=== PATIENT | male | born 1960 | race Caucasian/White ===

== ENCOUNTER 2016-12-17 11:42 | Day surgery (SDC) | payer MEDICARE, MEDICAID ==
[~2016-12-17 11:42] MED LIST: Lactated Ringers 1,000 ML IV SCH
[2016-12-17] MEDS ORDERED: Propofol 200 MG/20 ML SDV ONE ×3 (12:13→14:30)
[2016-12-17] MEDS ORDERED: fentaNYL 100 MCG/2 ML SDV ONE (12:13)
[2016-12-17 15:12] VITALS: BP 102/55
--- NOTE | 2016-12-17 18:48 | OR ---
DATE OF SURGERY: 12/17/2016. REFERRING PROVIDER: Sammie Luna DO. PRE-OPERATIVE DIAGNOSES: 1. History of colon cancer status post partial colectomy in Nov, 2011. The patient's last colonoscopy was with Dr. Sheriff in June 2014. No biopsies done and the colon was noted to be normal. 2. History of ulcerative colitis. The patient currently on mesalamine (Lialda) 2.4 mg daily without any chronic diarrhea or rectal bleeding. POST-OPERATIVE DIAGNOSES: 1. Moderate colitis left greater than right. The right colon, actually was fairly normal with gradually increasing colitis in the transverse and more so on the left colon especially the rectal and sigmoid areas. Cold biopsies were taken and into right colon biopsies, transverse colon, biopsies, and left colon biopsies. 2. Focal biopsy taken and from the rest at 20 cm. There is a small island of white mucosa noted. 3. Normal colonic anastomosis sites. PROCEDURE: Colonoscopy with random biopsies as well as focal biopsy at 20 cm. All using cold forceps. SURGEON: Lev Murphy M.D. ANESTHESIA: Monitored anesthesia care. BOWEL PREP: Good. DESCRIPTION OF OPERATION: Dieter is a 56-year-old male. The patient was brought to the endoscopy suite after discussing risks and benefits of the procedure. Informed consent was obtained for conscious sedation and colonoscopy with or without biopsy and/or polypectomy. We also discussed possibility of missed lesions. Pre-procedure exam was unremarkable. IV, oxygen, and monitors were placed. The patient was placed in the left lateral decubitus position. Sedation was administered and a digital rectal exam performed and unremarkable. Colonoscope was passed into the rectum and slowly advanced all the way to the cecum. Cecum was viewed and photographed. The colonoscope was slowly withdrawn. Mucosa closely observed in direct circumferential manner. The ascending colon was pretty much normal in appearance. Once I got distal to the proximal anastomosis site, colonic mucosa started to look mildly inflamed. This gradually progressed as we traversed distally. Random biopsies were taken and into right colon, transverse colon, and left colon. No colon polyps were noted. The sigmoid colon was remarkable for moderate colitis as opposed to more proximal areas that were mildly inflamed. Retroflexion was not performed given the moderate inflammation of the rectal mucosa. Separate biopsy site was done at 20 cm, where there was a small island of white appearing mucosa. This was sessile in nature. Scope was removed. The patient tolerated the procedure well. The patient was monitored until that baseline status. Discharge instructions were reviewed and the patient was discharged in good condition. COMPLICATIONS: None. TOTAL TIME: 18 minutes. ESTIMATED BLOOD LOSS: About 2 mL. RECOMMENDATIONS/FOLLOWUP: We will await results of Path report to determine ideal followup interval. Given the mild to moderate colitis noted, consider increasing the patient's dose of Lialda to 3 tabs daily for better control of this inflammation especially if having any intermittent symptoms. The patient is not on any blood thinners. We will avoid any aspirin for the next 5 days. I would like to kindly thank Sammie Luna for this referral. DMB: 12/17/2016 15:08:47 MODL: 12/17/2016 18:43:25 /[id number]
== END 2016-12-17 15:35 | disposition home or self-care (01) ==
LOC: VM.SDS 11:42
PROVIDERS: ATTEND Family Medicine
DX: Z85.038 Personal history of other malignant neoplasm of large intestine (principal); Z90.49 Acquired absence of other specified parts of digestive tract
CPT/HCPCS: 00810; 45380; J2704; J3010; J7120; 88305

== ENCOUNTER 2019-02-23 17:51 | Emergency (ER) | payer MEDICARE, MEDICAID ==
[2019-02-23 20:02] LABS: CHLORIDE,CL 97 mmol/L (98-107); SODIUM,NA 137 mmol/L (136-145)
[2019-02-23 20:03] LABS: ANION GAP 15.9 mmol/L (10-20)
--- NOTE | 2019-02-23 20:30 | EDM.PDOC ---
ED HPI GENERAL MEDICAL PROBLEM - General Chief Complaint: Skin Complaint Stated Complaint: RIGHT LEG PROBLEM Time Seen by Provider: 02/23/19 19:24 Source of Information: Reports: Patient History Limitations: Reports: No Limitations - History of Present Illness INITIAL COMMENTS - FREE TEXT/NARRATIVE: Patient presents with complaints of right lower extremity rash and pain. He is worried that he has a blood clot and would like to be checked. He states the rash started today. Has history of prior clot and is a dialysis patient. Denies chest pain, sob, abdominal pain. No nausea, vomiting, or extremity weakness. Onset: Gradual Duration: Getting Worse Location: Reports: Lower Extremity, Right Quality: Reports: Ache - Related Data Allergies Allergy/AdvReac Type Severity Reaction Status Date / Time No Known Allergies Allergy Verified 02/23/19 20:51 Home Meds: Home Meds Multivitamin [Multiple Vitamins] 1 tab PO DAILY 12/04/13 [History] Acetaminophen [Tylenol Extra Strength] 325 mg PO Q4H PRN 06/07/14 [History] Magnesium 200 mg PO TID 05/05/16 [History] Calcium Acetate [PhosLo] 1 cap PO TID 12/08/16 [History] Cholecalciferol (Vitamin D3) [Vitamin D3] 1,000 unit PO DAILY 12/08/16 [History] Midodrine 10 mg PO TID 12/08/16 [History] Potassium Chloride 20 meq PO BID 12/08/16 [History] Cyanocobalamin (Vitamin B-12) [Cyanocobalamin Injection] 1,000 mcg IM Q30D 12/14 [History] Cyanocobalamin/FA/Pyridoxine [Folbic Tablet] 1 tab PO DAILY 12/14/18 [History] Darbepoetin Chinmay in Polysorbat [Aranesp] 0 - 150 mcg SQ Q7D 12/14/18 [History] Doxercalciferol [Hectorol] 0 - 10 mcg IV Q7D 12/14/18 [History] Furosemide [Lasix] 40 mg PO BID 12/14/18 [History] Sevelamer Carbonate [Renvela] 800 mg PO TID 12/14/18 [History] Sodium Ferric Gluconate Cmplex [Ferrlecit IV] 0 - 125 mg IV Q7D 12/14/18 [ History] predniSONE [Prednisone] 5 mg PO DAILY 12/14/18 [History] Past Medical History Cardiovascular History: Reports: Blood Clots/VTE/DVT, Hypertension, Other (See Below) Other Cardiovascular History: Hypokalemia. hypotension. venous stasis. lymphedema Other Gastrointestinal History: ulcerative colitis. anal and rectal abscess. elevated LFTs Genitourinary History: Reports: Chronic Renal Insuffiency, Renal Disease, Other (See Below) Other Genitourinary History: End Stage Renal Disease Musculoskeletal History: Reports: Back Pain, Chronic, Gout, Other (See Below) Other Musculoskeletal History: osteomyelitis left foot and right foot Neurological History: Reports: Neuropathy, Peripheral Other Neuro History: degeneration of lumbar or lumbosacral intervetebral disc, congenital spinal stenosis of lumbar region Endocrine/Metabolic History: Reports: Hyperparathyroidism, Obesity/BMI 30+, Other (See Below) Other Endocrine/Metabolic History: pancytopenia. hyperglyceridemia. hypomagnesemia Hematologic History: Reports: Anemia, Other (See Below) Other Hematologic History: MRSA Oncologic (Cancer) History: Reports: Colon Dermatologic History: Reports: Cellulitis, Eczema Other Dermatologic History: contact dermatitis - Infectious Disease History Infectious Disease History: Reports: MRSA - Past Surgical History Head Surgeries/Procedures: Reports: Shunt GI Surgical History: Reports: Colonoscopy Other GI Surgeries/Procedures: PART OF COLON REMOVED BECAUSE OF COLON CANCER. SEE H/P Neurological Surgical History: Reports: None Musculoskeletal Surgical History: Reports: Amputation, Knee Replacement, Other ( See Below) Other Musculoskeletal Surgeries/Procedures:: fx toe Oncologic Surgical History: Reports: Other (See Below) Other Oncologic Surgeries/Procedures: Colon surgury Social & Family History - Family History Musculoskeletal: Reports: Arthritis, Gout Dermatologic: Reports: Psoriasis - Caffeine Use Caffeine Use: Reports: Coffee Caffeine Use Comment: 1 to 2 cups of coffee a day - Living Situation & Occupation Occupation: Employed ED ROS GENERAL - Review of Systems Review Of Systems: See Below Constitutional: Reports: No Symptoms HEENT: Reports: No Symptoms Respiratory: Reports: No Symptoms Cardiovascular: Reports: No Symptoms Endocrine: Reports: No Symptoms GI/Abdominal: Reports: No Symptoms : Reports: No Symptoms Musculoskeletal: Reports: Leg Pain Skin: Reports: Rash Neurological: Reports: No Symptoms Psychiatric: Reports: No Symptoms Hematologic/Lymphatic: Reports: No Symptoms Immunologic: Reports: No Symptoms - Physical Exam Exam: See Below Exam Limited By: No Limitations General Appearance: Alert, WD/WN, No Apparent Distress Ears: Normal TMs Head Exam: Atraumatic, Normocephalic Neck: Normal Inspection, Supple, Non-Tender, Full Range of Motion Respiratory/Chest: No Respiratory Distress, Lungs Clear, Normal Breath Sounds, No Accessory Muscle Use, Chest Non-Tender Cardiovascular: Normal Peripheral Pulses, Regular Rate, Rhythm, No Edema, No Gallop, No JVD, No Murmur, No Rub GI/Abdominal: Normal Bowel Sounds, Soft, Non-Tender, No Organomegaly, No Distention, No Abnormal Bruit, No Mass Neuro Exam (Abbreviated): Alert, Oriented, CN II-XII Intact, Normal Cognition, Normal Gait, Normal Reflexes, No Motor/Sensory Deficits Back Exam: Normal Inspection, Full Range of Motion, NT Extremities: Normal Inspection, Normal Range of Motion, Non-Tender, No Pedal Edema, Normal Capillary Refill Psychiatric: Normal Affect, Normal Mood Skin Exam: Warm, Dry, Intact, Wound/Incision (right lower calf has macular rash both to the lateral and medial sides. Not indicitive of normal DVT type swelling and redness. Looks to be some sort of dermatitis) Course - Vital Signs Last Recorded V/S: Last Vital Signs Temp 36.1 C 02/23/19 19:30 Pulse 66 02/23/19 19:30 Resp 16 02/23/19 19:30 BP 110/70 02/23/19 19:30 Pulse Ox 100 02/23/19 19:30 - Orders/Labs/Meds Labs: Laboratory Tests 02/23/19 02/23/19 02/23/19 Range/Units 19:35 19:35 19:35 WBC 4.9 (4.0-10.0) x10^3/uL RBC 4.17 L (4.5-6.0) x10^6/uL Hgb 12.3 L D (14.0-18.0) g/dL Hct 37.3 L (40.0-52.0) % MCV 89.4 D (78.0-93.0) fL MCH 29.5 (26.0-32.0) pg MCHC 33.0 (32.0-36.0) g/dL RDW Coeff of Maurice 13.8 (10.0-15.0) % Plt Count 126 L (130-400) x10^3/uL Neut % (Auto) 71.8 (50.0-80.0) % Lymph % (Auto) 13.2 L (25.0-50.0) % Ventura % (Auto) 14.6 H (2.0-11.0) % Eos % (Auto) 0.2 (0.0-4.0) % Baso % (Auto) 0.2 (0.2-1.2) % D-Dimer, Quantitative 0.72 H (<=0.58) mg/LFEU Sodium 137 (136-145) mmol/L Potassium 3.9 (3.5-5.1) mmol/L Chloride 97 L (98-107) mmol/L Carbon Dioxide 28 (21-32) mmol/L Anion Gap 15.9 (10-20) mmol/L BUN 59 H D (7-18) mg/dL Creatinine 4.0 H* D (0.70-1.30) mg/dL Est Cr Clr Drug Dosing TNP Estimated GFR (MDRD) 15 Glucose 90 (74-106) mg/dL Calcium 8.9 (8.5-10.1) mg/dL Corrected Calcium 8.82 (8.5-10.1) mg/dL Total Bilirubin 0.7 (0.2-1.0) mg/dL AST 19 (15-37) U/L ALT 25 (16-63) U/L Alkaline Phosphatase 120 H (46-116) U/L Total Protein 7.8 (6.4-8.2) g/dL Albumin 4.1 (3.4-5.0) g/dL Globulin 3.7 Albumin/Globulin Ratio 1.11 Departure - Departure Time of Disposition: 20:31 Disposition: DC/Tfer to [facility] 02 Condition: Good Clinical Impression: Contact dermatitis - Discharge Information *PRESCRIPTION DRUG MONITORING PROGRAM REVIEWED*: Not Applicable *COPY OF PRESCRIPTION DRUG MONITORING REPORT IN PATIENT VAUGHN: Not Applicable Referrals: Sammie Luna DO [Primary Care Provider] - Forms: ED Department Discharge, Interfacility Transfer EMTALA ED Communication - ED Communication Date/Time Date: 02/23/19 Time Called: 20:00 - Discussed Case With (1) Discussed Case With (1): Admitting Provider (Dr. Cook in the ER did receive report and aware he will be arriving in the hour.) - Problem List & Annotations (1) Contact dermatitis SNOMED Code(s): 39524985 Code(s): L25.9 - UNSPECIFIED CONTACT DERMATITIS, UNSPECIFIED CAUSE Status: Acute Priority: Low Qualifiers: Contact dermatitis type: unspecified Contact dermatitis trigger: unspecified trigger Qualified Code(s): L25.9 - Unspecified contact dermatitis , unspecified cause - Problem List Review Problem List Initiated/Reviewed/Updated: Yes - Assessment/Plan Assessment:: dermatitis, unspecified Plan: Patient would like further work up as his D-Dimer level was high. He will transport through personal vehicle to [place] for additional testing to rule out DVT
[2019-02-23 20:51] VITALS: BP 110/70; PULSE 66
== END 2019-02-23 21:00 | disposition short-term general hospital (02) ==
LOC: VM.ED 17:51
DX: L25.9 Unspecified contact dermatitis, unspecified cause (principal); I12.0 Hypertensive chronic kidney disease with stage 5 chronic kidney disease or end stage renal disease; N18.6 End stage renal disease; M19.90 Unspecified osteoarthritis, unspecified site; E66.9 Obesity, unspecified; Z68.32 Body mass index [BMI] 32.0-32.9, adult; Z86.2 Personal history of diseases of the blood and blood-forming organs and certain disorders involving the immune mechanism; Z79.899 Other long term (current) drug therapy
CPT/HCPCS: 36415; 80053; 85025; 85379; 99284; 99284-GF

== ENCOUNTER 2019-12-11 18:26 | Emergency (ER) | payer MEDICARE, MEDICAID ==
[2019-12-11 18:39] VITALS: BP 115/60; PULSE 80
[2019-12-11] MEDS ORDERED: Take Home: Cephalexin 500 MG Cap, 4 Cap Pack PO ONE (18:52)
--- NOTE | 2019-12-12 10:08 | EDM.PDOC ---
ED HPI GENERAL MEDICAL PROBLEM - General Chief Complaint: Lower Extremity Injury/Pain Stated Complaint: TOE Time Seen by Provider: 12/11/19 18:30 Source of Information: Reports: Patient History Limitations: Reports: No Limitations - History of Present Illness INITIAL COMMENTS - FREE TEXT/NARRATIVE: Pt. presents to ER with complaints of redness to 5th digit of R foot. He is on dialysis. He walks several miles per say and states that he thinks the post up shoe he has been wearing has been rubbing on the toe. He states that the area is being followed by podiatry , but he feels the redness has gotten worse. Denies any fever or chills. No sweats. Denies any chest pain or shortness of breath. Right Toe-Little Pain Score (Numeric/FACES): 6 - Related Data Allergies Allergy/AdvReac Type Severity Reaction Status Date / Time No Known Allergies Allergy Verified 12/11/19 18:42 Home Meds: Home Meds Multivitamin [Multiple Vitamins] 1 tab PO DAILY 12/04/13 [History] Acetaminophen [Tylenol Extra Strength] 325 mg PO Q4H PRN 06/07/14 [History] Magnesium 200 mg PO TID 05/05/16 [History] Calcium Acetate [PhosLo] 1 cap PO TID 12/08/16 [History] Cholecalciferol (Vitamin D3) [Vitamin D3] 1,000 unit PO DAILY 12/08/16 [History] Midodrine 10 mg PO TID 12/08/16 [History] Potassium Chloride 20 meq PO BID 12/08/16 [History] Cyanocobalamin (Vitamin B-12) [Cyanocobalamin Injection] 1,000 mcg IM Q30D 12/14 [History] Cyanocobalamin/FA/Pyridoxine [Folbic Tablet] 1 tab PO DAILY 12/14/18 [History] Darbepoetin Chinmay in Polysorbat [Aranesp] 0 - 150 mcg SQ Q7D 12/14/18 [History] Furosemide [Lasix] 40 mg PO BID 12/14/18 [History] Sevelamer Carbonate [Renvela] 800 mg PO TID 12/14/18 [History] Sodium Ferric Gluconate Cmplex [Ferrlecit IV] 0 - 125 mg IV Q7D 12/14/18 [ History] doxercalciferoL [Hectorol] 0 - 10 mcg IV Q7D 12/14/18 [History] predniSONE [Prednisone] 5 mg PO DAILY 12/14/18 [History] Past Medical History Cardiovascular History: Reports: Blood Clots/VTE/DVT, Hypertension, Other (See Below) Other Cardiovascular History: Hypokalemia. hypotension. venous stasis. lymphedema Other Gastrointestinal History: ulcerative colitis. anal and rectal abscess. elevated LFTs Genitourinary History: Reports: Chronic Renal Insuffiency, Dialysis, Renal Disease, Other (See Below) Other Genitourinary History: End Stage Renal Disease Musculoskeletal History: Reports: Back Pain, Chronic, Gout, Other (See Below) Other Musculoskeletal History: osteomyelitis left foot and right foot Neurological History: Reports: Neuropathy, Peripheral Other Neuro History: degeneration of lumbar or lumbosacral intervetebral disc, congenital spinal stenosis of lumbar region Endocrine/Metabolic History: Reports: Hyperparathyroidism, Obesity/BMI 30+, Other (See Below) Other Endocrine/Metabolic History: pancytopenia. hyperglyceridemia. hypomagnesemia Hematologic History: Reports: Anemia, Other (See Below) Other Hematologic History: MRSA Oncologic (Cancer) History: Reports: Colon Dermatologic History: Reports: Cellulitis, Eczema Other Dermatologic History: contact dermatitis - Infectious Disease History Infectious Disease History: Reports: MRSA - Past Surgical History Head Surgeries/Procedures: Reports: Shunt GI Surgical History: Reports: Colonoscopy Other GI Surgeries/Procedures: PART OF COLON REMOVED BECAUSE OF COLON CANCER. SEE H/P Musculoskeletal Surgical History: Reports: Amputation, Knee Replacement, Other ( See Below) Other Musculoskeletal Surgeries/Procedures:: fx toe Oncologic Surgical History: Reports: Other (See Below) Other Oncologic Surgeries/Procedures: Colon surgery Social & Family History - Family History Musculoskeletal: Reports: Arthritis, Gout Dermatologic: Reports: Psoriasis - Tobacco Use Smoking Status *Q: Current Status Unknown - Caffeine Use Caffeine Use: Reports: Coffee Caffeine Use Comment: 1 to 2 cups of coffee a day - Living Situation & Occupation Occupation: Employed ED ROS GENERAL - Review of Systems Review Of Systems: Comprehensive ROS is negative, except as noted in HPI. ED EXAM, GENERAL - Physical Exam Exam: See Below Extremities: Redness, Other (Erythema to 5th digit R foot. Redness extends into the fore-foot. No obvious abscess or open lesions noted. ) Course - Vital Signs Last Recorded V/S: Last Vital Signs Temp 36.8 C 12/11/19 18:30 Pulse 80 12/11/19 18:30 Resp 16 12/11/19 18:30 BP 115/60 12/11/19 18:30 Pulse Ox 99 12/11/19 18:30 - Orders/Labs/Meds Meds: Medications Discontinued Medications Generic Name Dose Route Start Last Admin Trade Name Rosendo PRN Reason Stop Dose Admin Cephalexin 1 packet 12/11/19 18:52 12/11/19 18:59 Take Home: Cephalexin 500 Mg, 4 Cap Pack PO 12/11/19 18:53 1 packet ONETIME ONE Administration Departure - Departure Time of Disposition: 19:30 Disposition: Home, Self-Care 01 Clinical Impression: Cellulitis - Discharge Information Instructions: Cellulitis, Adult, Cephalexin tablets or capsules, Probiotics Referrals: Sammie Luna, [Primary Care Provider] - Forms: ED Department Discharge Additional Instructions: Keflex 500mg 1 twice daily. Elevate foot above heart as much as possible Follow-up with podiatry within 10 days. You may need a different type of shoe to keep from rubbing on the toe. Sepsis Event Note (ED) - Evaluation Sepsis Screening Result: No Definite Risk - Assessment/Plan Plan: Keflex 500mg 1 twice daily. Elevate foot above heart as much as possible Follow-up with podiatry within 10 days. You may need a different type of shoe to keep from rubbing on the toe.
== END 2019-12-11 19:03 | disposition home or self-care (01) ==
LOC: VM.ED 18:26
DX: L03.115 Cellulitis of right lower limb (principal); N18.6 End stage renal disease; E66.9 Obesity, unspecified; Z99.2 Dependence on renal dialysis; G62.9 Polyneuropathy, unspecified
CPT/HCPCS: 99282; 99284-GF; A9270-GY

== ENCOUNTER 2020-01-11 10:44 | Day surgery (SDC) | payer MEDICARE, MEDICAID ==
[2020-01-11] MEDS ORDERED: Propofol 200 MG/20 ML SDV ONE ×2 (11:07→12:14)
[2020-01-11] MEDS ORDERED: fentaNYL 100 MCG/2 ML SDV ONE (11:08)
[2020-01-11] MEDS ORDERED: Sodium Chloride 0.9% 1,000 ML IV SCH (11:45)
[2020-01-11 13:25] VITALS: BP 104/54; PULSE 56
--- NOTE | 2020-01-11 15:32 | OR ---
DATE OF SURGERY: 01/11/2020 REFERRING PROVIDER: Sammie Luna DO PRE-OPERATIVE DIAGNOSES: 1. History of colon cancer back in 2006. Last colonoscopy was 12/2016. 2. History of inflammatory bowel disease. The patient has been told ulcerative colitis initially, but most recently was told Crohn's. He is not currently on any medications after previously being on Lialda. 3. Positive family history of colon cancer in maternal grandmother in her late 70s. 4. End-stage renal disease. The patient is on dialysis twice a week. POST-OPERATIVE DIAGNOSES: 1. Indistinct (not well-circumscribed) sessile polypoid mass covering about one quarter circumference of the colon lumen located at about 20 cm from the anal verge. This was mostly removed using hot snare and then several cold biopsies taken from the periphery using cold forceps. The area was marked with ink both proximally and distally, as I do not believe that this was completely removed. This is likely to require referral. 2. [id number] diffuse colitis, left greater than right. Random biopsies taken from right colon, transverse colon, descending colon, sigmoid colon, and rectal areas. PROCEDURE: Colonoscopy with polypectomy x1 and cold biopsies taken from 6 sites. SURGEON: Lev Murphy M.D. ANESTHESIA: Monitored anesthesia care. BOWEL PREP: Fair to good. Dieter is a 59-year-old male who was brought to the endoscopy suite after discussing risks and benefits of the procedure. Informed consent was obtained for conscious sedation and colonoscopy with or without biopsy and/or polypectomy. We also discussed possibility of missed lesions. Pre-procedure exam was unremarkable. IV, oxygen, and monitors were placed. The patient was placed in the left lateral decubitus position. Sedation was administered and a digital rectal exam was performed, which was unremarkable. Colonoscope was passed into the rectum and slowly advanced all the way to the cecum. The patient did have a large cecal vault. Cecum was viewed and photographed. The colonoscope was slowly withdrawn and mucosa was closely observed in direct circumferential manner. The patient did have diffuse colitis, which was mild in the right colon and transverse colon. The left colon and rectal areas had more moderate colitis seen. Random biopsies were taken separately from the right colon, transverse colon, descending colon, sigmoid colon, and rectal areas. The ascending colon was unremarkable. The transverse colon was unremarkable. The descending colon was unremarkable. The rectosigmoid junction at about 20 cm from the anal verge revealed an indistinct or not well-circumscribed sessile polypoid mass. This covered about a quarter circumference of the colon lumen. Hot snare was done, which removed the majority of the central portion of the polypoid mass. I also took several biopsies using cold forceps from the periphery of this area. Area was marked with ink both proximally and distally to the area in question. I am worried about area of dysplasia or early cancerous tissue. We will await path and consider referral for further management. Retroflexion was performed and rectal mucosa unremarkable, other than the proctitis present. Rectal proctitis was mild. Scope was removed. The patient tolerated the procedure well. The patient was monitored until that baseline status. Discharge instructions were reviewed and the patient was discharged in good condition. COMPLICATIONS: None. TOTAL TIME: 36 minutes. ESTIMATED BLOOD LOSS: 2 to 3 mL. RECOMMENDATIONS/FOLLOW-UP: We will await results of path report to determine next step in evaluation. I am suspicious that the rectosigmoid area has area of dysplasia or early cancerous tissue. We will consider referral to Gastroenterology and/or Colorectal Surgery given the patient's colitis in addition to the polypoid sessile mass. I do not believe that this was completely removed today, given the indistinct borders noted. I would like to kindly thank Sammie Luna for this referral. DMB: 01/11/2020 13:26:39 MODL: 01/11/2020 15:01:06 /[id number]
== END 2020-01-11 13:40 | disposition home or self-care (01) ==
LOC: VM.SDS 10:44
PROVIDERS: ATTEND Family Medicine
DX: Z12.11 Encounter for screening for malignant neoplasm of colon (principal); K52.9 Noninfective gastroenteritis and colitis, unspecified; D12.7 Benign neoplasm of rectosigmoid junction; K51.40 Inflammatory polyps of colon without complications; N17.9 Acute kidney failure, unspecified; I12.0 Hypertensive chronic kidney disease with stage 5 chronic kidney disease or end stage renal disease; K62.89 Other specified diseases of anus and rectum; N18.6 End stage renal disease; E66.01 Morbid (severe) obesity due to excess calories; E78.1 Pure hyperglyceridemia; D63.1 Anemia in chronic kidney disease; N25.81 Secondary hyperparathyroidism of renal origin; E11.42 Type 2 diabetes mellitus with diabetic polyneuropathy; Z11.59 Encounter for screening for other viral diseases; Z79.899 Other long term (current) drug therapy; Z86.010 Personal history of colon polyps; Z98.890 Other specified postprocedural states; Z87.19 Personal history of other diseases of the digestive system; Z80.0 Family history of malignant neoplasm of digestive organs
CPT/HCPCS: 00811; 88305; J2704; J3010; J7030; U0002

== ENCOUNTER 2020-02-18 22:03 | Emergency (ER) | payer MEDICARE, MEDICAID ==
[2020-02-18 23:57] VITALS: BP 130/92; PULSE 59
[2020-02-19 00:17] LABS: CHLORIDE,CL 101 mmol/L (98-107); SODIUM,NA 138 mmol/L (136-145)
[2020-02-19 00:18] LABS: ANION GAP 10.4 mmol/L (10-20)
--- NOTE | 2020-02-19 00:52 | EDM.PDOC ---
ED HPI GENERAL MEDICAL PROBLEM - General Chief Complaint: General Stated Complaint: SOB Time Seen by Provider: 02/18/20 23:30 Source of Information: Reports: Patient History Limitations: Reports: No Limitations - History of Present Illness INITIAL COMMENTS - FREE TEXT/NARRATIVE: This patient comes emergency department today with complaints of shortness of breath. Patient just recently discontinued dialysis about 5 weeks ago as he has had quite a bit of improvement of his kidney function on its own. Over the past couple of days he has been more short of breath than he typically has been. He did talk with his relationship assoc today and they are going to try to get him into dialysis tomorrow possibly. He did take an extra Lasix today for a total of 100 mg of Lasix throughout the day. He has had no pain in his chest. No weakness dizziness lightheadedness. No fever no chills. No syncope. No cough or congestion. No COVID exposure COVID concerns. He has had no abdominal pain nausea or vomiting. No fever no chills. He has been voiding normally. No hematuria dysuria or urinary frequency. And no diarrhea black or tarry stools. He does say that he has a little bit more swelling on his lower extremities. His right lower extremity is chronically larger than the left due to previous DVT in his leg. And his calves are nontender. - Related Data Allergies Allergy/AdvReac Type Severity Reaction Status Date / Time No Known Allergies Allergy Verified 02/19/20 00:12 Home Meds: Home Meds Acetaminophen [Tylenol Extra Strength] 325 mg PO Q4H PRN 06/07/14 [History] Midodrine 10 mg PO TID 12/08/16 [History] Potassium Chloride 20 meq PO BID 12/08/16 [History] Furosemide [Lasix] 40 mg PO BID 12/14/18 [History] Magnesium Oxide [Magnesium] 800 mg PO DAILY 01/01/20 [History] Docusate Sodium/Sennosides [Senokot-S] 1 each PO BID PRN 02/19/20 [History] predniSONE [Prednisone] 1 mg PO DAILY 02/19/20 [History] Past Medical History Cardiovascular History: Reports: Blood Clots/VTE/DVT, Hypertension, Other (See Below) Other Cardiovascular History: thorasic aortic aneurysm without rupture. venous stasis. lymphedema Gastrointestinal History: Reports: Other (See Below) Other Gastrointestinal History: ulcerative colitis. anal and rectal abscess. elevated LFTs Genitourinary History: Reports: Dialysis, Renal Disease, Other (See Below) Other Genitourinary History: End Stage Renal Disease. 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 hyperglyceridemia. hypomagnesemia. hypercalcemia. chronic gout Hematologic History: Reports: Anemia, Iron Deficiency Immunologic History: Reports: Other (See Below) Other Immunologic History: pancytopenia. splenomegaly Oncologic (Cancer) History: Reports: Colon Dermatologic History: Other Dermatologic History: contact dermatitis - Infectious Disease History Infectious Disease History: Reports: MRSA - Past Surgical History Head Surgeries/Procedures: Reports: Shunt Cardiovascular Surgical History: Reports: Other (See Below) Other Cardiovascular Surgeries/Procedures: left AV shunt fistual GI Surgical History: Reports: Colon, Colonoscopy Other GI Surgeries/Procedures: PART OF COLON REMOVED BECAUSE OF COLON CANCER. SEE H/P Neurological Surgical History: Reports: None Musculoskeletal Surgical History: Reports: Amputation, Knee Replacement, Other (See Below) Other Musculoskeletal Surgeries/Procedures:: rt and lt TKA. amputations: rt partial #2,#3 and #4 toe, lt #5 toe, lt partial #2,#3 and #4 toe, Social & Family History - Family History Musculoskeletal: Reports: Arthritis, Gout Dermatologic: Reports: Psoriasis - Tobacco Use Smoking Status *Q: Former Smoker Used Tobacco, but Quit: Yes Month/Year Tobacco Last Used: 2014 - Caffeine Use Caffeine Use: Reports: Coffee Caffeine Use Comment: 1 to 2 cups of coffee a day - Living Situation & Occupation Occupation: Employed ED ROS GENERAL - Review of Systems Review Of Systems: Comprehensive ROS is negative, except as noted in HPI. ED EXAM, GENERAL - Physical Exam Exam: See Below Exam Limited By: No Limitations General Appearance: Alert, WD/WN, No Apparent Distress Eye Exam: Bilateral Eye: EOMI, PERRL Ears: Normal External Exam Nose: Normal Inspection Throat/Mouth: Normal Inspection Head: Atraumatic, Normocephalic Neck: Normal Inspection Respiratory/Chest: No Respiratory Distress, Lungs Clear, Normal Breath Sounds, No Accessory Muscle Use, Chest Non-Tender Cardiovascular: Normal Peripheral Pulses, Regular Rate, Rhythm, Systolic Murmur Peripheral Pulses: 1+: Posterior Tibial (L), Posterior Tibial (R), Dorsalis Pedis (L), Dorsalis Pedis (R), 2+: Radial (L), Radial (R) GI/Abdominal: Normal Bowel Sounds, Soft, Non-Tender (Male) Exam: Deferred Rectal (Males) Exam: Deferred Back Exam: Normal Inspection Extremities: Pedal Edema (2+ edema to bilateral lower extremities. His right leg is quite a bit larger than the left but it is nontender and nonerythematous and rather unremarkable.) Neurological: Alert, Oriented, Normal Cognition, No Motor/Sensory Deficits Psychiatric: Normal Affect, Normal Mood Skin Exam: Warm, Dry, Intact, Normal Color, No Rash EKG INTERPRETATION EKG Date: 02/19/20 Time: 00:02 Rhythm: NSR Rate (Beats/Min): 53 [place]: Normal P-Wave: Present QRS: Normal ST-T: Normal QT: Normal Comparison: No Change Course - Vital Signs Last Recorded V/S: Last Vital Signs Temp 97.5 F 02/18/20 23:54 Pulse 59 L 02/18/20 23:54 Resp 18 02/18/20 23:54 BP 130/92 H 02/18/20 23:54 Pulse Ox 100 02/18/20 23:54 - Orders/Labs/Meds Orders: Active Orders 24 hr Category Date Time Status Chest 2V [CR] Urgent Exams 02/18/20 23:45 Taken Labs: Laboratory Tests 02/18/20 02/18/20 Range/Units 23:55 23:55 WBC 4.0 (4.0-10.0) x10^3/uL RBC 3.82 L (4.5-6.0) x10^6/uL Hgb 11.6 L (14.0-18.0) g/dL Hct 35.1 L (40.0-52.0) % MCV 91.9 (78.0-93.0) fL MCH 30.4 (26.0-32.0) pg MCHC 33.0 (32.0-36.0) g/dL RDW Coeff of Maurice 14.9 (10.0-15.0) % Plt Count 123 L (130-400) x10^3/uL Neut % (Auto) 69.3 (50.0-80.0) % Lymph % (Auto) 19.1 L (25.0-50.0) % [place] % (Auto) 10.9 (2.0-11.0) % Eos % (Auto) 0.2 (0.0-4.0) % Baso % (Auto) 0.5 (0.2-1.2) % Sodium 138 (136-145) mmol/L Potassium 3.4 L (3.5-5.1) mmol/L Chloride 101 (98-107) mmol/L Carbon Dioxide 30 (21-32) mmol/L Anion Gap 10.4 (10-20) mmol/L BUN 34 H D (7-18) mg/dL Creatinine 2.3 H D (0.70-1.30) mg/dL Est Cr Clr Drug Dosing TNP Estimated GFR (MDRD) 29 Glucose 91 (74-106) mg/dL Calcium 8.7 (8.5-10.1) mg/dL Corrected Calcium 8.78 (8.5-10.1) mg/dL Total Bilirubin 0.6 (0.2-1.0) mg/dL AST 30 (15-37) U/L ALT 37 (16-63) U/L Alkaline Phosphatase 108 (46-116) U/L Troponin I < 0.017 (<=0.056) ng/mL Total Protein 7.5 (6.4-8.2) g/dL Albumin 3.9 (3.4-5.0) g/dL Globulin 3.6 Albumin/Globulin Ratio 1.08 - Radiology Interpretation Free Text/Narrative:: Chest x-ray negative per radiology. - Re-Assessments/Exams Free Text/Narrative Re-Assessment/Exam: 02/19/20 01:43 During the patient's chart his kidney function has at about baseline. About 3 weeks ago was 2.2 today is 2.3. The rest of his laboratory evaluation is unremarkable and his hemoglobin is at baseline as well. His dry weight is 117 kg and today he is 123 kg. So he was up about 6 kg. Is currently in no distress his potassium is kind of chronically low at 3.4. I think the best course of action at this time will have him take an extra dose of Lasix and talk with his relationship assoc tomorrow which she has already planned on doing to get a run of dialysis. He is comfortable with this plan and his questions are answered. Departure - Departure Time of Disposition: 00:46 Disposition: Home, Self-Care 01 Clinical Impression: SOB (shortness of breath) CKD (chronic kidney disease) Qualifiers: Chronic kidney disease stage: unspecified stage Qualified Code(s): N18.9 - Chronic kidney disease, unspecified - Discharge Information Instructions: Chronic Kidney Disease, Adult, [id number] Referrals: Sammie Luna DO [Primary Care Provider] - Forms: ED Department Discharge Additional Instructions: Take an extra dose of lasix for a total of 60mg in the morning. Contact your relationship assoc tomorrow as planned. Return to the ED if new or worsening symptoms. Sepsis Event Note (ED) - Evaluation Sepsis Screening Result: No Definite Risk - Focused Exam Vital Signs: Vital Signs Temp Pulse Resp BP Pulse Ox 02/18/20 23:54 97.5 F 59 L 18 130/92 H 100 - My Orders Last 24 Hours: My Active Orders 02/18/20 23:45 Chest 2V [CR] Urgent - Assessment/Plan Last 24 Hours: My Active Orders 02/18/20 23:45 Chest 2V [CR] Urgent
--- NOTE | 2020-02-19 08:38 | CR ---
[id number] RAD/RAD Chest PA or AP 1V EXAM: FRONTAL CHEST INDICATION: Chest pain and shortness of breath. COMPARISON: May 28, 2016. DISCUSSION: The lungs are mildly hyperinflated with possible scarring in the right upper lobe. No definite acute infiltrates. Normal heart size. Interval removal of a right IJ approach dialysis catheter. IMPRESSION: 1. No acute findings. Max Billingsley MD 02/19/20 0837 Thank you for allowing us to participate in the care of your patient.
== END 2020-02-19 00:55 | disposition home or self-care (01) ==
LOC: VM.ED 22:03
DX: I12.0 Hypertensive chronic kidney disease with stage 5 chronic kidney disease or end stage renal disease (principal); N18.6 End stage renal disease; G62.9 Polyneuropathy, unspecified; E66.9 Obesity, unspecified; Z79.899 Other long term (current) drug therapy
CPT/HCPCS: 36415; 71046; 80053; 84484; 85025; 93005; 93010; 99284; 99285-25

== ENCOUNTER 2020-03-11 15:36 | Emergency (ER) | payer MEDICARE, MEDICAID ==
[2020-03-11 15:48] VITALS: BP 119/63; PULSE 95
--- NOTE | 2020-03-11 16:39 | EDM.PDOC ---
ED HPI GENERAL MEDICAL PROBLEM - General Chief Complaint: General Stated Complaint: SWELLING IN LEG AND ARM Time Seen by Provider: 03/11/20 15:50 Source of Information: Reports: Patient History Limitations: Reports: No Limitations - History of Present Illness INITIAL COMMENTS - FREE TEXT/NARRATIVE: Pt. presents to ER with complaints of swelling to his R upper extremity and R lo wer extremity, as well as pain to his R foot and R middle finger. He states that he has been experiencing these symptoms for approx. 5 days. Pt. does have a history of DVT but is not currently anticoagulated. Pt. previously was on dialysis but has been off of it for approx. 5-6 weeks due to improvement in his renal function. He states that he is not experiencing any chest pain or shortness of breath at this time. Pt. states that he thinks his R lower leg has increased in size, but in past examination of the patient, he is known to have increased R lower leg circumference. He has a history of peripheral neuropathy, and states that he"thinks his whole foot" hurts, but states that it is worse in the forefoot, particularly in the great toe area. 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 Denies lack of sensation to the extremity at this time. No problems with headache, speech troubles, or difficulty with ambulation. Onset Date: 03/07/20 Location: Reports: Upper Extremity, Left, Upper Extremity, Right Quality: Reports: Ache Right Pain Score (Numeric/FACES): 5 - Related Data Allergies Allergy/AdvReac Type Severity Reaction Status Date / Time No Known Allergies Allergy Verified 02/19/20 00:12 Home Meds: Home Meds Acetaminophen [Tylenol Extra Strength] 325 mg PO Q4H PRN 06/07/14 [History] Midodrine 10 mg PO TID 12/08/16 [History] Potassium Chloride 20 meq PO BID 12/08/16 [History] Furosemide [Lasix] 40 mg PO BID 12/14/18 [History] Magnesium Oxide [Magnesium] 800 mg PO DAILY 01/01/20 [History] Docusate Sodium/Sennosides [Senokot-S] 1 each PO BID PRN 02/19/20 [History] predniSONE [Prednisone] 1 mg PO DAILY 02/19/20 [History] Past Medical History Cardiovascular History: Reports: Blood Clots/VTE/DVT, Hypertension, Other (See Below) Other Cardiovascular History: thorasic aortic aneurysm without rupture. venous stasis. lymphedema Gastrointestinal History: Reports: Other (See Below) Other Gastrointestinal History: ulcerative colitis. anal and rectal abscess. elevated LFTs Genitourinary History: Reports: Dialysis, Renal Disease, Other (See Below) Other Genitourinary History: End Stage Renal Disease. 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 hyperglyceridemia. hypomagnesemia. hypercalcemia. chronic gout Hematologic History: Reports: Anemia, Iron Deficiency Immunologic History: Reports: Other (See Below) Other Immunologic History: pancytopenia. splenomegaly Oncologic (Cancer) History: Reports: Colon Dermatologic History: Other Dermatologic History: contact dermatitis - Infectious Disease History Infectious Disease History: Reports: MRSA - Past Surgical History Head Surgeries/Procedures: Reports: Shunt Cardiovascular Surgical History: Reports: Other (See Below) Other Cardiovascular Surgeries/Procedures: left AV shunt fistual GI Surgical History: Reports: Colon, Colonoscopy Other GI Surgeries/Procedures: PART OF COLON REMOVED BECAUSE OF COLON CANCER. SEE H/P Neurological Surgical History: Reports: None Musculoskeletal Surgical History: Reports: Amputation, Knee Replacement, Other (See Below) Other Musculoskeletal Surgeries/Procedures:: rt and lt TKA. amputations: rt partial #2,#3 and #4 toe, lt #5 toe, lt partial #2,#3 and #4 toe, Social & Family History - Family History Musculoskeletal: Reports: Arthritis, Gout Dermatologic: Reports: Psoriasis - Tobacco Use Smoking Status *Q: Never Smoker - Caffeine Use Caffeine Use: Reports: Coffee Caffeine Use Comment: 1 to 2 cups of coffee a day - Recreational Drug Use Recreational Drug Use: No - Living Situation & Occupation Occupation: Employed ED ROS GENERAL - Review of Systems Review Of Systems: See Below Constitutional: Reports: No Symptoms HEENT: Reports: No Symptoms Respiratory: Reports: No Symptoms Cardiovascular: Reports: No Symptoms Endocrine: Reports: No Symptoms GI/Abdominal: Reports: No Symptoms : Reports: No Symptoms Musculoskeletal: Reports: Leg Pain, Foot Pain, Joint Pain Skin: Reports: No Symptoms Neurological: Reports: No Symptoms Psychiatric: Reports: No Symptoms Hematologic/Lymphatic: Reports: No Symptoms Immunologic: Reports: No Symptoms ED EXAM, GENERAL - Physical Exam Exam: See Below Exam Limited By: No Limitations General Appearance: Alert, WD/WN, No Apparent Distress Head: Atraumatic, Normocephalic Neck: Normal Inspection, Supple, Non-Tender, Full Range of Motion Respiratory/Chest: No Respiratory Distress, Lungs Clear, Normal Breath Sounds, No Accessory Muscle Use, Chest Non-Tender Cardiovascular: Normal Peripheral Pulses, Regular Rate, Rhythm, No Edema, No Gallop, No JVD, No Murmur, No Rub Peripheral Pulses: 3+: Posterior Tibial (L), Posterior Tibial (R), 4+: Radial (L), Radial (R) Back Exam: Normal Inspection, Full Range of Motion Extremities: Other (Fingers of R hand mildly more edematous that right. The extremity is not dusky and has no pallor. Increased circumference to R lower extremity. Although this is chronic, pt. states that it is more edematous than normal. ). No: Andrey's Sign EKG INTERPRETATION Rhythm: NSR [place]: Normal P-Wave: Present QRS: Normal ST-T: Normal QT: Normal Course - Vital Signs Last Recorded V/S: Last Vital Signs Temp 36.2 C 03/11/20 15:47 Pulse 95 03/11/20 15:47 Resp 16 03/11/20 15:47 BP 119/63 03/11/20 15:47 Pulse Ox 98 03/11/20 15:47 - Orders/Labs/Meds Orders: Active Orders 24 hr Category Date Time Status EKG Documentation Completion [RC] STAT Care 03/11/20 16:00 Active Labs: Laboratory Tests 03/11/20 03/11/20 03/11/20 Range/Units 16:36 16:36 16:36 WBC 5.4 (4.0-10.0) x10^3/uL RBC 4.26 L (4.5-6.0) x10^6/uL Hgb 12.9 L (14.0-18.0) g/dL Hct 37.5 L (40.0-52.0) % MCV 88.0 D (78.0-93.0) fL MCH 30.3 (26.0-32.0) pg MCHC 34.4 (32.0-36.0) g/dL RDW Coeff of [place] 14.0 (10.0-15.0) % Plt Count 150 (130-400) x10^3/uL Neut % (Auto) 79.6 (50.0-80.0) % Lymph % (Auto) 10.6 L (25.0-50.0) % [place] % (Auto) 9.4 (2.0-11.0) % Eos % (Auto) 0.0 (0.0-4.0) % Baso % (Auto) 0.4 (0.2-1.2) % PT 9.7 (9.5-12.3) SEC INR 0.9 L (2.0-3.5) D-Dimer, Quantitative (<=0.58) mg/LFEU Sodium 139 (136-145) mmol/L Potassium 3.4 L (3.5-5.1) mmol/L Chloride 100 (98-107) mmol/L Carbon Dioxide 26 (21-32) mmol/L Anion Gap 16.4 (10-20) mmol/L BUN 38 H (7-18) mg/dL Creatinine 1.9 H (0.70-1.30) mg/dL Est Cr Clr Drug Dosing 51.39 mL/min Estimated GFR (MDRD) 36 Glucose 92 (74-106) mg/dL Uric Acid 9.7 H (3.5-7.2) mg/dL Calcium 8.2 L (8.5-10.1) mg/dL Corrected Calcium 8.36 L (8.5-10.1) mg/dL Total Bilirubin 0.7 (0.2-1.0) mg/dL AST 23 (15-37) U/L ALT 27 (16-63) U/L Alkaline Phosphatase 86 (46-116) U/L Troponin I < 0.017 (<=0.056) ng/mL Total Protein 7.6 (6.4-8.2) g/dL Albumin 3.8 (3.4-5.0) g/dL Globulin 3.8 Albumin/Globulin Ratio 1.00 03/11/20 Range/Units 16:36 WBC (4.0-10.0) x10^3/uL RBC (4.5-6.0) x10^6/uL Hgb (14.0-18.0) g/dL Hct (40.0-52.0) % MCV (78.0-93.0) fL MCH (26.0-32.0) pg MCHC (32.0-36.0) g/dL RDW Coeff of [place] (10.0-15.0) % Plt Count (130-400) x10^3/uL Neut % (Auto) (50.0-80.0) % Lymph % (Auto) (25.0-50.0) % [place] % (Auto) (2.0-11.0) % Eos % (Auto) (0.0-4.0) % Baso % (Auto) (0.2-1.2) % PT (9.5-12.3) SEC INR (2.0-3.5) D-Dimer, Quantitative 2.31 H (<=0.58) mg/LFEU Sodium (136-145) mmol/L Potassium (3.5-5.1) mmol/L Chloride (98-107) mmol/L Carbon Dioxide (21-32) mmol/L Anion Gap (10-20) mmol/L BUN (7-18) mg/dL Creatinine (0.70-1.30) mg/dL Est Cr Clr Drug Dosing mL/min Estimated GFR (MDRD) Glucose (74-106) mg/dL Uric Acid (3.5-7.2) mg/dL Calcium (8.5-10.1) mg/dL Corrected Calcium (8.5-10.1) mg/dL Total Bilirubin (0.2-1.0) mg/dL AST (15-37) U/L ALT (16-63) U/L Alkaline Phosphatase (46-116) U/L Troponin I (<=0.056) ng/mL Total Protein (6.4-8.2) g/dL Albumin (3.4-5.0) g/dL Globulin Albumin/Globulin Ratio Meds: Medications Discontinued Medications Generic Name Dose Route Start Last Admin Trade Name Freq PRN Reason Stop Dose Admin Apixaban 5 mg 03/11/20 18:35 03/11/20 19:01 Eliquis PO 03/11/20 18:36 5 mg ONETIME ONE Administration Apixaban 5 mg 03/11/20 18:55 03/11/20 19:01 Eliquis PO 03/11/20 18:56 5 mg ONETIME ONE Administration Prednisone 1 packet 03/11/20 18:40 03/11/20 19:02 Take Home: Prednisone 20 Mg, 2 Tab Pack PO 03/11/20 18:41 1 packet ONETIME ONE Administration Departure - Departure Time of Disposition: 19:06 Disposition: Home, Self-Care 01 Clinical Impression: Gout, DVT (deep venous thrombosis) - Discharge Information Instructions: Low-Purine Eating Plan, Uric Acid Nephropathy, Prednisone tablets, Apixaban oral tablets, Deep Vein Thrombosis Referrals: Sammie Luna, [Primary Care Provider] - Forms: ED Department Discharge Additional Instructions: Go to [facility] tomorrow morning. Be there by 9:30AM. They are trying to fit you in, because I am ordering an ultrasound of your arm and your leg. Eliquis 5mg once twice daily. I gave you enough for you morning dose, and will let you know the results of your ultrasounds and whether you need to be on this for longer. Your uric acid is elevated. The pain in your foot is likely secondary to that (gout) which is very common in patients with kidney problems. For this start prednisone 20mg once daily for 10 days Follow-up in clinic in 10-14 days for recheck. Sepsis Event Note (ED) - Evaluation Sepsis Screening Result: No Definite Risk - Focused Exam Vital Signs: Vital Signs Temp Pulse Resp BP Pulse Ox 03/11/20 15:47 36.2 C 95 16 119/63 98 - Problem List Review Problem List Initiated/Reviewed/Updated: Yes - My Orders Last 24 Hours: My Active Orders 03/11/20 16:00 EKG Documentation Completion [RC] STAT - Assessment/Plan Last 24 Hours: My Active Orders 03/11/20 16:00 EKG Documentation Completion [RC] STAT Plan: Pt. d dimer was positive, not surprising given his history. Pt. will be started on Eliquis 5mg twice daily and was set up for duplex US of R arm and R leg tomorrow AM at [facility] [place]. He was also treated for gout with prednisone 20mg once daily. Pt. was given one dose of eliquis in ER and was given a second dose to take tomorrow AM. I will let him know the results of the US tomorrow and whether or not he should start on the medication full-time. Advised not to use any NSAIDs, given his history of ESRD.
[2020-03-11 17:09] LABS: CHLORIDE,CL 100 mmol/L (98-107); SODIUM,NA 139 mmol/L (136-145)
[2020-03-11 17:10] LABS: ANION GAP 16.4 mmol/L (10-20)
[2020-03-11] MEDS ORDERED: Apixaban 2.5 MG Tab PO ONE ×2 (18:35→18:55)
[2020-03-11] MEDS ORDERED: Take Home: predniSONE 20 MG, 2 Tab Pack PO ONE (18:40)
== END 2020-03-11 19:06 | disposition home or self-care (01) ==
LOC: VM.ED 15:36
DX: I82.409 Acute embolism and thrombosis of unspecified deep veins of unspecified lower extremity (principal); M10.9 Gout, unspecified; E66.9 Obesity, unspecified; I12.0 Hypertensive chronic kidney disease with stage 5 chronic kidney disease or end stage renal disease; N18.6 End stage renal disease; Z68.32 Body mass index [BMI] 32.0-32.9, adult; Z79.899 Other long term (current) drug therapy
CPT/HCPCS: 36415; 80053; 84484; 84550; 85025; 85379; 85610; 93005; 93010; 99283; 99284; A9270; J7512

== ENCOUNTER 2020-04-25 18:42 | Emergency (ER) | payer MEDICARE, MEDICAID ==
[2020-04-25 19:05] VITALS: BP 135/66; PULSE 88
[2020-04-25] MEDS ORDERED: Sodium Chloride 0.9% 10 ML Syringe FLUSH PRN (19:06)
--- NOTE | 2020-04-25 19:13 | EDM.PDOC ---
ED HPI GENERAL MEDICAL PROBLEM - General Chief Complaint: Abdominal Pain Stated Complaint: PAIN IN LOWER R SIDE OF ABDOMEN Time Seen by Provider: 04/25/20 19:05 Source of Information: Reports: Patient History Limitations: Reports: No Limitations - History of Present Illness INITIAL COMMENTS - FREE TEXT/NARRATIVE: Patient comes into the emergency department with complaints of right lower quadrant abdominal discomfort. Patient states he had 5 episodes of severe intense cramping on the right lower quadrant. He caused him intermittent and pulsating at times. He states that he has been having multiple issues and medical concerns last month they ended up diagnosing him with a blood clot in his carotid that they have been working with. They also are doing a biopsy of that right kidney next week due to complications. Patient also states that he has only been off dialysis now for approximately 8 to 9 weeks since his kidneys began to self regulate. Patient states since stopping the dialysis he did feel fairly well for the most part. however since the blood clot that was found on 03/12/2020 he states that he has been slowly declining. Patient Denies chest pain, shortness of breath, fever, cough, congestion, shortness of breath, dizziness, blurred vision, genitourinary concerns, or peripheral edema. He does elicit that he does have discomfort and tenderness upon palpation to the right lower flank region.He states that if he sat still the discomfort and pain became more minimal and slowly went away. He states that if he was trying to move around with that it was causing more discomfort and pain. He did not take any medications prior to arrival he states that the pain had gone away on its own. He does not have any pain currently while in the emergency department. Onset: Gradual Duration: Intermittent Location: Reports: Abdomen Quality: Reports: Sharp, Throbbing Severity: Moderate Improves with: Reports: Immobilization Worsens with: Reports: Movement Context: Reports: Other Associated Symptoms: Reports: No Other Symptoms Right Lower Abdomen Pain Score (Numeric/FACES): 0 - Related Data Allergies Allergy/AdvReac Type Severity Reaction Status Date / Time No Known Allergies Allergy Verified 04/25/20 19:16 Home Meds: Home Meds Potassium Chloride 20 meq PO DAILY 12/08/16 [History] Furosemide [Lasix] 40 mg PO DAILY 12/14/18 [History] Magnesium Oxide [Magnesium] 800 mg PO DAILY 01/01/20 [History] Allopurinol [Zyloprim] 100 mg PO BEDTIME 04/25/20 [History] Apixaban [Eliquis] 5 mg PO BID 04/25/20 [History] Cholecalciferol (Vitamin D3) [Vitamin D3] 1,000 unit PO DAILY 04/25/20 [History] Cyanocobalamin (Vitamin B12) [Cyanocobalamin] 1,000 mcg IM Q30D 04/25/20 [History] Past Medical History Cardiovascular History: Reports: Blood Clots/VTE/DVT, Hypertension, Other (See Below) Other Cardiovascular History: thorasic aortic aneurysm without rupture. venous stasis. lymphedema Gastrointestinal History: Reports: Other (See Below) Other Gastrointestinal History: ulcerative colitis. anal and rectal abscess. elevated LFTs Genitourinary History: Reports: Dialysis, Renal Disease, Other (See Below) Other Genitourinary History: End Stage Renal Disease. 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 hyperglyceridemia. hypomagnesemia. hypercalcemia. chronic gout Hematologic History: Reports: Anemia, Iron Deficiency Immunologic History: Reports: Other (See Below) Other Immunologic History: pancytopenia. splenomegaly Oncologic (Cancer) History: Reports: Colon Dermatologic History: Other Dermatologic History: contact dermatitis - Infectious Disease History Infectious Disease History: Reports: MRSA - Past Surgical History Head Surgeries/Procedures: Reports: Shunt Cardiovascular Surgical History: Reports: Other (See Below) Other Cardiovascular Surgeries/Procedures: left AV shunt fistual GI Surgical History: Reports: Colon, Colonoscopy Other GI Surgeries/Procedures: PART OF COLON REMOVED BECAUSE OF COLON CANCER. SEE H/P Neurological Surgical History: Reports: None Musculoskeletal Surgical History: Reports: Amputation, Knee Replacement, Other (See Below) Other Musculoskeletal Surgeries/Procedures:: rt and lt TKA. amputations: rt partial #2,#3 and #4 toe, lt #5 toe, lt partial #2,#3 and #4 toe, Social & Family History - Family History Musculoskeletal: Reports: Arthritis, Gout Dermatologic: Reports: Psoriasis - Caffeine Use Caffeine Use: Reports: Coffee Caffeine Use Comment: 1 to 2 cups of coffee a day - Living Situation & Occupation Occupation: Employed ED ROS GENERAL - Review of Systems Review Of Systems: Comprehensive ROS is negative, except as noted in HPI. Constitutional: Reports: No Symptoms HEENT: Reports: No Symptoms Respiratory: Reports: No Symptoms Cardiovascular: Reports: No Symptoms Endocrine: Reports: No Symptoms : Reports: No Symptoms Musculoskeletal: Reports: No Symptoms Skin: Reports: No Symptoms Neurological: Reports: No Symptoms Psychiatric: Reports: No Symptoms ED EXAM, GENERAL - Physical Exam Exam: See Below Exam Limited By: No Limitations General Appearance: Alert, WD/WN, Moderate Distress Eye Exam: Bilateral Eye: EOMI, PERRL Head: Atraumatic, Normocephalic Neck: Normal Inspection, Supple, Non-Tender, Full Range of Motion Respiratory/Chest: No Respiratory Distress, Lungs Clear, Normal Breath Sounds, No Accessory Muscle Use, Chest Non-Tender Cardiovascular: Normal Peripheral Pulses, Regular Rate, Rhythm, No Edema GI/Abdominal: Normal Bowel Sounds, Other (right flank pain with palpation ) Back Exam: Normal Inspection, Full Range of Motion Extremities: Normal Inspection, Normal Range of Motion, Non-Tender, Normal Capillary Refill Neurological: Alert, Oriented, CN II-XII Intact, Normal Gait Psychiatric: Normal Affect, Normal Mood Skin Exam: Warm, Dry, Intact, Normal Color Course - Vital Signs Last Recorded V/S: Last Vital Signs Temp 36.8 C 04/25/20 18:57 Pulse 88 04/25/20 18:57 Resp 18 04/25/20 18:57 BP 135/66 04/25/20 18:57 Pulse Ox 100 04/25/20 18:57 - Orders/Labs/Meds Orders: Active Orders 24 hr Category Date Time Status Abdomen Pelvis wo Cont [CT] Stat Exams 04/25/20 19:07 Taken D Dimer [D-DIMER QUANTITATIVE] [COAG] Stat Lab 04/25/20 19:54 Ordered URIC ACID [CHEM] Stat Lab 04/25/20 19:54 Ordered Sodium Chloride 0.9% [Saline Flush] Med 04/25/20 19:06 Active 10 ml FLUSH ASDIRECTED PRN Peripheral IV Insertion Adult [OM.PC] Stat Oth 04/25/20 19:06 Ordered Medication Orders Sodium Chloride (Saline Flush) 10 ml FLUSH ASDIRECTED PRN PRN Reason: Keep Vein Open Labs: Laboratory Tests 04/25/20 04/25/20 04/25/20 Range/Units 19:17 19:22 19:22 WBC 7.2 (4.0-10.0) x10^3/uL RBC 3.87 L (4.5-6.0) x10^6/uL Hgb 11.8 L (14.0-18.0) g/dL Hct 36.1 L (40.0-52.0) % MCV 93.3 H D (78.0-93.0) fL MCH 30.5 (26.0-32.0) pg MCHC 32.7 (32.0-36.0) g/dL RDW Coeff of Maurice 14.2 (10.0-15.0) % Plt Count 116 L (130-400) x10^3/uL Neut % (Auto) 82.6 H (50.0-80.0) % Lymph % (Auto) 7.4 L (25.0-50.0) % Hunt % (Auto) 9.6 (2.0-11.0) % Eos % (Auto) 0.1 (0.0-4.0) % Baso % (Auto) 0.3 (0.2-1.2) % PT (9.5-12.3) SEC INR (2.0-3.5) Sodium 138 (136-145) mmol/L Potassium 3.7 (3.5-5.1) mmol/L Chloride 99 (98-107) mmol/L Carbon Dioxide 33 H (21-32) mmol/L Anion Gap 9.7 L (10-20) mmol/L BUN 31 H (7-18) mg/dL Creatinine 2.5 H (0.70-1.30) mg/dL Est Cr Clr Drug Dosing 39.06 mL/min Estimated GFR (MDRD) 27 Glucose 120 H (74-106) mg/dL Calcium 8.8 (8.5-10.1) mg/dL Corrected Calcium 9.12 (8.5-10.1) mg/dL Total Bilirubin 0.6 (0.2-1.0) mg/dL AST 17 (15-37) U/L ALT 22 (16-63) U/L Alkaline Phosphatase 81 (46-116) U/L Total Protein 7.4 (6.4-8.2) g/dL Albumin 3.6 (3.4-5.0) g/dL Globulin 3.8 Albumin/Globulin Ratio 0.95 Urine Color Yellow (YELLOW) Urine Appearance Clear (CLEAR) Urine pH 7.0 (5.0-8.0) Ur Specific [place] 1.020 Urine Protein 30 H (NEGATIVE) mg/dL Urine Glucose (UA) Negative (NEGATIVE) mg/dL Urine Ketones Negative (NEGATIVE) mg/dL Urine Occult Blood Moderate H (NEGATIVE) Urine Nitrite Negative (NEGATIVE) Urine Bilirubin Negative (NEGATIVE) Urine Urobilinogen 0.2 (0.2) EU/dL Ur Leukocyte Esterase Negative (NEGATIVE) U Hyaline Cast (Auto) Rare Urine RBC 0-5 (NOT SEEN) /HPF Urine WBC Not seen (NOT SEEN) /HPF Ur Squamous Epith Cells Not seen (NEGATIVE) /HPF Urine Bacteria Not seen (NEGATIVE) /HPF Urine Mucus Not seen (NEGATIVE) /LPF 04/25/ Range/Units 19:22 WBC (4.0-10.0) x10^3/uL RBC (4.5-6.0) x10^6/uL Hgb (14.0-18.0) g/dL Hct (40.0-52.0) % MCV (78.0-93.0) fL MCH (26.0-32.0) pg MCHC (32.0-36.0) g/dL RDW Coeff of Maurice (10.0-15.0) % Plt Count (130-400) x10^3/uL Neut % (Auto) (50.0-80.0) % Lymph % (Auto) (25.0-50.0) % Hunt % (Auto) (2.0-11.0) % Eos % (Auto) (0.0-4.0) % Baso % (Auto) (0.2-1.2) % PT 10.2 (9.5-12.3) SEC INR 0.9 L (2.0-3.5) Sodium (136-145) mmol/L Potassium (3.5-5.1) mmol/L Chloride (98-107) mmol/L Carbon Dioxide (21-32) mmol/L Anion Gap (10-20) mmol/L BUN (7-18) mg/dL Creatinine (0.70-1.30) mg/dL Est Cr Clr Drug Dosing mL/min Estimated GFR (MDRD) Glucose (74-106) mg/dL Calcium (8.5-10.1) mg/dL Corrected Calcium (8.5-10.1) mg/dL Total Bilirubin (0.2-1.0) mg/dL AST (15-37) U/L ALT (16-63) U/L Alkaline Phosphatase (46-116) U/L Total Protein (6.4-8.2) g/dL Albumin (3.4-5.0) g/dL Globulin Albumin/Globulin Ratio Urine Color (YELLOW) Urine Appearance (CLEAR) Urine pH (5.0-8.0) Ur Specific [place] Urine Protein (NEGATIVE) mg/dL Urine Glucose (UA) (NEGATIVE) mg/dL Urine Ketones (NEGATIVE) mg/dL Urine Occult Blood (NEGATIVE) Urine Nitrite (NEGATIVE) Urine Bilirubin (NEGATIVE) Urine Urobilinogen (0.2) EU/dL Ur Leukocyte Esterase (NEGATIVE) U Hyaline Cast (Auto) Urine RBC (NOT SEEN) /HPF Urine WBC (NOT SEEN) /HPF Ur Squamous Epith Cells (NEGATIVE) /HPF Urine Bacteria (NEGATIVE) /HPF Urine Mucus (NEGATIVE) /LPF Meds: Medications Generic Name Dose Route Start Last Admin Trade Name Freq PRN Reason Stop Dose Admin Sodium Chloride 10 ml 04/25/20 19:06 Saline Flush FLUSH ASDIRECTED PRN Keep Vein Open Departure - Departure Time of Disposition: 20:15 Disposition: Home, Self-Care 01 Condition: Good Clinical Impression: Ileus - Discharge Information *PRESCRIPTION DRUG MONITORING PROGRAM REVIEWED*: Not Applicable *COPY OF PRESCRIPTION DRUG MONITORING REPORT IN PATIENT VAUGHN: Not Applicable Instructions: Ileus Referrals: Sammie Luna, [Primary Care Provider] - Forms: ED Department Discharge Additional Instructions: 1. rest 2. increase your water intake and limit your Dt. Mountain Dew intake 3. Continue all at home medications 4. Activity and diet as tolerated 5. Can take over the counter Tylenol for any pain or discomfort 6. Follow up with PCP or return to the ER if symptoms continue, return, or progress 7. Call with any questions or concerns 8. Follow up with Dr. Landers in the clinic tomorrow for close follow up. Call in the am to the clinic to make an appointment to be seen. Sepsis Event Note (ED) - Evaluation Sepsis Screening Result: No Definite Risk - Focused Exam Vital Signs: Vital Signs Temp Pulse Resp BP Pulse Ox 04/25/20 18:57 36.8 C 88 18 135/66 100 - My Orders Last 24 Hours: My Active Orders 04/25/20 19:06 Sodium Chloride 0.9% [Saline Flush] 10 ml FLUSH ASDIRECTED PRN Peripheral IV Insertion Adult [OM.PC] Stat 04/25/20 19:07 Abdomen Pelvis wo Cont [CT] Stat 04/25/20 19:54 D Dimer [D-DIMER QUANTITATIVE] [COAG] Stat URIC ACID [CHEM] Stat - Assessment/Plan Last 24 Hours: My Active Orders 04/25/20 19:06 Sodium Chloride 0.9% [Saline Flush] 10 ml FLUSH ASDIRECTED PRN Peripheral IV Insertion Adult [OM.PC] Stat 04/25/20 19:07 Abdomen Pelvis wo Cont [CT] Stat 04/25/20 19:54 D Dimer [D-DIMER QUANTITATIVE] [COAG] Stat URIC ACID [CHEM] Stat Assessment:: 1. abdominal/flank pain 2. elevated creatinine 3. ileus without obstruction Plan: 1. Labs completed in the ER. Results reviewed with the patient 2. CT scan completed in the ER. Results reviewed with the patient 3. IV initiated in the emergency department 4. UA/UC obtained in the ER. 5. Pain medication given for severe pain and discomfort-pt denies needing anything at the present time. 6. Consultation completed with Dr. Landers who agrees the patient can be discharged home and follow up in the clinic tomorrow with her services. 7. Patient and nursing staff was updated regarding the plan of care 8. Patient and family are agreeable to the above plan of care 9. All questions and concerns were addressed with the patient and family prior to discharge
[2020-04-25 19:47] LABS: ANION GAP 9.7 mmol/L (10-20)
--- NOTE | 2020-04-25 19:57 | CT ---
[id number] CT/CT Abdomen Pelvis WO IV EXAM: CT Abdomen Pelvis WO IV CLINICAL DATA: FLANK PAIN COMPARISON STUDY: None. FINDINGS: Lung bases are clear. Liver, gallbladder, pancreas, adrenal glands, and kidneys are unremarkable. No renal calculi identified. No hydronephrosis or hydroureter. The spleen is enlarged measuring up to 16 cm. There are multiple prominent loops of small bowel which are borderline enlarged measuring up to 2.5 cm. No transition point is identified. There is gas and stool within the colon. There is colonic interposition within the right upper quadrant. The appendix is not well-visualized however there are no secondary signs of acute appendicitis. No lymphadenopathy, free fluid, or pneumoperitoneum. Scattered changes of spondylosis the spine. No fracture or osseous lesion. IMPRESSION: 1. No obstructing stones identified within the urinary tract. 2. Multiple prominent loops of small bowel without evidence of obstruction. Findings are consistent with ileus at this time. Rosalino Rashid DO 04/25/[id number] Thank you for allowing us to participate in the care of your patient.
== END 2020-04-25 20:20 | disposition home or self-care (01) ==
LOC: VM.ED 18:42
DX: K56.7 Ileus, unspecified (principal); M10.9 Gout, unspecified; E66.9 Obesity, unspecified; I12.0 Hypertensive chronic kidney disease with stage 5 chronic kidney disease or end stage renal disease; N18.6 End stage renal disease; G62.9 Polyneuropathy, unspecified; Z79.01 Long term (current) use of anticoagulants; Z79.899 Other long term (current) drug therapy; Z86.718 Personal history of other venous thrombosis and embolism
CPT/HCPCS: 36415; 74176; 80053; 81001; 84550; 85025; 85379; 85610; 99284; 99284-25

== ENCOUNTER 2020-05-20 10:50 | Emergency (ER) | payer MEDICARE, MEDICAID ==
[2020-05-20] MEDS ORDERED: Sodium Chloride 0.9% 1,000 ML IV ONE (11:06)
--- NOTE | 2020-05-20 11:14 | EDM.PDOC ---
ED HPI GENERAL MEDICAL PROBLEM - General Stated Complaint: ER Time Seen by Provider: 05/20/20 10:55 Source of Information: Reports: Patient History Limitations: Reports: No Limitations - History of Present Illness INITIAL COMMENTS - FREE TEXT/NARRATIVE: Pt. was sent to ER from clinic. Pt. presented to clinic this AM with a several day history of sharp, substernal chest pain. Pt. was found to be hypotensive in clinic (BP was in the 70s systolic) and pt. was sent to ER for evaluation. Pt. states that the discomfort is constant. Denies any radiation into the jaw, arms, neck or back. Denies any cough or chest congestion. No fever or chills. Pt. denies any increase in diaphoresis, and states that he is often diaphoretic at home. Pt. complains of chronic diarrhea, not worse than normal. Denies any ab dominal pain, nausea, or vomiting. He states that he has been dieting and recently lost 10 pounds. Onset: Today Onset Date: 05/20/20 Location: Reports: Chest, Generalized Associated Symptoms: Reports: Malaise Middle Chest Pain Score (Numeric/FACES): 5 - Related Data Allergies Allergy/AdvReac Type Severity Reaction Status Date / Time No Known Allergies Allergy Verified 05/20/20 11:21 Home Meds: Home Meds Potassium Chloride 20 meq PO DAILY 12/08/16 [History] Furosemide [Lasix] 40 mg PO DAILY 12/14/18 [History] Magnesium Oxide [Magnesium] 800 mg PO DAILY 01/01/20 [History] Allopurinol [Zyloprim] 100 mg PO BEDTIME 04/25/20 [History] Apixaban [Eliquis] 5 mg PO BID 04/25/20 [History] Cholecalciferol (Vitamin D3) [Vitamin D3] 1,000 unit PO DAILY 04/25/20 [History] Cyanocobalamin (Vitamin B12) [Cyanocobalamin] 1,000 mcg IM Q30D 04/25/20 [History] Past Medical History Cardiovascular History: Reports: Blood Clots/VTE/DVT, Hypertension, Other (See Below) Other Cardiovascular History: thorasic aortic aneurysm without rupture. venous stasis. lymphedema Gastrointestinal History: Reports: Other (See Below) Other Gastrointestinal History: ulcerative colitis. anal and rectal abscess. elevated LFTs Genitourinary History: Reports: Dialysis, Renal Disease, Other (See Below) Other Genitourinary History: End Stage Renal Disease. 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 hyperglyceridemia. hypomagnesemia. hypercalcemia. chronic gout Hematologic History: Reports: Anemia, Iron Deficiency Immunologic History: Reports: Other (See Below) Other Immunologic History: pancytopenia. splenomegaly Oncologic (Cancer) History: Reports: Colon Dermatologic History: Other Dermatologic History: contact dermatitis - Infectious Disease History Infectious Disease History: Reports: MRSA - Past Surgical History Head Surgeries/Procedures: Reports: Shunt Cardiovascular Surgical History: Reports: Other (See Below) Other Cardiovascular Surgeries/Procedures: left AV shunt fistual GI Surgical History: Reports: Colon, Colonoscopy Other GI Surgeries/Procedures: PART OF COLON REMOVED BECAUSE OF COLON CANCER. SEE H/P Neurological Surgical History: Reports: None Musculoskeletal Surgical History: Reports: Amputation, Knee Replacement, Other (See Below) Other Musculoskeletal Surgeries/Procedures:: rt and lt TKA. amputations: rt partial #2,#3 and #4 toe, lt #5 toe, lt partial #2,#3 and #4 toe, Social & Family History - Family History Family Medical History: No Pertinent Family History Musculoskeletal: Reports: Arthritis, Gout Dermatologic: Reports: Psoriasis - Caffeine Use Caffeine Use: Reports: Coffee Caffeine Use Comment: 1 to 2 cups of coffee a day - Living Situation & Occupation Occupation: Employed ED ROS GENERAL - Review of Systems Review Of Systems: See Below Constitutional: Reports: Malaise, Fatigue HEENT: Reports: No Symptoms Respiratory: Reports: No Symptoms Cardiovascular: Reports: Chest Pain, Blood Pressure Problem. Denies: Dyspnea on Exertion, Edema, Lightheadedness, Palpitations, PND Endocrine: Reports: No Symptoms GI/Abdominal: Reports: No Symptoms : Reports: No Symptoms Musculoskeletal: Reports: No Symptoms Skin: Reports: No Symptoms Neurological: Reports: No Symptoms Psychiatric: Reports: No Symptoms Hematologic/Lymphatic: Reports: No Symptoms Immunologic: Reports: No Symptoms ED EXAM, GENERAL - Physical Exam Exam: See Below Exam Limited By: No Limitations General Appearance: Alert, WD/WN, No Apparent Distress Nose: Normal Inspection, Normal Mucosa Throat/Mouth: Normal Inspection, Normal Lips, Normal Teeth, Normal Oropharynx, No Airway Compromise Head: Atraumatic, Normocephalic Neck: Normal Inspection, Supple, Non-Tender, Full Range of Motion Respiratory/Chest: No Respiratory Distress, Lungs Clear, Normal Breath Sounds, No Accessory Muscle Use, Chest Non-Tender Cardiovascular: Normal Peripheral Pulses, Regular Rate, Rhythm, No Edema, No JVD Peripheral Pulses: 4+: Radial (L) GI/Abdominal: Soft, Non-Tender, No Distention, No Mass (Male) Exam: Deferred Rectal (Males) Exam: Deferred Back Exam: Normal Inspection, Full Range of Motion Extremities: Normal Inspection, Normal Range of Motion, Non-Tender, No Pedal Edema, Normal Capillary Refill Neurological: Alert, Oriented, CN II-XII Intact, Normal Cognition, Normal Gait, Normal Reflexes, No Motor/Sensory Deficits Psychiatric: Normal Affect, Normal Mood Skin Exam: Warm, Dry, Intact, Normal Color, No Rash Lymphatic: No Adenopathy Course - Vital Signs Last Recorded V/S: Last Vital Signs Temp 36.7 C 05/20/20 13:36 Pulse 50 L 05/20/20 13:36 Resp 14 05/20/20 13:36 BP 123/69 05/20/20 13:36 Pulse Ox 100 05/20/20 13:36 - Orders/Labs/Meds Orders: Active Orders 24 hr Category Date Time Status CULTURE BLOOD [BC] Stat Lab 05/20/20 11:03 Received CULTURE BLOOD [BC] Stat Lab 05/20/20 11:33 Received Blood Culture x2 Reflex Set [OM.PC] Stat Oth 05/20/20 11:02 Ordered Labs: Laboratory Tests 05/20/20 05/20/20 05/20/20 Range/Units 11:03 11:03 11:03 WBC 2.8 L (4.0-10.0) x10^3/uL RBC 4.29 L (4.5-6.0) x10^6/uL Hgb 12.7 L (14.0-18.0) g/dL Hct 38.5 L (40.0-52.0) % MCV 89.7 D (78.0-93.0) fL MCH 29.6 (26.0-32.0) pg MCHC 33.0 (32.0-36.0) g/dL RDW Coeff of Maurice 14.2 (10.0-15.0) % Plt Count 113 L (130-400) x10^3/uL Neut % (Auto) 63.8 (50.0-80.0) % Lymph % (Auto) 21.6 L (25.0-50.0) % Karnes % (Auto) 13.5 H (2.0-11.0) % Eos % (Auto) 0.4 (0.0-4.0) % Baso % (Auto) 0.7 (0.2-1.2) % PT 10.4 (9.5-12.3) SEC INR 1.0 L (2.0-3.5) APTT (25.6-32.8) SEC Sodium 139 (136-145) mmol/L Potassium 3.1 L (3.5-5.1) mmol/L Chloride 101 (98-107) mmol/L Carbon Dioxide 29 (21-32) mmol/L Anion Gap 12.1 (10-20) mmol/L BUN 38 H (7-18) mg/dL Creatinine 2.4 H (0.70-1.30) mg/dL Est Cr Clr Drug Dosing TNP Estimated GFR (MDRD) 28 Glucose 94 (74-106) mg/dL Lactic Acid (0.4-2.0) mmol/L Calcium 8.9 (8.5-10.1) mg/dL Corrected Calcium 9.30 (8.5-10.1) mg/dL Total Bilirubin 0.6 (0.2-1.0) mg/dL AST 14 L (15-37) U/L ALT 16 (16-63) U/L Alkaline Phosphatase 68 (46-116) U/L Troponin I < 0.017 (<=0.056) ng/mL C-Reactive Protein 1.0 H (<=0.9) mg/dL Total Protein 7.0 (6.4-8.2) g/dL Albumin 3.5 (3.4-5.0) g/dL Globulin 3.5 Albumin/Globulin Ratio 1.00 SARS CoV-2 RNA Rapid ANNA MARIE (NEGATIVE) 05/20/20 05/20/20 05/20/20 Range/Units 11:03 11:03 11:07 WBC (4.0-10.0) x10^3/uL RBC (4.5-6.0) x10^6/uL Hgb (14.0-18.0) g/dL Hct (40.0-52.0) % MCV (78.0-93.0) fL MCH (26.0-32.0) pg MCHC (32.0-36.0) g/dL RDW Coeff of Maurice (10.0-15.0) % Plt Count (130-400) x10^3/uL Neut % (Auto) (50.0-80.0) % Lymph % (Auto) (25.0-50.0) % Karnes % (Auto) (2.0-11.0) % Eos % (Auto) (0.0-4.0) % Baso % (Auto) (0.2-1.2) % PT (9.5-12.3) SEC INR (2.0-3.5) APTT 36.1 H (25.6-32.8) SEC Sodium (136-145) mmol/L Potassium (3.5-5.1) mmol/L Chloride (98-107) mmol/L Carbon Dioxide (21-32) mmol/L Anion Gap (10-20) mmol/L BUN (7-18) mg/dL Creatinine (0.70-1.30) mg/dL Est Cr Clr Drug Dosing Estimated GFR (MDRD) Glucose (74-106) mg/dL Lactic Acid 1.0 (0.4-2.0) mmol/L Calcium (8.5-10.1) mg/dL Corrected Calcium (8.5-10.1) mg/dL Total Bilirubin (0.2-1.0) mg/dL AST (15-37) U/L ALT (16-63) U/L Alkaline Phosphatase (46-116) U/L Troponin I (<=0.056) ng/mL C-Reactive Protein (<=0.9) mg/dL Total Protein (6.4-8.2) g/dL Albumin (3.4-5.0) g/dL Globulin Albumin/Globulin Ratio SARS CoV-2 RNA Rapid ANNA MARIE Negative (NEGATIVE) Meds: Medications Discontinued Medications Generic Name Dose Route Start Last Admin Trade Name Rosendo PRN Reason Stop Dose Admin Sodium Chloride 1,000 mls @ 500 mls/hr 05/20/20 11:06 05/20/20 12:00 Normal Saline IV 05/20/20 13:05 500 mls/hr .BOLUS ONE Administration Iopamidol 100 ml 05/20/20 11:32 05/20/20 12:06 Isovue-300 (61%) IVPUSH 05/20/20 11:33 100 ml ONETIME ONE Administration Iopamidol 100 ml 05/20/20 12:04 Isovue-300 (61%) IVPUSH 05/20/20 12:05 ONETIME ONE Departure - Departure Time of Disposition: 15:30 Disposition: Home, Self-Care 01 Clinical Impression: Atypical chest pain, Dehydration - Discharge Information Instructions: Dehydration, Adult, [id number], Nonspecific Chest Pain, Adult, [id number] Referrals: Sammie Luna DO [Primary Care Provider] - Forms: ED Department Discharge Additional Instructions: Home to rest. Increase intake of fluids. Recheck in clinic in 7-10 days, sooner if increased chest pain, shortness of breath, or other worrisome signs/symptoms. - Problem List Review Problem List Initiated/Reviewed/Updated: Yes - My Orders Last 24 Hours: My Active Orders 05/20/20 11:02 Blood Culture x2 Reflex Set [OM.PC] Stat 05/20/20 11:03 CULTURE BLOOD [BC] Stat 05/20/20 11:33 CULTURE BLOOD [BC] Stat - Assessment/Plan Last 24 Hours: My Active Orders 05/20/20 11:02 Blood Culture x2 Reflex Set [OM.PC] Stat 05/20/20 11:03 CULTURE BLOOD [BC] Stat 05/20/20 11:33 CULTURE BLOOD [BC] Stat Plan: Home to rest. Increase intake of fluids. Recheck in clinic in 7-10 days, sooner if increased chest pain, shortness of breath, or other worrisome signs/symptoms.
[2020-05-20] MEDS ORDERED: Iopamidol 612 MG/ML 100 ML Bottle IVPUSH ONE ×2 (11:32→12:04)
[2020-05-20 11:43] LABS: ANION GAP 12.1 mmol/L (10-20); CHLORIDE,CL 101 mmol/L (98-107); SODIUM,NA 139 mmol/L (136-145)
--- NOTE | 2020-05-20 12:33 | CT ---
[id number] CT/CTA Chest EXAM: CT ANGIOGRAM CHEST INDICATION: History of abdominal aortic aneurysm with chest pain. COMPARISON: None. DISCUSSION: The pulmonary arteries are normal in appearance with no emboli identified. The thoracic aorta is normal in caliber without aneurysm, dissection, stenosis or other acute findings. Mild linear scarring or atelectasis in the lung apices. Mild bronchial wall thickening in the lung apices suggests underlying bronchitis..No pleural or pericardial effusion. Normal heart size. No mediastinal, hilar or axillary lymphadenopathy. Mild splenomegaly. IMPRESSION: 1. No thoracic aortic aneurysm, dissection or other acute findings. 2. Bronchitis. Max Billingsley MD 05/20/20 [id number] Thank you for allowing us to participate in the care of your patient.
[2020-05-20 13:45] VITALS: BP 123/69; PULSE 50
== END 2020-05-20 14:05 | disposition home or self-care (01) ==
LOC: VM.ED 10:50
DX: R07.89 Other chest pain (principal); E86.0 Dehydration; I12.0 Hypertensive chronic kidney disease with stage 5 chronic kidney disease or end stage renal disease; N18.6 End stage renal disease; D63.1 Anemia in chronic kidney disease; E66.9 Obesity, unspecified; Z20.828 Contact with and (suspected) exposure to other viral communicable diseases; Z79.899 Other long term (current) drug therapy
CPT/HCPCS: 36415; 71275; 80053; 83605; 84484; 85025; 85610; 85730; 86140; 87040; 93005; 99284; 99285; J7030; Q9967; U0002

== ENCOUNTER 2020-06-14 20:45 | Emergency (ER) | payer MEDICARE, MEDICAID ==
[2020-06-14 21:05] VITALS: BP 141/75; PULSE 90
--- NOTE | 2020-06-14 21:31 | EDM.PDOC ---
ED HPI GENERAL MEDICAL PROBLEM - General Chief Complaint: Abdominal Pain Stated Complaint: STOMACH PAIN Time Seen by Provider: 06/14/20 20:54 Source of Information: Reports: Patient - History of Present Illness INITIAL COMMENTS - FREE TEXT/NARRATIVE: Chip is a 59 y/o male who comes to the ER with RLQ discomfort and also right flank discomfort. He rates the pain 3/10, but denies need for pain meds at this time. Reports the pain started last night. No vomiting. He has not taken anything. He does have daily diarrhea and his stools have been the same as always.l He is just worried that something might be going on. Right Upper Abdominal Pain Score (Numeric/FACES): 3 - Related Data Allergies Allergy/AdvReac Type Severity Reaction Status Date / Time No Known Allergies Allergy Verified 05/20/20 11:21 Home Meds: Home Meds Potassium Chloride 20 meq PO DAILY 12/08/16 [History] Furosemide [Lasix] 40 mg PO DAILY 12/14/18 [History] Magnesium Oxide [Magnesium] 800 mg PO DAILY 01/01/20 [History] Allopurinol [Zyloprim] 100 mg PO BEDTIME 04/25/20 [History] Apixaban [Eliquis] 5 mg PO BID 04/25/20 [History] Cholecalciferol (Vitamin D3) [Vitamin D3] 1,000 unit PO DAILY 04/25/20 [History] Cyanocobalamin (Vitamin B12) [Cyanocobalamin] 1,000 mcg IM Q30D 04/25/20 [History] Past Medical History Cardiovascular History: Reports: Blood Clots/VTE/DVT, Hypertension, Other (See Below) Other Cardiovascular History: thorasic aortic aneurysm without rupture. venous stasis. lymphedema Gastrointestinal History: Reports: Other (See Below) Other Gastrointestinal History: ulcerative colitis. anal and rectal abscess. elevated LFTs Genitourinary History: Reports: Dialysis, Renal Disease, Other (See Below) Other Genitourinary History: End Stage Renal Disease. 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 hyperglyceridemia. hypomagnesemia. hypercalcemia. chronic gout Hematologic History: Reports: Anemia, Iron Deficiency Immunologic History: Reports: Other (See Below) Other Immunologic History: pancytopenia. splenomegaly Oncologic (Cancer) History: Reports: Colon Dermatologic History: Other Dermatologic History: contact dermatitis - Infectious Disease History Infectious Disease History: Reports: MRSA - Past Surgical History Head Surgeries/Procedures: Reports: Shunt Cardiovascular Surgical History: Reports: Other (See Below) Other Cardiovascular Surgeries/Procedures: left AV shunt fistual GI Surgical History: Reports: Colon, Colonoscopy Other GI Surgeries/Procedures: PART OF COLON REMOVED BECAUSE OF COLON CANCER. SEE H/P Neurological Surgical History: Reports: None Musculoskeletal Surgical History: Reports: Amputation, Knee Replacement, Other (See Below) Other Musculoskeletal Surgeries/Procedures:: rt and lt TKA. amputations: rt partial #2,#3 and #4 toe, lt #5 toe, lt partial #2,#3 and #4 toe, Social & Family History - Family History Family Medical History: No Pertinent Family History Musculoskeletal: Reports: Arthritis, Gout Dermatologic: Reports: Psoriasis - Tobacco Use Tobacco Use Status *Q: Light Tobacco User Years of Tobacco use: 20 Packs/Tins Daily: 0.2 - Caffeine Use Caffeine Use: Reports: Coffee Caffeine Use Comment: 1 to 2 cups of coffee a day - Recreational Drug Use Recreational Drug Use: No - Living Situation & Occupation Occupation: Employed Review of Systems - Review of Systems Review Of Systems: See Below Constitutional: Reports: No Symptoms Eyes: Reports: No Symptoms Ears: Reports: No Symptoms Nose: Reports: No Symptoms Mouth/Throat: Reports: No Symptoms Respiratory: Reports: No Symptoms Cardiovascular: Reports: No Symptoms GI/Abdominal: Reports: Abdominal Pain (RLQ), Diarrhea (chronic) Genitourinary: Reports: No Symptoms Musculoskeletal: Reports: No Symptoms Skin: Reports: No Symptoms Neurological: Reports: No Symptoms Psychiatric: Reports: No Symptoms ED EXAM, GENERAL - Physical Exam Exam: See Below Exam Limited By: No Limitations General Appearance: Alert, WD/WN, No Apparent Distress (Adult male) Eye Exam: Bilateral Eye: PERRL Ears: Normal External Exam, Hearing Grossly Normal Nose: Normal Inspection, Normal Mucosa Throat/Mouth: Normal Inspection, Normal Lips, Normal Teeth, Normal Voice, No Airway Compromise Head: Atraumatic, Normocephalic Neck: Normal Inspection, Supple Respiratory/Chest: No Respiratory Distress, Lungs Clear, Chest Non-Tender Cardiovascular: Normal Peripheral Pulses, Regular Rate, Rhythm GI/Abdominal: Normal Bowel Sounds, Soft (very mild tenderness in RLQ with deep palpation), No Organomegaly, No Distention, No Mass (Male) Exam: Deferred Rectal (Males) Exam: Deferred Back Exam: CVA Tenderness (R) (mild) Extremities: Pedal Edema (bilateral lower legs) Neurological: Alert, Oriented, CN II-XII Intact, Normal Cognition Psychiatric: Normal Affect, Normal Mood Skin Exam: Warm, Dry, Intact, Normal Color Lymphatic: No Adenopathy Course - Vital Signs Text/Narrative:: 2053 The patient was seen by the AIR QUAL[facility] SPECIALIST. Labs ordered. No meds given at this time. 2154 CBC and UA reviewed. CBC neg. Note intact blood in the Urine, will order a CT Abd/Pelvis Wo to rule out renal calculi. 2254 Note CMP results, SUCCESS COACH=3.4, was previously 2.4 about a month ago. CT reviewed and no stone noted. Patient comfortable at this time. Will have him follow up on Wednesday with Dr Sammie Luna for further recheck. He is on agreement. Instructions given and he left the ER in stable condition. Last Recorded V/S: Last Vital Signs Temp 35.7 C L 06/14/20 20:58 Pulse 90 06/14/20 20:58 Resp 16 06/14/20 20:58 BP 141/75 H 06/14/20 20:58 Pulse Ox 95 06/14/20 20:58 - Orders/Labs/Meds Orders: Active Orders 24 hr Category Date Time Status Abdomen Pelvis wo Cont [CT] Stat Exams 06/14/20 21:56 Taken CULTURE URINE [RM] Stat Lab 06/14/20 21:33 Received Labs: Laboratory Tests 06/14/20 06/14/20 06/14/20 Range/Units 21:20 21:30 21:30 WBC 6.7 (4.0-10.0) x10^3/uL RBC 4.30 L (4.5-6.0) x10^6/uL Hgb 12.7 L (14.0-18.0) g/dL Hct 37.9 L (40.0-52.0) % MCV 88.1 (78.0-93.0) fL MCH 29.5 (26.0-32.0) pg MCHC 33.5 (32.0-36.0) g/dL RDW Coeff of Maurice 13.9 (10.0-15.0) % Plt Count 147 (130-400) x10^3/uL Neut % (Auto) 80.3 H (50.0-80.0) % Lymph % (Auto) 10.7 L (25.0-50.0) % Emmet % (Auto) 8.8 (2.0-11.0) % Eos % (Auto) 0.1 (0.0-4.0) % Baso % (Auto) 0.1 L (0.2-1.2) % Sodium 134 L (136-145) mmol/L Potassium 3.8 (3.5-5.1) mmol/L Chloride 95 L (98-107) mmol/L Carbon Dioxide 33 H (21-32) mmol/L Anion Gap 9.8 L (10-20) mmol/L BUN 45 H (7-18) mg/dL Creatinine 3.4 H* (0.70-1.30) mg/dL Est Cr Clr Drug Dosing 28.72 mL/min Estimated GFR (MDRD) 19 Glucose 119 H (74-106) mg/dL Calcium 9.1 (8.5-10.1) mg/dL Corrected Calcium 9.34 (8.5-10.1) mg/dL Total Bilirubin 0.6 (0.2-1.0) mg/dL AST 21 (15-37) U/L ALT 27 (16-63) U/L Alkaline Phosphatase 89 (46-116) U/L Total Protein 7.6 (6.4-8.2) g/dL Albumin 3.7 (3.4-5.0) g/dL Globulin 3.9 Albumin/Globulin Ratio 0.95 Urine Color (YELLOW) Urine Appearance (CLEAR) Urine pH (5.0-8.0) Ur Specific [place] Urine Protein (NEGATIVE) mg/dL Urine Glucose (UA) (NEGATIVE) mg/dL Urine Ketones (NEGATIVE) mg/dL Urine Occult Blood (NEGATIVE) Urine Nitrite (NEGATIVE) Urine Bilirubin (NEGATIVE) Urine Urobilinogen (0.2) EU/dL Ur Leukocyte Esterase (NEGATIVE) U Hyaline Cast (Auto) Urine RBC (NOT SEEN) /HPF Urine WBC (NOT SEEN) /HPF Ur Squamous Epith Cells (NEGATIVE) /HPF Urine Bacteria (NEGATIVE) /HPF Urine Mucus (NEGATIVE) /LPF SARS CoV-2 RNA Rapid ANNA MARIE Negative (NEGATIVE) 06/14/20 Range/Units 21:33 WBC (4.0-10.0) x10^3/uL RBC (4.5-6.0) x10^6/uL Hgb (14.0-18.0) g/dL Hct (40.0-52.0) % MCV (78.0-93.0) fL MCH (26.0-32.0) pg MCHC (32.0-36.0) g/dL RDW Coeff of Maurice (10.0-15.0) % Plt Count (130-400) x10^3/uL Neut % (Auto) (50.0-80.0) % Lymph % (Auto) (25.0-50.0) % Emmet % (Auto) (2.0-11.0) % Eos % (Auto) (0.0-4.0) % Baso % (Auto) (0.2-1.2) % Sodium (136-145) mmol/L Potassium (3.5-5.1) mmol/L Chloride (98-107) mmol/L Carbon Dioxide (21-32) mmol/L Anion Gap (10-20) mmol/L BUN (7-18) mg/dL Creatinine (0.70-1.30) mg/dL Est Cr Clr Drug Dosing mL/min Estimated GFR (MDRD) Glucose (74-106) mg/dL Calcium (8.5-10.1) mg/dL Corrected Calcium (8.5-10.1) mg/dL Total Bilirubin (0.2-1.0) mg/dL AST (15-37) U/L ALT (16-63) U/L Alkaline Phosphatase (46-116) U/L Total Protein (6.4-8.2) g/dL Albumin (3.4-5.0) g/dL Globulin Albumin/Globulin Ratio Urine Color Yellow (YELLOW) Urine Appearance Clear (CLEAR) Urine pH 5.5 (5.0-8.0) Ur Specific [place] 1.020 Urine Protein 30 H (NEGATIVE) mg/dL Urine Glucose (UA) Negative (NEGATIVE) mg/dL Urine Ketones Negative (NEGATIVE) mg/dL Urine Occult Blood Moderate H (NEGATIVE) Urine Nitrite Negative (NEGATIVE) Urine Bilirubin Small H (NEGATIVE) Urine Urobilinogen 0.2 (0.2) EU/dL Ur Leukocyte Esterase Trace H (NEGATIVE) U Hyaline Cast (Auto) Moderate Urine RBC 5-10 H (NOT SEEN) /HPF Urine WBC 5-10 H (NOT SEEN) /HPF Ur Squamous Epith Cells Moderate H (NEGATIVE) /HPF Urine Bacteria Rare (NEGATIVE) /HPF Urine Mucus Not seen (NEGATIVE) /LPF SARS CoV-2 RNA Rapid ANNA MARIE (NEGATIVE) - Radiology Interpretation Free Text/Narrative:: CT Abd/Pelvis WO-Stone Protocol=no stones noted (See final report) Departure - Departure Time of Disposition: 22:59 Disposition: Home, Self-Care 01 Condition: Good Clinical Impression: CKD (chronic kidney disease) Qualifiers: Chronic kidney disease stage: unspecified stage Qualified Code(s): N18.9 - Chronic kidney disease, unspecified - Discharge Information Instructions: Chronic Kidney Disease, Adult Referrals: Sammie Luna DO [Primary Care Provider] - Forms: ED Department Discharge Sepsis Event Note (ED) - Evaluation Sepsis Screening Result: No Definite Risk - Focused Exam Vital Signs: Vital Signs Temp Pulse Resp BP Pulse Ox 06/14/20 20:58 35.7 C L 90 16 141/75 H 95 - My Orders Last 24 Hours: My Active Orders 06/14/20 21:33 CULTURE URINE [RM] Stat 06/14/20 21:56 Abdomen Pelvis wo Cont [CT] Stat - Assessment/Plan Last 24 Hours: My Active Orders 06/14/20 21:33 CULTURE URINE [RM] Stat 06/14/20 21:56 Abdomen Pelvis wo Cont [CT] Stat Assessment:: 1)Chronic Kidney Disease Plan: -Follow up with Dr Sammie Luna on Wednesday for increased creatinine level -Previous animal therapist was 2.4 in May 2020 and tonight it was 3.4. -Watch for other symptoms or concerns and return as needed to ER
[2020-06-14 22:02] LABS: ANION GAP 9.8 mmol/L (10-20)
--- NOTE | 2020-06-15 11:12 | CT ---
[id number] CT/CT Abdomen Pelvis WO IV EXAM: ABDOMEN AND PELVIS CT WITHOUT CONTRAST INDICATION: Signs and symptoms of right renal calculus. COMPARISON: April 25, 2020. DISCUSSION: No renal/ureteral calculus or hydronephrosis on either side. Stable 7 mm exophytic slightly hyperdense right renal lesion, favor hemorrhagic cyst. Stable mild splenomegaly. Evidence of prior sigmoid colon resection. Scattered diverticula of the colon without evidence of diverticulitis. Unenhanced images of the liver, pancreas, adrenal glands, and small bowel are unremarkable. No evidence of appendicitis. Grade 2 L5-S1 spondylolisthesis relating to pars defects. Degenerative changes throughout the spine. IMPRESSION: 1. No renal/ureteral calculus or hydronephrosis. Max Billingsley MD 06/15/20 1111 Thank you for allowing us to participate in the care of your patient.
== END 2020-06-14 23:10 | disposition home or self-care (01) ==
LOC: VM.ED 20:45
DX: I12.0 Hypertensive chronic kidney disease with stage 5 chronic kidney disease or end stage renal disease (principal); N18.6 End stage renal disease; G62.9 Polyneuropathy, unspecified; E66.9 Obesity, unspecified; F17.210 Nicotine dependence, cigarettes, uncomplicated; M10.9 Gout, unspecified; Z68.33 Body mass index [BMI] 33.0-33.9, adult; Z20.828 Contact with and (suspected) exposure to other viral communicable diseases; Z79.01 Long term (current) use of anticoagulants; Z79.899 Other long term (current) drug therapy; Z99.2 Dependence on renal dialysis; Z86.718 Personal history of other venous thrombosis and embolism
CPT/HCPCS: 36415; 74176; 80053; 81001; 85025; 87086; 99284; U0002

== ENCOUNTER 2020-06-29 13:41 | Emergency (ER) | payer MEDICARE, MEDICAID ==
[2020-06-29] MEDS ORDERED: Sodium Chloride 0.9% 10 ML Syringe FLUSH PRN (14:11)
[2020-06-29] MEDS: Sodium Chloride 0.9% 1,000 ML IV SCH (14:17)
[2020-06-29] MEDS: Ondansetron 4 MG/2 ML SDV IVPUSH ONE (14:18)
[2020-06-29] MEDS: LORazepam 2 MG/ML SDV IVPUSH ONE (14:21)
--- NOTE | 2020-06-29 14:24 | EDM.PDOC ---
ED HPI GENERAL MEDICAL PROBLEM - General Chief Complaint: General Stated Complaint: ER Time Seen by Provider: 06/29/20 13:50 Source of Information: Reports: Patient History Limitations: Reports: No Limitations - History of Present Illness INITIAL COMMENTS - FREE TEXT/NARRATIVE: Pt. presents to ER with complaints of severe vertigo, nausea, and vomiting. He states that he was at the gym walking on the track when the symptoms abruptly started. He states that he made it about 6 laps, normally walks for 20. Pt. states that the symptoms started very rapidly. He states that the whole room was spinning which caused him to be nauseated and vomited. Pt. denies any chest pain, shortness of breath, lightheadedness, problems with speech, shortness of breath, cough, chest congestion. Onset: Today Location: Reports: Head Associated Symptoms: Reports: Nausea/Vomiting - Related Data Allergies Allergy/AdvReac Type Severity Reaction Status Date / Time No Known Allergies Allergy Verified 06/29/20 14:15 Home Meds: Home Meds Potassium Chloride 20 meq PO DAILY 12/08/16 [History] Furosemide [Lasix] 40 mg PO DAILY 12/14/18 [History] Magnesium Oxide [Magnesium] 800 mg PO DAILY 01/01/20 [History] Allopurinol [Zyloprim] 100 mg PO BEDTIME 04/25/20 [History] Apixaban [Eliquis] 5 mg PO BID 04/25/20 [History] Cholecalciferol (Vitamin D3) [Vitamin D3] 1,000 unit PO DAILY 04/25/20 [History] Cyanocobalamin (Vitamin B12) [Cyanocobalamin] 1,000 mcg IM Q30D 04/25/20 [History] Past Medical History Cardiovascular History: Reports: Blood Clots/VTE/DVT, Hypertension, Other (See Below) Other Cardiovascular History: thorasic aortic aneurysm without rupture. venous stasis. lymphedema Gastrointestinal History: Reports: Other (See Below) Other Gastrointestinal History: ulcerative colitis. anal and rectal abscess. elevated LFTs Genitourinary History: Reports: Dialysis, Renal Disease, Other (See Below) Other Genitourinary History: End Stage Renal Disease. 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 hyperglyceridemia. hypomagnesemia. hypercalcemia. chronic gout Hematologic History: Reports: Anemia, Iron Deficiency Immunologic History: Reports: Other (See Below) Other Immunologic History: pancytopenia. splenomegaly Oncologic (Cancer) History: Reports: Colon Dermatologic History: Other Dermatologic History: contact dermatitis - Infectious Disease History Infectious Disease History: Reports: MRSA - Past Surgical History Head Surgeries/Procedures: Reports: Shunt Cardiovascular Surgical History: Reports: Other (See Below) Other Cardiovascular Surgeries/Procedures: left AV shunt fistual GI Surgical History: Reports: Colon, Colonoscopy Other GI Surgeries/Procedures: PART OF COLON REMOVED BECAUSE OF COLON CANCER. SEE H/P Neurological Surgical History: Reports: None Musculoskeletal Surgical History: Reports: Amputation, Knee Replacement, Other (See Below) Other Musculoskeletal Surgeries/Procedures:: rt and lt TKA. amputations: rt partial #2,#3 and #4 toe, lt #5 toe, lt partial #2,#3 and #4 toe, Social & Family History - Family History Family Medical History: No Pertinent Family History Musculoskeletal: Reports: Arthritis, Gout Dermatologic: Reports: Psoriasis - Caffeine Use Caffeine Use: Reports: Coffee Caffeine Use Comment: 1 to 2 cups of coffee a day - Living Situation & Occupation Occupation: Employed ED ROS GENERAL - Review of Systems Review Of Systems: See Below Constitutional: Reports: No Symptoms HEENT: Reports: No Symptoms Respiratory: Reports: No Symptoms Cardiovascular: Reports: No Symptoms Endocrine: Reports: No Symptoms GI/Abdominal: Reports: Nausea, Vomiting : Reports: No Symptoms Musculoskeletal: Reports: No Symptoms Skin: Reports: No Symptoms Neurological: Reports: Dizziness, Difficulty Walking (diffculty walking due to vertigo). Denies: Confusion, Headache, Numbness, Paresthesia, Pre-Existing Deficit, Seizure, Syncope, Tingling, Tremors, Trouble Speaking, Weakness, Change in Speech, Gait Disturbance Psychiatric: Reports: No Symptoms Hematologic/Lymphatic: Reports: No Symptoms Immunologic: Reports: No Symptoms ED EXAM, GENERAL - Physical Exam Exam: See Below Exam Limited By: No Limitations General Appearance: Alert, WD/WN, No Apparent Distress Eye Exam: Bilateral Eye: EOMI, Normal Fundi, Normal Inspection, Papilledema (L beating horizontal nystagmus), PERRL Ears: Other (both TMs obstructed with cerumen) Ear Exam: Bilateral Ear: Auricle Normal, Canal Normal Nose: Normal Inspection, Normal Mucosa, No Blood Throat/Mouth: Normal Inspection, Normal Lips, Normal Teeth, Normal Oropharynx, Normal Voice, No Airway Compromise Head: Atraumatic, Normocephalic Neck: Normal Inspection, Supple, Non-Tender, Full Range of Motion Respiratory/Chest: No Respiratory Distress, Lungs Clear, Normal Breath Sounds, No Accessory Muscle Use, Chest Non-Tender Cardiovascular: Normal Peripheral Pulses, Regular Rate, Rhythm, No Edema, No JVD, No Murmur, No Rub Peripheral Pulses: 4+: Radial (L) GI/Abdominal: Soft, Non-Tender, No Distention, No Mass (Male) Exam: Deferred Rectal (Males) Exam: Deferred Back Exam: Normal Inspection, Full Range of Motion Extremities: Normal Inspection, Normal Range of Motion, Non-Tender, No Pedal Edema, Normal Capillary Refill Neurological: Alert, Oriented, CN II-XII Intact, Normal Cognition, Normal Reflexes, No Motor/Sensory Deficits, Abnormal Gait (unsteady when standing . Symptoms improve when he is not moving his head/when the lights are off. ) Psychiatric: Normal Affect, Normal Mood Skin Exam: Warm, Dry, Intact, Normal Color, No Rash Lymphatic: No Adenopathy Course - Vital Signs Last Recorded V/S: Last Vital Signs Temp 37.1 C 06/29/20 16:50 Pulse 59 L 06/29/20 16:50 Resp 12 06/29/20 16:50 BP 121/62 06/29/20 16:50 Pulse Ox 100 06/29/20 16:50 - Orders/Labs/Meds Orders: Active Orders 24 hr Category Date Time Status Peripheral IV Insertion Adult [OM.PC] Routine Oth 06/29/20 14:12 Ordered Labs: Laboratory Tests 06/29/20 06/29/20 06/29/20 Range/Units 13:54 13:54 13:54 WBC 4.8 (4.0-10.0) x10^3/uL RBC 3.73 L (4.5-6.0) x10^6/uL Hgb 11.0 L D (14.0-18.0) g/dL Hct 34.1 L (40.0-52.0) % MCV 91.4 D (78.0-93.0) fL MCH 29.5 (26.0-32.0) pg MCHC 32.3 (32.0-36.0) g/dL RDW Coeff of Maurice 15.4 H (10.0-15.0) % Plt Count 149 (130-400) x10^3/uL Neut % (Auto) 68.5 (50.0-80.0) % Lymph % (Auto) 18.6 L (25.0-50.0) % Cabell % (Auto) 12.1 H (2.0-11.0) % Eos % (Auto) 0.2 (0.0-4.0) % Baso % (Auto) 0.6 (0.2-1.2) % PT 9.9 (9.5-12.3) SEC INR 0.9 L (2.0-3.5) APTT (25.6-32.8) SEC Sodium 141 (136-145) mmol/L Potassium 3.7 (3.5-5.1) mmol/L Chloride 109 H D (98-107) mmol/L Carbon Dioxide 18 L D (21-32) mmol/L Anion Gap 17.7 (10-20) mmol/L BUN 37 H (7-18) mg/dL Creatinine 2.1 H D (0.70-1.30) mg/dL Est Cr Clr Drug Dosing TNP Estimated GFR (MDRD) 32 Glucose 132 H (74-106) mg/dL Calcium 8.6 (8.5-10.1) mg/dL Corrected Calcium 9.16 (8.5-10.1) mg/dL Magnesium 1.8 (1.8-2.4) mg/dL Total Bilirubin 0.5 (0.2-1.0) mg/dL AST 39 H (15-37) U/L ALT 44 (16-63) U/L Alkaline Phosphatase 86 (46-116) U/L Troponin I < 0.017 (<=0.056) ng/mL C-Reactive Protein 1.0 H (<=0.9) mg/dL Total Protein 6.8 (6.4-8.2) g/dL Albumin 3.3 L (3.4-5.0) g/dL Globulin 3.5 Albumin/Globulin Ratio 0.94 06/29/ Range/Units 13:54 WBC (4.0-10.0) x10^3/uL RBC (4.5-6.0) x10^6/uL Hgb (14.0-18.0) g/dL Hct (40.0-52.0) % MCV (78.0-93.0) fL MCH (26.0-32.0) pg MCHC (32.0-36.0) g/dL RDW Coeff of Maurice (10.0-15.0) % Plt Count (130-400) x10^3/uL Neut % (Auto) (50.0-80.0) % Lymph % (Auto) (25.0-50.0) % Cabell % (Auto) (2.0-11.0) % Eos % (Auto) (0.0-4.0) % Baso % (Auto) (0.2-1.2) % PT (9.5-12.3) SEC INR (2.0-3.5) APTT 32.5 (25.6-32.8) SEC Sodium (136-145) mmol/L Potassium (3.5-5.1) mmol/L Chloride (98-107) mmol/L Carbon Dioxide (21-32) mmol/L Anion Gap (10-20) mmol/L BUN (7-18) mg/dL Creatinine (0.70-1.30) mg/dL Est Cr Clr Drug Dosing Estimated GFR (MDRD) Glucose (74-106) mg/dL Calcium (8.5-10.1) mg/dL Corrected Calcium (8.5-10.1) mg/dL Magnesium (1.8-2.4) mg/dL Total Bilirubin (0.2-1.0) mg/dL AST (15-37) U/L ALT (16-63) U/L Alkaline Phosphatase (46-116) U/L Troponin I (<=0.056) ng/mL C-Reactive Protein (<=0.9) mg/dL Total Protein (6.4-8.2) g/dL Albumin (3.4-5.0) g/dL Globulin Albumin/Globulin Ratio Meds: Medications Discontinued Medications Generic Name Dose Route Start Last Admin Trade Name Freq PRN Reason Stop Dose Admin Dimenhydrinate 50 mg 06/29/20 15:25 06/29/20 15:31 Driminate PO 06/29/20 15:26 50 mg ONETIME ONE Administration Dimenhydrinate 50 mg 06/29/20 16:35 06/29/20 16:56 Driminate PO 06/29/20 16:36 50 mg ONETIME ONE Administration Sodium Chloride 1,000 mls @ 500 mls/hr 06/29/20 14:15 06/29/20 14:17 Normal Saline IV 500 mls/hr ASDIRECTED SERGEY Administration Lorazepam 1 mg 06/29/20 14:13 06/29/20 14:21 Ativan IVPUSH 06/29/20 14:14 1 mg STAT ONE Administration Lorazepam 2 packet 06/29/20 16:29 06/29/20 16:56 Take Home: Lorazepam 0.5 Mg, 2 Tab Pack PO 06/29/20 16:30 2 packet ONETIME ONE Administration Meclizine HCl 25 mg 06/29/20 15:25 06/29/20 15:31 Antivert PO 06/29/20 15:26 25 mg ONETIME ONE Administration Meclizine HCl 25 mg 06/29/20 16:34 06/29/20 16:56 Antivert PO 06/29/20 16:35 25 mg ONETIME ONE Administration Ondansetron HCl 4 mg 06/29/20 14:12 06/29/20 14:18 Zofran IVPUSH 06/29/20 14:13 4 mg ONETIME ONE Administration Ondansetron HCl 2 packet 06/29/20 16:29 06/29/20 16:56 Take Home: Ondansetron Odt 4 Mg, 2 Tab Pack PO 06/29/20 16:30 2 packet ONETIME ONE Administration Sodium Chloride 10 ml 06/29/20 14:11 Saline Flush FLUSH ASDIRECTED PRN Keep Vein Open - Re-Assessments/Exams Free Text/Narrative Re-Assessment/Exam: Pt. was given ativan 1 mg IV, zofran 4 mg IV, as well as oral dimenhydrinate and meclizine. Pt. reported improvement in symptoms after these medications. I did call Dr. Paredes and discussed the case with him. He feels that the cause of the symptoms are peripheral in nature and require not further imagine. Non-contrast head CT was negative. Departure - Departure Time of Disposition: 18:00 Disposition: Home, Self-Care 01 Clinical Impression: Labyrinthitis - Discharge Information Instructions: Meclizine tablets or capsules, Ondansetron tablets, Vertigo, [id number], Dimenhydrinate oral tablets, Lorazepam tablets Referrals: Sammie Luna, [Primary Care Provider] - Forms: ED Department Discharge Additional Instructions: Lorazepam 0.5mg 1 every 4 hours as needed for vertigo Zofran 4mg ODT 1 every 6 hours as needed for nausea/vomiting You can take meclizine 25mg every 6 hours or dimenhydrinate 50mg three times daily for continued dizziness. We included a dose of both of these medications. They are obtainable over the counter almost anywhere. Physical therapy will be in contact with you on Wednesday regarding an appointment. Sepsis Event Note (ED) - Evaluation Sepsis Screening Result: No Definite Risk - Focused Exam Vital Signs: Vital Signs Temp Pulse Resp BP Pulse Ox 06/29/20 16:50 37.1 C 59 L 12 121/62 100 06/29/20 15:34 59 L 14 123/65 98 06/29/20 13:45 35.9 C L 74 18 144/68 H 98 - My Orders Last 24 Hours: My Active Orders 06/29/20 14:12 Peripheral IV Insertion Adult [OM.PC] Routine - Assessment/Plan Last 24 Hours: My Active Orders 06/29/20 14:12 Peripheral IV Insertion Adult [OM.PC] Routine Plan: Lorazepam 0.5mg 1 every 4 hours as needed for vertigo Zofran 4mg ODT 1 every 6 hours as needed for nausea/vomiting You can take meclizine 25mg every 6 hours or dimenhydrinate 50mg three times daily for continued dizziness. We included a dose of both of these medications. They are obtainable over the counter almost anywhere. Physical therapy will be in contact with you on Wednesday regarding an appointment.
[2020-06-29 14:32] LABS: ANION GAP 17.7 mmol/L (10-20); CHLORIDE,CL 109 mmol/L (98-107); SODIUM,NA 141 mmol/L (136-145)
--- NOTE | 2020-06-29 15:04 | CT ---
[id number] CT/CT Head WO IV EXAM: CT Head WO IV CLINICAL DATA: ACUTE VERTIGO. COMPARISON STUDY: None FINDINGS: No intracranial hemorrhage, extra-axial fluid collection, mass, or acute ischemia. Generalized parenchymal atrophy with scattered areas of nonspecific white matter disease, commonly seen as sequela of chronic microvascular ischemia. Soft tissues are unremarkable. Mild mucosal thickening without evidence of aggressive sinusitis. IMPRESSION: No acute intracranial findings. Rosalino Rashid DO 06/29/20 1502 Thank you for allowing us to participate in the care of your patient.
[2020-06-29] MEDS: dimenhyDRINATE 50 MG Tab PO ONE ×2 (15:31→16:56)
[2020-06-29] MEDS: Meclizine 25 MG Tab PO ONE ×2 (15:31→16:56)
[2020-06-29 15:35] VITALS: PULSE 59
[2020-06-29] MEDS: Take Home: LORazepam 0.5 MG Tab, 2 Tab Pack PO ONE (16:56)
[2020-06-29] MEDS: Take Home: Ondansetron 4 MG Tab.DIS, 2 Tab Pack PO ONE (16:56)
[2020-06-29 17:12] VITALS: BP 121/62
== END 2020-06-29 16:57 | disposition home or self-care (01) ==
LOC: VM.ED 13:41
DX: H83.03 Labyrinthitis, bilateral (principal); H61.23 Impacted cerumen, bilateral; I12.0 Hypertensive chronic kidney disease with stage 5 chronic kidney disease or end stage renal disease; N18.6 End stage renal disease; E66.9 Obesity, unspecified; Z99.2 Dependence on renal dialysis; Z79.01 Long term (current) use of anticoagulants; Z79.899 Other long term (current) drug therapy
CPT/HCPCS: 70450; 80053; 83735; 84484; 85025; 85610; 85730; 86140; 93005; 96374; 96375; 99284; 99284-25; A9270-GY; J2060; J2405; J7030

== ENCOUNTER 2020-10-19 16:48 | Emergency (ER) | payer MEDICARE, MEDICAID ==
[2020-10-19] MEDS ORDERED: fentaNYL 50 MCG/ML SDV IVPUSH ONE (17:38)
--- NOTE | 2020-10-19 17:44 | CR ---
[id number] RAD/RAD Knee Right 3V EXAM: RAD Knee Right 3V CLINICAL DATA: TRAUMA COMPARISON: No previous similar exam is available. FINDINGS: A dislocated right knee prosthesis is seen with the tibial component displaced anteriorly and retracted. IMPRESSION: DISLOCATED RIGHT KNEE Renzo Del Valle MD 10/19/20 [id number] Thank you for allowing us to participate in the care of your patient.
[2020-10-19 17:52] VITALS: BP 147/77; PULSE 66
--- NOTE | 2020-10-19 17:59 | EDM.PDOC ---
ED HPI GENERAL MEDICAL PROBLEM - General Chief Complaint: Lower Extremity Injury/Pain Stated Complaint: KNEE INJURY Time Seen by Provider: 10/19/20 16:50 Source of Information: Reports: Patient, EMS History Limitations: Reports: No Limitations - History of Present Illness INITIAL COMMENTS - FREE TEXT/NARRATIVE: Pt. presents to ER with complaints of R knee pain. Pt. states that he was walking in his house and stumbled, falling to the floor onto his knee. Pt. denies striking his head. He denies any chest pain, shortness of breath, lightheadedness or other symptoms that contributed to the fall. Pt. states that he has consumed 4 beers today. Onset: Today Location: Reports: Lower Extremity, Right Severity: Severe Improves with: Reports: Rest Worsens with: Reports: Movement Right Knee Pain Score (Numeric/FACES): 8 - Related Data Allergies Allergy/AdvReac Type Severity Reaction Status Date / Time No Known Allergies Allergy Verified 10/19/20 17:11 Home Meds: Home Meds Potassium Chloride 20 meq PO DAILY 12/08/16 [History] Furosemide [Lasix] 20 mg PO DAILY 12/14/18 [History] Magnesium Oxide [Magnesium] 800 mg PO DAILY 01/01/20 [History] Apixaban [Eliquis] 5 mg PO BID 04/25/20 [History] Cholecalciferol (Vitamin D3) [Vitamin D3] 1,000 unit PO DAILY 04/25/20 [History] Cyanocobalamin (Vitamin B12) [Cyanocobalamin] 1,000 mcg IM Q30D 04/25/20 [History] allopurinoL [Zyloprim] 100 mg PO BEDTIME 04/25/20 [History] tiZANidine [Zanaflex] 4 mg PO Q8H PRN 10/19/20 [History] Past Medical History Cardiovascular History: Reports: Blood Clots/VTE/DVT, Hypertension, Other (See Below) Other Cardiovascular History: thoracic aortic aneurysm without rupture. venous stasis. lymphedema Gastrointestinal History: Reports: Other (See Below) Other Gastrointestinal History: ulcerative colitis. anal and rectal abscess. elevated LFTs Genitourinary History: Reports: Dialysis, Renal Disease, Other (See Below) Other Genitourinary History: End Stage Renal Disease. 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 hyperglyceridemia. hypomagnesemia. hypercalcemia. chronic gout Hematologic History: Reports: Anemia, Iron Deficiency Immunologic History: Reports: Other (See Below) Other Immunologic History: pancytopenia. splenomegaly Oncologic (Cancer) History: Reports: Colon Dermatologic History: Other Dermatologic History: contact dermatitis - Infectious Disease History Infectious Disease History: Reports: MRSA - Past Surgical History Head Surgeries/Procedures: Reports: Shunt Cardiovascular Surgical History: Reports: Other (See Below) Other Cardiovascular Surgeries/Procedures: left AV shunt fistual GI Surgical History: Reports: Colon, Colonoscopy Other GI Surgeries/Procedures: PART OF COLON REMOVED BECAUSE OF COLON CANCER. SEE H/P Neurological Surgical History: Reports: None Musculoskeletal Surgical History: Reports: Amputation, Knee Replacement, Other (See Below) Other Musculoskeletal Surgeries/Procedures:: rt and lt TKA. amputations: rt partial #2,#3 and #4 toe, lt #5 toe, lt partial #2,#3 and #4 toe, Social & Family History - Family History Family Medical History: No Pertinent Family History Musculoskeletal: Reports: Arthritis, Gout Dermatologic: Reports: Psoriasis - Tobacco Use Tobacco Use Status *Q: Unknown Ever Used Tobacco - Caffeine Use Caffeine Use: Reports: Coffee Caffeine Use Comment: 1 to 2 cups of coffee a day - Living Situation & Occupation Occupation: Employed ED ROS GENERAL - Review of Systems Review Of Systems: See Below Constitutional: Reports: No Symptoms HEENT: Reports: No Symptoms Respiratory: Reports: No Symptoms Cardiovascular: Reports: No Symptoms Endocrine: Reports: No Symptoms GI/Abdominal: Reports: No Symptoms : Reports: No Symptoms Musculoskeletal: Reports: Leg Pain, Joint Pain Skin: Reports: No Symptoms Neurological: Reports: No Symptoms Psychiatric: Reports: No Symptoms Hematologic/Lymphatic: Reports: No Symptoms Immunologic: Reports: No Symptoms ED EXAM, GENERAL - Physical Exam Exam: See Below Exam Limited By: Altered Mental Status General Appearance: Alert, WD/WN, No Apparent Distress Extremities: Limited Range of Motion (Pt. is able to flex/extend foot/ankld), Other (significant chronic edema to lower extremities. Pt. unable to flex knee without significant discomfort. Pt. denies any paresthesia in extremity. ). No: Pallor (Cap refill approx. 2-3 sec. dorsalis pedis pulse present and marked.) Course - Vital Signs Last Recorded V/S: Last Vital Signs Temp 36.6 C 10/19/20 16:48 Pulse 66 10/19/20 17:51 Resp 14 10/19/20 17:51 BP 147/77 H 10/19/20 17:51 Pulse Ox 97 10/19/20 17:51 - Orders/Labs/Meds Meds: Medications Discontinued Medications Generic Name Dose Route Start Last Admin Trade Name Freq PRN Reason Stop Dose Admin Fentanyl 50 mcg 10/19/20 17:38 10/19/20 17:49 Fentanyl 50 Mcg/Ml Sdv IVPUSH 10/19/20 17:39 50 mcg ONETIME ONE Administration - Radiology Interpretation Free Text/Narrative:: Dislocation of R knee. Departure - Departure Time of Disposition: 18:14 Disposition: DC/Tfer to Acute Hospital 02 Clinical Impression: Knee dislocation - Discharge Information Sepsis Event Note (ED) - Evaluation Sepsis Screening Result: No Definite Risk - Focused Exam Vital Signs: Vital Signs Temp Pulse Resp BP Pulse Ox 10/19/20 17:51 66 14 147/77 H 97 10/19/20 16:48 36.6 C 67 16 132/75 98 - Problem List Review Problem List Initiated/Reviewed/Updated: Yes - Assessment/Plan Plan: Pt. will be transferred emergently to [facility] for reduction. No attempt was made at reduction as there is only one provider and no anesthesia coverage available to assist. with this complex patient. He is anticoagulated with eliquis due to chronic popliteal vein thrombosis. Discussed findings with patient. He indicates that he does not want intubation or CPR and is a code 2.
== END 2020-10-19 18:20 | disposition short-term general hospital (02) ==
LOC: VM.ED 16:48
DX: S83.104A Unspecified dislocation of right knee, initial encounter (principal); I10 Essential (primary) hypertension; E03.9 Hypothyroidism, unspecified; E66.9 Obesity, unspecified; Z86.718 Personal history of other venous thrombosis and embolism; Z79.01 Long term (current) use of anticoagulants; Z68.30 Body mass index [BMI] 30.0-30.9, adult; Z79.899 Other long term (current) drug therapy; W01.0XXA Fall on same level from slipping, tripping and stumbling without subsequent striking against object, initial encounter; Y92.009 Unspecified place in unspecified non-institutional (private) residence as the place of occurrence of the external cause
CPT/HCPCS: 73562-RT; 96374; 99284; 99285-25; J3010

== ENCOUNTER 2020-10-22 15:43 | Inpatient (IN) | payer MEDICAID ==
[2020-10-22] MEDS ORDERED: Potassium Chloride 20 MEQ Packet PO SCH (20:00)
[2020-10-22] MEDS: Cholecalciferol (Vitamin D3) 5,000 UNIT Tab PO SCH (21:14)
[2020-10-22] MEDS: Allopurinol 100 MG Tab PO SCH (21:14)
[2020-10-22] MEDS: MESALAMINE 1.2 GM PO SCH (21:14)
--- NOTE | 2020-10-22 23:08 | HP ---
CHIEF COMPLAINT: Right knee dislocation. HISTORY OF PRESENT ILLNESS: This is a 60-year-old male with history of right knee replacement in the past, who had been drinking some alcohol and sort of working in his kitchen. He fell directly on the knee. It sort of gave out on him and he had a posterior dislocation. He was transferred to [place] and they did relocate the knee under sedation and put him in a T-Scope and recommended it be locked in flexion 20 degrees and sent him home nonweightbearing, but he told me he is toe-touch. He is using his mother's walker. They sent him on Tylenol and Advil, however, or that is what he was taking, but it was not covering his pain. He has a known history of renal failure and actually was on dialysis in the past. I prescribed him some oxycodone when he called in the yesterday, but today he called social work associate to see if he could qualify for a swing bed stay due to his impaired mobility. The patient is going down to see the specialist on to decide when he will get the knee replaced again. He did have ABIs that were okay. His leg is massively swollen. He was taking some over-the- counter diuretics. He is already on Eliquis due to his recurrent DVTs and he took his last dose this morning. ALLERGIES: None. MEDICATIONS: His current medication list has two unidentified weight loss diuretic type pills he takes [id number], oxycodone 5 mg every 4 to 6 hours as needed for pain, potassium 20 mEq twice daily, Lasix 20 mg daily, Lialda 2.4 twice daily, allopurinol 100 mg at bedtime, Eliquis 5 mg twice daily, magnesium 800 daily, and Tylenol as needed for pain. I do not see that they put NSAIDs on his list, but nevertheless the patient brought them in his medication bag. PAST MEDICAL HISTORY: Includes: 1. End-stage renal disease after an infection and antibiotics, but eventually the patient was able to be weaned off dialysis. For his chronic kidney disease, his last GFR was 43. 2. 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 DVTs started after knee replacement surgery. He has also had a DVT of the upper extremity. Therefore, he is on lifelong anticoagulation. 3. History of alcohol abuse, drinking up to 18 to 25 beers per week. The patient actually had not been reporting that he had been drinking, but his blood alcohol was over 160. 4. Essential hypertension in the past, but stopped when he went on dialysis and actually had hypotension. 5. Hypercalcemia, with history of sarcoid, but no longer on steroids. 6. Hypomagnesemia. 7. Iron deficiency anemia. For his chronic anemia, his last hemoglobin was 11.7 and his platelets were 109. 8. Lymphedema. 9. Remote history of colon cancer, status post surgeries. 10.Ulcerative colitis. 11.History of MRSA. 12.Obesity. 13.He is a nonsmoker. 14.He has had a thoracic aneurysm. PAST SURGICAL HISTORY: The patient has had some colon resection for cancer; he has had bilateral knee replacements, that right knee was done in 2013; he has had colonoscopies; he has had AV shunt fistulas; he has had toe amputations, multiple. FAMILY HISTORY: His both parents are . Mother had hypertension, father had memory loss. I do believe his mother had some type of cancer at the end; she had actually fairly recently. His brothers are still living. SOCIAL HISTORY: He used to be a [employer] at [employer]. He is disabled. He is single. He has no children. He does drink beer, but it is a nonsmoker. REVIEW OF SYSTEMS: General: The patient has had increased activity. He tries to do a lot a walking, but now he cannot due to this injury. He had some weight gain over 10 pounds in the last months. No fever, no chills. HEENT: No trouble swallowing. No sore throat. Cardiac: No chest pain. No palpitations. Respiratory: No cough. No shortness of breath. Abdominal: No nausea, vomiting, or diarrhea. Musculoskeletal: He has had the right knee pain. His right leg has some swelling, but no tenderness in the calf. The pain is in the knee joint. Mental Status: He is alert and orientated. No confusion. No worsening depression. PHYSICAL EXAMINATION: Vital Signs: His weight 137.4 kg, temperature 98.6, pulse 90, blood pressure 127/63, respiratory rate 14, O2 of 100 on room air. General: He is in no acute distress. Heart: Regular rate and rhythm. S1, S2 without murmur. Lungs: Sounds are clear to auscultation bilaterally without crackles or wheezes. Abdomen: Nondistended, nontender. Extremities: Left leg does have 1+ edema, but the right leg has 4+ edema. There is tenderness in the knee. We did not do full range of motion testing. Appears to have some joint effusion. There is no redness. Skin: He does have some dry skin type rash on the left leg, which he reports does not itch or bother him. Mental Status: He is alert and orientated x3. LABORATORY DATA: No lab work was done due to swing bed status. ASSESSMENT AND PLAN: 1. Right prosthetic knee replacement with impaired mobility, need for brace and nonweightbearing. The patient will be on swing bed for assistance with ADLs. He will go to his orthopedic appointment on for decision on timing to plan his surgery. 2. Edema. This is likely due to the dislocation and injury. He had been on Eliquis until this morning. We will get him on some thigh-high ZHENG stockings. I will empirically hold on the Eliquis just in case he were to have surgery sooner rather than later, but we will restart it if surgery is going to be postponed. 3. Chronic kidney disease. We will discontinue all NSAIDs. We will use Tylenol and oxycodone for pain. 4. Essential hypertension. He is on the daily Lasix, which should help with edema as well. 5. Mild hypocalcemia. I will start him on some vitamin D. 6. History of gout. He is on allopurinol. 7. Ulcerative colitis. We will continue his home medications. 8. Dry skin. I will order him some lotion. 9. Thrombocytopenia, mild. We will monitor lab work again prior to surgery. PLAN: The patient is admitted for swing bed cares for assistance with ADLs due to impaired mobility to a prosthetic knee dislocation. He elects to be a code level 2; no CPR, but would understand if he needs to be a code 1 for surgery. We will get Physical Therapy involved. MKA: 10/22/2020 20:35:33 MODL: 10/22/2020 22:59:50 /[id number]
[2020-10-23] MEDS ORDERED: Furosemide 20 MG Tab PO SCH (08:00)
[2020-10-23] MEDS: Cholecalciferol (Vitamin D3) 5,000 UNIT Tab PO SCH (09:28)
[2020-10-23] MEDS: Magnesium Oxide 400 MG Tab PO SCH (09:29)
[2020-10-23] MEDS: MESALAMINE 1.2 GM PO SCH ×2 (09:29→21:07)
[2020-10-23] MEDS: oxyCODONE 5 MG Tab PO PRN ×3 (09:31→21:10)
[2020-10-23] MEDS: Potassium Chloride 20 MEQ Packet PO SCH (12:04)
[2020-10-23] MEDS: Cyanocobalamin (Vitamin B12) 1,000 MCG/ML SDV IM SCH (16:37)
[2020-10-23] MEDS: APIXABAN 5 MG PO SCH (21:07)
[2020-10-23] MEDS: Allopurinol 100 MG Tab PO SCH (21:08)
[2020-10-24] MEDS: oxyCODONE 5 MG Tab PO PRN ×3 (04:43→20:17)
[2020-10-24] MEDS: Magnesium Oxide 400 MG Tab PO SCH (14:20)
[2020-10-24] MEDS: Potassium Chloride 20 MEQ Packet PO SCH (14:20)
[2020-10-24] MEDS: APIXABAN 5 MG PO SCH ×2 (14:20→20:19)
[2020-10-24] MEDS: MESALAMINE 1.2 GM PO SCH ×2 (14:21→20:20)
[2020-10-24] MEDS: Cholecalciferol (Vitamin D3) 5,000 UNIT Tab PO SCH (14:21)
[2020-10-24] MEDS: Allopurinol 100 MG Tab PO SCH (20:20)
[2020-10-25] MEDS: Magnesium Oxide 400 MG Tab PO SCH (07:39)
[2020-10-25] MEDS: Potassium Chloride 20 MEQ Packet PO SCH (07:40)
[2020-10-25] MEDS: Cholecalciferol (Vitamin D3) 5,000 UNIT Tab PO SCH (07:40)
[2020-10-25] MEDS: MESALAMINE 1.2 GM PO SCH ×2 (07:40→20:08)
[2020-10-25] MEDS: APIXABAN 5 MG PO SCH ×2 (07:41→20:08)
[2020-10-25] MEDS: oxyCODONE 5 MG Tab PO PRN ×2 (11:11→15:30)
[2020-10-25] MEDS: Allopurinol 100 MG Tab PO SCH (20:08)
[2020-10-26] MEDS: oxyCODONE 5 MG Tab PO PRN ×4 (04:43→20:44)
[2020-10-26] MEDS: APIXABAN 5 MG PO SCH ×2 (08:29→20:45)
[2020-10-26] MEDS: MESALAMINE 1.2 GM PO SCH ×2 (08:31→20:46)
[2020-10-26] MEDS: Magnesium Oxide 400 MG Tab PO SCH (08:31)
[2020-10-26] MEDS: Potassium Chloride 20 MEQ Packet PO SCH (08:31)
[2020-10-26] MEDS: Cholecalciferol (Vitamin D3) 5,000 UNIT Tab PO SCH (08:32)
[2020-10-26] MEDS: Acetaminophen 325 MG Tab PO PRN (17:26)
[2020-10-26] MEDS: Allopurinol 100 MG Tab PO SCH (20:46)
--- NOTE | 2020-10-26 21:36 | PCM.SN.2 ---
- Free Text/Narrative Note: This provider was called by BERNIE Anne, with concerns of a possible right lower calf DVT. Nurse states the posterior calf is red, warm, and tender. Nurse does not feel it could be the start of an infection. Patient has a strong history of DVT's. He is currently on Eliquis 5 mg BID. Will draw blood work. If D-Dimer is significantly elevated, will attempt to get an US this weekend, if possible. Otherwise, patient may have to wait until Wednesday. Nurse verbalized understanding and will keep this provider informed over the rest of the weekend.
[2020-10-26 22:26] LABS: ANION GAP 10.4 mmol/L (5-15)
--- NOTE | 2020-10-27 09:14 | PCM.SN.2 ---
- Free Text/Narrative Note: Called and spoke with BERNIE Virk. Discussed today's labs. D-Dimer is slightly elevated, has been in the past. Patient is on Eliquis BID. Will monitor for today and check on Ultrasound tomorrow. Patient is not complaining of any pain at this time to the right calf. POC updated with nurse.
[2020-10-27] MEDS: APIXABAN 5 MG PO SCH ×2 (09:16→19:58)
[2020-10-27] MEDS: Potassium Chloride 20 MEQ Packet PO SCH ×2 (09:17→20:23)
[2020-10-27] MEDS: Magnesium Oxide 400 MG Tab PO SCH (09:18)
[2020-10-27] MEDS: MESALAMINE 1.2 GM PO SCH ×2 (09:19→19:58)
[2020-10-27] MEDS: oxyCODONE 5 MG Tab PO PRN ×3 (09:19→19:59)
[2020-10-27] MEDS: Cholecalciferol (Vitamin D3) 5,000 UNIT Tab PO SCH (09:20)
[2020-10-27] MEDS: Acetaminophen 325 MG Tab PO PRN ×2 (13:36→19:58)
[2020-10-27] MEDS: Allopurinol 100 MG Tab PO SCH (20:22)
[2020-10-28 06:59] LABS: ANION GAP 9.1 mmol/L (5-15)
[2020-10-28] MEDS: Magnesium Oxide 400 MG Tab PO SCH (08:00)
[2020-10-28] MEDS: Cholecalciferol (Vitamin D3) 5,000 UNIT Tab PO SCH (08:00)
[2020-10-28] MEDS: APIXABAN 5 MG PO SCH (08:01)
[2020-10-28] MEDS: MESALAMINE 1.2 GM PO SCH ×2 (08:02→19:09)
[2020-10-28] MEDS: oxyCODONE 5 MG Tab PO PRN (08:03)
[2020-10-28] MEDS: Acetaminophen 325 MG Tab PO PRN ×2 (08:04→19:11)
[2020-10-28] MEDS: Potassium Chloride 20 MEQ Packet PO SCH (08:48)
[2020-10-28] MEDS: POTASSIUM CHLORIDE 20 MEQ PO SCH ×3 (09:13→19:09)
[2020-10-28] MEDS ORDERED: oxyCODONE 5 MG Tab (OWN SUPPLY) PO PRN (11:11)
[2020-10-28] MEDS: Cyanocobalamin (Vitamin B12) 1,000 MCG/ML SDV IM SCH (15:54)
[2020-10-28] MEDS: OXYCODONE 5 MG PO PRN ×2 (17:24→22:30)
[2020-10-28] MEDS: Allopurinol 100 MG Tab PO SCH (19:10)
[2020-10-29] MEDS: Acetaminophen 325 MG Tab PO PRN ×4 (04:26→21:31)
[2020-10-29] MEDS: OXYCODONE 5 MG PO PRN ×4 (04:26→21:30)
[2020-10-29] MEDS: Furosemide 20 MG Tab (OWN SUPPLY) PO SCH (08:31)
[2020-10-29] MEDS: MESALAMINE 1.2 GM PO SCH ×2 (08:31→21:26)
[2020-10-29] MEDS: POTASSIUM CHLORIDE 20 MEQ PO SCH ×3 (08:31→21:25)
[2020-10-29] MEDS: Magnesium Oxide 400 MG Tab PO SCH (08:32)
[2020-10-29] MEDS: Cholecalciferol (Vitamin D3) 5,000 UNIT Tab PO SCH (08:32)
[2020-10-29] MEDS: Cyanocobalamin (Vitamin B12) 1,000 MCG/ML SDV IM SCH (08:32)
[2020-10-29] MEDS: Allopurinol 100 MG Tab PO SCH (21:26)
[2020-10-30] MEDS: Acetaminophen 325 MG Tab PO PRN ×4 (04:40→22:33)
[2020-10-30] MEDS: OXYCODONE 5 MG PO PRN ×3 (04:41→17:03)
[2020-10-30 06:49] LABS: ANION GAP 7.6 mmol/L (5-15)
[2020-10-30] MEDS: Cyanocobalamin (Vitamin B12) 1,000 MCG/ML SDV IM SCH ×2 (08:37→08:39)
[2020-10-30] MEDS: MESALAMINE 1.2 GM PO SCH ×2 (08:37→19:58)
[2020-10-30] MEDS: POTASSIUM CHLORIDE 20 MEQ PO SCH ×3 (08:37→19:58)
[2020-10-30] MEDS: Magnesium Oxide 400 MG Tab PO SCH (08:38)
[2020-10-30] MEDS: Cholecalciferol (Vitamin D3) 5,000 UNIT Tab PO SCH (08:38)
[2020-10-30] MEDS: Furosemide 20 MG Tab (OWN SUPPLY) PO SCH (08:41)
[2020-10-30] MEDS: Allopurinol 100 MG Tab PO SCH (19:59)
[2020-10-30] MEDS: OXYCODONE 10 MG PO PRN (22:33)
[2020-10-31] MEDS: OXYCODONE 10 MG PO PRN ×4 (05:18→22:52)
[2020-10-31] MEDS: Acetaminophen 325 MG Tab PO PRN ×4 (05:18→22:57)
[2020-10-31] MEDS: Magnesium Oxide 400 MG Tab PO SCH (08:43)
[2020-10-31] MEDS: Cholecalciferol (Vitamin D3) 5,000 UNIT Tab PO SCH (08:43)
[2020-10-31] MEDS: MESALAMINE 1.2 GM PO SCH ×2 (08:43→20:16)
[2020-10-31] MEDS: Furosemide 20 MG Tab (OWN SUPPLY) PO SCH (08:43)
[2020-10-31] MEDS: POTASSIUM CHLORIDE 20 MEQ PO SCH ×3 (08:44→20:16)
--- NOTE | 2020-10-31 20:13 | PN ---
Progress Note for VIK MORENO Date: 10/30/2020 Room #: VM.217 SUBJECTIVE: This is a 60-year-old on swing bed after a right knee dislocation, awaiting surgery next week. Unfortunately, he has a hematoma and his surgery is now postponed. The patient's hemoglobin is only up to 7.5 despite transfusion on Wednesday, however, he is no longer lightheaded or dizzy or short of breath. Ferritin was 830. He has been having bowel movements. He is not having chest pain. OBJECTIVE: Vital Signs: On exam, his temp is 98.4, pulse 76, blood pressure 129/65, respiratory rate 17, and O2 of 99% on room air. General: He is in no acute distress. Heart: Regular rate and rhythm. S1, S2 without murmur. Lungs: Sounds are clear to auscultation bilaterally. Extremities: Do show the right leg to have continued swelling, but overall improved. Improved tenderness in that hematoma posteriorly. Mental Status: Alert and orientated x3. Psychiatric: He is down. He seems depressed. LABORATORY DATA: White count 2.9, hemoglobin 7.5, platelets 187. Sodium 135, potassium 3.6, chloride 102, bicarb 29, BUN 25, creatinine 2, calcium 8. Again, ferritin 800. ASSESSMENT AND PLAN: 1. Right lower extremity knee dislocation. Awaiting redo surgery revision, probably not going to be until December now per Ortho. His hemoglobin needs to be above 9. 2. Acute blood loss anemia due to the hematoma. His Eliquis is on hold. He is getting the B12 shots. We will repeat lab work on Wednesday. 3. Chronic kidney disease stage 3. He is off all NSAIDs. We will continue with close monitoring. 4. Chronic edema. He is on daily Lasix now. We will repeat lab work Wednesday. 5. Essential hypertension, controlled. 6. Hypocalcemia. He is on vitamin D. He does have a history of sarcoid. 7. History of gout. 8. Ulcerative colitis, seems stable. 9. Thrombocytopenia, mild. We will continue to monitor. Platelets have never been under 100. 10.Adjustment disorder. The patient will continue swing bed cares at least for the next several days for hemoglobin monitoring. We will continue communication with Ortho. Physical Therapy is also involved, but he will be just doing light activities. No significant weight bearing. He is supposed to avoid any excessive range of motion with that knee. MKA: 10/31/2020 07:01:52 MODL: 10/31/2020 20:06:50 /[id number]
[2020-10-31] MEDS: Allopurinol 100 MG Tab PO SCH (20:16)
[2020-11-01] MEDS: Acetaminophen 325 MG Tab PO PRN ×3 (06:37→19:53)
[2020-11-01] MEDS: OXYCODONE 10 MG PO PRN ×3 (06:40→19:50)
[2020-11-01 06:43] LABS: ANION GAP 12.9 mmol/L (5-15)
[2020-11-01] MEDS: Cholecalciferol (Vitamin D3) 5,000 UNIT Tab PO SCH (09:52)
[2020-11-01] MEDS: MESALAMINE 1.2 GM PO SCH ×2 (09:53→19:46)
[2020-11-01] MEDS: Magnesium Oxide 400 MG Tab PO SCH (09:53)
[2020-11-01] MEDS: Potassium Chloride 20 MEQ Packet PO SCH ×2 (09:53→09:56)
[2020-11-01] MEDS: Furosemide 20 MG Tab (OWN SUPPLY) PO SCH (09:54)
[2020-11-01] MEDS: Potassium Chloride 20 MEQ Tab.ER (OWN SUPPLY) PO SCH (19:47)
[2020-11-01] MEDS: Allopurinol 100 MG Tab PO SCH (19:49)
[2020-11-02] MEDS: OXYCODONE 10 MG PO PRN ×3 (08:19→22:18)
[2020-11-02] MEDS: Acetaminophen 325 MG Tab PO PRN ×3 (08:20→22:18)
[2020-11-02] MEDS: Cholecalciferol (Vitamin D3) 5,000 UNIT Tab PO SCH (08:20)
[2020-11-02] MEDS: Magnesium Oxide 400 MG Tab PO SCH (08:20)
[2020-11-02] MEDS: Furosemide 20 MG Tab (OWN SUPPLY) PO SCH (08:21)
[2020-11-02] MEDS: MESALAMINE 1.2 GM PO SCH ×2 (08:21→20:26)
[2020-11-02] MEDS: Potassium Chloride 20 MEQ Tab.ER (OWN SUPPLY) PO SCH ×2 (08:21→20:27)
[2020-11-02] MEDS: Allopurinol 100 MG Tab PO SCH (20:26)
[2020-11-03] MEDS: OXYCODONE 10 MG PO PRN ×3 (05:50→19:30)
[2020-11-03] MEDS: Acetaminophen 325 MG Tab PO PRN ×3 (05:50→19:30)
[2020-11-03] MEDS: Cholecalciferol (Vitamin D3) 5,000 UNIT Tab PO SCH (08:54)
[2020-11-03] MEDS: Furosemide 20 MG Tab (OWN SUPPLY) PO SCH (08:54)
[2020-11-03] MEDS: MESALAMINE 1.2 GM PO SCH ×2 (08:54→19:31)
[2020-11-03] MEDS: Magnesium Oxide 400 MG Tab PO SCH (08:54)
[2020-11-03] MEDS: Potassium Chloride 20 MEQ Tab.ER (OWN SUPPLY) PO SCH ×2 (08:54→19:31)
[2020-11-03] MEDS: Allopurinol 100 MG Tab PO SCH (19:31)
[2020-11-04] MEDS: Acetaminophen 325 MG Tab PO PRN ×4 (03:29→23:46)
[2020-11-04] MEDS: OXYCODONE 10 MG PO PRN ×4 (03:29→23:46)
[2020-11-04] MEDS: Furosemide 20 MG Tab (OWN SUPPLY) PO SCH (09:23)
[2020-11-04] MEDS: MESALAMINE 1.2 GM PO SCH ×2 (09:23→19:33)
[2020-11-04] MEDS: Cholecalciferol (Vitamin D3) 5,000 UNIT Tab PO SCH (09:24)
[2020-11-04] MEDS: Potassium Chloride 20 MEQ Tab.ER (OWN SUPPLY) PO SCH ×2 (09:24→19:34)
[2020-11-04] MEDS: Magnesium Oxide 400 MG Tab PO SCH (09:24)
[2020-11-04] MEDS: Allopurinol 100 MG Tab PO SCH (19:34)
--- NOTE | 2020-11-05 09:26 | PN ---
Progress Note for VIK MORENO Date: 11/05/2020 Room #: VM.217 SUBJECTIVE: This is a 60-year-old on swing bed, awaiting a right knee replacement, now postponed to 12/09 due to acute blood loss anemia due to a right leg hematoma. The patient reports his pain is under good control. He is not having any dizziness. He is not short of breath. He is quite depressed though that his hemoglobin has not improved. It was 7.4 yesterday. He had got some subcu B12 injections, but his ferritin was high, so we had not given him any iron. He otherwise is using about 30 to 40 mg of oxycodone and p.r.n. Tylenol a day for pain. OBJECTIVE: Vital Signs: His temperature 98, his pulse 70, blood pressure 106/52, respiratory rate 16, and O2 of 95% on room air. General: He is in no acute distress. Heart: Regular rate and rhythm. S1, S2 without murmur. Lungs: Lung sounds are clear to auscultation bilaterally without crackles or wheezes. Abdomen: Nondistended. Extremities: Warm and dry. He has no edema on the left leg. He has just trace edema on that right leg. He still has 1 very small area, about golf ball-size firmness in that right calf area. No major knee effusion. No open sores. LABORATORY WORK: From yesterday, again white count was 3.8, hemoglobin 7.4, platelets 239. Creatinine 1.8, calcium 8.2, albumin 2.5, BUN 23. ASSESSMENT: 1. Right knee prosthetic dislocation, in need of surgical revision. 2. Acute blood loss anemia due to the hematoma. 3. Recurrent deep venous thromboses in the past. 4. Chronic kidney disease stage 3. Stable creatinine. 5. Chronic edema, on Lasix. 6. Essential hypertension. 7. History of gout. 8. Ulcerative colitis. He is tolerating a diet. He is having bowel movements. 9. Adjustment disorder with depression due to his postponed knee surgery. 10. Obesity PLAN: The patient will restart Eliquis 2.5 b.i.d. with close monitoring for DVT prophylaxis. He will get another hemoglobin with iron studies tomorrow. Possible the ferritin was acute phase reactant. Discussed with him we will give him IV iron if indicated to help his hemoglobin improve so that he may be ready for surgery. He is missing his cat at home and is actually thinking he might want to transition home by next week. We will continue to work with the social work coordinator regarding this. He would very likely need some HH if he goes home prior to surgery. MKA: 11/05/2020 08:53:32 MODL: 11/05/2020 09:11:11 /[id number] JESSEE
[2020-11-05] MEDS: MESALAMINE 1.2 GM PO SCH ×2 (09:35→20:05)
[2020-11-05] MEDS: Furosemide 20 MG Tab (OWN SUPPLY) PO SCH (09:35)
[2020-11-05] MEDS: Acetaminophen 325 MG Tab PO PRN ×3 (09:36→23:09)
[2020-11-05] MEDS: Potassium Chloride 20 MEQ Tab.ER (OWN SUPPLY) PO SCH ×2 (09:36→20:04)
[2020-11-05] MEDS: Cholecalciferol (Vitamin D3) 5,000 UNIT Tab PO SCH (09:37)
[2020-11-05] MEDS: Magnesium Oxide 400 MG Tab PO SCH (09:37)
[2020-11-05] MEDS: OXYCODONE 10 MG PO PRN ×3 (09:38→23:10)
[2020-11-05] MEDS: Allopurinol 100 MG Tab PO SCH (20:04)
[2020-11-05] MEDS: [UNRECOGNIZED DRUG - OTHER] PO SCH (20:08)
[2020-11-06] MEDS: Acetaminophen 325 MG Tab PO PRN ×4 (05:53→22:37)
[2020-11-06] MEDS: OXYCODONE 10 MG PO PRN ×4 (05:53→22:38)
[2020-11-06] MEDS: MESALAMINE 1.2 GM PO SCH ×2 (08:35→20:36)
[2020-11-06] MEDS: [UNRECOGNIZED DRUG - OTHER] PO SCH ×2 (08:35→20:40)
[2020-11-06] MEDS: Magnesium Oxide 400 MG Tab PO SCH (08:35)
[2020-11-06] MEDS: Cholecalciferol (Vitamin D3) 5,000 UNIT Tab PO SCH (08:35)
[2020-11-06] MEDS: Furosemide 20 MG Tab (OWN SUPPLY) PO SCH (08:35)
[2020-11-06] MEDS: Potassium Chloride 20 MEQ Tab.ER (OWN SUPPLY) PO SCH ×2 (08:36→20:36)
[2020-11-06] MEDS: Allopurinol 100 MG Tab PO SCH (20:37)
[2020-11-07] MEDS: OXYCODONE 10 MG PO PRN ×3 (06:24→18:03)
[2020-11-07] MEDS: Acetaminophen 325 MG Tab PO PRN ×3 (06:27→18:03)
[2020-11-07] MEDS: Furosemide 20 MG Tab (OWN SUPPLY) PO SCH (08:28)
[2020-11-07] MEDS: Cholecalciferol (Vitamin D3) 5,000 UNIT Tab PO SCH (08:28)
[2020-11-07] MEDS: Magnesium Oxide 400 MG Tab PO SCH (08:28)
[2020-11-07] MEDS: Potassium Chloride 20 MEQ Tab.ER (OWN SUPPLY) PO SCH ×2 (08:29→21:00)
[2020-11-07] MEDS: [UNRECOGNIZED DRUG - OTHER] PO SCH ×2 (08:29→21:00)
[2020-11-07] MEDS: MESALAMINE 1.2 GM PO SCH ×2 (08:30→21:00)
[2020-11-07] MEDS ORDERED: Iron Sucrose Complex 100 MG/5 ML SDV IVPUSH ONE (08:38)
[2020-11-07] MEDS ORDERED: diphenhydrAMINE 25 MG Cap PO ONE ×2 (08:39→09:00)
[2020-11-07] MEDS: Miconazole 2% Top Powder 45 GM Container TOP SCH ×2 (10:50→21:07)
[2020-11-07] MEDS: Nicotine 14 MG/24 Hr Patch TRDERM SCH (10:53)
[2020-11-07] MEDS: Sodium Chloride 0.9% 10 ML Syringe FLUSH PRN ×2 (10:57→21:10)
--- NOTE | 2020-11-07 16:42 | PN ---
Progress Note for VIK MORENO Date: 11/07/2020 Room #: VM.217 SUBJECTIVE: This is a 60-year-old on swing bed after a prosthetic knee dislocation, awaiting a right knee replacement, but surgery was delayed due to a hematoma. His leg is less tender now. The hematoma is resolving. He was restarted on low-dose Eliquis this week for DVT prophylaxis. His hemoglobin has remained stable. His iron studies from yesterday did return low at 14, TIBC 156, % saturation just 9. His ferritin is 704. He does have chronic kidney disease. He has difficulty with absorption of iron due to his underlying health conditions including ulcerative colitis. He is having multiple bowel movements. He is eating well. He is not having shortness of breath or dizziness. OBJECTIVE: Vital Signs: His temperature is 98.7, pulse 78, blood pressure 137/63, respiratory rate 18, and O2 is 97 on room air. Weight is 136 kg. General: He is in no acute distress. Heart: Regular rate and rhythm. S1, S2 without murmur. Lungs: His lung sounds are clear to auscultation bilaterally. Extremities: Warm and dry. Still bruising over that right calf. No knee effusion. No significant tenderness. The hematoma has decreased significantly in size. Mental Status: Alert and oriented x3. ASSESSMENT: 1. Iron deficiency anemia due to chronic kidney disease. We will give him Venofer 200 mg today, tomorrow, and Wednesday. I will repeat lab work tomorrow and again on Wednesday. The patient is still considering possibly going home prior to surgery. 2. Right knee dislocation of a prosthetic joint. He is still having pain. He has oxycodone available. He is awaiting surgery. He is limited weightbearing with toe-touch. He is mostly just around in his room. 3. History of recurrent deep venous thromboses. He is back on Eliquis, but low dose. 4. Chronic kidney disease stage 3 with stable creatinine. 5. Chronic edema, on Lasix. 6. Essential hypertension, controlled. 7. History of gout. 8. Ulcerative colitis. This seems to be stable on mesalamine. 9. Left leg rash. We will try some Demadex cream. 10.Adjustment disorder with depression due to postponed surgery. 11.Obesity. 12.Smoking. The patient has went outside to smoke. We will offer him a nicotine patch. PLAN: The patient will continue on swing bed cares. We will replace him with IV iron the next 3 days. We will follow blood counts closely. I am also going to have Benadryl available p.r.n. He has monthly B12 shots for B12 deficiency and has received them here as well. MKA: 11/07/2020 15:45:08 MODL: 11/07/2020 16:33:26 /[id number]
[2020-11-07] MEDS: Allopurinol 100 MG Tab PO SCH (21:00)
[2020-11-08 07:02] LABS: ANION GAP 14.8 mmol/L (5-15)
[2020-11-08] MEDS: Nicotine 14 MG/24 Hr Patch TRDERM SCH (07:35)
[2020-11-08] MEDS: Potassium Chloride 20 MEQ Tab.ER (OWN SUPPLY) PO SCH ×2 (07:36→20:40)
[2020-11-08] MEDS: Cholecalciferol (Vitamin D3) 5,000 UNIT Tab PO SCH (07:36)
[2020-11-08] MEDS: Magnesium Oxide 400 MG Tab PO SCH (07:36)
[2020-11-08] MEDS: MESALAMINE 1.2 GM PO SCH ×2 (07:36→20:44)
[2020-11-08] MEDS: [UNRECOGNIZED DRUG - OTHER] PO SCH ×2 (07:37→20:44)
[2020-11-08] MEDS: Furosemide 20 MG Tab (OWN SUPPLY) PO SCH (07:37)
[2020-11-08] MEDS: Acetaminophen 325 MG Tab PO PRN ×3 (07:38→23:36)
[2020-11-08] MEDS: Miconazole 2% Top Powder 45 GM Container TOP SCH ×2 (07:42→20:44)
[2020-11-08] MEDS ORDERED: Iron Sucrose Complex 100 MG/5 ML SDV IVPUSH ONE (10:00)
[2020-11-08] MEDS: OXYCODONE 10 MG PO PRN ×3 (10:03→23:37)
[2020-11-08] MEDS: Allopurinol 100 MG Tab PO SCH (20:45)
[2020-11-09] MEDS: MESALAMINE 1.2 GM PO SCH ×2 (11:22→20:35)
[2020-11-09] MEDS: Magnesium Oxide 400 MG Tab PO SCH (11:22)
[2020-11-09] MEDS: Cholecalciferol (Vitamin D3) 5,000 UNIT Tab PO SCH (11:22)
[2020-11-09] MEDS: Nicotine 14 MG/24 Hr Patch TRDERM SCH (11:22)
[2020-11-09] MEDS: [UNRECOGNIZED DRUG - OTHER] PO SCH ×2 (11:22→22:24)
[2020-11-09] MEDS: Furosemide 20 MG Tab (OWN SUPPLY) PO SCH (11:23)
[2020-11-09] MEDS: Potassium Chloride 20 MEQ Tab.ER (OWN SUPPLY) PO SCH ×2 (11:23→20:36)
[2020-11-09] MEDS: Miconazole 2% Top Powder 45 GM Container TOP SCH ×2 (11:23→20:43)
[2020-11-09] MEDS: OXYCODONE 10 MG PO PRN ×3 (11:23→20:36)
[2020-11-09] MEDS: Iron Sucrose Complex 100 MG/5 ML SDV IVPUSH SCH (11:27)
[2020-11-09] MEDS: diphenhydrAMINE 25 MG Cap PO SCH (11:27)
[2020-11-09] MEDS: Acetaminophen 325 MG Tab PO PRN ×2 (16:39→20:41)
[2020-11-09] MEDS: Allopurinol 100 MG Tab PO SCH (22:24)
[2020-11-10] MEDS: Miconazole 2% Top Powder 45 GM Container TOP SCH ×2 (09:00→21:55)
[2020-11-10] MEDS: Furosemide 20 MG Tab (OWN SUPPLY) PO SCH (09:00)
[2020-11-10] MEDS: [UNRECOGNIZED DRUG - OTHER] PO SCH ×2 (09:01→20:15)
[2020-11-10] MEDS: Potassium Chloride 20 MEQ Tab.ER (OWN SUPPLY) PO SCH ×2 (09:01→20:16)
[2020-11-10] MEDS: MESALAMINE 1.2 GM PO SCH ×2 (09:01→20:16)
[2020-11-10] MEDS: Nicotine 14 MG/24 Hr Patch TRDERM SCH (09:02)
[2020-11-10] MEDS: Magnesium Oxide 400 MG Tab PO SCH (09:02)
[2020-11-10] MEDS: Cholecalciferol (Vitamin D3) 5,000 UNIT Tab PO SCH (09:02)
[2020-11-10] MEDS: OXYCODONE 10 MG PO PRN ×3 (10:31→23:38)
[2020-11-10] MEDS: Acetaminophen 325 MG Tab PO PRN ×3 (10:31→23:38)
[2020-11-10] MEDS: Allopurinol 100 MG Tab PO SCH (21:55)
[2020-11-11] MEDS: Potassium Chloride 20 MEQ Tab.ER (OWN SUPPLY) PO SCH ×2 (09:32→20:12)
[2020-11-11] MEDS: OXYCODONE 10 MG PO PRN ×3 (09:32→23:07)
[2020-11-11] MEDS: diphenhydrAMINE 25 MG Cap PO SCH (09:32)
[2020-11-11] MEDS: Miconazole 2% Top Powder 45 GM Container TOP SCH ×2 (09:32→20:13)
[2020-11-11] MEDS: Iron Sucrose Complex 100 MG/5 ML SDV IVPUSH SCH (09:32)
[2020-11-11] MEDS: Sodium Chloride 0.9% 10 ML Syringe FLUSH PRN (09:33)
[2020-11-11] MEDS: [UNRECOGNIZED DRUG - OTHER] PO SCH ×2 (09:33→20:12)
[2020-11-11] MEDS: MESALAMINE 1.2 GM PO SCH ×2 (09:33→20:12)
[2020-11-11] MEDS: Cholecalciferol (Vitamin D3) 5,000 UNIT Tab PO SCH (09:34)
[2020-11-11] MEDS: Nicotine 14 MG/24 Hr Patch TRDERM SCH (09:34)
[2020-11-11] MEDS: Magnesium Oxide 400 MG Tab PO SCH (09:34)
[2020-11-11] MEDS: Acetaminophen 325 MG Tab PO PRN ×3 (09:34→23:06)
[2020-11-11] MEDS: Furosemide 20 MG Tab (OWN SUPPLY) PO SCH (09:35)
[2020-11-12] MEDS: Allopurinol 100 MG Tab PO SCH ×2 (06:08→20:30)
[2020-11-12] MEDS: OXYCODONE 10 MG PO PRN ×3 (06:09→23:08)
[2020-11-12] MEDS: Acetaminophen 325 MG Tab PO PRN ×3 (06:12→23:08)
[2020-11-12] MEDS: Magnesium Oxide 400 MG Tab PO SCH (08:23)
[2020-11-12] MEDS: Nicotine 14 MG/24 Hr Patch TRDERM SCH (08:23)
[2020-11-12] MEDS: Cholecalciferol (Vitamin D3) 5,000 UNIT Tab PO SCH (08:23)
[2020-11-12] MEDS: MESALAMINE 1.2 GM PO SCH ×2 (08:24→20:26)
[2020-11-12] MEDS: Furosemide 20 MG Tab (OWN SUPPLY) PO SCH (08:24)
[2020-11-12] MEDS: [UNRECOGNIZED DRUG - OTHER] PO SCH ×2 (08:24→20:26)
[2020-11-12] MEDS: Potassium Chloride 20 MEQ Tab.ER (OWN SUPPLY) PO SCH ×2 (08:24→20:25)
[2020-11-12] MEDS: Miconazole 2% Top Powder 45 GM Container TOP SCH ×2 (08:26→20:27)
[2020-11-13] MEDS: Acetaminophen 325 MG Tab PO PRN ×4 (06:52→23:34)
[2020-11-13] MEDS: OXYCODONE 10 MG PO PRN ×4 (06:52→23:34)
[2020-11-13 06:58] LABS: ANION GAP 13.1 mmol/L (5-15)
[2020-11-13] MEDS: Cholecalciferol (Vitamin D3) 5,000 UNIT Tab PO SCH (09:38)
[2020-11-13] MEDS: Magnesium Oxide 400 MG Tab PO SCH (09:38)
[2020-11-13] MEDS: Furosemide 20 MG Tab (OWN SUPPLY) PO SCH (09:39)
[2020-11-13] MEDS: MESALAMINE 1.2 GM PO SCH ×2 (09:41→19:50)
[2020-11-13] MEDS: Potassium Chloride 20 MEQ Tab.ER (OWN SUPPLY) PO SCH ×2 (09:42→19:50)
[2020-11-13] MEDS: [UNRECOGNIZED DRUG - OTHER] PO SCH ×2 (09:42→19:49)
[2020-11-13] MEDS: Nicotine 14 MG/24 Hr Patch TRDERM SCH (10:30)
[2020-11-13] MEDS: Miconazole 2% Top Powder 45 GM Container TOP SCH ×2 (10:31→19:51)
[2020-11-13] MEDS: diphenhydrAMINE 25 MG Cap PO SCH (10:33)
[2020-11-13] MEDS: Iron Sucrose Complex 100 MG/5 ML SDV IVPUSH SCH (11:24)
[2020-11-13] MEDS: Cephalexin 500 MG Cap PO SCH ×2 (18:14→23:34)
--- NOTE | 2020-11-13 18:16 | PN ---
Progress Note for VIK MORENO Date: 11/13/2020 Room #: VM.217 SUBJECTIVE: This is a 60-year-old on swing bed, awaiting a revision to the right knee replacement after he dislocated it. Unfortunately, his surgery was postponed due to hematoma and anemia. He has been receiving IV iron. He has received 4/5 doses today and he tolerated that well except his IV had to be redone. He had it Wednesday and did not have problems, but then yesterday, he began having forearm pain and indeed there is a red irritated area that is tender. They have been warm packing it. He has not had any fever or chills. He has not been short of breath. He has been eating well. He is moving his bowels. He is using his pain medications of oxycodone 10 mg on average 3 times a day. OBJECTIVE: Vital Signs: Temperature 98.6, pulse 72, blood pressure 120/56, respiratory rate 16, and O2 of 100 on room air. General: He is in no acute distress. Heart: Regular rate and rhythm. S1, S2 without murmur. Lungs: Sounds are clear to auscultation bilaterally. No crackles or wheezes. Extremities: Warm and dry. Brace in place over the left leg. There are no effusions, no tenderness. No edema in the ankles. Mental Status: Alert and orientated x3. Skin: Right forearm is examined. There is almost like an abscess type area where there was irritation from the IV with redness and an area of warmth and fluctuance. A picture was taken for his Epic chart. LABORATORY WORK: Reviewed from today did show him to have a white count 4.4, hemoglobin 8.3, platelets 230. Sodium 140, potassium 4.1, chloride 104, bicarb 23, BUN 1.8, glucose 80, calcium 8.5. ASSESSMENT: 1. Iron deficiency anemia due to chronic kidney disease and blood loss anemia from a hematoma. He has received 4/5 doses of IV iron. Plan for the 5th dose on Wednesday. 2. Right forearm infiltrated IV, possible infection. We will start him on Keflex 500 q.i.d. for at least 5 days and monitor closely. 3. Right knee dislocation of the prosthetic joint. He is following with Ortho and plans for replacement on 12/09. 4. History of recurrent deep venous thromboses. He is back on Eliquis, but the lower doses and tolerating that well without bleeding problems. 5. Chronic kidney disease stage 3. Creatinine stable. 6. Chronic edema, on Lasix. 7. Essential hypertension, controlled. 8. History of gout. He has not had any episodes. 9. Ulcerative colitis, on his home medications. 10.Adjustment disorder with depression. The patient is looking forward to going home and having his surgery. 11.Obesity. 12.Smoking. He was encouraged to quit. He has accepted some nicotine supplementation. PLAN: The patient will continue on swing bed cares. We will start him on the Keflex today. Hopefully, his symptoms will improve. We will continue warm packs. We will repeat lab work again on Wednesday and give him his last dose of IV iron then and then plan discharge home with home health to follow up in the clinic and have surgery in December. MKA: 11/13/2020 17:31:30 MODL: 11/13/2020 18:10:34 /[id number]
[2020-11-13] MEDS: Allopurinol 100 MG Tab PO SCH (19:49)
[2020-11-14] MEDS: Cephalexin 500 MG Cap PO SCH ×2 (06:00→11:31)
[2020-11-14] MEDS: diphenhydrAMINE 25 MG Cap PO PRN (06:00)
[2020-11-14] MEDS: Acetaminophen 325 MG Tab PO PRN ×4 (06:00→23:24)
[2020-11-14] MEDS: OXYCODONE 10 MG PO PRN ×4 (06:01→23:24)
[2020-11-14] MEDS: Furosemide 20 MG Tab (OWN SUPPLY) PO SCH (10:08)
[2020-11-14] MEDS: [UNRECOGNIZED DRUG - OTHER] PO SCH ×2 (10:08→20:12)
[2020-11-14] MEDS: Potassium Chloride 20 MEQ Tab.ER (OWN SUPPLY) PO SCH ×2 (10:08→20:12)
[2020-11-14] MEDS: MESALAMINE 1.2 GM PO SCH ×2 (10:08→20:11)
[2020-11-14] MEDS: Nicotine 14 MG/24 Hr Patch TRDERM SCH (10:09)
[2020-11-14] MEDS: Magnesium Oxide 400 MG Tab PO SCH (10:09)
[2020-11-14] MEDS: Cholecalciferol (Vitamin D3) 5,000 UNIT Tab PO SCH (10:09)
[2020-11-14] MEDS: Miconazole 2% Top Powder 45 GM Container TOP SCH ×2 (10:09→20:11)
[2020-11-14] MEDS: CEPHALEXIN 500 MG PO SCH ×2 (18:47→23:24)
[2020-11-14] MEDS: Allopurinol 100 MG Tab PO SCH (20:14)
[2020-11-15] MEDS: CEPHALEXIN 500 MG PO SCH ×4 (06:22→23:46)
[2020-11-15] MEDS: OXYCODONE 10 MG PO PRN ×4 (06:23→23:49)
[2020-11-15] MEDS: Acetaminophen 325 MG Tab PO PRN ×4 (06:24→23:48)
[2020-11-15] MEDS: MESALAMINE 1.2 GM PO SCH ×2 (09:10→19:55)
[2020-11-15] MEDS: Potassium Chloride 20 MEQ Tab.ER (OWN SUPPLY) PO SCH ×2 (09:10→19:56)
[2020-11-15] MEDS: Furosemide 20 MG Tab (OWN SUPPLY) PO SCH (09:11)
[2020-11-15] MEDS: [UNRECOGNIZED DRUG - OTHER] PO SCH ×2 (09:11→19:55)
[2020-11-15] MEDS: Cholecalciferol (Vitamin D3) 5,000 UNIT Tab PO SCH (09:13)
[2020-11-15] MEDS: Nicotine 14 MG/24 Hr Patch TRDERM SCH (09:13)
[2020-11-15] MEDS: diphenhydrAMINE 25 MG Cap PO SCH (09:13)
[2020-11-15] MEDS: Magnesium Oxide 400 MG Tab PO SCH (09:13)
[2020-11-15] MEDS: Miconazole 2% Top Powder 45 GM Container TOP SCH ×2 (09:14→19:59)
[2020-11-15] MEDS: Iron Sucrose Complex 100 MG/5 ML SDV IVPUSH SCH (09:32)
--- NOTE | 2020-11-15 15:51 | PN ---
Progress Note for VIK MORENO Date: 11/15/2020 Room #: VM.217 SUBJECTIVE: This is a 60-year-old on swing bed recovering after a right knee dislocation. The patient was planning to go home today, but then decided due to needing continued assistance with ADLs and continued anemia and pain, he would stay until his family came to town in a couple of weeks. Tentatively, his knee replacement redo is planned for 12/09/2020. His hemoglobin is up to 8.4 today. His right forearm is a little bit better with less redness, but there is some drainage there. He has been on Keflex. He has been afebrile. OBJECTIVE: Vital Signs: His temperature is 98.2, pulse 76, blood pressure 117/82, respiratory rate 16, O2 of 96% on room air. General: He is in no acute distress. Heart: Regular rate and rhythm. S1, S2 without murmur. Lungs: Lung sounds clear to auscultation bilaterally without crackles or wheezes. Extremities: Right forearm examined. There is an area of redness with central abscess. The redness appears to be less than the other day. However, the abscess had some drainage which was taken for culture. Extremities warm and dry. No edema. Brace in place, but his calf is soft. There is no more hematoma. Mental Status: Alert and orientated x3. LABORATORY DATA: Lab work reviewed from today did show him to have white count 3.7, hemoglobin 8.4, platelets 206. Sodium 139, potassium 3.9, chloride 104, bicarb 26, BUN 22, creatinine 1.9, glucose 81, calcium normal, albumin 2.9. ASSESSMENT: 1. Iron-deficiency anemia due to chronic kidney disease and blood loss from the hematoma. He received his last dose of IV iron today. Discussed starting every other day oral iron on Wednesday. 2. Right forearm infiltration, possible infection. He is on Keflex day 3. It appears to be improving. A sample was taken. His end date is the . 3. Right knee dislocation of a prosthetic joint, planned for a redo in December. 4. Recurrent deep venous thrombosis. He is back on his Eliquis, but lower dose 2.5 b.i.d. 5. Chronic kidney disease, stage 3. 6. Chronic edema, on Lasix. 7. Essential hypertension, controlled. 8. History of gout. 9. Ulcerative colitis, on home medications. 10.Adjustment disorder with depression. This is due to his medical condition. 11.Obesity. 12.Smoking. PLAN: The patient will continue swing bed cares. We will get lab work next week. We will finish off the IV antibiotics and we will send the wound discharge for culture. MKA: 11/15/2020 15:24:27 MODL: 11/15/2020 15:42:49 /[id number]
[2020-11-15] MEDS: Allopurinol 100 MG Tab PO SCH (19:57)
[2020-11-16] MEDS: Acetaminophen 325 MG Tab PO PRN ×4 (06:05→23:59)
[2020-11-16] MEDS: CEPHALEXIN 500 MG PO SCH ×4 (06:05→23:58)
[2020-11-16] MEDS: OXYCODONE 10 MG PO PRN ×4 (06:05→23:59)
[2020-11-16] MEDS: Magnesium Oxide 400 MG Tab PO SCH (11:47)
[2020-11-16] MEDS: Cholecalciferol (Vitamin D3) 5,000 UNIT Tab PO SCH (11:47)
[2020-11-16] MEDS: Nicotine 14 MG/24 Hr Patch TRDERM SCH (11:48)
[2020-11-16] MEDS: MESALAMINE 1.2 GM PO SCH ×2 (11:49→19:43)
[2020-11-16] MEDS: Furosemide 20 MG Tab (OWN SUPPLY) PO SCH (11:49)
[2020-11-16] MEDS: Potassium Chloride 20 MEQ Tab.ER (OWN SUPPLY) PO SCH ×2 (11:49→19:42)
[2020-11-16] MEDS: [UNRECOGNIZED DRUG - OTHER] PO SCH ×2 (11:50→19:44)
[2020-11-16] MEDS: Miconazole 2% Top Powder 45 GM Container TOP SCH ×2 (11:57→19:42)
[2020-11-16] MEDS: Allopurinol 100 MG Tab PO SCH (19:44)
[2020-11-17] MEDS: CEPHALEXIN 500 MG PO SCH ×3 (05:30→21:32)
[2020-11-17] MEDS: Acetaminophen 325 MG Tab PO PRN ×3 (05:33→21:26)
[2020-11-17] MEDS: OXYCODONE 10 MG PO PRN (05:35)
[2020-11-17] MEDS: Magnesium Oxide 400 MG Tab PO SCH (08:49)
[2020-11-17] MEDS: Nicotine 14 MG/24 Hr Patch TRDERM SCH (08:49)
[2020-11-17] MEDS: Cholecalciferol (Vitamin D3) 5,000 UNIT Tab PO SCH (08:49)
[2020-11-17] MEDS: [UNRECOGNIZED DRUG - OTHER] PO SCH ×2 (08:52→21:30)
[2020-11-17] MEDS: Potassium Chloride 20 MEQ Tab.ER (OWN SUPPLY) PO SCH ×2 (08:52→21:29)
[2020-11-17] MEDS: MESALAMINE 1.2 GM PO SCH ×2 (08:52→21:30)
[2020-11-17] MEDS: Furosemide 20 MG Tab (OWN SUPPLY) PO SCH (08:53)
[2020-11-17] MEDS: Miconazole 2% Top Powder 45 GM Container TOP SCH ×2 (08:55→21:31)
[2020-11-17] MEDS: oxyCODONE 5 MG Tab PO PRN ×2 (11:10→21:27)
[2020-11-17] MEDS: Allopurinol 100 MG Tab PO SCH (21:30)
[2020-11-18] MEDS: CEPHALEXIN 500 MG PO SCH ×5 (00:12→23:56)
[2020-11-18] MEDS: Ferrous Sulfate 325 MG Tab PO SCH (05:41)
[2020-11-18] MEDS: Cholecalciferol (Vitamin D3) 5,000 UNIT Tab PO SCH (08:34)
[2020-11-18] MEDS: [UNRECOGNIZED DRUG - OTHER] PO SCH ×2 (08:34→19:58)
[2020-11-18] MEDS: Magnesium Oxide 400 MG Tab PO SCH (08:34)
[2020-11-18] MEDS: MESALAMINE 1.2 GM PO SCH ×2 (08:35→19:59)
[2020-11-18] MEDS: Furosemide 20 MG Tab (OWN SUPPLY) PO SCH (08:35)
[2020-11-18] MEDS: Nicotine 14 MG/24 Hr Patch TRDERM SCH (08:36)
[2020-11-18] MEDS: Potassium Chloride 20 MEQ Tab.ER (OWN SUPPLY) PO SCH ×2 (08:36→19:59)
[2020-11-18] MEDS: Miconazole 2% Top Powder 45 GM Container TOP SCH ×2 (08:37→20:00)
[2020-11-18] MEDS: oxyCODONE 5 MG Tab PO PRN (10:59)
[2020-11-18] MEDS: Acetaminophen 325 MG Tab PO PRN ×2 (10:59→23:54)
[2020-11-18] MEDS: Allopurinol 100 MG Tab PO SCH (19:58)
--- NOTE | 2020-11-18 21:43 | PN ---
Progress Note for VIK MORENO Date: 11/18/2020 Room #: VM.217 SUBJECTIVE: This is a 60-year-old on swing bed, recovering after a right prosthetic knee dislocation. He had a hematoma with acute blood loss and his hemoglobin went down into the 7s. It is now up to 8.4. He completed IV iron last week. He took his oral iron this morning and denies feeling any upset stomach. He is not having any trouble breathing. He has been on Keflex. The wound on his right arm from the IV is improved. OBJECTIVE: Vital Signs: His temperature is 99.1, pulse 60, blood pressure 110/50, respiratory rate 15, and O2 of 98 on room air. General: He is in no acute distress. Heart: Regular rate and rhythm. Lungs: Sounds are clear to auscultation bilaterally without crackles or wheezes. Extremities: Warm, dry. No bruising over the right knee. No joint effusion. Mental Status: Alert and orientated x3. Skin: Right forearm still has a slight abscess in place, but no surrounding redness. No current drainage. Mildly tender. LABORATORY WORK: Shows culture showing Staph aureus. ASSESSMENT: 1. Iron deficiency anemia due to chronic kidney disease and hematoma. He will be due for lab work Wednesday. 2. Right forearm abscess due to Staph aureus. It is improving, but final culture results have not returned. He will finish his course of Keflex. 3. 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 4. Recurrent deep venous thrombosis, on Eliquis. 5. Ulcerative colitis. Controlled. 6. Chronic kidney disease stage 3. 7. Chronic anemia, on Lasix. 8. Essential hypertension. 9. History of gout. 10.Adjustment disorder with depression. 11.Obesity. 12.Smoking. PLAN: The patient will finish the Keflex antibiotics, which are 4 times a day, on Wednesday. He will have repeat lab work then. He will continue oral iron. He is planning to stay until the end of the month and then home with home health. MKA: 11/18/2020 21:13:29 MODL: 11/18/2020 21:31:38 /[id number]
[2020-11-18] MEDS: OXYCODONE 5 MG PO PRN (23:56)
[2020-11-19] MEDS: CEPHALEXIN 500 MG PO SCH ×4 (05:44→23:59)
[2020-11-19] MEDS: Nicotine 14 MG/24 Hr Patch TRDERM SCH (10:06)
[2020-11-19] MEDS: Cholecalciferol (Vitamin D3) 5,000 UNIT Tab PO SCH (10:06)
[2020-11-19] MEDS: Magnesium Oxide 400 MG Tab PO SCH (10:06)
[2020-11-19] MEDS: Furosemide 20 MG Tab (OWN SUPPLY) PO SCH (10:07)
[2020-11-19] MEDS: [UNRECOGNIZED DRUG - OTHER] PO SCH ×2 (10:07→20:11)
[2020-11-19] MEDS: MESALAMINE 1.2 GM PO SCH ×2 (10:07→20:13)
[2020-11-19] MEDS: Potassium Chloride 20 MEQ Tab.ER (OWN SUPPLY) PO SCH ×2 (10:08→20:12)
[2020-11-19] MEDS: Miconazole 2% Top Powder 45 GM Container TOP SCH ×2 (10:09→20:14)
[2020-11-19] MEDS: OXYCODONE 5 MG PO PRN (10:19)
[2020-11-19] MEDS: Acetaminophen 325 MG Tab PO PRN ×2 (10:21→23:55)
[2020-11-19] MEDS: Allopurinol 100 MG Tab PO SCH (20:11)
[2020-11-20] MEDS: Ferrous Sulfate 325 MG Tab PO SCH (05:59)
[2020-11-20] MEDS: CEPHALEXIN 500 MG PO SCH ×2 (06:00→12:11)
[2020-11-20 06:49] LABS: ANION GAP 13.9 mmol/L (5-15)
[2020-11-20] MEDS: Potassium Chloride 20 MEQ Tab.ER (OWN SUPPLY) PO SCH ×2 (08:44→20:30)
[2020-11-20] MEDS: MESALAMINE 1.2 GM PO SCH ×2 (08:44→20:30)
[2020-11-20] MEDS: Acetaminophen 325 MG Tab PO PRN ×2 (08:44→22:24)
[2020-11-20] MEDS: [UNRECOGNIZED DRUG - OTHER] PO SCH ×2 (08:44→20:30)
[2020-11-20] MEDS: Cholecalciferol (Vitamin D3) 5,000 UNIT Tab PO SCH (08:44)
[2020-11-20] MEDS: Magnesium Oxide 400 MG Tab PO SCH (08:44)
[2020-11-20] MEDS: Furosemide 20 MG Tab (OWN SUPPLY) PO SCH (08:44)
[2020-11-20] MEDS: OXYCODONE 5 MG PO PRN ×3 (08:45→22:24)
[2020-11-20] MEDS: Miconazole 2% Top Powder 45 GM Container TOP SCH ×2 (08:45→22:18)
[2020-11-20] MEDS: Nicotine 14 MG/24 Hr Patch TRDERM SCH (08:46)
--- NOTE | 2020-11-20 09:43 | PN ---
Progress Note for VIK MORENO Date: 11/20/2020 Room #: VM.217 SUBJECTIVE: This is a 60-year-old on swing bed with a prosthetic knee dislocation. He is awaiting surgery, but he had a hematoma which led to anemia. His hemoglobin has been stable now at 8.6. He is back on Eliquis, but a lower dose. He has a history of recurrent DVTs. He unfortunately had an IV infiltrate a week ago. Culture is growing Staph aureus. He has been on Keflex. It is significantly improved. Today is his last doses. OBJECTIVE: Vital Signs: Temperature 97.6, pulse 72, blood pressure 103/35, respiratory rate 16, and O2 of 99% on room air. General: He is in no acute distress. Heart: Regular rate and rhythm. S1, S2 without murmur. Lungs: Sounds are clear to auscultation bilaterally without crackles or wheezes. Extremities: Warm and dry. Both legs are large, but there is no pitting edema. His rash over the left is significantly improved. Right knee is not swollen, there is no bruising. Right calf is soft and nontender. LABORATORY DATA: Lab work is showing his white count 3.6, hemoglobin 8.6, platelets 181. Sodium 141, potassium 3.9, chloride 106, bicarb 25, BUN 25, creatinine 1.8, glucose 81, calcium 8.7. ASSESSMENT AND PLAN: 1. Iron deficiency anemia due to the hematoma and chronic kidney disease. He completed IV iron infusions in the last week. 2. Right forearm abscess due to Staphylococcus aureus, improving. On exam today, just a little bit of firmness left. The redness is improved. No surrounding warmth. 3. Recurrent deep venous thrombosis, on Eliquis. 4. 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 5. Ulcerative colitis. 6. Chronic kidney disease stage 3. Labs are stable. 7. Chronic edema, on Lasix. 8. Essential hypertension. Blood pressure is controlled. 9. Adjustment disorder with depression due to acute medical illnesses. 10.History of gout. 11.Obesity. 12.Smoking. Nicotine replacement available. PLAN: The patient will finish Keflex today. We will repeat lab work on Wednesday. He is looking at going home with Home Health next week prior to his surgery. MKA: 11/20/2020 08:41:30 MODL: 11/20/2020 09:36:14 /[id number]
[2020-11-20] MEDS: Allopurinol 100 MG Tab PO SCH (20:30)
[2020-11-21] MEDS: Magnesium Oxide 400 MG Tab PO SCH (09:33)
[2020-11-21] MEDS: Nicotine 14 MG/24 Hr Patch TRDERM SCH (09:33)
[2020-11-21] MEDS: Cholecalciferol (Vitamin D3) 5,000 UNIT Tab PO SCH (09:33)
[2020-11-21] MEDS: Furosemide 20 MG Tab (OWN SUPPLY) PO SCH (09:34)
[2020-11-21] MEDS: MESALAMINE 1.2 GM PO SCH ×2 (09:35→19:54)
[2020-11-21] MEDS: [UNRECOGNIZED DRUG - OTHER] PO SCH ×2 (09:35→19:55)
[2020-11-21] MEDS: Potassium Chloride 20 MEQ Tab.ER (OWN SUPPLY) PO SCH ×2 (09:36→19:54)
[2020-11-21] MEDS: Miconazole 2% Top Powder 45 GM Container TOP SCH ×2 (09:37→19:52)
[2020-11-21] MEDS: OXYCODONE 5 MG PO PRN ×3 (09:44→23:36)
[2020-11-21] MEDS: Acetaminophen 325 MG Tab PO PRN ×3 (09:44→23:37)
[2020-11-21] MEDS: Allopurinol 100 MG Tab PO SCH (19:55)
[2020-11-21] MEDS: diphenhydrAMINE 25 MG Cap PO PRN (23:37)
[2020-11-22] MEDS: Acetaminophen 325 MG Tab PO PRN ×3 (09:04→23:55)
[2020-11-22] MEDS: OXYCODONE 5 MG PO PRN ×3 (09:04→23:54)
[2020-11-22] MEDS: MESALAMINE 1.2 GM PO SCH ×2 (09:05→21:49)
[2020-11-22] MEDS: Potassium Chloride 20 MEQ Tab.ER (OWN SUPPLY) PO SCH ×2 (09:05→21:48)
[2020-11-22] MEDS: Nicotine 14 MG/24 Hr Patch TRDERM SCH (09:05)
[2020-11-22] MEDS: [UNRECOGNIZED DRUG - OTHER] PO SCH ×2 (09:06→21:50)
[2020-11-22] MEDS: Cholecalciferol (Vitamin D3) 5,000 UNIT Tab PO SCH (09:07)
[2020-11-22] MEDS: Ferrous Sulfate 325 MG Tab PO SCH (09:07)
[2020-11-22] MEDS: Magnesium Oxide 400 MG Tab PO SCH (09:07)
[2020-11-22] MEDS: Furosemide 20 MG Tab (OWN SUPPLY) PO SCH (09:07)
[2020-11-22] MEDS: Miconazole 2% Top Powder 45 GM Container TOP SCH ×2 (09:08→21:47)
--- NOTE | 2020-11-22 14:34 | PCM.SN.2 ---
- Free Text/Narrative Note: Recheck on the arm looks ok culture did return MRSA and he only got Keflex but improved. Since his arm is nearly healed we will just observe for now. Plan is to go home Wednesday. Lab work will be done on Wednesday.
[2020-11-22] MEDS: Cyanocobalamin (Vitamin B12) 1,000 MCG/ML SDV IM SCH (17:20)
[2020-11-22] MEDS: Allopurinol 100 MG Tab PO SCH (21:48)
[2020-11-22] MEDS: diphenhydrAMINE 25 MG Cap PO PRN (23:55)
[2020-11-23] MEDS: Acetaminophen 325 MG Tab PO PRN ×3 (10:24→23:57)
[2020-11-23] MEDS: OXYCODONE 5 MG PO PRN ×3 (10:24→23:56)
[2020-11-23] MEDS: Nicotine 14 MG/24 Hr Patch TRDERM SCH (10:25)
[2020-11-23] MEDS: MESALAMINE 1.2 GM PO SCH ×2 (10:26→20:01)
[2020-11-23] MEDS: Potassium Chloride 20 MEQ Tab.ER (OWN SUPPLY) PO SCH ×2 (10:26→19:59)
[2020-11-23] MEDS: Furosemide 20 MG Tab (OWN SUPPLY) PO SCH (10:27)
[2020-11-23] MEDS: [UNRECOGNIZED DRUG - OTHER] PO SCH ×2 (10:27→20:00)
[2020-11-23] MEDS: Cholecalciferol (Vitamin D3) 5,000 UNIT Tab PO SCH (10:28)
[2020-11-23] MEDS: Magnesium Oxide 400 MG Tab PO SCH (10:28)
[2020-11-23] MEDS: Miconazole 2% Top Powder 45 GM Container TOP SCH ×2 (10:28→20:02)
[2020-11-23] MEDS: Allopurinol 100 MG Tab PO SCH (20:01)
[2020-11-23] MEDS: diphenhydrAMINE 25 MG Cap PO PRN (23:57)
[2020-11-24] MEDS: Miconazole 2% Top Powder 45 GM Container TOP SCH ×2 (10:44→19:44)
[2020-11-24] MEDS: Potassium Chloride 20 MEQ Tab.ER (OWN SUPPLY) PO SCH ×2 (10:45→19:43)
[2020-11-24] MEDS: Ferrous Sulfate 325 MG Tab PO SCH (10:45)
[2020-11-24] MEDS: Nicotine 14 MG/24 Hr Patch TRDERM SCH (10:45)
[2020-11-24] MEDS: Cholecalciferol (Vitamin D3) 5,000 UNIT Tab PO SCH (10:45)
[2020-11-24] MEDS: Magnesium Oxide 400 MG Tab PO SCH (10:45)
[2020-11-24] MEDS: [UNRECOGNIZED DRUG - OTHER] PO SCH ×2 (10:46→19:43)
[2020-11-24] MEDS: Acetaminophen 325 MG Tab PO PRN ×3 (10:47→23:53)
[2020-11-24] MEDS: Furosemide 20 MG Tab (OWN SUPPLY) PO SCH (10:47)
[2020-11-24] MEDS: MESALAMINE 1.2 GM PO SCH ×2 (10:48→19:43)
[2020-11-24] MEDS: OXYCODONE 5 MG PO PRN ×3 (10:48→23:53)
[2020-11-24] MEDS: Allopurinol 100 MG Tab PO SCH (19:43)
[2020-11-24] MEDS: diphenhydrAMINE 25 MG Cap PO PRN (23:53)
[2020-11-25] MEDS: Acetaminophen 325 MG Tab PO PRN ×3 (09:58→23:42)
[2020-11-25] MEDS: OXYCODONE 5 MG PO PRN ×3 (09:58→23:41)
[2020-11-25] MEDS: Cholecalciferol (Vitamin D3) 5,000 UNIT Tab PO SCH (10:00)
[2020-11-25] MEDS: Magnesium Oxide 400 MG Tab PO SCH (10:00)
[2020-11-25] MEDS: [UNRECOGNIZED DRUG - OTHER] PO SCH ×2 (10:00→20:29)
[2020-11-25] MEDS: Nicotine 14 MG/24 Hr Patch TRDERM SCH (10:01)
[2020-11-25] MEDS: Furosemide 20 MG Tab (OWN SUPPLY) PO SCH (10:01)
[2020-11-25] MEDS: Potassium Chloride 20 MEQ Tab.ER (OWN SUPPLY) PO SCH ×2 (10:03→20:29)
[2020-11-25] MEDS: MESALAMINE 1.2 GM PO SCH ×2 (10:03→20:29)
[2020-11-25] MEDS: Miconazole 2% Top Powder 45 GM Container TOP SCH ×2 (13:35→20:31)
[2020-11-25] MEDS: Allopurinol 100 MG Tab PO SCH (20:29)
[2020-11-25] MEDS: diphenhydrAMINE 25 MG Cap PO PRN (23:42)
[2020-11-26 05:55] VITALS: BP 120/64; PULSE 68
[2020-11-26] MEDS: Nicotine 14 MG/24 Hr Patch TRDERM SCH (08:12)
[2020-11-26] MEDS: MESALAMINE 1.2 GM PO SCH (08:13)
[2020-11-26] MEDS: Potassium Chloride 20 MEQ Tab.ER (OWN SUPPLY) PO SCH (08:13)
[2020-11-26] MEDS: OXYCODONE 5 MG PO PRN ×2 (08:14→17:20)
[2020-11-26] MEDS: [UNRECOGNIZED DRUG - OTHER] PO SCH (08:14)
[2020-11-26] MEDS: Acetaminophen 325 MG Tab PO PRN (08:16)
[2020-11-26] MEDS: Magnesium Oxide 400 MG Tab PO SCH (08:16)
[2020-11-26] MEDS: Ferrous Sulfate 325 MG Tab PO SCH (08:16)
[2020-11-26] MEDS: Cholecalciferol (Vitamin D3) 5,000 UNIT Tab PO SCH (08:16)
[2020-11-26] MEDS: Miconazole 2% Top Powder 45 GM Container TOP SCH (08:18)
[2020-11-26] MEDS: Furosemide 20 MG Tab (OWN SUPPLY) PO SCH (08:19)
[2020-11-26] MEDS ORDERED: Mineral Oil/Petrolatum,White Crm 454 GM Jar TOP SCH (10:00)
--- NOTE | 2020-11-27 04:57 | DISCH ---
PRIMARY DISCHARGE DIAGNOSIS: A right knee dislocation, prosthetic joint. SECONDARY DISCHARGE DIAGNOSES: 1. Acute blood loss anemia due to hematoma. Hemoglobin up to 8.9 on discharge. 2. Recurrent deep venous thromboses, on Eliquis. 3. Chronic kidney disease stage 3, previously on dialysis, not a candidate for nonsteroidal anti-inflammatory drugs. 4. Chronic edema with obesity. 5. Essential hypertension. 6. Hypocalcemia with history of hypercalcemia and sarcoid in remission. 7. History of gout. 8. Ulcerative colitis. 9. Thrombocytopenia. REASON FOR ADMISSION: On the date of admission, this 60-year-old male had been in [place] under acute cares after a right prosthetic knee dislocation. It had been reduced. He went home, but was doing poorly. Therefore, he came on to swing bed. He was getting therapy and his leg became more red and swollen. He had an ultrasound, which confirmed a hematoma. His hemoglobin actually dropped down to just 7.4, and he required 1 unit of packed red blood cells for symptomatic anemia. The patient otherwise had no issues with his breathing. During his stay, his kidney function was monitored closely. It stayed in his baseline range of 1.8 and 1.9. His blood pressures were under excellent control and he continued on his furosemide 20 mg daily. Due to looser stools, magnesium was also reduced to once daily. He continued on his oxycodone for pain control. Did have to be increased from 5 to 10 mg, but then was decreased back to 5 mg actually inadvertently as it was not realized that the supply had changed from 10 to 5 mg from the pharmacy and he was getting good pain relief down from an 8 to 4 taking 3 per day. The patient is aware he is only on 5 mg and he reports that he is fine with this dosing. He is worried about getting addicted, especially since he has drank some alcohol in the past. He also smokes, but he has been using a nicotine patch here. DISCHARGE PLANS AND INSTRUCTIONS: He will follow up in the clinic on 12/03 with a BMP and a CBC. He will be home on iron every other day. The Eliquis was continued at 2.5 twice daily due to the recent hematoma and he will need to hold that 3 days before surgery, which is currently planned for 12/09. He will also be weightbearing as tolerated on that leg, but avoid significant ambulation due to concerns for further bleeding and hematoma. He will have a type and cross done by Ortho. PHYSICAL EXAMINATION: Discharge Vitals: Temp 97.3, pulse 68, blood pressure 120/64, respiratory rate 16, and O2 of 99% on room air. General: He is in no acute distress. Heart: Regular rate and rhythm. S1, S2 without murmur. Lungs: Lung sounds are clear to auscultation bilaterally without crackles or wheezes. Abdomen: Has positive bowel sounds. Soft, nondistended, nontender. Extremities: Warm, dry. The left leg, just trace edema. He has 2+ over the right leg, but no calf tenderness. No knee effusion. No bruising. Skin: No rashes. He did have some dry skin earlier on the left leg, but this was treated with creams. Mental Status: Alert and oriented x3. MKA: 11/26/2020 20:21:27 MODL: 11/27/2020 03:18:47 /[id number]
== END 2020-11-26 17:30 | disposition home health service (06) | DRG 949 ==
LOC: UNDOADMIN 15:43 → VM.MS 15:43
PROVIDERS: ADMIT Internal Medicine; ATTEND Internal Medicine
PROC: 30233N1 Transfusion of Nonautologous Red Blood Cells into Peripheral Vein, Percutaneous Approach (ICD-10-PCS; principal; 2020-10-28)
DX: T84.022D Instability of internal right knee prosthesis, subsequent encounter (principal); D62 Acute posthemorrhagic anemia; K51.90 Ulcerative colitis, unspecified, without complications; I82.511 Chronic embolism and thrombosis of right femoral vein; L02.413 Cutaneous abscess of right upper limb; N18.30 Chronic kidney disease, stage 3 unspecified; I12.9 Hypertensive chronic kidney disease with stage 1 through stage 4 chronic kidney disease, or unspecified chronic kidney disease; E83.51 Hypocalcemia; Z20.822 Contact with and (suspected) exposure to COVID-19; D69.6 Thrombocytopenia, unspecified; E66.9 Obesity, unspecified; E83.52 Hypercalcemia; E83.42 Hypomagnesemia; B95.61 Methicillin susceptible Staphylococcus aureus infection as the cause of diseases classified elsewhere; F17.200 Nicotine dependence, unspecified, uncomplicated; F43.20 Adjustment disorder, unspecified; D63.1 Anemia in chronic kidney disease; Z96.653 Presence of artificial knee joint, bilateral; Z85.038 Personal history of other malignant neoplasm of large intestine; Z79.01 Long term (current) use of anticoagulants
CPT/HCPCS: 36415; 36430; 80048; 80053; 80069; 82728; 83540; 83550; 83735; 85025; 85379; 85610; 86850; 86900; 86901; 86920; 86922; 87070; 87077; 87147; 87186; 97116-GP; 97140-GP; 97162-GP; 97165-GO; 97530-GP; 97535-GO; A9270-GY; J1756; J3420; P9016; U0002

== ENCOUNTER 2020-12-11 13:52 | Inpatient (IN) | payer MEDICAID ==
--- NOTE | 2020-12-11 07:47 | PCM.HP.2 ---
H&P History of Present Illness - General Date of Service: 12/11/20 Source of Information: Patient History Limitations: Reports: No Limitations - History of Present Illness Initial Comments - Free Text/Narative: Mr. Arboleda is a 60 yo male with PMH of ulcerative colitis, hypertension, peripheral neuropathy, CKD, chronic DVT, gout, anemia, lumbar spine DDD, and sarcoidosis who is admitted to swing bed for further strengthening prior to return home following a right TKA revision. He had a traumatic dislocation of the previously replaced right knee on 10/19. He was admitted to [facility] and had a successful reduction of the dislocation. He was then discharged home with plans for short interval revision of the right TKA. He was admitted to swing bed in the interim due to not doing well at home after the initial injury. He recovered well and was able to be discharged home again prior to having surgery on 12/09 for the right total knee revision. His hospitalization was complicated by expected post-operative anemia. No other complications. Upon arrival to the floor, the patient states that he is feeling good. He has had pain but this is controlled with his current regimen. He is having regular bowel movements and is voiding without issue. He has not had any fever or chills. His appetite has been good. He denies any concerns at this time. - Related Data Allergies/Adverse Reactions: Allergies Allergy/AdvReac Type Severity Reaction Status Date / Time No Known Allergies Allergy Verified 12/11/20 14:31 Home Medications: Home Meds Magnesium Oxide [Magnesium] 400 mg PO DAILY 01/01/20 [History] Cyanocobalamin (Vitamin B12) [Vitamin B12] 1,000 mcg IM Q30D 04/25/20 [History] allopurinoL [Zyloprim] 100 mg PO BEDTIME 04/25/20 [History] Acetaminophen [Tylenol] 650 mg PO Q4H PRN 10/22/20 [History] Furosemide [Lasix] 20 mg PO DAILY 10/22/20 [History] Mesalamine [Lialda] 2.4 gm PO BID 10/22/20 [History] Apixaban [Eliquis] 2.5 mg PO BID #0 11/15/20 [Rx] Mineral Oil/Petrolatum,White [Minerin] 1 gm TOP BID jar 11/26/20 [Rx] Docusate Sodium/Sennosides [Senna Plus] 2 tab PO BID 12/11/20 [History] Ferrous Sulfate 325 mg PO Q48H 12/11/20 [History] Potassium Chloride [Klor-Con M20] 20 meq PO BID 12/11/20 [History] oxyCODONE HCl [Oxycodone HCl] 10 mg PO Q4H PRN 12/11/20 [History] Past Medical History Cardiovascular History: Reports: Blood Clots/VTE/DVT, Hypertension, Other (See Below) Other Cardiovascular History: thoracic aortic aneurysm without rupture. venous stasis. lymphedema Respiratory History: Reports: None Gastrointestinal History: Reports: Inflammatory Bowel Disease (ulcerative colitis), Other (See Below) Other Gastrointestinal History: elevated LFTs Genitourinary History: Reports: Renal Disease Musculoskeletal History: Reports: Back Pain, Chronic, Gout, Other (See Below) Other Musculoskeletal History: osteomyelitis left foot and right foot Neurological History: Reports: Neuropathy, Peripheral, Other (See Below) Other Neuro History: degeneration of lumbar or lumbosacral intervetebral disc, congenital spinal stenosis of lumbar region Psychiatric History: Reports: None Endocrine/Metabolic History: Reports: Hyperparathyroidism, Obesity/BMI 30+, Other (See Below) Other Endocrine/Metabolic History: pancytopenia. hyperglyceridemia. hypomagnesemia. hypercalcemia Hematologic History: Reports: Anemia, Iron Deficiency Immunologic History: Reports: Other (See Below) Other Immunologic History: pancytopenia. splenomegaly Oncologic (Cancer) History: Reports: Colon Dermatologic History: Other Dermatologic History: contact dermatitis - Infectious Disease History Infectious Disease History: Reports: MRSA - Past Surgical History Head Surgeries/Procedures: Reports: Shunt Cardiovascular Surgical History: Reports: Other (See Below) Other Cardiovascular Surgeries/Procedures: left AV shunt fistual GI Surgical History: Reports: Colon, Colonoscopy Other GI Surgeries/Procedures: PART OF COLON REMOVED BECAUSE OF COLON CANCER. Neurological Surgical History: Reports: None Musculoskeletal Surgical History: Reports: Amputation, Knee Replacement, Other (See Below) Other Musculoskeletal Surgeries/Procedures:: rt and lt TKA. amputations: rt partial #2,#3 and #4 toe, lt #5 toe, lt partial #2,#3 and #4 toe, Social & Family History - Family History Cardiac: Reports: Hypertension GI: Reports: Inflammatory Bowel Disease Musculoskeletal: Reports: Arthritis, Gout Neurological: Reports: Dementia Dermatologic: Reports: Psoriasis - Tobacco Use Tobacco Use Status *Q: Current Some Day Tobacco User - Caffeine Use Caffeine Use: Reports: None Caffeine Use Comment: 1 to 2 cups of coffee a day - Alcohol Use Alcohol Use History: No Alcohol Use in Last Twelve Months: No - Recreational Drug Use Recreational Drug Use: No - Living Situation & Occupation Living situation: Reports: Single, Alone Occupation: Disabled H&P Review of Systems - Review of Systems: Review Of Systems: See Below General: Reports: No Symptoms HEENT: Reports: No Symptoms Pulmonary: Reports: No Symptoms Cardiovascular: Reports: No Symptoms Gastrointestinal: Reports: No Symptoms Genitourinary: Reports: No Symptoms Musculoskeletal: Reports: Leg Pain Skin: Reports: No Symptoms Psychiatric: Reports: No Symptoms Neurological: Reports: No Symptoms Exam - Exam Exam: See Below - Exam General: Alert, Oriented, Cooperative HEENT: Conjunctiva Clear, Mucosa Moist & [place], Pupils Equal Neck: Supple, Trachea Midline. No: Lymphadenopathy, Thyromegaly Lungs: Clear to Auscultation, Normal Respiratory Effort Cardiovascular: Regular Rate, Regular Rhythm, Normal S1, Normal S2 GI/Abdominal Exam: Normal Bowel Sounds, Soft, Non-Tender, No Organomegaly, No Distention, No Mass Extremities: Non-Tender, Normal Capillary Refill, Other (Both legs with lymphedema, R>L. Wound vac in place over the right knee incision with surrounding area looking clean, dry, and without erythema.) Peripheral Pulses: 2+: Radial (L), Radial (R) Skin: Warm, Dry Neuro Extensive - Mental Status: Alert, Oriented x3, Normal Mood/Affect - Problem List (1) S/P total knee replacement SNOMED Code(s): 7931574569114, 999006359, 9179464390230 ICD Code: Z96.659 - PRESENCE OF UNSPECIFIED ARTIFICIAL KNEE JOINT Status: Acute Current Visit: No Qualifiers: Laterality: right Qualified Code(s): Z96.651 - Presence of right artificial knee joint (2) Anemia SNOMED Code(s): 118695496 ICD Code: D64.9 - ANEMIA, UNSPECIFIED Status: Acute Current Visit: No Qualifiers: Anemia type: unspecified type Qualified Code(s): D64.9 - Anemia, unspecified (3) DVT (deep venous thrombosis) SNOMED Code(s): 989545488 ICD Code: I82.409 - ACUTE EMBOLISM AND THOMBOS UNSP DEEP VN UNSP LOWER EXTREMITY Status: Chronic Current Visit: No Qualifiers: DVT location: lower extremity Affected thrombotic vein of extremity: unspecified vein of extremity Chronicity: chronic Laterality: unspecified laterality Qualified Code(s): I82.509 - Chronic embolism and thrombosis of unspecified deep veins of unspecified lower extremity (4) CKD (chronic kidney disease) SNOMED Code(s): 854628825 ICD Code: N18.9 - CHRONIC KIDNEY DISEASE, UNSPECIFIED Status: Chronic Current Visit: No Qualifiers: Chronic kidney disease stage: unspecified stage Qualified Code(s): N18.9 - Chronic kidney disease, unspecified (5) Hypomagnesemia SNOMED Code(s): 190433217 ICD Code: E83.42 - HYPOMAGNESEMIA Status: Chronic Current Visit: No (6) Hypercalcemia SNOMED Code(s): 52837744 ICD Code: E83.52 - HYPERCALCEMIA Status: Chronic Current Visit: No (7) Hyperparathyroidism SNOMED Code(s): 45846397 ICD Code: E21.3 - HYPERPARATHYROIDISM, UNSPECIFIED Status: Chronic Curre nt Visit: No (8) Hypertension SNOMED Code(s): 84800994 ICD Code: I10 - ESSENTIAL (PRIMARY) HYPERTENSION Status: Chronic Current Visit: No Qualifiers: Hypertension type: essential hypertension Qualified Code(s): I10 - Essential (primary) hypertension (9) Obesity (BMI 30-39.9) SNOMED Code(s): 481523058, 530406811 ICD Code: E66.9 - OBESITY, UNSPECIFIED Status: Chronic Current Visit: No (10) Chronic low back pain SNOMED Code(s): 433136766 ICD Code: M54.5 - LOW BACK PAIN; G89.29 - OTHER CHRONIC PAIN Status: Chronic Current Visit: No Qualifiers: Back pain laterality: unspecified Sciatica presence: unspecified whether sciatica present Qualified Code(s): M54.5 - Low back pain; G89.29 - Other chronic pain (11) Contact dermatitis SNOMED Code(s): 31839364 ICD Code: L25.9 - UNSPECIFIED CONTACT DERMATITIS, UNSPECIFIED CAUSE Status: Chronic Priority: Low Current Visit: No Qualifiers: Contact dermatitis type: unspecified Contact dermatitis trigger: unspecified trigger Qualified Code(s): L25.9 - Unspecified contact dermatitis, unspecified cause (12) Gout SNOMED Code(s): 48926423 ICD Code: M10.9 - GOUT, UNSPECIFIED Status: Chronic Current Visit: No (13) Peripheral neuropathy SNOMED Code(s): 048380770 ICD Code: G62.9 - POLYNEUROPATHY, UNSPECIFIED Status: Chronic Priority: Medium Current Visit: No Qualifiers: Peripheral neuropathy type: polyneuropathy, unspecified Qualified Code(s): G62.9 - Polyneuropathy, unspecified (14) Ulcerative colitis SNOMED Code(s): 33221186 ICD Code: K51.90 - ULCERATIVE COLITIS, UNSPECIFIED, WITHOUT COMPLICATIONS Status: Chronic Current Visit: No Problem List Initiated/Reviewed/Updated: Yes Assessment/Plan Comment:: #1 s/p right TKA revision - PT and OT consults. - Continue pain management as per hospital discharge list. #2 Acute on chronic anemia - Has chronic anemia secondary to CKD with acute anemia secondary to hematoma and then surgery. - Hgb down compared to yesterday. Will recheck again tomorrow. If stable tomorrow, can recheck early next week. - Transfusion threshold would be <7 without symptoms or <8 with symptoms. #3 H/O DVT - U/S 10/29 was negative. - Patient will be resumed on eliquis 2.5 mg BID x 7 days and then increased to 5 mg BID. #4 CKD #5 Hypomagnesemia #6 Hypercalcemia #7 Hyperparathyroidism - Labs stable during his acute hospitalization. - Will check again tomorrow. As above, if stable, can be rechecked early next week. #8 Hypertension #9 Obesity #10 Chronic low back pain #11 Contact dermatitis #12 Gout #13 Peripheral neuropathy #14 Ulcerative colitis - Continue home medications. Patient will be admitted to swing bed and will remain on swing bed until it is felt he can safely return home. PT/OT consults. Medications continued as per [facility] pital d/c list. Will recheck labs tomorrow and then again early next week if stable tomorrow. Eliquis will be resumed as above - no other VTE prophylaxis is indicated. Regular diet. Code status is DNR/DNI - discussed on admission. - Mortality Measure Prognosis:: Good
[2020-12-11] MEDS: Acetaminophen 325 MG Tab PO PRN (16:52)
[2020-12-11] MEDS: OXYCODONE 5 MG PO PRN ×2 (17:51→21:50)
[2020-12-11] MEDS ORDERED: Allopurinol 100 MG Tab PO SCH (20:00)
[2020-12-11] MEDS: ELIQUIS 5 MG PO SCH (20:26)
[2020-12-11] MEDS: ALLOPURINOL 100 MG PO SCH (20:27)
[2020-12-11] MEDS: POTASSIUM CHLORIDE 20 MEQ PO SCH (20:28)
[2020-12-11] MEDS: [UNRECOGNIZED DRUG - OTHER] TOP SCH (20:29)
[2020-12-12] MEDS: OXYCODONE 5 MG PO PRN ×4 (01:54→14:35)
[2020-12-12 07:44] LABS: ANION GAP 15.7 mmol/L (5-15)
[2020-12-12] MEDS ORDERED: Furosemide 20 MG Tab PO SCH (08:00)
[2020-12-12] MEDS: Magnesium Oxide 400 MG Tab PO SCH (08:05)
[2020-12-12] MEDS: Furosemide 20 MG Tab *PT OWN MED PO SCH (08:05)
[2020-12-12] MEDS: POTASSIUM CHLORIDE 20 MEQ PO SCH ×2 (08:06→20:07)
[2020-12-12] MEDS: ELIQUIS 5 MG PO SCH ×2 (08:07→20:09)
[2020-12-12] MEDS: [UNRECOGNIZED DRUG - OTHER] TOP SCH ×2 (08:08→20:08)
--- OUTSIDE RECORDS SUMMARY | 2020-12-12 09:00 | XMSREPORT ---
:1960 Author Organization [facility] Address [address] [place] [address] Care Team Providers Name Role Phone DO Jeremy Primary Care Provider DO Jeremy Attributed Provider Reason for Referral FCC Prior Auth (Routine) Status Reason Specialty Diagnoses / Referred By Referred To Procedures Contact Contact New Request Diagnoses S/P revision of total knee, right Rosemary Markham PA Procedures NEGATIVE PRESSURE WOUND THERAPY [address] [place] [id number] Reason for Visit Auth/Cert (Routine) Status Reason Specialty Diagnoses / Referred By Referred To Procedures Contact Contact Continuity of Care Diagnoses Unspecified dislocation of right knee, initial encounter Presence of right artificial knee joint Orlando Del Castillo Procedures REVISION TOTAL KNEE ARTHROPLASTY FEMORAL & ENTIRE TIBIAL COMPONENT MD [place] [address] [place] [id number] Encounter Details Date Type Department Care Team Description 12/09/2020 - Hospital Encounter [facility] Magdalene Dislocat ion of right 12/11/2020 [facility] DEBORAH Caro MD knee, initial [address] [place] [address] [place], [place] [phone] [id number] [phone] Allergies No Known Active Allergiesdocumented as of this encounter (statuses as of 12/11/2020) Medications Medication Sig Dispensed Refills Start End Status Date Date acetaminophen Take 650 mg by 0 A ctive (TYLENOL) 325 mg mouth Every 4 tablet hours as needed for mild pain, moderate pain, fever > (indicate temp) or headache magnesium oxide Take 400 mg by 0 Active (MAG-OX 400) 400 mouth 1 time per mg tablet day allopurinol Take 1 tablet (100 90 tablet 3 03/18/20 Active (ZYLOPRIM) 100 mg mg) by mouth every 20 tabletIndications: night at bedtime Chronic gout due to renal impairment without tophus, unspecified site mesalamine Take 2 tablets 120 tablet 12 06/18/20 Act doc (LIALDA) 1.2 gm (2.4 g) by mouth 2 20 enteric coated times a day tabletIndications: Ulcerative colitis with complication, unspecified location ([facility]) potassium chloride Take 1 tablet (20 180 tablet 2 09/28/19 Active (KLOR-CON M20) 20 mEq) by mouth 2 21 MEQ CR times a day tabletIndications: Hypokalemia Skin Protectants, Apply 1 g 0 11/27/19 Ac tive Misc. (MINERIN topically 2 times 21 CREME EXT) a day cyanocobalamin Inject 1,000 mcg 0 04/25/20 Active (VITAMIN B-12) intramuscularly 1 20 1000 mcg/mL time a month injection solution ferrous sulfate Take 325 mg by 0 11/16/19 Active (65 MG FE PER 325 mouth Every 2 days 21 MG TABLET) 325 mg tablet furosemide (LASIX) Take 20 mg by 0 10/23/19 Active 20 mg tablet mouth 1 time per 21 day oxyCODONE (OXY-IR) Take 1 tablet (10 50 tablet 0 12/12/19 Active 10 mg mg) by mouth Every 21 tabletIndications: 4 hours as needed S/P revision of for moderate pain total knee, right or severe pain senna-docusate Take 2 tablets by 0 12/12/19 Active sodium mouth 2 times a 21 (SENOKOT-S;PERICOL day PER) 8.6-50 MG tabletIndications: S/P revision of total knee, right apixaban (ELIQUIS) Take 0.5 tablets 0 12/12/19 Active 5 MG (2.5 mg) by mouth 21 tabletIndications: 2 times a day History of Indications: Thrombosis, Personal History Prophylaxis of DVT of Blood Clots, in Orthopedic Prophylaxis of Surgery Deep Vein Thrombosis in Orthopedic Surgery apixaban (ELIQUIS) Take 1 tablet (5 60 tablet 6 03/15/2011/03 Discontinued 5 MG mg) by mouth 2 021 (Disc ontinued tabletIndications: times a day by Physician) Venous Indications: Thromboembolism Venous Thromboembolism furosemide (LASIX) Take 1 tablet (20 90 tablet 0 07/26/1931/08 Discontinued 20 mg mg) by mouth 1 021 (Disc ontinued tabletIndications: time per day by Physician) Hypervolemia, unspecified hypervolemia type oxyCODONE (OXY-IR) Take 1 tablet (5 30 tablet 0 11/27/1903/06 Discontinued 5 mg tablet mg) by mouth every (Stop Taking at (immediate 6 hours as needed D ischarge) release)Indication for severe pain s: Acute knee pain, unspecified laterality vitamin D3, Take 5,000 Units 0 11/16/19 D iscontinued cholecalciferol, by mouth 1 time (Unknown 125 mcg (5000 per day (Pharm acy Use)) unit) tablet apixaban (ELIQUIS) Take 2.5 mg by 0 11/16/19 Discontinued DVT/PE starter mouth 2 times a (Unknown pack (5 mg day (Pharmacy Use)) tablets) apixaban (ELIQUIS) Take 5 mg by mouth 0 Discontinued 5 MG tablet 2 times a day 021 (Reo rder) documented as of this encounter (statuses as of 12/11/2020) Active Problems Problem Noted Date Sarcoidosis 08/12/2020 Overview: Treated with prednisone in 2019 main con cern was hypercalcemia 2020 recommendations He just needs to be followed in general for sarcoid. He should have yearly PFTs for a few yea rs. He should have yearly eye exams. He should have screening lab work (CBC, CMP) once a year. He does not need repeat imaging. On apixaban therapy 03/15/2020 Chronic deep vein thrombosis of right upper extremity 03/15/2020 Obesity with body mass index of 30.0-39.9 02/28/2019 Splenomegaly 07/21/2018 Hypercalcemia 04/06/2018 Thoracic aortic aneurysm without rupture 09/22/2017 Overview: 4.5 cm on echo, ascending Iron deficiency anemia 10/08/2016 Pancytopenia 08/19/2016 Hyperparathyroidism due to renal insufficiency 017 ESRD (end stage renal disease) 07/28/2016 Anemia of chronic renal failure 2016 Painless hematuria 05/06/2016 Lymphedema 05/04/2016 Hypomagnesemia 05/04/2016 Anemia of infection and chronic disease 05/04/2016 Chronic gout of multiple sites 02/01/2016 Lower extremity venous stasis 08/12/2015 MRSA (methicillin resistant staph aureus) culture posi tive 01/18/2015 Overview: 2003, 11/20 Chronic deep vein thrombosis of right femoral vein 03/2015 Overview: Right leg, 08/09/14. Lovenox followed by [facility]. Repeat US 11/15/14 showed chronic deep ve nous thrombosis within the distal femoral vein to the posterior tibial vein Chronic low back pain 05/16/2014 Congenital spinal stenosis of lumbar region 03/15/2014 Peripheral neuropathy 01/11/2014 Elevated liver function tests 11/16/2013 Overview: Post op TKA. Also was drinking 18-25 bee r weekly. 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 Last c-scope mildly active colitis Ulcerative colitis 05/12/2005 Overview: DX Pancolonic UC in 1970s. Last scope s showed mild active chronic colitis. He was on Mesalamine 2.4 daily took at onetime but has been off since 2016 restart 06/23 . C-scope 01/21 R colon mil dly active colitis, transverse colon, de scending, sigmoid colon, and rectum also. Inflamed Tubulovillous adenoma "sessile mass at 20 cm" no high-grade dysplasia. Had azulfidine until 1979 then tapered due to remission. 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 Degeneration of lumbar or lumbosacral intervertebral d isc documented as of this encounter (statuses as of 12/11/2020) Resolved Problems Problem Noted Date Resolved Date Foot osteomyelitis, right 11/18/2018 06/08/2019 Overview: MRSA s/p surgery to the 3,4 digit in 11/02 9 Hypotension 05/29/2016 11/13/2019 Chronic osteomyelitis of left foot 05/19/201606/08 Overview: s/p ambutation 3,4 digits 05/13/16 Culture Rare Pseudomonas aeruginosa (!) Rare Staphylococcus aureus (!) Rare Corynebacterium species (!) strain one Rare Corynebacterium species (!) Bacteroides fragilis Acute renal failure 05/07/2016 11/13/2019 MARIAH (acute kidney injury) 05/06/2016 11/13/2019 Acute osteomyelitis of left foot 01/30/2016 019 Overview: 2nd toe, distal tip Cellulitis of toe of left foot 01/30/2016 9 Peripheral neuropathy 01/23/2015 01/23/2015 Overview: He reports not being able to feel his fe et. Fracture of left great toe 01/23/2015 10/14/2015 Cellulitis and abscess of toe of left foot 01/23/2015 10/14/2015 Magnesium deficiency 01/08/2014 06/08/2019 Acute low back pain 01/08/2014 05/16/2014 Weight loss, unintentional 01/08/2014 05/04/2016 Overview: 100# in 4 months. Acute kidney failure 11/16/2013 08/28/2014 Overview: Post op TKA felt to be due to dehydratio n. Arthritis of knee 10/19/2012 08/28/2014 Pure hyperglyceridemia 03/24/2011 06/21/2014 Other specified abnormal findings of blood chemistry 011 09/18/2013 Abscess of anal and rectal regions 05/23/200908/28 Gout 07/07/2007 05/04/2016 Morbid obesity 07/07/2007 09/02/2017 documented as of this encounter (statuses as of 12/11/2020) Immunizations Name Administration Dates Next Due FLU VACCINE SINGLE DOSE 03/18/2020, 04/12/2019, 04/18/2018, 0.5mL(6MO+Fluzone/Flulaval/Fluarix,3YR 04/16/2017 +Afluria) H1N1 Vaccine 04/15/2009 HEP B, dialysis 04/05/2017, 11/02/2016, 10/05/2016 Influenza Vaccine 04/04/2014 Influenza Vaccine,unspecified 04/12/2019, 04/16/2017, 2015, 04/04/2015 Moderna COVID-19 Vaccine 09/27/2020, 08/30/2020 Pneumococcal Conj PCV13 09/14/2016 Pneumococcal Polysaccharide PPSV23 11/20/2016, 07/07/2007 TDAP 09/22/2013, 07/23/2006 Zoster Live(Zostavax) 12/21/2016 Zoster Recombinant (Shingrix) 03/26/2020, 12/27/2019 documented as of this encounter Social History Tobacco Use Types Packs/Day Years Used Date Current Some Day Smoker Cigarettes 0.25 Smokeless Tobacco: Never Used Comments: Smokes 3 cigarettes/day. Tryin g to quit Alcohol Use Standard Drinks/Week Comments Yes 0 (1 standard drink = 0.6 oz pure alcoho l) last drink on (05/19/16) Alcohol Habits Answer Date Recorded How often do you have a drink containing alcohol? 2-3 times a week 10/20/2020 How many drinks containing alcohol do you have on a 5 or 6 10/20/2020 typical day when you are drinking? How often do you have six or more drinks on one Not asked occasion? Sex Assigned at Date Recorded Not on file documented as of this encounter Last Filed Vital Signs Vital Sign Reading Time Taken Comments Blood Pressure 126/55 12/11/2020 7:00 AM CDT Pulse 70 12/11/2020 9:16 AM CDT Temperature 36.7 C (98 F) 12/11/2020 7:00 AM CDT Respiratory Rate 16 12/11/2020 7:00 AM CDT Oxygen Saturation 99% 12/11/2020 7:00 AM CDT Inhaled Oxygen Concentration - - Weight 135.2 kg (298 lb 1 oz) 12/09/2020 7:53 AM CDT Height 193 cm (6' 4") 12/09/2020 7:53 AM CDT Body Mass Index 36.28 12/09/2020 7:53 AM CDT documented in this encounter Functional Status Functional Status Response Date of Assessment Is the person deaf or does he/she have serious difficulty No 11/13/2019 hearing? Is this person blind or does he/she have difficulty No 11/13/2019 seeing even when wearing glasses? Do you have difficulty with walking, balance, climbing No 11/13/2019 stairs, or had a fall in the last 3 months? Does the patient have difficulty dressing or bathing? No 11/17/2018 Because of a physical, mental, or emotional condition; No 11/17/2018 does this person have difficulty doing errands alone such as visiting a doctor's office or shopping? Cognitive Status Response Date of Assessment Because of a physical, mental, or emotional condition; No 11/17/2018 does this person have serious difficulty concentrating, remembering, or making decisions? documented as of this encounter Discharge Summaries Not on filedocumented in this encounter Discharge Instructions InstructionsRosemary Markham PA - 12/09/2020 Activity Walk with walker/crutches full weight bearing as instructed by Physical Therapy. Advance to cane as instructed. Continue exercises you have been taught. Sit in a chair that is safe for your knee-rocking chair is encouraged. Physical therapy 3 times a week for 6 weeks at If you are going to have your therapy as an outpatient arrive and check in 30 minutes early for first session. Take insurance card and photo ID. Do not drive until your Surgeon informs you that you can. Lie down 2 times a day in bed for 45-60 minutes. You may elevate your feet on pillows. If swelling occurs lie down in bed 3-4 times a day. Ice for knee as needed. Remove PER wrap daily for 2 hours and reapply Dressing instructions: -Cover the dressing with PressNSeal for 14 days - for showers -Leave the Prevena Plus wound VAC dressing intact & dry. The battery life will last for 7 days,and the unit will need to be recharged for ~2 hours per day (the VAC will work for up to 16 hours per full battery charge) -If the dressing begins to peel or if the VAC seal is compromised, you may attempt to reinforce the dressing with additional VAC tape or remove the dressing entirely. After the VAC dressing is removed, PRN dry dressing to the knee with 4x4 gauze, ABD(s), and PER wrap (if drainage) or a Mepilex dressing (if dry). -When the Prevena Plus VAC unit has reached end of life, please remove and discard it. Then remove the VAC dressing and place a dry dressing with 4x4 gauze, ABD(s), and PER wrap (if drainage) or a Mepilex dressing (if dry). -If the VAC cannister fills up (150 mL), the VAC will not continue to work. Should this happen, please power off the Prevena Plus VAC and remove the VAC dressing, discarding the dressing and VAC, thenconvert to pressure dressings with 4x4 gauze, ABD(s), and PER wrap for compression. documented in this encounter Medications at Time of Discharge Medication Sig Dispensed Refills Start Date End Date senna-docusate sodium Take 2 tablets by 0 (SENOKOT-S;PERICOLACE) mouth 2 times a day 8.6-50 MG tabletIndications: S/P revision of total knee, right apixaban (ELIQUIS) 5 Take 0.5 tablets (2.5 0 /0 03/2021 MG tabletIndications: mg) by mouth 2 times a History of Thrombosis, day Indications: Prophylaxis of DVT in Personal History of Orthopedic Surgery Blood Clots, Prophylaxis of Deep Vein Thrombosis in Orthopedic Surgery Skin Protectants, Apply 1 g topically 2 0 021 Misc. (MINERIN CREME times a day EXT) cyanocobalamin Inject 1,000 mcg 0 04/25/2020 (VITAMIN B-12) 1000 intramuscularly 1 time mcg/mL injection a month solution ferrous sulfate (65 MG Take 325 mg by mouth 0 FE PER 325 MG TABLET) Every 2 days 325 mg tablet furosemide (LASIX) 20 Take 20 mg by mouth 1 0 mg tablet time per day potassium chloride Take 1 tablet (20 mEq) 180 tablet 2 09/27 (KLOR-CON M20) 20 MEQ by mouth 2 times a day CR tabletIndications: Hypokalemia mesalamine (LIALDA) Take 2 tablets (2.4 g) 120 tablet 12 06/04 1.2 gm enteric coated by mouth 2 times a day tabletIndications: Ulcerative colitis with complication, unspecified location (HCC) allopurinol (ZYLOPRIM) Take 1 tablet (100 mg) 90 tablet 3 0 03/18/2020 100 mg by mouth every night tabletIndications: at bedtime Chronic gout due to renal impairment without tophus, unspecified site magnesium oxide Take 400 mg by mouth 1 0 (MAG-OX 400) 400 mg time per day tablet acetaminophen Take 650 mg by mouth 0 (TYLENOL) 325 mg Every 4 hours as tablet needed for mild pain, moderate pain, fever > (indicate temp) or headache oxyCODONE (OXY-IR) 10 Take 1 tablet (10 mg) 50 tablet 0 03/2021 mg tabletIndications: by mouth Every 4 hours S/P revision of total as needed for moderate knee, right pain or severe pain oxyCODONE (OXY-IR) 5 Take 1-2 tablets by 40 tablet 0 201308/25/2017 MG tablet (immediate mouth every 4 to 6 release) hours as needed for severe pain. documented as of this encounter Progress Notes Mindy Jack APRN-INSURANCE SALES SPECIALIST - 12/11/2020 9:48 AM CDT Images from the original note were not included. DAILY PROGRESS NOTE Vik Arboleda is a 60yr old male admitted on 12/09/2020 6:35 AM. Impression / Plan #Acute blood loss anemia Postop hemoglobin 8.2 Increase ferrous sulfate to 325 daily Swing bed to follow hemoglobin. #Hypertension Continue furosemide, hold if systolic blood pressure less than 120 #History of DVT Resume Eliquis when cleared by orthopedics PCP recommended to restart Eliquis at 2.5 twice daily for now with the potential to resume full dosing of 5 mg twice a day #CKD stage III secondary to sequelae of previous acute GN -follows with nephrology -fistula to LUE + thrill/bruit Postop creatinine 1.3, GFR 43 #Hypokalemia Continue potassium chloride Postop potassium 3.8 #Hypomagnesemia Continue mag oxide magnesium today 1.9 #Ulcerative colitis Continue Lialda #Status post right complex total knee arthroplasty revision Managed by orthopedics Lovenox 40 mg subcu daily for DVT prophylaxis per orthopedic preference Tylenol scheduled for pain, oxycodone as needed Postop hemoglobin 8.2, ferrous sulfate increased to daily PT/OT following Case management to assist with discharge planning. Patient plans to discharge back to [facility] bed. Patient medically stable for discharge when bed available. #Chronic anemia Increase ferrous sulfate to daily #Gout Continue allopurinol #Leukopenia WBC count 9.4 #History of MRSA #Obesity Body mass index is 36.28 kg/m. #History of retrosigmoid carcinoma s/p colectomy Interval History RAMIREZ Garcias is postop day 2 from a right complex total knee arthroplasty revision. No acute events overnight. His vital signs are stable. His postop hemoglobin is 8.2 today. His ferrous sulfate willbe increased from every other day to daily. The swing bed will need to monitor his hemoglobin. Postop creatinine 1.63, GFR 43. He is tolerating a regular diet with no nausea or vomiting. He is voiding well, but has not had a bowel movement. He does have bowel sounds active in all 4 quadrants. Hecurrently denies any chest pain, shortness of breath, nausea, headache, and numbness or tingling. He will continue to work with physical and occupational therapy and plan will be for him to discharge to the swing bed when available. Medically stable. Review of Systems Review of Systems Respiratory: Negative for chest tightness and shortness of breath. Cardiovascular: Negative for chest pain. Gastrointestinal: Negative for nausea and vomiting. Genitourinary: Negative for difficulty urinating. Musculoskeletal: Positive for arthralgias. Neurological: Negative for light-headedness and headaches. Physical Exam Vital Signs: Temp: 98 F (36.7 C) | BP: 126/55 | Pulse: 72 | Resp: 16 | Pain Ratin (out of 10) | Weight: 135.2 kg (298 lb 1 oz) | O2 Device: Room Air O2 Flow Rate (L/min): 2 l/min | SpO2: 99 % Maximum Temperatures (last 24 hours) Temperature Maximum Max Temp 98.1 F (36.7 C) Intake and Output: 12/10 0700 - 12/11 0659 In: 250 [Oral:250] Out: 1050 [Urine:1050] Physical Exam Vitals and nursing note reviewed. Constitutional: General: He is not in acute distress. Appearance: He is well-developed. He is obese. He is not diaphoretic. HENT: Head: Normocephalic and atraumatic. Eyes: Conjunctiva/sclera: Conjunctivae normal. Cardiovascular: Rate and Rhythm: Normal rate and regular rhythm. Pulses: Normal pulses. Heart sounds: Normal heart sounds. No murmur heard. No friction rub. No gallop. Pulmonary: Effort: Pulmonary effort is normal. No respiratory distress. Breath sounds: Normal breath sounds. No wheezing or rales. Abdominal: General: Bowel sounds are normal. There is no distension. Palpations: Abdomen is soft. Tenderness: There is no abdominal tenderness. Musculoskeletal: General: Swelling present. Cervical back: Normal range of motion. Right knee: Decreased range of motion. Skin: General: Skin is warm and dry. Neurological: Mental Status: He is alert and oriented to person, place, and time. Psychiatric: Behavior: Behavior normal. Thought Content: Thought content normal. Judgment: Judgment normal. Labs Labs (Last day) 12/11/20521 - 12/11/20521 CBC 12/11/20521 CBC Hemoglobin 13.5-17.5 (g/dL) 8.2 12/11/20521 - 12/11/20521 CHEMISTRY 12/11/2052112/11/20521 CHEMISTRY Glucose 70-100 (mg/dL) 81 Sodium 135-145 (meq/L) 139 Potassium 3.5-5.3 (meq/L) 3.8 Chloride 99-110 (meq/L) 112 CO2 20-29 (meq/L) 20 Anion Gap with K 6-20 (meq/L) 11 BUN 6-22 (mg/dL) 30 Creatinine 0.80-1.30 (mg/dL) 1.63 BUN/Creatinine Ratio 10.0-25.0 18.4 Calcium 8.5-10.5 (mg/dL) 8.1 Magnesium 1.8-2.4 (mg/dL) 1.9 eGFR >=60 (mL/min/1.73m2) 53 eGFR Non- >=60 (mL/min/1.73m2) 43 12/10/202019 - 12/10/202019 SARS-COV-2 12/10/202019 SARS-COV-2 SARS-CoV-2 Not Detected Not Detected 12/11/20521 - 12/11/20521 OTHER 12/11/20 05 OTHER Age (Years) 60 Medical Decision making MDM Reviewed: previous chart, nursing note and vitals Reviewed previous: labs Interpretation: labs Jesus Castillo PA - 12/10/2020 11:12 AM CDT Orthopedic Daily Progress Note Assessment: Vik Arboleda is a 60yr old male status post Post-Op Diagnosis Codes: * Dislocation of right knee, initial encounter [S83.104A] * History of total knee arthroplasty, right [Z96.651] 1. Status post right total knee arthroplasty revision with incisional wound VAC application 12/09/[address] Del Castillo secondary to failed/unstable right TKA with prior right knee dislocation 2. PMH right TKA 06/25/[address] Abel Morocho 3. PMH left TKA 10/27/[address] Abel Morocho 4. Post-op leukopenia 5. Acute post-op blood loss anemia on chronic iron deficiency anemia 6. PMH right UE and right LE DVT, Eliquis held in-house 7. HTN 8. CKD III, PMH hemodialysis x 4 years. Has left UE AV fistula 9. Ulcerative colitiis 10. Gout 11. PMH MRSA 12. Obesity, BMI 36.28 13. Chronic right leg lymphedema 14. Thoracic aortic aneurysm 15. Peripheral neuropathy 16. Hypomagnesemia Plan: 1. Pain control 2. DVT chemoprophylaxis: Lovenox 40mg SQ daily while in-house, then start Eliquis 2.5mg BID for ~ 7days, then resume 5mg BID dosing as per baseline 3. PT/OT: WBAT, A/PROM right knee as tolerated 4. D/C plan: Return to [facility] bed for continued medical care & therapy, likely Wednesday or . F/U with Dr. Del Castillo in 2 weeks for wound check. Dressing education/incisional cares education discussed. Dressing instructions/wound VAC: Leave Prevena Plus VAC dressing intact & dry during the hospital stay. Ok to reinforce with VACtape or tegaderm as needed. Will keep hooked up to hospital VAC Ulta during the in-house stay, and convert to the battery Prevena unit prior to discharge to home. In-house VAC settings: Prevena Subjective: No acute events. Reports adequate post-op pain control. Denies N/V. Mobilizing well with therapy thus far, 124' earlier today. + flatus, appetite ok. Objective: BP 119/74 | Pulse 78 | Temp 97.8 F (36.6 C) | Resp 14 | Ht 1.93 m (6' 4") | Wt 135.2 kg (298 lb 1 oz) | SpO2 98% | BMI 36.28 kg/m Maximum Temperatures (last 24 hours) Temperature Maximum Max Temp 98 F (36.7 C) Intake and Output: 12/09 0700 - 12/10 0659 In: 2983 [Oral:750] Out: 2850 [Urine:2850] General: A&Ox3, NAD, obese. All 4's NVI. Respirations unlabored Exam: right lower extremity: right knee incisional wound VAC dressing remains c/d/i, no output in the canister. Tolerates gentle A/PROM right knee, with some discomfort. Chronic right LE lymphedema noted. Right EHL/FHL 5/ str. Negative Andrey's. SILT distally. Lab Results Component Value Date WBC 3.2 (L) 12/03/2020 NUCRBC 0 10/20/2020 RBC 3.74 (L) 12/03/2020 HEMOGLOBIN 9.4 (L) 12/10/2020 HEMATOCRIT 32.9 (L) 12/03/2020 MCV 88.0 12/03/2020 MCH 28.1 12/03/2020 MCHC 31.9 12/03/2020 RDW 13.4 11/02/2013 PLTCOUNT 165 12/03/2020 NEUTROPCT 55.7 12/03/2020 BANDPCT 8.0 12/26/2018 LYMPHSPCT 31.1 12/03/2020 MONOSPCT 12.6 12/03/2020 EOSPCT 0.0 12/03/2020 BASOPHILPCT 0.6 12/03/2020 Lab Results Component Value Date PT 13.2 04/30/2020 INR 1.0 (L) 04/30/2020 Creatinine: 1.77 (12/10/20) BUN: 33 Mindy Jack APRN-INSURANCE SALES SPECIALIST - 12/10/2020 10:34 AM CDT Images from the original note were not included. DAILY PROGRESS NOTE Vik Arboleda is a 60yr old male admitted on 12/09/2020 6:35 AM. Impression / Plan #Hypertension Restart furosemide, hold if systolic blood pressure less than 120 #History of DVT Resume Eliquis when cleared by orthopedics PCP recommended to restart Eliquis at 2.5 twice daily for now with the potential to resume full dosing of 5 mg twice a day #CKD stage III secondary to sequelae of previous acute GN -follows with nephrology -fistula to LUE + thrill/bruit Preop creatinine 1.77, GFR 39 #Hypokalemia Continue potassium chloride Postop potassium 4.7 #Hypomagnesemia Continue mag oxide in addition to 500 mg by mouth twice a day today Recheck magnesium in a.m. #Ulcerative colitis Continue Lialda #Status post right complex total knee arthroplasty revision Managed by orthopedics Lovenox 40 mg subcu daily for DVT prophylaxis per orthopedic preference Tylenol scheduled for pain, oxycodone as needed Postop hemoglobin 9.4 PT/OT following Case management to assist with discharge planning. Patient plans to discharge back to [facility] bed. Patient medically stable for discharge when bed available. #Gout Continue allopurinol #Leukopenia WBC count 9.4 #History of MRSA #Obesity Body mass index is 36.28 kg/m. #History of retrosigmoid carcinoma s/p colectomy Interval History HPI Davon is postop day 1 from a right complex total knee arthroplasty revision. No acute events overnight. His vital signs are stable. Postop hemoglobin 9.4, creatinine 1.77, GFR 39. His pain iscontrolled on oral pain medication. He is tolerating a regular diet with no nausea or vomiting. Heis voiding well, but has not had a bowel movement. He does report passing flatus. He currently denies any chest pain, shortness of breath, nausea, headache, and numbness or tingling. He will work with physical and Occupational Therapy today and discharge to [facility] when cleared by therapies and orthopedics. Medically stable for discharge. Awaiting bed availability. Review of Systems Review of Systems Respiratory: Negative for chest tightness and shortness of breath. Cardiovascular: Negative for chest pain. Gastrointestinal: Negative for nausea and vomiting. Genitourinary: Negative for difficulty urinating. Musculoskeletal: Positive for arthralgias. Neurological: Negative for light-headedness and headaches. Physical Exam Vital Signs: Temp: 97.8 F (36.6 C) | BP: 119/74 | Pulse: 78 | Resp: 14 | Pain Ratin (out of 10) | Weight: 135.2 kg (298 lb 1 oz) | O2 Device: Room Air O2 Flow Rate (L/min): 2 l/min | SpO2: 98 % Maximum Temperatures (last 24 hours) Temperature Maximum Max Temp 98 F (36.7 C) Intake and Output: / 0700 - 06 0659 In: 2983 [Oral:750] Out: 2850 [Urine:2850] Physical Exam Vitals and nursing note reviewed. Constitutional: General: He is not in acute distress. Appearance: He is well-developed. He is obese. He is not diaphoretic. HENT: Head: Normocephalic and atraumatic. Eyes: Conjunctiva/sclera: Conjunctivae normal. Cardiovascular: Rate and Rhythm: Normal rate and regular rhythm. Pulses: Normal pulses. Heart sounds: Normal heart sounds. No murmur heard. No friction rub. No gallop. Pulmonary: Effort: Pulmonary effort is normal. No respiratory distress. Breath sounds: Normal breath sounds. No wheezing or rales. Abdominal: General: Bowel sounds are normal. There is no distension. Palpations: Abdomen is soft. Tenderness: There is no abdominal tenderness. Musculoskeletal: Cervical back: Normal range of motion. Right knee: Decreased range of motion. Skin: General: Skin is warm and dry. Neurological: Mental Status: He is alert and oriented to person, place, and time. Psychiatric: Behavior: Behavior normal. Thought Content: Thought content normal. Judgment: Judgment normal. Labs Labs (Last day) 12/10/20623 - 12/10/20623 CBC 12/10/20623 CBC Hemoglobin 13.5-17.5 (g/dL) 9.4 12/10/20623 - 12/10/20623 CHEMISTRY 12/10/2062312/10/20623 CHEMISTRY Glucose 70-100 (mg/dL) 106 Sodium 135-145 (meq/L) 137 Potassium 3.5-5.3 (meq/L) 4.7 Chloride 99-110 (meq/L) 110 CO2 20-29 (meq/L) 17 Anion Gap with K 6-20 (meq/L) 15 BUN 6-22 (mg/dL) 33 Creatinine 0.80-1.30 (mg/dL) 1.77 BUN/Creatinine Ratio 10.0-25.0 18.6 Calcium 8.5-10.5 (mg/dL) 8.6 Magnesium 1.8-2.4 (mg/dL) 1.7 eGFR >=60 (mL/min/1.73m2) 48 eGFR Non- >=60 (mL/min/1.73m2) 39 12/09/20 1036 - 12/09/20 1036 MISCELLANEOUS MICRO 12/09/20 1036 12/09/20 1036 12/09/20 1036 12/09/20 1036 MISCELLANEOUS MICRO Gram Stain Moderate (10 to 25/LPF) WBC's Many (>25/LPF) RBC's No epithelial cells seen No organisms seen 12/10/20623 - 12/09/20 1036 OTHER 12/10/2062312/09/20 1036 OTHER Age (Years) 60 Culture Result No growth after overnight incubation. Medical Decision making MDM Reviewed: previous chart, nursing note and vitals Reviewed previous: labs Interpretation: labs Carolina Easton, [facility] - 12/09/2020 7:57 AM CDT 12/09/2020 7:58 AM CDT - Patient was seen by pharmacy. HOME MEDICATIONS have been reconciled and updated to match the patient's home usage. Medications added: none Medications removed: Vitamin D Medications changed: Eliquis dose is 5mg bid, magnesium dose is 400mg daily Prior to Admission Medications Prescriptions Last Dose Informant Patient Reported? Taking? Skin Protectants, Misc. (MINERIN CREME EXT) Past Week at Unknown time Yes Yes Sig: Apply 1 g topically 2 times a day acetaminophen (TYLENOL) 325 mg tablet 12/08/2020 at 2200 Self Yes Yes Sig: Take 650 mg by mouth Every 4 hours as needed for mild pain, moderate pain, fever > (indicatetemp) or headache allopurinol (ZYLOPRIM) 100 mg tablet 12/08/2020 at 2000 Self No Yes Sig: Take 1 tablet (100 mg) by mouth every night at bedtime apixaban (ELIQUIS) 5 MG tablet 11/27/2020 at 0800 Yes Yes Sig: Take 5 mg by mouth 2 times a day cyanocobalamin (VITAMIN B-12) 1000 mcg/mL injection solution 11/15/2020 Yes Yes Sig: Inject 1,000 mcg intramuscularly 1 time a month ferrous sulfate (65 MG FE PER 325 MG TABLET) 325 mg tablet 12/07/2020 at am Yes Yes Sig: Take 325 mg by mouth Every 2 days furosemide (LASIX) 20 mg tablet 12/08/2020 at am Yes Yes Sig: Take 20 mg by mouth 1 time per day magnesium oxide (MAG-OX 400) 400 mg tablet 12/08/2020 at am Self Yes Yes Sig: Take 400 mg by mouth 1 time per day mesalamine (LIALDA) 1.2 gm enteric coated tablet 12/08/2020 at 2000 Self No Yes Sig: Take 2 tablets (2.4 g) by mouth 2 times a day oxyCODONE (OXY-IR) 5 mg tablet (immediate release) 12/08/2020 at 2000 Yes Yes Sig: Take 1 tablet (5 mg) by mouth every 6 hours as needed for severe pain potassium chloride (KLOR-CON M20) 20 MEQ CR tablet 12/08/2020 at 2000 Self No Yes Sig: Take 1 tablet (20 mEq) by mouth 2 times a day Facility-Administered Medications: None Carolina Easton RPh Orlando Del Castillo MD - 12/09/2020 7:05 AM CDT The risks and benefits of operative intervention explained to and understood by the patient. These were inclusive but not exclusive of deep vein thrombosis, pulmonary embolism, bleeding and transfusion, leg length discrepancy, loss of motion, loss of function, failure of implants, infection, and treatment of infection, neurovascular or bony compromise with insertion and/or removal of implants, and associated medical risks of the operation. Alternative treatments have been discussed. The hope is to lessen pain and improve mobility. We discussed other treatment options previously including intra-articular cortisone injection, continued conservative management, versus arthroplasty. Potential surgeon conflict of interests were also discussed with research and/or development, consulting, and education. The patient admits to no changes in their status since their last history and physical examination. documented in this encounter Consult Notes Mindy Jack APRN-CNP - 12/09/2020 8:07 AM CDTAssociated Order(s): CONSULT INTERNAL MEDICINE Images from the original note were not included. HOSPITAL CONSULT NOTE Patient ID: Vik Arboleda is a 60yr male. PCP: Sammie Luna DO Attending Provider: Orlando Del Castillo MD CONSULT INTERNAL MEDICINE Consult performed by: Mindy Jack APRN-CNP Consult ordered by: Rosemary Markham PA Impression / Plan #Hypertension Hold furosemide Check BMP with magnesium in a.m. #History of DVT Resume Eliquis when cleared by orthopedics PCP recommended to restart Eliquis at 2.5 twice daily for now with the potential to resume full dosing of 5 mg twice a day #CKD stage III secondary to sequelae of previous acute GN -follows with nephrology -fistula to LUE + thrill/bruit Preop creatinine 1.98, GFR 35 #Hypokalemia Continue potassium chloride Check BMP with magnesium in a.m. #Hypomagnesemia Continue mag oxide Check BMP with magnesium in a.m. #Ulcerative colitis Continue Lialda #Status post right complex total knee arthroplasty revision Managed by orthopedics Lovenox 40 mg subcu daily for DVT prophylaxis per orthopedic preference Tylenol scheduled for pain, oxycodone as needed Hemoglobin in a.m., preop hemoglobin 10.5 PT/OT to see Case management to assist with discharge planning. Patient plans to discharge back to [facility] bed. #Gout Continue allopurinol #Leukopenia Preop WBC count 3.2 Recheck in a.m. #History of MRSA #Obesity Body mass index is 36.28 kg/m. #History of retrosigmoid carcinoma s/p colectomy Chief Complaint / HPI HPI Vik Arboleda is admitted under the orthopedic service status post right complex total knee arthroplasty revision on 12/09/2020. Spinal anesthesia. Estimated blood loss 500 mL, Cell Saver 17mL. Internal medicine consultation requested to assist with co-managment postoperatively. Patient was seen in the recovery room. He currently denies any pain, chest pain, shortness of breath, nausea, and headache. He does have numbness and tingling remaining from his anesthesia. He has not voidedsince surgery.. Patient had a fall on 10/19/2020 that resulted in a dislocation of his right prosthetic knee joint. At that time it was put back into place. Due to poor pain control and mobility he was admitted to a swing bed for short stay. During this time the patient did develop a hematoma to his right knee and required a blood transfusion as well as iron infusion. He has continued to struggle with pain control since his dislocation. Today he was admitted for a right complex total knee arthroplasty revision. Preoperatively he rated his pain 5-6 out of 10.He had difficulty with any ambulation and activitiesof daily living. He was taking oxycodone for pain control prior to surgery. He was also using an as sistive device at home. Preop labs reviewed from 12/03/2020: Hemoglobin 10.5, creatinine 1.98, GFR 35 Stress echo reviewed from 03/23/2019: Normal study Medications Current Facility-Administered Medications Medication sodium chloride 0.9% flush (adult) 10 mL lactated ringers IV solution lidocaine PF (XYLOCAINE-MPF) 1 % preservative free injection solution 0.1- 0.3 mL ceFAZolin (ANCEF) syringe 3000 mg/30 mL sterile water dexAMETHasone sodium phosphate (DECADRON) (10 mg/mL) injection solution 10 mg ondansetron (ZOFRAN) injection solution 4 mg tranexamic acid (CYKLOKAPRON) injection 1,000 mg Allergies No Known Allergies Medical / Surgical / Family History Past Medical History: Diagnosis Date Abscess of anal and rectal regions 05/23/2009 Acute kidney failure (HCC) 11/16/2013 Post op TKA felt to be due to dehydration. Acute renal failure ([facility]) 05/07/2016 MARIAH (acute kidney injury) ([facility]) 05/06/2016 Anemia Anemia of chronic renal failure Anemia of infection and chronic disease Blood transfusion without reported diagnosis Cellulitis and abscess of toe of left foot 01/23/2015 Chronic deep vein thrombosis of right femoral vein ([facility]) Chronic low back pain Chronic osteomyelitis (HCC) left foot Congenital spinal stenosis of lumbar region DDD (degenerative disc disease), lumbar Degeneration of lumbar or lumbosacral intervertebral disc DJD (degenerative joint disease) Eczema Elevated LFTs ESRD (end stage renal disease) ([facility]) Essential hypertension, benign 07/07/2007 Fracture of left great toe 01/23/2015 Gout, unspecified 07/07/2007 chronic gout of multiple sites History of MRSA infection Hypercalcemia Hyperparathyroidism (HCC) Hyperparathyroidism, secondary renal (HCC) JON (iron deficiency anemia) Lower extremity venous stasis Lymphedema Magnesium deficiency 01/08/2014 Malignant neoplasm of rectosigmoid junction ([facility]) 12/03/2005 colon Morbid obesity (HCC) Osteomyelitis (HCC) left foot Pancytopenia (HCC) Pancytopenia (HCC) Peripheral neuropathy Pure hyperglyceridemia 03/24/2011 Splenomegaly Substance abuse ([facility]) History of, has completed treatment. Thoracic aortic aneurysm (HCC) Ulcerative colitis ([facility]) Unspecified Ulcerative Colitis 05/12/2005 Weight loss, unintentional 01/08/2014 100# in 4 months. Past Surgical History: Procedure Laterality Date A-V SHUNT FISTULA Left 10/01/2016 Procedure: LEFT ARM ARTERIO VENOUS DIALYSIS FISTULA CREATION;; Surgeon: Andriy Talley MD A-V SHUNT FISTULA Left 11/17/2016 Procedure: LEFT ARM ARTERIO VENOUS FISTULA TRANSPOSITION;; Surgeon: Andriy Talley MD AMPUTATION MINOR Left 02/05/2016 Procedure: LEFT 2ND TOE PARTIAL AMPUTATION ;; Surgeon: Leopoldo Martinez DPM AMPUTATION MINOR Left 05/13/2016 Procedure: LEFT FOOT 3RD AND 4TH DIGIT PARTIAL AMPUTATION;; Surgeon: Shane Luna DPM AMPUTATION MINOR Left 02/24/2017 Procedure: LEFT 5TH TOE AMPUTATION;; Surgeon: Leopoldo Martinez DPM AMPUTATION MINOR Right 11/19/2018 Procedure: PARTIAL THIRD AND FOURTH TOE AMPUTATION.;; Surgeon: Dewey Dickson DPM AMPUTATION MINOR Right 06/21/2019 Procedure: RIGHT FOOT 2ND TOE PARTIAL AMPUTATION;; Surgeon: Leopoldo Martinez DPM AMPUTATION MINOR Right 11/15/2019 Procedure: RIGHT FOOT 5TH TOE PARTIAL AMPUTATION;; Surgeon: Leopoldo Martinez DPM COLECTOMY PARTIAL WANASTOMOSIS 11-12-11 colon cancer and obstruction COLON SURGERY COLONOSCOPY 06/19/14 COLONOSCOPY ENDOBRONCHIAL US ADD-ON N/A 07/06/2018 Procedure: ENDOBRONCHIAL ULTRASOUND;; Surgeon: Lori Cruz MD JOINT REPLACEMENT TOTAL KNEE Left 10/27/2013 Procedure: LEFT TOTAL KNEE ARTHROPLASTY ;; Surgeon: Abel Morocho MD TOTAL KNEE Right 06/25/2014 Procedure: RIGHT TOTAL KNEE ARTHROPLASTY;; Surgeon: Abel Morocho MD Family History Problem Relation Age of Onset Hypertension Mother Memory loss Father Negative Brother Inflammatory Bowel Disease Maternal Half Sister IBS colitis Obesity Brother Hypertension Brother High Cholesterol Brother Inflammatory Bowel Disease Maternal Grandmother Colitis Bladder Cancer Neg Hx Kidney Cancer Neg Hx Kidney Disease Neg Hx Nephrolithiasis Neg Hx Prostate Cancer Neg Hx Testicular Cancer Neg Hx Social History Social History Tobacco Use Smoking status: Current Some Day Smoker Packs/day: 0.25 Types: Cigarettes Smokeless tobacco: Never Used Tobacco comment: Smokes 3 cigarettes/day. Trying to quit Substance Use Topics Alcohol use: Yes Comment: last drink on (05/19/16) Drug use: No Comment: Reports "a little weed" as a teenager ROS Review of Systems Constitutional: Negative. HENT: Negative. Eyes: Negative. Respiratory: Negative for chest tightness and shortness of breath. Cardiovascular: Negative for chest pain. Gastrointestinal: Negative for nausea and vomiting. Genitourinary: Positive for difficulty urinating. Musculoskeletal: Positive for arthralgias. Skin: Negative. Neurological: Negative for headaches. Hematological: Negative. Psychiatric/Behavioral: Negative. Physical Exam BP 119/73 | Pulse 65 | Temp 98.9 F (37.2 C) | Resp 16 | Ht 1.93 m (6' 4") | Wt 135.2 kg (298 lb 1 oz) | SpO2 99% | BMI 36.28 kg/m Physical Exam Vitals and nursing note reviewed. Constitutional: General: He is not in acute distress. Appearance: He is well-developed. He is obese. He is not diaphoretic. HENT: Head: Normocephalic and atraumatic. Eyes: Conjunctiva/sclera: Conjunctivae normal. Cardiovascular: Rate and Rhythm: Normal rate and regular rhythm. Pulses: Normal pulses. Heart sounds: Normal heart sounds. No murmur heard. No friction rub. No gallop. Pulmonary: Effort: Pulmonary effort is normal. No respiratory distress. Breath sounds: Normal breath sounds. No wheezing or rales. Abdominal: General: Bowel sounds are normal. There is no distension. Palpations: Abdomen is soft. Tenderness: There is no abdominal tenderness. Musculoskeletal: Cervical back: Normal range of motion. Right knee: Decreased range of motion. Skin: General: Skin is warm and dry. Neurological: Mental Status: He is alert and oriented to person, place, and time. Psychiatric: Behavior: Behavior normal. Thought Content: Thought content normal. Judgment: Judgment normal. Labs Labs (Last day) No results found within the past day. Medical Decision Making MDM Reviewed: previous chart, nursing note and vitals Reviewed previous: labs (stress echo) documented in this encounter Nursing Notes Hudson Joshi RN - 12/09/2020 11:43 AM CDT Amount processed: 1387mL PRC: 17mL Hematocrit: 48% Transfused: YES Transfused by: Yanira Herrera CRNA. See anesthesia note. documented in this encounter Miscellaneous Notes Case Mgmt - Shoshana Singh RN - 12/11/2020 11:40 AM CDT CASE MANAGEMENT / SOCIAL SERVICE FINAL TRANSITION PLAN TRANSITION DATE: 12/11 pending medical stability TRANSITION TIME: 1230 pm INTENDED PAYER SOURCE FOR AGENCY: Medical Assistance: [place] and Medicare TRANSITION DESTINATION: [facility] swing bed unit [place], [place] DOES ACCEPTING FACILITY REQUIRE COVID TESTING BEFORE DISCHARGE: Needs one negative test within 24-48 hours COVID swab 12/10 not detected TRANSITION TRANSPORTATION: [employer]; [employer]. Wheelchair (P: [phone]) TRANSPORTATION PAYMENT: Billed to Medical Assistance: [place] TRANSITION CHOICES OFFERED: Home Health: Nurse and Physical Therapy Home: Family/Friend Support Outpatient Therapy: Physical Therapy Correction Facility Swing Bed Transitional Care PATIENT / SUBSTITUTE DECISION MAKER GOAL UPON TRANSITION: First Choice: Swing bed TRANSITION PLAN REVIEWED WITH AND AGREED UPON BY: Patient Bedside nurse Charge nurse PT Providers PROVIDED PATIENT / FAMILY WITH VERBAL / WRITTEN EXPLANATION OF MEDICARE OR INSURANCE COVERAGE OF SENIOR LIVING FACILITY Yes RESOURCE(S) PROVIDED: Placement and Transportation DOES THE PATIENT HAVE A PRIMARY CARE PHYSICIAN? Yes Sammie Luna DO ANTICIPATED MODE OF TRANSPORT TO AND FROM FOLLOW UP APPOINTMENTS: Family Car VERIFIED CORRECT PHARMACY IS ENTERED FOR DISCHARGE: Reconcile medications as Patient Transfer ("65 button") METHOD OF PRESCRIBING MEDICATIONS: Reconcile medications as Patient Transfer ("65 button") PATIENT DISCUSSED IN TRANSITION ROUNDS / OUTLIER ROUNDS: Yes COMMENTS / PATIENT AND FAMILY RESPONSE TO PLAN: [place] LOC approved. Ride rescheduled for 1230. Facility updated and in agreement. Patient in agreement with plan of care and feels ready to discharge to swing bed today. Interdisciplinary team updated. CURRENT READMISSION RISK SCORE / HANDOFF: Predictive Risk Score Risk of Unplanned Readmission: 13.4 Handoff given: N/A SPECIAL TRANSITION DAY INSTRUCTIONS TO NURSE / MD: Discharge to Swing bed. Please place interagency orders per unit policy. Bedside RN, please call report to: P: [phone] Please fax discharge information per unit policy to: F: [phone] Pharmacy: Reconcile medications as Patient Transfer ("65 button") SIGNED: Shoshana Singh RN Case Manager - Orthopedics [facility] [place] Occupational Therapy - Hue Cueva OTR/L - 12/11/2020 9:34 AM CDT Occupational Therapy Orthopedic Progress Note Treatment Today's Treatment Self care/home management: 24 minutes Start Time: 912 Total for time-based codes: 24 minutes Total treatment time: 24 minutes Impression/Plan: See daily M-F for ADL/transfer training/education, assess adpative equipment needs. Rec OT at swingbed Pt progressing towards goals Pain: Pain at rest: 10 Pain during activity: 12/12 Location: R knee Treatment provided: Patient agreeable to OT. Nursing present to give pain and AM medications. Supine to from sit with extra time and leg warp splitter. Patient adjusts height of bed prior to standing,and tilt of mattress to lower the foot of the bed so he could ease LE into bed. Patient agreeable to work on LB dressing. With feet on the floor he was able to thread R LE first with adult pull up and shorts himself with extra time with a cue to use L LE to lift R foot off the floor. Stood with the tall bed with FWW and CGA to pull up underwear and shorts himself. Adaptive Equipment Recommended: toilet riser with arms, tub bench, leg warp splitter and front-wheeled walker Plan to obtain adaptive equipment: To further assess. Will defer AE needs to swing bed with transfer pending insurance authrization Assessment: Patient showing a decrease in ADL/transfer performance and will benefit from continued OT. Goals: Patient will be SBA with bed, chair, and toilet transfers with adaptive equipment as needed. Patient will be SBA with tub/shower transfer with adaptive equipment as needed. Patient will be SBA with self care skills with adaptive equipment as needed. Patient will be SBA for kitchen/home safety. Therapist pager #: [phone] Physical Therapy - Abel Laird, PT - 12/11/2020 9:06 AM CDT Physical Therapy Orthopedic TKA Discharge Note Date: 12/11/2020 Subjective: Alert and Oriented. Patient feels ready to discharge to swing bed today. Objective: Gait belt donned for all out of bed activities. Lab Results Component Value Date HEMOGLOBIN 8.2 (L) 12/11/2020 Supine to/from sit: Goes supine to/from sit with right LE leg warp splitter and contact assist support to right LE. Sit to/from stand: Goes sit to/from stand from raised bed and from toilet with minimal to contact assist and verbal cues for proper hand placement Sitting Balance: Good Standing Balance: Fair with FWW and contact assist. Gait: Ambulates 90 ft x 2 with FWW/bariatric FWW and contact assist with slow, steady, step to pattern and recliner follow. Working to work on proper heel strike with right LE vs walking on ball of foot. Stairs: - ROM: AAROM right knee - 5 - 80 degrees Exercises: Completes 10 reps of exercise on surgical LE which includes quad sets and hamstring sets with fairfquality strength, and supine heel slides, SAQ, and SLR with sheet/contact assistance. Pain: (0-10 scale) At rest: 3 With Activity: 3 Education: Completed for precautions, use of equipment, home exercise activity and mobility progression. Patient verbalizes understanding of precautions. Written home exercise program provided. Patient and family verbalizes understanding of home exercise program. Equipment: Patient indicates all needed assistive devices obtained prior to hospitalization or will obtain on their own. Assessment: Patient demonstrates safety with mobility, applying precautions as indicated. Goals: All goals achieved as identified in initial evaluation. Plan: Patient will be discharged to [facility]. Follow-up Physical Therapy Services: [facility] Time Treatment Occurred: 815 Gait trainin minutes Therapeutic Exercise: 15 minutes Therapeutic Activity: 15 minutes TOTAL TIMED CODES: 45 minutes TREATMENT TOTAL TIME: 45 minutes ase Huong - Shoshana Singh RN - 12/11/2020 8:30 AM CDT CASE MANAGEMENT PROGRESS NOTE Awaiting [place] screen approval prior to discharge. IDT updated. Ride postponed. Facility has been keptupdated. Patient updated and in agreement with plan of care. PLAN: Anticipate discharge today to [facility] pending [place] screen approval. Will arrange WC transportation once screen has been approved. CM to continue to follow. SIGNED: Shoshana Singh RN [facility] Manager - [facility] Planning - Susan Grewal RN - 12/10/2020 7:06 PM CDT Problem: ACUTE PAIN Goal: CLIENT SATISFACTION: PAIN MANAGEMENT Description: DEFINITION: Extent of positive perception of nursing care to relieve pain. 1=Not at all satisfied, 2=Somewhat satisfied, 3=Moderately satisfied, 4=Very satisfied, 5=Completely satisfied. Outcome: NOC Rating 3 Flowsheets (Taken 12/10/20201899) Initial Score: 2 Target Score: 4 Plan of care reviewed with: Patient Patient specific goal for the day: Patient's pain will be managed with pharmacologic and non-pharmacologic options Patient specific goal for the stay: Patient's pain will be managed with oral pain meds to keep pain below 4/10 Achieve goal for stay: By discharge Patient Progress: Patient verbalizing pain to RLE rating it at 7/10. RLE elevated, pillow support inplace. PRN Oxycodone administered. Will continue to monitor and assess pain. Problem: IMPAIRED PHYSICAL MOBILITY Goal: MOBILITY Description: DEFINITION: Ability to move purposefully in own environment independently with or without assistive device. 1=Severely compromised / Total assistance: Performs less than 25% of activity; 2=Substantially compromised / Maximal assistance: Performs 25-49% of activity; 3=Moderately compromised / Moderate assistance: Performs 50-74% of activity; 4=Mildly compromised / Modified independence: Needs assistive device, supervision, minimal contact,or safety is a concern; 5=Not compromised / Complete independence. Outcome: NOC Rating 3 Flowsheets (Taken 12/10/20201899) Initial Score: 2 Target Score: 4 Plan of care reviewed with: Patient Patient specific goal for the day: Patient's mobility will be increased or maintained at baseline Patient specific goal for the stay: Patient will pass PT/OT Achieve goal for stay: By discharge Patient Progress: Patient will work with PT/OT and nursing staff to increase mobility. Patient is assist x 2 with FWW, GB. Patient will continue working with therapy to increase mobility to function atmaximum potential. Will continue to monitor and assess mobility. hysical Therapy - Abel Laird, PT - 12/10/2020 3:43 PM CDT Physical Therapy Orthopedic TKA Treatment Note Date: 12/10/2020 Assessment/Recommendations: Patient tolerates exercise and walking well. Patient requires assist x1 with bed mobility/transfers and ambulates 140 ft with FWW and assist x 1 with recliner follow. Patient doesn't feel safe discharging directly home and [facility] Subjective: Alert and Oriented. Objective: Gait belt donned for all out of bed activities. Lab Results Component Value Date HEMOGLOBIN 9.4 (L) 12/10/2020 Supine to/from sit: Goes supine to/from sit with minimal assist. Sit to/from stand: Goes sit to stand from raised bed with minimal assist. Sitting Balance: Good Standing Balance: Fair with FWW and SBA. Gait: Ambulates 140 feet with FWW and contact assist x 1 with slow, step to gait pattern while stepping on the ball of right foot. In time, patient able to better bear weight through right mid foot.At completion of treatment, cold pack applied to anterior-posterior aspect of right knee. Stairs: - ROM: - Exercises: Completes 10 reps of exercise on surgical LE which includes ankle pumps, quad sets and hamstring sets with fair quality strength, and supine heel slides, SAQ, and SLR with sheet/minimal to contact assistance. Pain: (0-10 scale) At rest: 2 With Activity: 4 Education: Reviewed precautions, exercise progression, transfer techniques, gait and mobility progression. Assessment: Patient tolerated treatment well. Anticipate that patient will be ready to go to SNF when medically stable.. Plan: Continue with plan of care. Time Treatment Occurred: 1510 Gait: 13 minutes Therapeutic Exercise: 15 minutes Therapeutic Activity: 0 minutes TOTAL TIMED CODES: 28 minutes TREATMENT TOTAL TIME: 28 minutes are Planning - Jennifer Mijares RN - 12/10/2020 2:45 PM CDT Problem: IMPAIRED PHYSICAL MOBILITY Goal: MOBILITY Description: DEFINITION: Ability to move purposefully in own environment independently with or without assistive device. 1=Severely compromised / Total assistance: Performs less than 25% of activity; 2=Substantially compromised / Maximal assistance: Performs 25-49% of activity; 3=Moderately compromised / Moderate assistance: Performs 50-74% of activity; 4=Mildly compromised / Modified independence: Needs assistive device, supervision, minimal contact,or safety is a concern; 5=Not compromised / Complete independence. Outcome: NOC Rating 3 Flowsheets (Taken 12/10/2020 2595) Patient specific goal for the day: ambulate Patient specific goal for the stay: meet goals as outlined per PT/OT Patient Progress: Ambulated in room and to chair with PT, up with 2 assist, walker and gait belt. RTCShoshana Adair RN - 12/10/2020 11:45 AM CDT CASE MANAGEMENT / SOCIAL SERVICE TRANSITION PLAN - PROGRESS NOTE PLAN: goal is swing bed BARRIERS TO TRANSITION: Awaiting [place] screen approval DOES ACCEPTING FACILITY REQUIRE COVID TESTING BEFORE DISCHARGE: Needs one negative test within 24-48 hours COVID swab ordered today COMMENTS / PATIENT AND FAMILY RESPONSE TO PLAN: Discussed with interdisciplinary team. Anticipate patient would be ready for lower level of care tomorrow. Discussed with Jacinta in admissions. They can admit patient when ready, including tomorrow. [place] LOC submitted and is pending. This will need to be approved prior to discharge. Ride arranged, tentatively for 9:30 am 12/11. Met with patient who is in agreement with plan of care. IS PATIENT'S ADMISSION ASSOCIATED WITH TIA, ISCHEMIC, OR HEMORRHAGIC STROKE?: No PATIENT / SUBSTITUTE DECISION MAKER GOAL UPON TRANSITION: First Choice: Swing Bed ANTICIPATED NEEDS UPON TRANSITION: Swing Bed Transportation assistance RESOURCE(S) PROVIDED: Placement and Transportation ANTICIPATED MODE OF TRANSPORT UPON TRANSITION: [employer]. Wheelchair (P: [phone]) ANTICIPATED MODE OF TRANSPORT TO AND FROM FOLLOW UP APPOINTMENTS: Family Car VERIFIED CORRECT PHARMACY IS ENTERED FOR DISCHARGE: Reconcile medications as Patient Transfer ("65 button") TRANSITION ROUNDING COMPLETED WITH THE FOLLOWING: Patient / family Flavor Maker DIRECTOR OF REVENUE CYCLE MANAGEMENT / PA Bedside sports marketing coordinator RN Discussed in person SIGNED: Shoshana Singh RN Case Manager - Orthopedics [facility] Occupational Therapy - Kaykay Atkins, OTR/L - 12/10/2020 11:20 AM CDT Occupational Therapy Orthopedic Evaluation Date: 12/10/2020 Time: 11:20 Admitting Diagnosis: Per chart review, s/p RIGHT COMPLEX TOTAL KNEE REVISION ARTHROPLASY PMH: Past Medical History: Diagnosis Date Abscess of anal and rectal regions 05/23/2009 Acute kidney failure (HCC) 11/16/2013 Post op TKA felt to be due to dehydration. Acute renal failure (HCC) 05/07/2016 MARIAH (acute kidney injury) (HCC) 05/06/2016 Anemia Anemia of chronic renal failure Anemia of infection and chronic disease Blood transfusion without reported diagnosis Cellulitis and abscess of toe of left foot 01/23/2015 Chronic deep vein thrombosis of right femoral vein (HCC) Chronic low back pain Chronic osteomyelitis (HCC) left foot Congenital spinal stenosis of lumbar region DDD (degenerative disc disease), lumbar Degeneration of lumbar or lumbosacral intervertebral disc DJD (degenerative joint disease) Eczema Elevated LFTs ESRD (end stage renal disease) (HCC) Essential hypertension, benign 07/07/2007 Fracture of left great toe 01/23/2015 Gout, unspecified 07/07/2007 chronic gout of multiple sites History of MRSA infection Hypercalcemia Hyperparathyroidism (HCC) Hyperparathyroidism, secondary renal (HCC) JON (iron deficiency anemia) Lower extremity venous stasis Lymphedema Magnesium deficiency 01/08/2014 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 Thoracic aortic aneurysm (HCC) Ulcerative colitis (HCC) Unspecified Ulcerative Colitis 05/12/2005 Weight loss, unintentional 01/08/2014 100# in 4 months. Precautions: TKA, contact, fall Weight bearing status: WBAT, , A/PROM right knee as tolerated SOCIAL/HOME ENVIRONMENT House: one-level Lives Alone: Yes Bed/Bath on Main Floor: Yes Bath Setup: Combo with curtain Prior Level of Functioning: Independent Adaptive Equipment Available: hand held shower, extended tub bench, grab bars tub/shower, travel service consultant, leg warp splitter and front-wheeled walker ADLs Dressing: Provided education/training on strategies to increase independence and safety including placement of surgical leg into pant leg first when donning and out last when doffing, and to initiate donning/ complete doffing underwear/ pants in sitting for safety. Patient demonstrated SBA to doff/donright gripper sock, however declined to practice donning underwear/pants this date. TRANSFERS Bed: contact guard assistance using leg warp splitter Chair: contact guard assistance using FWW Car: Patient declined car transfer in department as the height of car was too low compared to patient's vehicle, therefore therapist set-up simulated van transfer and provided education/ training to ensure safety upon return home, pt verbalized understanding and denied concern. Patient completes short distance mobility in room with CGA, self-elected minimal toe touch weight bearing right LE. Gait belt, non-slip footwear and FWW used for safety during OT session. Pt educated on importance ofusing call light and wait for nursing assistance with OOB/chair activity, patient verbalized understanding. At end of session, pt comfortable in recliner chair call light, phone and tray table within reach. Total Knee precautions were reviewed with the patient. Patient demonstrates understanding of precautions. UE FUNCTION: WFL COGNITION: Alert and orientated Pain Level at Rest: 4/10 Pain Level with Activity: 6/10 PATIENT/FAMILY EDUCATION: TKA precautions Transfers Self Senior Living safety Role of OT Adaptive Equipment Recommended: toilet riser without arms Plan to obtain adaptive equipment: To further assess. Patient reported he could obtain from [facility] if needed upon return home. Assessment: Patient showing a decrease in ADL/transfer performance and will benefit from continued OT. Plan: See daily M-F for ADL/transfer training/education, assess adpative equipment needs. Recommend: Patient doesn't feel safe discharging directly home alone and would like to discharge to [facility] Swing bed. Goals by discharge: Patient will be SBA with bed, chair, and toilet transfers with adaptive equipment as needed. Patient will be SBA with tub/shower transfer with adaptive equipment as needed. Patient will be SBA with self care skills with adaptive equipment as needed. Patient will be SBA for kitchen/home safety. Today's Treatment Evaluation Self care/home management: 5 minutes Total for time-based codes: 5 minutes Total treatment time: 24 minutes Evaluation Complexity PMH/Comorbidities that affect Occupational Performance: See above PMH Occupational Profile/Medical and Therapy History: LOW - Brief history relating to presenting problem Patient Assessment: LOW - 1-3 performance deficits relating to physical, cognitive, psychosocial limitations/restrictions Clinical Decision Making: LOW - Low complexity, limited amount of treatment options, no assessment modification, no comorbidities Evaluation Complexity: Low Treatment provided: Patient was educated on the role and benefits of occupational therapy including plan for today's session, and patient was agreeable to OT session. Therapist provided education/ training on TKA precautions, strategies to increase independence and safety with ADL tasks and functionaltransfers, and adaptive equipment to increase safety and independence while adhering to precautions. Therapist provided education/ training on steps for each transfer at FWW level and patient completes chair and bed transfers with CGA, however declined further ADL's/ transfers this date. Refer to above sections for further details. Therapist pager #: [phone] Certification Dates: 12/10/2020 to 01/07/2021 CERTIFICATION I certify that the services as described in the above note are furnished while the patient is under my care; a plan for furnishing these services has been established and will be periodically reviewed;the services are required for the patient; and the services are subject to established guidelines Physical Therapy - Abel Laird, PT - 12/10/2020 9:49 AM CDT Physical Therapy Orthopedic TKA Treatment Note Date: 12/10/2020 Assessment/Recommendations: Patient tolerates exercise and walking well. Patient requires assist x1 with bed mobility/transfers and ambulates 124 ft with FWW and assist x 1 with recliner follow. Patient doesn't feel safe discharging directly home and would [facility] Subjective: Alert and Oriented. Objective: Gait belt donned for all out of bed activities. Lab Results Component Value Date HEMOGLOBIN 9.4 (L) 12/10/2020 Supine to/from sit: Goes supine to sit with minimal assist. Sit to/from stand: Goes sit to stand from raised bed with minimal assist. Sitting Balance: Good Standing Balance: Fair with FWW and SBA. Gait: Ambulates 124 feet with FWW and contact assist x 1 with slow, step to gait pattern while stepping on the ball of right foot. In time, patient able to better bear weight through right mid foot. Stairs: - ROM: - Exercises: Completes 10 reps of exercise on surgical LE which includes quad sets and hamstring sets with fair quality strength, and supine heel slides, SAQ, and SLR with sheet/minimal to contact assistance. Pain: (0-10 scale) At rest: 4 With Activity: 4 Education: Reviewed precautions, exercise progression, transfer techniques, gait and mobility progression. Assessment: Patient tolerated treatment well. Anticipate that patient will be ready to go to SNF when medically stable.. Plan: Continue with plan of care. Time Treatment Occurred: 923 Gait: 12 minutes Therapeutic Exercise: 15 minutes Therapeutic Activity: 0 minutes TOTAL TIMED CODES: 27 minutes TREATMENT TOTAL TIME: 27 minutes are Planning - Donita, Rebekah De Leon RN - 12/09/2020 5:09 PM CDT Problem: ACUTE PAIN Goal: CLIENT SATISFACTION: PAIN MANAGEMENT Description: DEFINITION: Extent of positive perception of nursing care to relieve pain. 1=Not at all satisfied, 2=Somewhat satisfied, 3=Moderately satisfied, 4=Very satisfied, 5=Completely satisfied. Outcome: NOC Rating 3 Flowsheets (Taken 12/09/2020 4826) Initial Score: 3 Target Score: 4 Plan of care reviewed with: Patient Patient specific goal for the day: pain control at or below tolerable pain level Patient specific goal for the stay: pain control at or below tolerable pain level with oral pain medications Achieve goal for stay: By discharge Patient Progress: Pain rating 3-8/10 and controlled with pain medications as ordered. See SEP. Iceto right knee. Note: Pain rating 3-8/10 and controlled with pain medications as ordered. See SEP. Ice to right knee. Problem: IMPAIRED PHYSICAL MOBILITY Goal: MOBILITY Description: DEFINITION: Ability to move purposefully in own environment independently with or without assistive device. 1=Severely compromised / Total assistance: Performs less than 25% of activity; 2=Substantially compromised / Maximal assistance: Performs 25-49% of activity; 3=Moderately compromised / Moderate assistance: Performs 50-74% of activity; 4=Mildly compromised / Modified independence: Needs assistive device, supervision, minimal contact,or safety is a concern; 5=Not compromised / Complete independence. Outcome: NOC Rating 3 Flowsheets (Taken 12/09/2020 2979) Initial Score: 3 Target Score: 4 Plan of care reviewed with: Patient Patient specific goal for the day: ambulate Patient specific goal for the stay: meet goals as outlined per PT/OT Achieve goal for stay: By discharge Patient Progress: Ambulated in room and to chair with PT, up with 2 assist, walker and gait belt. Note: Ambulated in room and to chair with PT, up with 2 assist, walker and gait belt. ase Huong - Shoshana Singh RN - 12/09/2020 3:17 PM CDT CASE MANAGEMENT / SOCIAL SERVICE TRANSITION PLAN - INITIAL ASSESSMENT TRANSITION PLAN: goal is swing bed BARRIERS TO TRANSITION: Awaiting Therapy Recommendations / progress towards goals for safety Medical barriers: pain control, COMMENTS / PATIENT AND FAMILY RESPONSE TO PLAN: Discussed with interdisciplinary team. Met with patient at the patient's bedside. Introduced Case Management and role in patient care. Patient lives alone in [place], [place]. Patient was independent with ADLs prior to this admissions. Patient's goal upon discharge is to go to [facility] swing bed in [place], [place]. Profile faxed via [employer]. Education provided in regards to anticipated plan of care. Encouraged patient to voice any concerns. Patient voiced understanding. Questions answered. Will continue to follow providers and therapy recommendations for safe discharge planning. Will continue to reassess any discharge needs. 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 All needs met on the main level. COMMUNITY SERVICES: [facility] Social [facility] Sister assists with cleaning HEALTHCARE DIRECTIVE: Yes-On File and reviewed POWER OF CLINICAL SOCIAL WORK THERAPIST: None FINANCIAL CONCERNS: No Concerns PRIMARY CARE PHYSICIAN: Yes Sammie Luna DO [phone] [facility] [place] [id number] : No IS PATIENT'S ADMISSION ASSOCIATED WITH TIA, ISCHEMIC, OR HEMORRHAGIC STROKE?: No LANGUAGE / COMMUNICATION BARRIERS: No PATIENT / SUBSTITUTE DECISION MAKER GOAL UPON TRANSITION: First Choice: Swing bed ANTICIPATED NEEDS, TRANSITION CHOICES OFFERED: Swing bed Home health REFERRAL(S) MADE: Yes, referral sent to [facility] in [place], [place] RESOURCE(S) PROVIDED: Placement DOES PATIENT HAVE CLOTHING TO WEAR AT DISCHARGE? Yes ANTICIPATED MODE OF TRANSPORT UPON DISCHARGE: Family Car vs specialized transportation VERIFIED CORRECT PHARMACY IS ENTERED FOR DISCHARGE: No CURRENT READMISSION RISK SCORE Please refer to readmission risk assessment flowsheet for further details. SIGNED: Shoshana Singh RN Case Manager - Orthopedics [facility] Physical Therapy - Marychuy Santana PT - 12/09/2020 3:11 PM CDT Physical Therapy Orthopedic Evaluation Date: 12/09/2020 PM Assessment/Recommendations: Vik is ambulating a few steps with FWW and Contact guard assist and hopes to discharge to a SB near his home to continue PT, as he lives alone. PT will follow daily. Referring Physician: Rosemary Markham PA Diagnosis/Surgical Procedure and Date: R knee dislocation, s/p R complex TKA revision this morning. Significant PMH: See chart Physician Orders: Gait and exercise Weight Bearing Status: WBAT Precautions: No kneeling, no twisting Status Prior to Hospitalization/Surgical Procedure: Current Living Environment: house Stairs to Enter Home: 2 Railin Stairs to Bedroom or Bathroom: 0 Lives: alone Ambulation Status: Independent Equipment Owned: FWW Patient/Family Concerns: Regaining independence Patient Goals: [place] SB prior to home Other: Sister present and supportive Current Status: Cognition: Alert and Orientated Observation: Wound vac in place, does not appear to be draining, nurse aware Pt was noted to have BM in his brief when standing. Brief was changed and NA cleaned him up. ROM: ~ 10-60 degrees R knee Transfers: Supine to/from Sit: Contact guard assist Sit to/from Stand: Contact guard assist with FWW from elevated bed Balance: Sitting: Good Standing: Good with FWW Gait: Ambulated ~ 6' from bed to recliner with FWW and Contact guard assist Stairs: NA Exercises: Patient completes 10 repetitions of TKA exercises with min assistance for active exercises. Good strength with isometric exercises. Pain Level: 8/10 With activity Patient/Family Education: Reviewed precautions, role of the physical therapist, and discussed anticipated outcome goals. Other: Family Present during Evaluation: sister Treatment: Time Treatment Occurred: 1429 Evaluation: X Gait: 0 minutes Exercise: 15 minutes Therapeutic Activity: 10 minutes TOTAL TIMED CODES: 25 minutes TREATMENT TOTAL TIME: 38 minutes Plan: Follow daily for gait traning, therapeutic exercise, therapeutic activity, and education. Goals: By hospital discharge or within 2-3 days. Patient involved in developing/progressing goals and treatment plan. Supine to sit with no assist., Ambulate ~ 150' with FWW and Contact guard assist AROM 5-90 degrees R knee Jeannette Santana PT [employer] pager [phone] linical Team - Rebekah Duckworth RN - 12/09/2020 1:35 PM CDT Upon transfer to room 486 from PACU, skin assessment completed with TRANSPORTATION SERVICES REPRESENTATIVE. Upon skin assessment including pressure points findings include: no noted skin breakdown to pressure points. Right knee incision dressing dry and intact with wound vac in place. Will manage moisture, ambulate, and continueto monitor skin condition. PostOp Progress Note - Orlando Del Castillo MD - 12/09/2020 11:22 AM CDT Immediate Post-Operative / Post Procedure Progress Note Att. Phys: Orlando Del Castillo MD Pt. Type: Admit w/ Surgery Operative Date: 12/09/2020 Surgeon: Surgeon(s) and Role: * Orlando Del Castillo MD - Primary Pit Slagman: Disability Benefits Specialist : Marlene Townsend, BERNIE; Mima Patel, BERNIE; Abena Can, BERNIE; Hudson Joshi, BERNIE; Stephanie Starks RN Scrub Person : Chris Daniels, [facility]; Gregory Sharp ; Mary Oneill ; Kike Mcgee [facility] Marine Rigger: Rosemary Markham PA The skilled assistance of my surgical garment fitter, Rosemary Markham was necessary because of the magnitudeof the operation and no qualified surgical garment assembly supervisor availability. They participated in positioning of the patient, assistance with the procedure, assistance with wound closure and dressing application. 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] non-applicable Post-Operative Diagnosis: As diagnosed Anesthesia Type: spinal Operative Procedure: Procedure(s): RIGHT COMPLEX TOTAL KNEE REVISION ARTHROPLASY - Wound Class: Clean ID Type Source Tests Collected by Time 1 : Right knee synovial fluid Fluid Knee CULTURE, ACID FAST BACILLUS WITH STAIN, CULTURE FUNGAL, OTHER, CULTURE BACTERIAL, ORTHOPEDIC EXTENDED INCUBATION WITH GRAM STAIN Orlando Del Castillo MD 12/09/2020 1036 no implants used for procedure Fluids Given: See Anesthesia Record Urine Output: See Anesthesia Record Estimated Blood Loss: 500 mL Drains: none Findings: As diagnosed Complications: none Postoperative Condition: stable Operative Note - Orlando Del Castillo MD - 12/09/2020 1:00 AM CDT PATIENT NAME: VIK ARBOLEDA DATE OF SERVICE: 12/09/2020 SHANAE: [id number] SURGEON: Orlando Del Castillo MD CHECK SERVICES CLERK: FATMATA Ribera PREOPERATIVE DIAGNOSIS: Failed right total knee arthroplasty. POSTOPERATIVE DIAGNOSIS: Failed right total knee arthroplasty. PROCEDURE PERFORMED: Right total knee arthroplasty revision. COMPONENTS INSERTED: [employer] size F RHK femoral component, size 5 tibia, cones by 2, 18 x 200 mm stem extension, 15 x 145 mm offset tibial stem extension, 12 mm RHK tibial polyethylene, 20 mm distal femoral augments x2. PROCEDURE PERFORMED: The patient was taken to the operating theater and received a spinal anesthetic. Once anesthesia was adequate, the right lower extremity was prepped and draped in a routine manner. Through the previous anterior midline approach, the procedure was performed. Incision deepened to the subcutaneous tissue and a medial arthrotomy completed. Soft tissue was debrided within the knee, then sequential removal of the femoral and tibial components was performed. There was noted to be a p reoperative gross hyperextension deformity. There was noted to be flexion instability. The wound was thoroughly irrigated and dried after removal of the femoral and tibial components. Patellar component was examined and noted to be well fixed. The IM alignment was then used to make cleanup cuts inthe distal femur and proximal tibia. Trial components were then inserted into the knee and knee moved through range of motion. Patellar tracking was adequate. The wound was thoroughly irrigated and dried and then sequential hybrid cementing of the tibial and femoral components was performed. All extraneous bone cement was removed and once cement had cured, the actual polyethylene was then inserted in place. Intramedullary alignment used to make cleanup cuts in the distal femur and proximal tibia. The wound was then thoroughly irrigated and dried and the polyethylene inserted. All routine [employer] techniques were used. Number 2 Vicryl sutures were then used to close the extensor mechanism with #2 Quill for the subcutaneous tissues and 3-0 Quill for the skin. Dermabond was used to seal the wound. Multimodal pain cocktail 120 mL was injected into the knee joint. Patient tolerated the procedure well. No complications were noted. The patient was then transferred to the postanesthesia recovery room in good condition. ESTIMATED BLOOD LOSS: 500 mL. FINDINGS: Consistent with the preoperative diagnosis. Orlando Del Castillo MD Receipt: [id number] Trans ID: [id number] ORAL COMMUNICATION INSTRUCTOR ORAL COMMUNICATION INSTRUCTOR cc:ROSEMARY MARKHAM, PA documented in this encounter Plan of Treatment Date Type Specialty Care Team Description 12/23/2020 Office Visit Orthopedics Peggy Castillo, PA [address] [place] [address] [phone] 01/17/2021 Office Visit Nephrology Alyssa Curtis MD [address] [place] [address] [phone] Name Type Priority Associated Diagnoses Date/Ti me CULTURE, ACID FAST MICROBIOLOGY REPORT Routine Dislocation of right 12/09/2020 10:36 BACILLUS WITH STAIN knee, initial AM CDT encounter History of total knee arthroplasty, right CULTURE FUNGAL, MICROBIOLOGY REPORT Routine Dislocation of rig ht 12/09/2020 10:36 OTHER knee, initial AM CDT encounter History of total knee arthroplasty, right CULTURE BACTERIAL, MICROBIOLOGY REPORT Routine Dislocation of right 12/09/2020 10:36 ORTHOPEDIC EXTENDED knee, initial AM CDT INCUBATION WITH encounter GRAM STAIN History of total knee arthroplasty, right Name Type Priority Associated Diagnoses Order S chedule CULTURE FUNGAL, MICROBIOLOGY REPORT Routine Dislocation of rig ht Release Upon OTHER knee, initial Ordering for 1 encounter Occurrences starting History of total 12/09/2020, 1 knee arthroplasty, completed right documented as of this encounter Implants Implanted Type Area Biofuels Production Technician Device Shelf Model / Identifier Expiration Serial / Date Lot Cmnt Simplex P W Tobramyacin N 6197-9-010 Bx10/Ea - Sn/A Ortho L eft: DAPHNEY 12/27/2014 6197-9-001 / Implanted: Qty: 1 on 10/27/2013 by Abel Downey MD at Other KNEE N/A / [id number] Cmnt Simplex P W Tobramyacin N 6197-9-010 Bx10/Ea - Sn/A Ortho R ight: DAPHNEY 01/01/2015 6197-9-001 / Implanted: Qty: 1 on 06/25/2014 by Abel Downey MD at Other KNEE N/A / [id number] Description:Implant verified by physicia n and OR staff Cmnt Bone Cmnt-R W Gentamicin N [id number] Ea1 - [id number] T issue Synthetic Right: KNEE JARERD 12/02/2022 [id number] / Implanted: Qty: 1 on 12/09/2020 by Orlando Morrissey MD at / [id number] Cmnt Bone Cmnt-R W Gentamicin N [id number] Ea1 - [id number] T issue Synthetic Right: KNEE JARRED 12/02/2022 [id number] / Implanted: Qty: 1 on 12/09/2020 by Orlando Morrissey MD at / [id number] Cmnt Bone Cmnt-R 1x40 N [id number] Ea1 - [id number] Tissue Synthe tic Right: KNEE JARRED 02/01/2025 [id number] / Implanted: Qty: 1 on 12/09/2020 by Orlando Morrissey MD at / [id number] Knee Psn Fem Crcmt Std Lftsz11 N 18-7729-332-01 Ea - Sn/A To mary Jt Knee Left: KNEE JARRED 05/29/2023 [id number] / Implanted: Qty: 1 on 10/27/2013 by Abel Downey MD at N/A / [id number] Knee Psn Asf Ucve Lft16 7-12ef N 39-2278-914-16 Ea - Sn/A To mary Jt Knee Left: KNEE JARRED 07/29/2017 [id number] / Implanted: Qty: 1 on 10/27/2013 by Abel Downey MD at N/A / [id number] Knee Psn Tib Stem 5d Sz H Lft N 08-3366-796-01 Ea - Sn/A Tot al Jt Knee Left: KNEE JARRED 08/29/2022 [id number] / Implanted: Qty: 1 on 10/27/2013 by Abel Downey MD at N/A / [id number] Knee Psn Ptla All Poly Ve 38mm N 04-6489-860-38 Ea - Sn/A To mary Jt Knee Left: KNEE JARRED 09/26/2018 [id number] / Implanted: Qty: 1 on 10/27/2013 by Able Downey MD at N/A / [id number] Knee Psn Fem Crcmt Std Rt Sz10 N 30-9263-155-02 Ea - Sn/A To mary Jt Knee Right: KNEE JARRED 03/04/2024 [id number] / Implanted: Qty: 1 on 06/25/2014 by Abel Downey MD at N/A / [id number] Description:Implant verified by physicia n and OR staff Knee Psn Tib Stem 5d Sz H Rt N [id number] Ea - Sn/A Tota l Jt Knee Right: KNEE JARRED 05/04/202472-8831-724-02 / Implanted: Qty: 1 on 06/25/2014 by Abel Downey MD at N/A / [id number] Description:Implant verified by physicia n and OR staff Knee Psn Ptla All Poly Ve 35mm N 68-3506-434-35 Ea - Sn/A To mary Jt Knee Right: KNEE JARRED 05/04/2019 [id number] / Implanted: Qty: 1 on 06/25/2014 by Abel Downey MD at N/A / [id number] Description:Implant verified by physicia n and OR staff Knee Psn Asf Uc Ve Rt16 7-12gh N 15-9783-900-16 Ea - Sn/A To mary Jt Knee Right: KNEE JARRED 11/01/2018 [id number] / Implanted: Qty: 1 on 06/25/2014 by Abel Downey MD at N/A / [id number] Description:Implant verified by physicia n and OR staff Knee Tib Insrt Hng [id number] N 08-9723-251-12 Ea1 - [id number] Total Jt Knee Right: KNEE JARRED 08/28/202509-3305-949- / Implanted: Qty: 1 on 12/09/2020 by Orlando Morrissey MD at / [id number] Knee Tib Stem Ext St [id number] N 20-1196-232-18 Ea1 - [id number] Total Jt Knee Right: KNEE JARRED 07/04/202917-9849-575- / Implanted: Qty: 1 on 12/09/2020 by Orlando Morrissey MD at / [id number] Knee Aug Dist Fem Szf 20mm N Ea1 - [id number] Total Jt Knee Right: KNEE JARRED 12/02/2024 / Implanted: Qty: 1 on 12/09/2020 by Orlando Morrissey MD at / [id number] Knee Tib Stem Offset [id number] N - Ea1 - [id number] Total Jt Knee Right: KNEE JARRED 06/03/202844-7664-344- / Implanted: Qty: 1 on 12/09/2020 by Orlando Morrissey MD at / [id number] Knee Aug Dist Fem Szf 20mm N Ea1 - [id number] Total Jt Knee Right: KNEE JARRED 12/02/2024 / Implanted: Qty: 1 on 12/09/2020 by Orlando Morrissey MD at / [id number] Knee Fem Diaphysealcone Rtlg30 N 93-6530-783- Ea1 - [id number] Total Jt Knee Right: KNEE JARRED 03/04/202415-3384-992- / Implanted: Qty: 1 on 12/09/2020 by Orlando Morrissey MD at / [id number] Knee Tib Comp Hng Nexgen Sz5 N 69-0902-691-00 Ea1 - [id number] Total Jt Knee Right: KNEE JARRED 09/03/202512-9425-798-00 / Implanted: Qty: 1 on 12/09/2020 by Orlando Morrissey MD at / [id number] Knee Fem Hng Rotate Rt Szf N 92-6676-853-02 Ea1 - [id number] Total Jt Knee Right: KNEE JARRED 08/24/202577-4259-712-02 / Implanted: Qty: 1 on 12/09/2020 by Orlando Morrissey MD at / [id number] Knee Tib Trabec Cone [id number] N 47-8488-853-46 Ea1 - [id number] Total Jt Knee Right: KNEE JARRED 11/02/202363-2979-626-46 / Implanted: Qty: 1 on 12/09/2020 by Orlando Morrissey MD at / [id number] documented as of this encounter Procedures Procedure Name Priority Date/Time Associated Diagnosis Comme nts HEMOGLOBIN Routine 12/11/2020 5:22 Results for this AM CDT procedure are i n the results section. MAGNESIUM Routine 12/11/2020 5:22 Results for this AM CDT procedure are i n the results section. BASIC METABOLIC PANEL Routine 12/11/2020 5:22 Re sults for this AM CDT procedure are i n the results section. SARS-COV-2, INFLUENZA STAT 12/10/2020 8:20 Re sults for this A+B, AND/OR RSV PM CDT procedure ar e in NUCLEIC ACID TESTING the res ults PANEL section. HEMOGLOBIN Routine 12/10/2020 6:24 Results for this AM CDT procedure are i n the results section. MAGNESIUM Routine 12/10/2020 6:24 Results for this AM CDT procedure are i n the results section. BASIC METABOLIC PANEL Routine 12/10/2020 6:24 Re sults for this AM CDT procedure are i n the results section. XRAY KNEE 1-2 VIEWS Routine 12/09/2020 12:52 Resu lts for this RT PM CDT procedure are i n the results section. CULTURE BACTERIAL, Routine 12/09/2020 10:36 Dislocation of rig ht ORTHOPEDIC EXTENDED AM CDT knee, initial INCUBATION WITH GRAM encounter STAIN History of total knee arthroplasty, right CULTURE, ACID FAST Routine 12/09/2020 10:36 Dislocation of rig ht BACILLUS WITH STAIN AM CDT knee, initial encounter History of total knee arthroplasty, right ARTHROPLASTY KNEE 12/09/2020 9:20 Dislocation of righ t REVISION AM CDT knee, initial encounter History of total knee arthroplasty, right Case Notes JARRED; RHK; CONES; HX knee prosthetic dislocation; CELL SAVER Special Needs *X* requests not first case due to travel [facility] MRSA NASAL SCREEN, JUNITO Routine 12/09/2020 7:50 AM CDT Results for this procedure are in the resu lts section. TYPE AND SCREEN STAT 12/09/2020 6:51 AM CDT R esults for this procedure are in the resu lts section. documented in this encounter Results MAGNESIUM (12/11/2020 5:22 AM CDT) Pathologist Sig [facility] Magnesium 1.9 1.8 - 2.4 mg/dL [facility] Specimen Blood - Blood specimen (specimen) Performing Organization Address City/[facility]/[place] [address] BASIC METABOLIC PANEL (12/11/2020 5:22 AM CDT) [facility] Glucose 81 70 - 100 mg/dL [facility] BUN 30 (H) 6 - 22 mg/dL [facility] Creatinine 1.63 (H) 0.80 - 1.30 [facility] mg/dL [place] BUN/Creatinine Ratio 18.4 10.0 - 25.0 [facility] Sodium 139 135 - 145 meq/L [facility] Potassium 3.8 3.5 - 5.3 meq/L [facility] Chloride 112 (H) 99 - 110 meq/L [facility] CO2 20 20 - 29 meq/L [facility] Anion Gap with K 11 6 - 20 meq/L [facility] Calcium 8.1 (L) 8.5 - 10.5 [facility] mg/dL [place] Age 60 Years [facility] eGFR Non- 43 (L) >=60 [facility] Togolese mL/min/1.73m2 [place] eGFR 53 (L) >=60 [facility] Togolese mL/min/1.73m2 [place] Specimen Blood - Blood specimen (specimen) Performing Organization Address City/[facility]/ZIP Code Phon e Number [facility] [address] [place] [address] HEMOGLOBIN (12/11/2020 5:22 AM CDT) Pathologist Sig [place] Hemoglobin 8.2 (L) 13.5 - 17.5 g/dL [facility] Specimen Blood - Blood specimen (specimen) Performing Organization Address City/State/ZIP Code Phon e Number [facility] [address] [place] [address] SARS-COV-2, INFLUENZA A+B, AND/OR RSV NUCLEIC ACID TESTING PANEL (12/10/2020 8:20 PM CDT) Pathologist Sig [facility] SARS-CoV-2 Not Detected Not Detected [facility] Specimen Respiratory - Nasopharyngeal swab (speci men) Narrative Performed At Please read entire report. Results for Influenza A and B or [facility] RSV may also be available depending on which viruses y our provider selected for testing. Your Covid-19 test is negative: 1)Avoiding close contact is s till recommended. 2)Cover your coughs and snee zes. 3)Wash your hands often with soap and wate r for at least 20 seconds or use an alcohol-based resource coordinator containing over 60% alcohol. Avoid touch ing your face. 4)Avoid sharing personal household items, including dishes, cups, utensils, towels, clothing, or bedding. These items should be cleaned thoroughly with soap and water after use. Clean all "high touch" surfaces i n your home daily. 5) Monitor your symptoms. Contact your provider if you are feeling worse. If you have shortness of breath or difficulty breathing, call 911. This assay is for in vitro diagnostic use under FDA Emergency Use Authorization only. Optimal performance of this test requires appropriate specimen collection, storage, and transport to the [facility] site. Detection of SARS-CoV-2 RNA may be affected by sample collection methods, patient factors (eg, presence of symptoms), and/or stage of infection. False-negative results may arise from degradation of v iral RNA during shipping/storage. Results should be interpreted by a trained professiona l in conjunction with the patient s history and clinical signs and symptoms, and epidemiological risk factors. Negative (Not Detected) results do not preclude infect ion with the SARS-CoV-2 virus and should not be the sole b asis of patient treatment/management or public health decis ion. Follow up testing should be performed according to the current CDC recommendations. This test was performed by polymerase chain reaction ( PCR) on the GeneXpert instrument. Performing Organization Address City/[facility] Code Phon e Number [facility] [address] [place] [address] [phone] MAGNESIUM (12/10/2020 6:24 AM CDT) Pathologist Sig nature Magnesium 1.7 (L) 1.8 - 2.4 mg/dL [facility] Specimen Blood - Blood specimen (specimen) Performing Organization Address [facility] Phon e Number [facility] [address] [place] [address] BASIC METABOLIC PANEL (12/10/2020 6:24 AM CDT) [facility] Glucose 106 (H) 70 - 100 mg/dL [facility] BUN 33 (H) 6 - 22 mg/dL [facility] Creatinine 1.77 (H) 0.80 - 1.30 [facility] mg/dL [place] BUN/Creatinine Ratio 18.6 10.0 - 25.0 [facility] Sodium 137 135 - 145 meq/L [facility] Potassium 4.7 3.5 - 5.3 meq/L [facility] Chloride 110 99 - 110 meq/L [facility] CO2 17 (L) 20 - 29 meq/L [facility] Anion Gap with K 15 6 - 20 meq/L [facility] Calcium 8.6 8.5 - 10.5 [facility] mg/dL [place] Age 60 Years [facility] eGFR Non- 39 (L) >=60 [facility] Togolese mL/min/1.73m2 [facility] eGFR 48 (L) >=60 [facility] Togolese mL/min/1.73m2 [place] Specimen Blood - Blood specimen (specimen) Performing Organization Address [facility] Phon e Number [facility] [address] [place] [address] HEMOGLOBIN (12/10/2020 6:24 AM CDT) Pathologist Sig nature Hemoglobin 9.4 (L) 13.5 - 17.5 g/dL [facility] Specimen Blood - Blood specimen (specimen) Performing Organization Address [facility]/ZIP Code Phon e Number [facility] [address] [place] [address] XRAY KNEE 1-2 VIEWS RT (12/09/2020 12:52 PM CDT) Specimen Narrative Performed At [facility] Patient Name: VIK ARBOLEDA Date of : 1960 Procedure: XRAY KNEE 1-2 VIEWS RT Date of Service: 12/09/2020 EXAM: XRAY KNEE 1-2 VIEWS RT INDICATION:sp right TKA revision COMPARISON(S): 10/20/2020 FINDINGS/IMPRESSION: Interval postoperative changes revision right TKA. Neg ative for postoperative purposes. There are multiple small calci fic densities along the posterior aspect of the right knee joint. Finalized by: Adina Rodriguez MD on 12:56 PM CDT Patient/Procedure Information: [facility] MRN/SHANAE: [id number] Order Number: [id number] Accession Number: [id number] Ordering Provider: ROSEMARY MARKHAM Authorizing Provider: ROSEMARY MARKHAM Procedure Note Interface, Radiantres - 12/09/2020 12:58 PM CDT Patient Name: VIK ARBOLEDA Date of : 1960 Procedure: XRAY KNEE 1-2 VIEWS RT Date of Service: 12/09/2020 EXAM: XRAY KNEE 1-2 VIEWS RT INDICATION:sp right TKA revision COMPARISON(S): 10/20/2020 FINDINGS/IMPRESSION: Interval postoperative changes revision right TKA. Negative for postoperative purposes. There are multiple small calcific densities along the posterior aspect of the right knee joint. Finalized by: Adina Rodriguez MD on 12:56 PM CDT Patient/Procedure Information: [facility] MRN/SHANAE: [id number] Order Number: [id number] Accession Number: [id number] Ordering Provider: ROSEMARY MARKHAM Authorizing Provider: ROSEMARY MARKHAM Performing Organization Address [facility]/ZIP Code Phon e Number [facility] MRSA NASAL SCREEN, JUNITO (12/09/2020 7:50 AM CDT) MRSA by NAD, Nasal Detected (A) Not Detected [facility] Specimen Swab - Specimen from nasal sinus (specim en) Narrative Performed At MRSA DNA detected. [facility] This test was performed by polymerase chain reaction (PCR) on the GeneXpert instrument. Performing Organization Address City/State/ZIP Code Phon e Number [facility] [address] [place] [address] LAB[address]ATORY [address] TYPE AND SCREEN (12/09/2020 6:51 AM CDT) Pathologist Sig nature ABO Type O [facility] Rh Type Positive [facility] Antibody Screen Negative [facility] Comment: [facility] Allogenic Red Cells Available DATE NEEDED 12/09/20 Expiration Date 12/12/2020 23:59 [facility] Specimen Blood - Blood specimen (specimen) Performing Organization Address City/[facility] Phon e Number [facility] [address] [place], [place] [address] documented in this encounter Visit Diagnoses Diagnosis S/P revision of total knee, right - Prim selvin Dislocation of right knee, initial encou nter History of total knee arthroplasty, righ t documented in this encounter Discharge Diagnoses Not on filedocumented in this encounter Administered Medications Medication Order MAR Action Action Date Dose Rate Site acetaminophen (TYLENOL) tablet Given 12/11/2020 5:30 AM CDT 650 mg 650 mg 650 mg, Oral, Every six hours, First dose on Wed12/09/20 at 1800, Until Discontinued, Post - Op, Adult patients: Total dose of acetaminophen from all acetaminophen containing products should not exceed 4 grams (4000 mg) per day. Pediatric Patients 0 - 3 months: Maximum of 60 mg/kg/24 hours of acetaminophen. Pediatric Patients older than 3 months: Maximum of 75 mg/kg/24 hours of acetaminophen (Never exceeding 4 grams/day). Given 12/11/2020 12:30 AM CDT 650 mg Given 12/10/2020 6:11 PM CDT 650 mg allopurinol (ZYLOPRIM) tablet 100 mg Given 12/10/2020 8:45 PM CDT 100 mg 100 mg, Oral, Bedtime, First dose on Wed12/09/20 at 2100, Until Discontinued Given 12/09/2020 8:53 PM CDT 100 mg enoxaparin (LOVENOX) Given 12/11/2020 9:16 AM 40 mg Left Lower Abdomen subcutaneous injection CDT [place] bcutaneous solution 40 mg 40 mg, Subcutaneous, Daily, First dose on Wed12/10/20 at 0900, Until Discontinued, Post - Op, Begin 0800 on first post op day To avoid the loss of drug when using the 30 mg and 40 mg prefilled syringes, do not expel the air bubble from the syringe before the injection. For ADULT patients: Administration should be alternated between the left and right anterolateral and left and right posterolateral abdominal wall. The whole length of the needle should be introduced into a skin fold held between the thumb and forefinger; the skin fold should be held throughout the injection. To minimize bruising, do not rub the injection site after completion of the injection. For PEDIATRIC patients: Administration should be alternated between appropriate sites for patient age/weight (infants/small children = upper thigh; older children/adolescents = left and right anterolateral and left and right posterolateral abdominal wall). During administration to infants/smaller children sometimes the whole length of the needle is not "introduced" during the injection. Administer injection into a skin fold held between the thumb and forefinger; the skin fold should be held throughout the injection. To minimize bruising, do not rub the injection site after completion of the injection. Given 12/10/2020 10:21 AM CDT 40 mg ferrous sulfate (65 mg FE per 325 mg tablet) Given 03/2021 9:15 AM CDT 325 mg tablet 325 mg 325 mg, Oral, Daily, First dose (after last modification) on Wed12/11/20 at 0900, Until Discontinued furosemide (LASIX) tablet 20 mg Given 12/11/2020 9:15 AM CDT 20 mg 20 mg, Oral, DAILY, First dose on Wed12/11/20 at 0900, Until Discontinued, Hold for SBP less than 120 magnesium oxide tablet 250 mg Given 12/11/2020 9:15 AM CDT 250 mg 250 mg, Oral, DAILY, First dose on Wed12/10/20 at 0900, Until Discontinued Given 12/10/2020 10:20 AM CDT 250 mg magnesium oxide tablet 500 mg Given 12/11/2020 9:15 AM CDT 500 mg 500 mg, Oral, Two times a day, First dose on Wed12/10/20 at 1040, Until Discontinued Given 12/10/2020 8:45 PM CDT 500 mg Given 12/10/2020 12:46 PM CDT 500 mg mesalamine (LIALDA) enteric coated tablet 2.4 Given 9:34 AM CDT 2.4 g g 2.4 g, Oral, Two times a day, First dose on Wed12/09/20 at 2100, Until Discontinued, Patient's own medication has been identified by Pharmacist and approved for hospital use by hospital policy. Give with a meal. Tablet should be swallowed whole and not divided, crushed or chewed. Given 12/10/2020 9:00 PM CDT 2.4 g Given 12/10/2020 12:19 PM CDT 2.4 g oxyCODONE (OXY-IR) tablet 5-10 mg Given 12/11/2020 9:16 AM CDT 10 mg 5-10 mg, Oral, Every four hours prn, Starting on Wed12/09/20 at 1345, Until Discontinued, moderate pain, severe pain, Post - Op, For patients with moderate pain, pain rating of 4-6, give oxyCODONE 5 mg PO every 4 hours PRN. For patients with severe pain, pain rating of 7 or greater, give oxyCODONE 10 mg PO every 4 hours PRN. May administer less potent prescribed medication based on patient request per the organization's medication management policy. Given 12/11/2020 5:30 AM CDT 10 mg Given 12/10/2020 8:59 PM CDT 10 mg polyethylene glycol (MIRALAX) packet 1 Given 12/11/2020 9:16 AM CDT 1 packet packet 1 packet, Oral, Daily, First dose on Wed12/10/20 at 0900, Until Discontinued, Post - Op, Hold if 2 loose stools occur in the last 24 hours. Given 12/10/2020 10:21 AM CDT 1 packet potassium chloride (KLOR-CON M20) CR tablet Given 03/2021 9:15 AM CDT 20 mEq 20 mEq 20 mEq, Oral, Two times a day, First dose on Wed12/09/20 at 2100, Until Discontinued, Tablet may be broken in half, but should not be crushed or chewed. Tablet may be dissolved in 4 oz of water. DO NOT give via feeding tube route as this can clog the tube. Given 12/10/2020 8:45 PM CDT 20 mEq Given 12/10/2020 10:20 AM CDT 20 mEq senna-docusate sodium Given 12/11/2020 9:15 AM CDT 2 tablets (SENOKOT-S;PERICOLACE) tablet 2 tablet 2 tablet, Oral, Two times a day, First dose on Wed12/09/20 at 2100, Until Discontinued, Post - Op, Hold if 2 loose stools occur in the last 24 hours. Given 12/10/2020 8:44 PM CDT 2 tablets Given 12/10/2020 10:20 AM CDT 2 tablets sodium chloride 0.9% flush (adult) 10 mL Given 12/10/2020 9:46 PM CDT 10 mL 10 mL, IV, Two times a day and prn, First dose on Wed12/09/20 at 0900, Until Discontinued, 10 mL, Active Now, Flush PIV line as scheduled and as often as necessary before and after meds. Use a push / pause technique when flushing to create turbulence. Given 12/10/2020 10:22 AM CDT 10 mL sodium chloride 0.9% flush (adult) 10 mL Given 12/10/2020 8:47 PM CDT 10 mL 10 mL, IV, Two times a day and prn, First dose on Wed12/09/20 at 2100, Until Discontinued, 10 mL, Post - Op, Flush unused lumens as scheduled and as often as necessary before and after meds. Use a push/pause technique when flushing to create turbulence. sodium chloride 0.9% IV solution New Bag 12/11/2020 12:32 AM CDT 125 mL/hr IV, at 125 mL/hr, Continuous, Starting on Wed12/09/20 at 1350, Until Discontinued, 1,000 mL, Post - Op New Bag 12/10/2020 1:20 PM CDT 125 mL/hr New Bag 12/10/2020 4:44 AM CDT 125 mL/hr Medication Order MAR Action Action Date Dose Rate Site acetaminophen (TYLENOL) tablet Given 12/09/2020 8:00 AM CDT 1,0 00 mg 1,000 mg 1,000 mg, Oral, Pre-op, 1 dose, On Wed12/09/20 at 0730, Pre - Op, Adult patients: Total dose of acetaminophen from all acetaminophen containing products should not exceed 4 grams (4000 mg) per day. Pediatric Patients 0 - 3 months: Maximum of 60 mg/kg/24 hours of acetaminophen. Pediatric Patients older than 3 months: Maximum of 75 mg/kg/24 hours of acetaminophen (Never exceeding 4 grams/day). ceFAZolin (ANCEF) 2000 mg/20 mL sterile Given 12/10/2020 2:11 A M CDT 2,000 mg water IV syringe 2,000 mg, IV, Every eight hours, 2 doses, First dose (after last reorder) on Wed12/09/20 at 1830, Last dose on Wed12/10/20 at 0230, 20 mL, PACU - Continue Post-Op, Administer as IV push over 4 minutes. Given 12/09/2020 6:16 PM CDT 2,000 mg ferrous sulfate (65 mg FE per 325 mg tablet) Given 01/2021 3:34 PM CDT 325 mg tablet 325 mg 325 mg, Oral, Every other day, First dose on Wed12/09/20 at 1205, Until Discontinued gabapentin (NEURONTIN) capsule 600 mg Given 12/09/2020 8:00 AM CDT 600 mg 600 mg, Oral, Pre-op, 1 dose, On Wed12/09/20 at 0730, Pre - Op, 1 dose prior to surgery lactated ringers IV solution Rate Change 12/09/2020 11:57 AM CDT 350 mL/hr IV, at 25 mL/hr, Continuous, Starting on Wed12/09/20 at 0830, Until Wed12/09/20 at 1155, 1,000 mL, Pre - Op Now New Bag 12/09/2020 11:10 AM CDT 850 mL/hr New Bag/Tubing 12/09/2020 8:00 AM CDT 25 mL/hr lactated ringers IV solution Already Infusing 12/09/2020 11:54 AM CDT 125 mL/hr IV, at 125 mL/hr, Continuous, Starting on Wed12/09/20 at 1140, Until Wed12/09/20 at 1328, 1,000 mL, PACU, TKO current fluids if patient is going to Day Unit / ARU and tolerating PO fluids without nausea. documented in this encounter Active and Recently Administered Medications Times are shown in CDT. Medication Order 12/09/2020 12/10/2020 12/11/2020 acetaminophen (TYLENOL) tablet 1,000 mg (COMPLETED) 08 00 (Given - Provider: Cici Trinidad RN) 1,000 mg, Oral, Pre-op, 1 dose, On Wed at 0730, Pre - Op, Adult patients: Total dose of acetaminophen from all acetaminophen containing products should not exceed 4 grams (4000 mg) per day. Pedia tric Patients 0 - 3 months: Maximum of 60 mg/kg/24 hours of acetaminophen. Pediatric Patients older than 3 months: Maximum of 75 mg/kg/24 hours of acetaminophen (Never exceeding 4 grams/day). acetaminophen (TYLENOL) tablet 650 mg 181 (Given - Pr ovider: Shelia Garland RN)2314 (Given - Provider: Maurice Cruz RN) 0637 (Given - Provider: Maurice Cruz RN)1219 (Given - Provider: Jennifer Mijares RN)1811 (Given - Provider: Susan Grewal RN) 0030 (Given - Provider: Rohit Singh RN)0530 (Given - Provider: Rohit Singh RN)1200 (Due)1800 (Due) 650 mg, Oral, Every six hours, First dos e on Wed12/09/20 at 1800, Until Discontinued, Post - Op, Adult patients: Total dose of acetaminophen from all acetaminophen containing products should not exceed 4 grams (4000 mg) per day. Pediatric Rosamaria ents 0 - 3 months: Maximum of 60 mg/kg/24 hours of acetaminophen. Pediatric Patients older than 3 months: Maximum of 75 mg/kg/24 hours of acetaminophen (Never exceeding 4 grams/day). allopurinol (ZYLOPRIM) tablet 100 mg 2052 (Given - Pro vider: Maurice Cruz RN) 2044 (Given - Provider: Rohit Singh RN) 2100 (Du e) 100 mg, Oral, Bedtime, First dose on Wed12/09/20 at 2100, Until D iscontinued ceFAZolin (ANCEF) 2000 mg/20 mL sterile water IV syrin ge (CANCELED) 1020 (Given - Provider: Yanira Singh APRN-PRISON TEACHER) 2,000 mg, IV, Every eight hours, 2 doses , First dose on Wed12/09/20 at 1200, Last dose on Wed12/09/20 at 2000, 20 mL, PACU - Continue Post-Op, Administer as IV push over 4 minutes. ceFAZolin (ANCEF) 2000 mg/20 mL sterile water IV syrin ge (COMPLETED) 1816 (Given - Provider: Shelia Garland RN) 0211 (Given - Provider: Maurice Cruz RN) 2,000 mg, IV, Every eight hours, 2 doses , First dose (after last reorder) on Wed12/09/20 at 1830, Last dose on Wed12/10/20 at 0230, 20 mL, PACU - Continue Post- Op, Administer as IV push over 4 minutes. enoxaparin (LOVENOX) subcutaneous injection solution 40 mg 1021 (Given - Provider: Jennifer Mijares RN) 0916 (Given - Provider: Dustin Parson) 40 mg, Subcutaneous, Daily, First dose o n Wed12/10/20 at 0900, Until Discontinued, Post - Op, Begin 0800 on first post op day To avoid the loss of drug when using the 30 mg and 40 mg prefilled syringes, do not expel the air bubble from the syr saida before the injection. For ADULT patients: Administration should be alternated between the left and right anterolateral and left and right posterolateral ab dominal wall. The whole length of the ne edle should be introduced into a skin fold held between the thumb and forefinger; the skin fold should be held throughout the injection. To minimize bruising, do not rub the injection site after complet ion of the injection. For PEDIATRIC patients: Administration should be alternated between appropriate sites for patient age/weight (infants/small children = up per thigh; older children/adolescents = left and right anterolateral and left and right posterolateral abdominal wall). During administration to infants/smaller children sometimes the whole length of th e needle is not "introduced" during the injection. Administer injection into a skin fold held between the thumb and forefinger; the skin fold should be held throughout the injection. To minimize bruisin g, do not rub the injection site after completion of the injecti on. ferrous sulfate (65 mg FE per 325 mg tablet) tablet 32 5 mg (CANCELED) 153 (Given - Provider: Rebekah Duckworth RN) 325 mg, Oral, Every other day, First dos e on Wed12/09/20 at 1205, Until Discontinued ferrous sulfate (65 mg FE per 325 mg tablet) tablet 325 mg 914 (Given - Provider: Chris Angel RN) 325 mg, Oral, Daily, First dose (after l ast modification) on Wed12/11/20 at 0900, Until Discontinued furosemide (LASIX) tablet 20 mg 914 (Given - Provider: Chris Angel RN) 20 mg, Oral, DAILY, First dose on 03/25 at 0900, Until Discontinued, Hold for SBP less than 120 gabapentin (NEURONTIN) capsule 600 mg (COMPLETED) 0800 (Given - Provider: Cici Trinidad RN) 600 mg, Oral, Pre-op, 1 dose, On 12/09 at 0730, Pre - Op, 1 dose prior to surgery magnesium oxide tablet 250 mg 1020 (Given - Prov ider: Jennifer Mijares RN) 0915 (Given - Provider: Chris Angel RN) 250 mg, Oral, DAILY, First dose on Wed12/10/20 at 0900, Until Dis continued magnesium oxide tablet 500 mg 1246 (Give n - Provider: Jennifer Mijares RN)2044 (Given - Provider: Rohit Singh RN) 0915 (Given - Provider: Chris Angel RN)2100 (Due) 500 mg, Oral, Two times a day, First dos e on Wed12/10/20 at 1040, Until Discontinued mesalamine (LIALDA) enteric coated tablet 2.4 g 2051 ( Given - Provider: Maurice Cruz RN) 121 (Given - Provider: Jennifer Mijares RN) 2100 (Given - Provider: Rohit Singh RN) 0934 (Given - Provider: Dustin Parson)2100 (Due) 2.4 g, Oral, Two times a day, First dose on Wed12/09/20 at 2100, Until Discontinued, Patient's own medication has been identified by Pharmacist and approved for hospital use by hospital policy. Give with a meal. Tablet should be swallowed whole and not divided, crushed or chewed. polyethylene glycol (MIRALAX) packet 1 packet 1020 (Given - Provider: Jennifer Mijares RN) 0916 (Given - Provider: Dustin Parson) 1 packet, Oral, Daily, First dose on Wed12/10/20 at 0900, Until Discontinued, Post - Op, Hold if 2 loose stools occur in the last 24 hours. potassium chloride (KLOR-CON M20) CR tablet 20 mEq (Given - Provider: Maurice Cruz RN) 102 (Given - Provider: Jennifer Mijares RN) 2044 (Given - Provider: Rohit Singh RN) 0915 (Given - Provider: Dustin Parson)2099 (Due) 20 mEq, Oral, Two times a day, First dos e on Wed12/09/20 at 2100, Until Discontinued, Tablet may be broken in half, but should not be crushed or chewed. Tablet may be dissolved in 4 oz of water. DO NOT g doc via feeding tube route as this can clog the tube. senna-docusate sodium (SENOKOT-S;PERICOLACE) tablet 2 tablet 2052 (Given - Provider: Maurice Cruz RN) 102 (Given - Provider: Jennifer Mijares RN) 2043 (Given - Provider: Rohit Singh RN) 0915 (Given - Provider: Chris Angel RN)2099 (Due) 2 tablet, Oral, Two times a day, First d ose on Wed12/09/20 at 2100, Until Discontinued, Post - Op, Hold if 2 loose stools occur in the last 24 hours. sodium chloride 0.9% flush (adult) 10 mL 1154 (Already Infusing. - Provider: Dolores Padron RN)2052 (Not Indicated - Provider: Maurice Cruz RN) 102 (Given - Provider: Jennifer Mijares RN)2145 (Given - Provider: Rohit Singh RN) 0842 (Not Indicated - Provider: Chris estrada RN - Comment: IVF infusing)2099 (Due) 10 mL, IV, Two times a day and prn, Firs t dose on Wed12/09/20 at 0900, Until Discontinued, 10 mL, Active Now, Flush PIV line as scheduled and as often as necessary before and after meds. Use a push / pa use technique when flushing to create turbulence. sodium chloride 0.9% flush (adult) 10 mL 2052 (Not Ind icated - Provider: Maurice Cruz RN) 102 (Not Given - Provider: Jennifer Mijares RN - Reason: Other (See Comment) - Comment: Duplicate order)2046 (Given - Provider: Rohit Singh RN) 0842 (Not Indicated - Provider: Chris estrada RN - Comment: IVF infusing)2099 (Due) 10 mL, IV, Two times a day and prn, Firs t dose on Wed12/09/20 at 2100, Until Discontinued, 10 mL, Post - Op, Flush unused lumens as scheduled and as often as necessary before and after meds. Use a push/p ause technique when flushing to create turbulence. Medication Order 12/09/2020 12/10/2020 12/11/2020 lactated ringers IV solution (CANCELED) 0800 (New Bag/ Tubing - Provider: Cici Trinidad RN)1110 (New Bag - Provider: PAVEL MerinoPRISON TEACHER)1157 (Rate Change - Provider: JORGE Merino) IV, at 25 mL/hr, Continuous, Starting on Wed12/09/20 at 0830, Until Wed12/09/20 at 1155, 1,000 mL, Pre - Op Now lactated ringers IV solution (CANCELED) 1154 (Already Infusing - Provider: Dolores Padron RN) IV, at 125 mL/hr, Continuous, Starting o n Wed12/09/20 at 1140, Until Wed12/09/20 at 1328, 1,000 mL, PACU, TKO current fluids if patient is going to Day Unit / ARU and tolerating PO fluids without nausea. sodium chloride 0.9% IV solution 1354 (New Bag - Provi dior: Rebekah Duckworth RN)2058 (New Bag - Provider: Maurice Cruz RN) 0444 (New Bag - Provider: Maurice Cruz RN)1320 (New Bag - Provider: Jennifer Mijares, RN) 0032 (New Bag - Provider: Rohit Singh RN) IV, at 125 mL/hr, Continuous, Starting o n Wed12/09/20 at 1350, Until Discontinued, 1,000 mL, Post - Op Medication Order 12/09/2020 12/10/2020 12/11/2020 benzocaine-menthol (CEPACOL w/ BENZOCAINE) lozenge 1 lozenge 1 lozenge, Mouth/Throat, Every four hour s prn, Starting on Wed12/09/20 at 1345, Until Discontinued, sore throat, other (Specify), throat irritation, Post - Op, Exception: Patients with dysphagia, radiati on mucositis/esophagitis or without a gag reflex. bisacodyl (DULCOLAX) enteric coated tablet 5 mg 5 mg, Oral, Two times a day prn, Startin g on Wed12/09/20 at 1345, Until Discontinued, constipation, Post - Op, SECOND choice or per patient preference bisacodyl (DULCOLAX) suppository 10 mg 10 mg, Rectal, One time a day prn, Start ing on Wed12/09/20 at 1345, Until Discontinued, constipation, Post - Op, THIRD choice or per patient preference. If patient cannot take oral medications, use first for constipation. ceFAZolin (ANCEF;KEFZOL) 1000 mg vial (CANCELED) 1103 (Given - Provider: Orlando Del Castillo MD)1104 (Given - Provider: Orlando Del Castillo MD)1115 (Given - Provider: Orlando Del Castillo MD) INTRAOP, Starting on Wed12/09/20 at 1104, Until Wed12/09/20 at 115 5, Intra - Op HYDROmorphone (DILAUDID) injection solution (conc: 1 mg/mL) 1 mg 1 mg, IV, Every two hours prn, Starting on Wed12/09/20 at 1345, Until Discontinued, severe pain, 1 mL, If pain unrelieved with PO medication magnesium hydroxide (MILK OF MAGNESIA) oral suspension 30 mL 30 mL, Oral, Two times a day prn, Starti ng on Wed12/09/20 at 1345, Until Discontinued, constipation, 30 mL, Post - Op, FIRST choice or per patient preference. Exception: Nephrology/renal patients nalOXone (NARCAN) injection solution (vial) 0.2 mg 0.2 mg, Injection, Every two minutes prn , Starting on Wed12/09/20 at 1345, Until Discontinued, other (Specify), opioid induced respiratory depression - PARTIAL reversal, 0.5 mL, Post - Op, PARTIAL REVERS AL/RESPIRATORY DEPRESSION If respiratory rate less than 8/minute - call rapid response and administer (until respiratory rate increases to 10/minute). Give IV (preferred), IM or SUBQ nalOXone (NARCAN) injection solution (vial) 0.4 mg 0.4 mg, Injection, Every two minutes prn , Starting on Wed12/09/20 at 1345, Until Discontinued, other (Specify), opioid induced respiratory arrest - FULL reversal, 1 mL, Post - Op, FULL REVERSAL/RESPIRATO RY ARREST If patient is not breathing - call CODE BLUE and administer. Give IV (preferred), IM or SUBQ ondansetron (ZOFRAN) injection solution 4 mg 4 mg, IV, Every four hours prn, Starting on Wed12/09/20 at 1153, Until Discontinued, nausea, vomiting, 2 mL, PACU - Continue Post-Op, Use first for nausea. If ineffective after 15 minutes use promethazin e. If preference is to further dilute f or IV administration: First draw up patient-specific dose, then dilute to 10 mL with 0.9% sodium chloride. oxyCODONE (OXY-IR) tablet 5-10 mg 1508 (Given - Provid er: Rebekah Duckworth RN)205 (Given - Provider: Maurice Cruz RN) 0214 (Given - Provider: Maurice Cruz RN)1021 (Given - Provider: Jennifer Mijares RN)1608 (Given - Provider: Susan Grewal RN)2059 (Given - Provider: Rohit Singh, BERNIE) 0530 (Given - Provider: Rohit Singh RN)0916 (Given - Provider: Chris Angel RN) 5-10 mg, Oral, Every four hours prn, Sta rting on Wed12/09/20 at 1345, Until Discontinued, moderate pain, severe pain, Post - Op, For patients with moderate pain, pain rating of 4-6, give oxyCODONE 5 mg P O every 4 hours PRN. For patients with severe pain, pain rating of 7 or greater, give oxyCODONE 10 mg PO every 4 hours PRN. May administer less potent prescribed medication based on patient request pe r the organization's medication management policy. ropivacaine (NAROPIN) 35 mg, EPINEPHrine (ADRENALIN) 0.25 mg, morphine 5 mg, sodium chloride 0.9% 37.25 mL (CANCELED) 1058 (Given - Provider: Orlando Del Castillo MD)1121 (Given - Provider: Orlando Del Castillo MD) INTRAOP, Starting on Wed12/09/20 at 1058, Until Wed12/09/20 at 1155, 45 mL, Intra - Op ropivacaine (NAROPIN) 5 MG/ML injection solution (CANC ELED) 1058 (Given - Provider: Orlando Del Castillo MD) INTRAOP, Starting on Wed12/09/20 at 1058, Until Wed12/09/20 at 115 5, Intra - Op tranexamic acid (CYKLOKAPRON) injection (CANCELED) 110 5 (Given - Provider: Orlando Del Castillo MD) INTRAOP, Starting on Wed12/09/20 at 1105, Until Wed12/09/20 at 115 5, Intra - Op vancomycin for injection 1000 mg vial (CANCELED) 1104 (Given - Provider: Orlando Del Castillo MD) INTRAOP, Starting on Wed12/09/20 at 1104, Until Wed12/09/20 at 115 5, Intra - Op documented in this encounter Additional Health Concerns Infection Onset Date Last Indicated Resolved Time MRSA 11/19/2018 12/09/2020 documented as of this encounter
[2020-12-12] MEDS: Acetaminophen 325 MG Tab PO PRN ×2 (13:30→20:15)
--- NOTE | 2020-12-12 16:22 | PCM.SN.2 ---
- Free Text/Narrative Note: Labs ok for hgb being stable and kidneys also. It is unclear to me why platelets are low but even in October they were around 100 so will repeat tomorrow.
[2020-12-12] MEDS: ALLOPURINOL 100 MG PO SCH (20:08)
[2020-12-12] MEDS: OXYCODONE 10 MG PO PRN (20:16)
[2020-12-13] MEDS: Acetaminophen 325 MG Tab PO PRN ×4 (03:23→23:59)
[2020-12-13] MEDS: OXYCODONE 10 MG PO PRN ×3 (03:23→16:06)
[2020-12-13] MEDS: Magnesium Oxide 400 MG Tab PO SCH (07:39)
[2020-12-13] MEDS: POTASSIUM CHLORIDE 20 MEQ PO SCH ×2 (07:39→20:48)
[2020-12-13] MEDS: ELIQUIS 5 MG PO SCH ×2 (07:39→20:48)
[2020-12-13] MEDS: Furosemide 20 MG Tab *PT OWN MED PO SCH (07:40)
[2020-12-13] MEDS: [UNRECOGNIZED DRUG - OTHER] TOP SCH ×2 (07:40→20:49)
[2020-12-13] MEDS: OXYCODONE 5 MG PO PRN (07:41)
[2020-12-13] MEDS: Ferrous Sulfate 325 MG Tab PO SCH ×2 (07:47→08:01)
[2020-12-13] MEDS ORDERED: Non-Formulary Medication 1 Each PO PRN (12:53)
--- NOTE | 2020-12-13 13:38 | PN ---
Progress Note for VIK MORENO Date: 12/13/2020 Room #: VM.219 SUBJECTIVE: This is a 60-year-old admitted to our swing bed after a revision of a right knee replacement on 12/09/2020. He was discharged to swing bed on 12/11/2020 on a wound VAC that was supposed to stay in place for up to week. However, his battery has ran out. Therefore, orders from Ortho were that they could be removed. When it was removed, his incision looked excellent. It just had some slight oozing of blood. The patient himself says he is bothered by pain, but when evaluating his medication list, he went 9 hours without taking a p.r.n. oxycodone. He otherwise does not have any cough. No shortness of breath. No chest pain. No dizziness. He is peeing a lot but attributes that to getting a bunch of fluids when he was in [place]. He otherwise is eating 100% of his meals. He did get Lovenox postop day 1 and 2. He had lab work on yesterday, which did show his platelets, which have been around 100 in the past to have dropped down to 89. Today, it is 87. He also has a low white count and hemoglobin down to 7.8 from 8.5. OBJECTIVE: Vital Signs: His temperature 97.3, pulse 65, blood pressure 136/72, respiratory rate 18, and O2 of 99% on room air. General: He is in no acute distress. Heart: Regular rate and rhythm. S1, S2 without murmur. Lungs: Lung sounds are clear to auscultation bilaterally without crackles or wheezes. Extremities: Warm, dry. Left leg has no edema. Right leg is chronically enlarged. It is nonpitting, nontender in his calf. The incision is intact with just some slight oozing. No surrounding redness. Oozing is blood. No warmth. He has some decent range of motion for his knee, but I did not test it fully. Mental Status: Alert and orientated x3. LABORATORY WORK: Also did show his creatinine at 1.7 yesterday, calcium 8.1. ASSESSMENT: 1. Postoperative from 12/09/2020 right knee revision, needing improved pain control. Discussed with the patient to increase p.r.n. oxycodone to q.3 hours and I will also schedule it in the morning and at bedtime to prevent these long stretches without the pain pill. 2. Acute on chronic anemia. No indication for transfusion. We will recheck on Wednesday. 3. Thrombocytopenia. The patient has a history of this. He has had some alcohol use in the past. We will monitor closely. Platelets are staying stable. He is on his Eliquis. 4. History of deep venous thrombosis in the past. He is on Eliquis 2.5 b.i.d. 5. Chronic kidney disease. Creatinine stable. 6. Hypocalcemia and hypomagnesemia. We will repeat laboratory work on Wednesday. 7. Essential hypertension. Blood pressure is controlled. 8. Chronic edema. He is on Lasix. 9. Obesity. 10.Peripheral neuropathy. 11.Ulcerative colitis. PLAN: The patient will continue on swing bed cares. The wound VAC was removed today, and he will have his Mepilex type dressing on with changes as needed for drainage and bleeding. We will ice the knee for pain. We will increase his pain pills. We will repeat laboratory work on Wednesday. MKA: 12/13/2020 12:58:37 MODL: 12/13/2020 13:32:39 /[id number]
[2020-12-13] MEDS: OXYCODONE 10 MG PO SCH (20:46)
[2020-12-13] MEDS: ALLOPURINOL 100 MG PO SCH (20:49)
[2020-12-14] MEDS: OXYCODONE 10 MG PO SCH ×2 (09:51→20:48)
[2020-12-14] MEDS: Acetaminophen 325 MG Tab PO PRN ×3 (09:53→22:31)
[2020-12-14] MEDS: POTASSIUM CHLORIDE 20 MEQ PO SCH ×2 (09:53→20:48)
[2020-12-14] MEDS: [UNRECOGNIZED DRUG - OTHER] TOP SCH ×2 (09:55→20:51)
[2020-12-14] MEDS: Magnesium Oxide 400 MG Tab PO SCH (09:55)
[2020-12-14] MEDS: Furosemide 20 MG Tab *PT OWN MED PO SCH (09:56)
[2020-12-14] MEDS: ELIQUIS 5 MG PO SCH ×2 (09:56→20:49)
[2020-12-14] MEDS: OXYCODONE 10 MG PO PRN ×3 (12:54→18:48)
[2020-12-14] MEDS: ALLOPURINOL 100 MG PO SCH (20:49)
[2020-12-15] MEDS: OXYCODONE 10 MG PO PRN ×3 (00:10→23:19)
[2020-12-15] MEDS: Acetaminophen 325 MG Tab PO PRN ×2 (08:55→14:52)
[2020-12-15] MEDS: OXYCODONE 10 MG PO SCH ×2 (08:55→20:05)
[2020-12-15] MEDS: Magnesium Oxide 400 MG Tab PO SCH (08:56)
[2020-12-15] MEDS: ELIQUIS 5 MG PO SCH ×2 (08:56→20:04)
[2020-12-15] MEDS: POTASSIUM CHLORIDE 20 MEQ PO SCH ×2 (08:56→20:03)
[2020-12-15] MEDS: Furosemide 20 MG Tab *PT OWN MED PO SCH (08:57)
[2020-12-15] MEDS: [UNRECOGNIZED DRUG - OTHER] TOP SCH ×2 (08:58→20:06)
[2020-12-15] MEDS: Ferrous Sulfate 325 MG Tab PO SCH (09:01)
[2020-12-15] MEDS: ALLOPURINOL 100 MG PO SCH (20:04)
[2020-12-16 07:13] LABS: ANION GAP 12.7 mmol/L (5-15)
[2020-12-16] MEDS: OXYCODONE 10 MG PO SCH (10:04)
[2020-12-16] MEDS: ELIQUIS 5 MG PO SCH ×2 (10:05→20:41)
[2020-12-16] MEDS: POTASSIUM CHLORIDE 20 MEQ PO SCH (10:06)
[2020-12-16] MEDS: Furosemide 20 MG Tab *PT OWN MED PO SCH (10:07)
[2020-12-16] MEDS: [UNRECOGNIZED DRUG - OTHER] TOP SCH (10:07)
[2020-12-16] MEDS: Magnesium Oxide 400 MG Tab PO SCH ×2 (11:35→20:40)
[2020-12-16] MEDS: Acetaminophen 325 MG Tab PO PRN ×2 (14:43→20:41)
[2020-12-16] MEDS: OXYCODONE 10 MG PO PRN ×2 (14:43→23:58)
[2020-12-16] MEDS: MESALAMINE 1.2 GM PO SCH (20:41)
[2020-12-16] MEDS: Allopurinol 100 MG Tab (OWN SUPPLY) PO SCH (20:43)
[2020-12-16] MEDS: Mineral Oil/Petrolatum,White Crm 454 GM Jar TOP SCH (20:43)
[2020-12-17] MEDS: Magnesium Oxide 400 MG Tab PO SCH ×2 (09:08→19:43)
[2020-12-17] MEDS: Ferrous Sulfate 325 MG Tab PO SCH (09:08)
[2020-12-17] MEDS: Furosemide 20 MG (OWN SUPPLY) PO SCH (09:09)
[2020-12-17] MEDS: MESALAMINE 1.2 GM PO SCH ×2 (09:10→19:43)
[2020-12-17] MEDS: ELIQUIS 5 MG PO SCH ×2 (09:10→19:43)
[2020-12-17] MEDS: [UNRECOGNIZED DRUG - OTHER] TOP SCH (09:11)
[2020-12-17] MEDS: Acetaminophen 325 MG Tab PO PRN ×3 (09:14→19:45)
[2020-12-17] MEDS: Mineral Oil/Petrolatum,White Crm 454 GM Jar TOP SCH ×2 (09:15→19:49)
[2020-12-17] MEDS: OXYCODONE 10 MG PO PRN ×3 (12:17→23:17)
--- NOTE | 2020-12-17 17:00 | PN ---
Progress Note for VIK MORENO Date: 12/17/2020 Room #: VM.219 SUBJECTIVE: Dictation on a 60-year-old seen for swing bed after an elective right knee revision replacement. The patient has now had better pain control with 10 mg scheduled twice daily. He has yet been using also 2 doses a day of his every 3-hour breakthrough pain. His blood pressure is a little low this morning, but he is not feeling lightheaded or dizzy. His lab work yesterday did show his hemoglobin at 7.5, which is stable, and his platelets are up to 129. His wound is still oozing a little. He was restarted on magnesium supplements or rather it was increased to b.i.d. He is not having any cough or shortness of breath. He is still only on the 2.5 b.i.d. of Eliquis. OBJECTIVE: Vital Signs: His temperature is 98.5, pulse 63, blood pressure 86/42, respiratory rate 18, and O2 100 on room air. General: He is in no acute distress. Heart: Regular rate and rhythm. S1, S2 without murmur. Lungs: Sounds are clear to auscultation bilaterally without crackles or wheezes. Abdomen: Nondistended, nontender. Extremities: Right lower extremity continues to have more swelling than the left. There is no pitting edema. His calf is nontender. He has no rashes. The wound is examined, it is well healing. There is just some minor bleeding. Mental Status: He is alert and orientated x3. LABORATORY DATA: Laboratory work did show as reported in the HPI. Hemoglobin stable at 7.5, white count up to 2.3, platelets up to 129. Electrolytes all within range except creatinine is 1.8, which is around his baseline, and calcium is only 7.9. ASSESSMENT AND PLAN: 1. Postoperative from a right knee revision on 12/09 with improved pain control. We will decrease him down to 5 mg twice daily as scheduled and keep his p.r.n. at 10 mg and continue to wean opioids. The patient is agreeable to this plan. 2. Acute on chronic anemia. We will repeat a hemoglobin . 3. Thrombocytopenia, improving. We will continue to monitor. 4. History of deep venous thrombosis in the past. We will keep him on the Eliquis 2.5 mg daily until blood count start coming up and less bleeding from the incision, then we will go up to 5 mg twice daily. 5. Chronic kidney disease. Creatinine is stable. 6. Hypocalcemia and hypomagnesemia. He is on replacement. 7. Essential hypertension. His blood pressure is actually low. We will have holding parameters for his Lasix. 8. Chronic edema. 9. Obesity. 10.Peripheral neuropathy. 11.Ulcerative colitis. At this point, the patient will continue on swing bed cares. Dressing was changed today. He will keep working with therapies prior to returning home. MKA: 12/17/2020 16:26:37 MODL: 12/17/2020 16:55:03 /[id number]
[2020-12-17] MEDS: Cholecalciferol (Vitamin D3) 25 MCG Tab PO SCH (17:49)
[2020-12-17] MEDS: Allopurinol 100 MG Tab (OWN SUPPLY) PO SCH (19:42)
[2020-12-18] MEDS: Furosemide 20 MG (OWN SUPPLY) PO SCH (09:42)
[2020-12-18] MEDS: Magnesium Oxide 400 MG Tab PO SCH ×2 (09:43→20:24)
[2020-12-18] MEDS: ELIQUIS 5 MG PO SCH ×2 (09:43→21:07)
[2020-12-18] MEDS: Cholecalciferol (Vitamin D3) 25 MCG Tab PO SCH (09:43)
[2020-12-18] MEDS: MESALAMINE 1.2 GM PO SCH ×2 (09:43→21:06)
[2020-12-18] MEDS: Acetaminophen 325 MG Tab PO PRN ×3 (09:44→23:50)
[2020-12-18] MEDS: Mineral Oil/Petrolatum,White Crm 454 GM Jar TOP SCH ×2 (09:45→21:08)
[2020-12-18] MEDS: OXYCODONE 10 MG PO PRN ×3 (15:40→23:55)
[2020-12-18] MEDS: Allopurinol 100 MG Tab (OWN SUPPLY) PO SCH (21:09)
[2020-12-19] MEDS: MESALAMINE 1.2 GM PO SCH ×2 (10:14→19:25)
[2020-12-19] MEDS: Ferrous Sulfate 325 MG Tab PO SCH (10:15)
[2020-12-19] MEDS: Magnesium Oxide 400 MG Tab PO SCH ×2 (10:15→19:26)
[2020-12-19] MEDS: Cholecalciferol (Vitamin D3) 25 MCG Tab PO SCH (10:15)
[2020-12-19] MEDS: Acetaminophen 325 MG Tab PO PRN ×2 (10:15→17:20)
[2020-12-19] MEDS: ELIQUIS 5 MG PO SCH ×2 (10:16→19:24)
[2020-12-19] MEDS: Mineral Oil/Petrolatum,White Crm 454 GM Jar TOP SCH ×2 (10:16→20:04)
[2020-12-19] MEDS: Furosemide 20 MG (OWN SUPPLY) PO SCH (10:17)
[2020-12-19] MEDS: OXYCODONE 10 MG PO PRN ×3 (14:05→23:13)
[2020-12-19] MEDS: Allopurinol 100 MG Tab (OWN SUPPLY) PO SCH (19:25)
[2020-12-20] MEDS: OXYCODONE 10 MG PO PRN ×2 (04:50→17:11)
[2020-12-20] MEDS: Furosemide 20 MG (OWN SUPPLY) PO SCH (08:44)
[2020-12-20] MEDS: ELIQUIS 5 MG PO SCH ×2 (08:44→20:20)
[2020-12-20] MEDS: MESALAMINE 1.2 GM PO SCH ×2 (08:44→20:21)
[2020-12-20] MEDS: Mineral Oil/Petrolatum,White Crm 454 GM Jar TOP SCH ×2 (08:45→20:22)
[2020-12-20] MEDS: Magnesium Oxide 400 MG Tab PO SCH ×2 (08:49→20:21)
[2020-12-20] MEDS: Cholecalciferol (Vitamin D3) 25 MCG Tab PO SCH (08:49)
[2020-12-20] MEDS: Allopurinol 100 MG Tab (OWN SUPPLY) PO SCH (20:22)
[2020-12-20] MEDS: Acetaminophen 325 MG Tab PO PRN (23:45)
[2020-12-20] MEDS: oxyCODONE 5 MG Tab **OWN MED PO PRN (23:53)
[2020-12-21] MEDS: Cholecalciferol (Vitamin D3) 25 MCG Tab PO SCH (08:10)
[2020-12-21] MEDS: Ferrous Sulfate 325 MG Tab PO SCH (08:10)
[2020-12-21] MEDS: Magnesium Oxide 400 MG Tab PO SCH ×2 (08:10→19:59)
[2020-12-21] MEDS: ELIQUIS 5 MG PO SCH ×2 (08:11→20:01)
[2020-12-21] MEDS: Furosemide 20 MG (OWN SUPPLY) PO SCH (08:12)
[2020-12-21] MEDS: MESALAMINE 1.2 GM PO SCH ×2 (08:12→20:00)
[2020-12-21] MEDS: Mineral Oil/Petrolatum,White Crm 454 GM Jar TOP SCH ×2 (08:13→20:05)
[2020-12-21] MEDS: Acetaminophen 325 MG Tab PO PRN ×4 (08:16→23:26)
[2020-12-21] MEDS: oxyCODONE 5 MG Tab **OWN MED PO PRN ×3 (12:12→23:26)
[2020-12-21] MEDS: Allopurinol 100 MG Tab (OWN SUPPLY) PO SCH (20:02)
[2020-12-22] MEDS: oxyCODONE 5 MG Tab **OWN MED PO PRN ×4 (04:31→23:35)
[2020-12-22] MEDS: Magnesium Oxide 400 MG Tab PO SCH ×2 (07:46→19:47)
[2020-12-22] MEDS: Acetaminophen 325 MG Tab PO PRN ×2 (07:46→23:35)
[2020-12-22] MEDS: Cholecalciferol (Vitamin D3) 25 MCG Tab PO SCH (07:46)
[2020-12-22] MEDS: ELIQUIS 5 MG PO SCH ×2 (07:47→19:50)
[2020-12-22] MEDS: Furosemide 20 MG (OWN SUPPLY) PO SCH (07:48)
[2020-12-22] MEDS: MESALAMINE 1.2 GM PO SCH ×2 (07:49→19:48)
[2020-12-22] MEDS: Mineral Oil/Petrolatum,White Crm 454 GM Jar TOP SCH ×2 (07:49→19:47)
[2020-12-22] MEDS: Allopurinol 100 MG Tab (OWN SUPPLY) PO SCH (19:49)
[2020-12-23] MEDS: oxyCODONE 5 MG Tab **OWN MED PO PRN (04:40)
[2020-12-23 06:21] VITALS: BP 110/61; PULSE 57
[2020-12-23 07:02] LABS: ANION GAP 11.9 mmol/L (5-15)
[2020-12-23] MEDS: Cholecalciferol (Vitamin D3) 25 MCG Tab PO SCH (08:57)
[2020-12-23] MEDS: Ferrous Sulfate 325 MG Tab PO SCH (08:57)
[2020-12-23] MEDS: ELIQUIS 5 MG PO SCH (08:57)
[2020-12-23] MEDS: Mineral Oil/Petrolatum,White Crm 454 GM Jar TOP SCH (08:57)
[2020-12-23] MEDS: MESALAMINE 1.2 GM PO SCH (08:57)
[2020-12-23] MEDS: Magnesium Oxide 400 MG Tab PO SCH (08:57)
[2020-12-23] MEDS: Furosemide 20 MG (OWN SUPPLY) PO SCH (08:57)
[2020-12-23] MEDS ORDERED: Cyanocobalamin (Vitamin B12) 1,000 MCG/ML SDV IM SCH (09:00)
--- NOTE | 2020-12-23 23:52 | DISCH ---
PRIMARY DISCHARGE DIAGNOSIS: Right prosthetic knee revision surgery for a previous replacement that was dislocated back in October. SECONDARY DISCHARGE DIAGNOSES: 1. Acute blood loss anemia on chronic iron deficiency anemia, not requiring transfusion. 2. 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 3. Chronic edema, on Lasix. Chronic right leg lymphedema. 4. Right calf hematoma related to anticoagulation. 5. Recurrent right upper extremity and right lower extremity deep vein thrombosis on Eliquis 2.5 twice daily during his stay here. 6. Essential hypertension. 7. Chronic kidney disease, stage III, previously on hemodialysis after kidney failure due to foot infection but now off. 8. Ulcerative colitis. 9. History of sarcoid, in remission. 10.Gout. 11.Previous methicillin-resistant Staphylococcus aureus. 12.Severe obesity. 13.Peripheral neuropathy. 14.Hypomagnesemia. 15.History of smoking. 16.Remote history of colon cancer. REASON FOR ADMISSION: On the date of admission, this 60-year-old male was postoperative day #2, was doing well with stable blood counts. Therefore, decision was made to transfer him to [place] for further rehabilitation. He had been anemic prior to surgery due to the hematoma, but fortunately his hemoglobin had improved up to 10.5. It was 8.2 on his discharge from [place], but he had no ongoing signs of bleeding. He was monitored during his stay in [place] and lowest was 7.5 and discharging 8.0. The patient had no fever or chills. He was on 10 mg of oxycodone p.r.n. for pain control, but he was not asking for it for like 6 hours and then in severe pain. Therefore, I scheduled him on 10 mg twice daily and 10 mg p.r.n. He was taking about 3 doses a day. We decreased him down to 5 mg p.r.n. and scheduled and he was taking about 4 p.r.n. doses a day. The patient's pain was under good control other than he states his knee feels stiff and sore this morning and also yesterday morning, but it was examined. He never had any ethel. He had no further oozing. It was well healing there, so no drainage or surrounding redness or warmth. He did come with a wound VAC to help initially with the incision, but it stopped working in a couple days. The patient's kidney function was stable during his stay, but due to being on Eliquis and kidney disease, he was not able to get NSAIDs for his pain, but did have Tylenol available and also used ice. The patient otherwise was discharged home today to do outpatient physical therapy. PHYSICAL EXAMINATION: Vital Signs: His discharging vitals are temperature 98.0, pulse 57, blood pressure 110/61, respiratory rate 20, and O2 of 97% on room air. General: He is in no acute distress. Heart: Regular rate and rhythm. S1, S2 without murmur. Lungs: Sounds are clear to auscultation bilaterally without crackles or wheezes. Abdomen: Nondistended, nontender. Extremities: Warm and dry. He had right calf chronically more elevated than the left. There is no pitting edema in the either calf. Skin: Incision again is intact. No surrounding redness or drainage. He has pretty good knee range of motion, nearly full extension. Mental Status: Alert and orientated x3. DISCHARGE PLANS AND INSTRUCTIONS: He will follow up in the clinic in 1-[address] Luna with a BMP and CBC. He will increase his Eliquis up to 5 mg twice daily on discharge. He will follow up in [facility] next week. He will use the Tubigrip on his leg to help with swelling. He will use his walker. He will use the oxycodone 5 mg as needed for pain. He actually went home with 10 pills from his hospital supply and 10 mg dose and he otherwise will avoid Advil and Motrin. MKA: 12/23/2020 22:24:56 MODL: 12/23/2020 23:48:59 /[id number]
== END 2020-12-23 10:15 | disposition home health service (06) | DRG 560 ==
LOC: VM.MS 13:52
PROVIDERS: ADMIT Family Medicine; ATTEND Internal Medicine
DX: Z47.1 Aftercare following joint replacement surgery (principal); D62 Acute posthemorrhagic anemia; K51.90 Ulcerative colitis, unspecified, without complications; I89.0 Lymphedema, not elsewhere classified; I12.9 Hypertensive chronic kidney disease with stage 1 through stage 4 chronic kidney disease, or unspecified chronic kidney disease; N18.30 Chronic kidney disease, stage 3 unspecified; M10.9 Gout, unspecified; E66.9 Obesity, unspecified; E83.42 Hypomagnesemia; F17.210 Nicotine dependence, cigarettes, uncomplicated; G62.9 Polyneuropathy, unspecified; M51.36 Other intervertebral disc degeneration, lumbar region; D86.9 Sarcoidosis, unspecified; D69.6 Thrombocytopenia, unspecified; G89.29 Other chronic pain; M54.9 Dorsalgia, unspecified; E21.3 Hyperparathyroidism, unspecified; D50.9 Iron deficiency anemia, unspecified; E83.52 Hypercalcemia; M54.5 Low back pain; L25.9 Unspecified contact dermatitis, unspecified cause; Z96.651 Presence of right artificial knee joint; Z85.038 Personal history of other malignant neoplasm of large intestine; Z68.37 Body mass index [BMI] 37.0-37.9, adult; Z86.718 Personal history of other venous thrombosis and embolism; Z79.01 Long term (current) use of anticoagulants; Z79.899 Other long term (current) drug therapy; Z86.19 Personal history of other infectious and parasitic diseases
CPT/HCPCS: 36415; 80048; 80069; 83735; 85025; 97110-GO; 97110-GP; 97116-GP; 97161-GP; 97165-GO; A9270-GY

== ENCOUNTER 2021-05-03 17:37 | Emergency (ER) | payer MEDICARE, MEDICAID ==
[2021-05-03 18:00] VITALS: BP 122/59; PULSE 98
--- NOTE | 2021-05-03 18:00 | EDM.PDOC ---
ED HPI GENERAL MEDICAL PROBLEM - General Chief Complaint: Lower Extremity Injury/Pain Stated Complaint: INFECTED FOOT Time Seen by Provider: 05/03/21 17:59 Source of Information: Reports: Patient History Limitations: Reports: No Limitations - History of Present Illness INITIAL COMMENTS - FREE TEXT/NARRATIVE: Patient has chronic kidney disease with a history of osteomyelitis, amputations of multiple toes that presents to the ED for a 2 months history of chronic foot ulcer on the plantar surface at the fist MTP on the left foot. He has been noticing odorous drainage from it for some time. He has peripheral neuropathy to the knees bilaterally. Is not on dialysis, no fevers or chills. Has had a " pimple" on the left upper thigh for about a month that he keeps " squeezing" but now has surrounding erythema around it. No streaking up the leg. No real change in either of these areas, but he felt that he should be seen today because " I don't want to loose another toe". Has not seen PCP in at least a month, has had covid vaccine x 2 plus his booster. Has had MRSA in the past, no allergies Location: Reports: Lower Extremity, Left Left Upper Leg Pain Score (Numeric/FACES): 6 - Related Data Allergies Allergy/AdvReac Type Severity Reaction Status Date / Time No Known Allergies Allergy Verified 05/03/21 17:53 Home Meds: Home Meds Magnesium Oxide [Magnesium] 400 mg PO DAILY 01/01/20 [History] Cyanocobalamin (Vitamin B12) [Vitamin B12] 1,000 mcg IM Q30D 04/25/20 [History] allopurinoL [Zyloprim] 100 mg PO BEDTIME 04/25/20 [History] Acetaminophen [Tylenol] 650 mg PO Q4H PRN 10/22/20 [History] Furosemide [Lasix] 20 mg PO DAILY 10/22/20 [History] Mesalamine [Lialda] 2.4 gm PO BID 10/22/20 [History] Docusate Sodium/Sennosides [Senna Plus] 2 tab PO BID 12/11/20 [History] Apixaban [Eliquis] 5 mg PO BID #0 12/23/20 [Rx] Potassium Chloride [Klor-Con M20] 20 meq PO BID tab.er 12/23/20 [Rx] Sulfamethoxazole/Trimethoprim [Bactrim Ds Tablet] 1 each PO BID #20 tablet 05/03/21 [Rx] Past Medical History Cardiovascular History: Reports: Blood Clots/VTE/DVT, Hypertension, Other (See Below) Other Cardiovascular History: thoracic aortic aneurysm without rupture. venous stasis. lymphedema. deep vein thrombosis Respiratory History: Reports: None Gastrointestinal History: Reports: Inflammatory Bowel Disease, Other (See Below) Other Gastrointestinal History: elevated LFTs. abscess of anal and rectal regions. ulcerative colitis Genitourinary History: Reports: Renal Disease Other Genitourinary History: End Stage Renal Disease. painless hematuria Musculoskeletal History: Reports: Back Pain, Chronic, Gout, Other (See Below) Other Musculoskeletal History: osteomyelitis left foot and right foot. DDD. degeneration of lumbar or lumbosacral intervertebral. DJD Neurological History: Reports: Neuropathy, Peripheral, Other (See Below) Other Neuro History: degeneration of lumbar or lumbosacral intervetebral disc, congenital spinal stenosis of lumbar region Psychiatric History: Reports: Other (See Below) Other Psychiatric History: substance abuse Endocrine/Metabolic History: Reports: Hyperparathyroidism, Obesity/BMI 30+, Other (See Below) Other Endocrine/Metabolic History: pancytopenia. hyperglyceridemia. hypomagnesemia. hypercalcemia Hematologic History: Reports: Anemia, Iron Deficiency Immunologic History: Reports: Other (See Below) Other Immunologic History: pancytopenia. splenomegaly Oncologic (Cancer) History: Reports: Colon Dermatologic History: Other Dermatologic History: contact dermatitis - Infectious Disease History Infectious Disease History: Reports: MRSA - Past Surgical History Head Surgeries/Procedures: Reports: Shunt Cardiovascular Surgical History: Reports: Other (See Below) Other Cardiovascular Surgeries/Procedures: left AV shunt fistual GI Surgical History: Reports: Colon, Colonoscopy Other GI Surgeries/Procedures: PART OF COLON REMOVED BECAUSE OF COLON CANCER. Neurological Surgical History: Reports: None Musculoskeletal Surgical History: Reports: Amputation, Knee Replacement, Other (See Below) Other Musculoskeletal Surgeries/Procedures:: rt and lt TKA. amputations: rt partial #2,#3 and #4 toe, lt #5 toe, lt partial #2,#3 and #4 toe, Social & Family History - Family History Family Medical History: No Pertinent Family History Cardiac: Reports: Hypertension GI: Reports: Inflammatory Bowel Disease Musculoskeletal: Reports: Arthritis, Gout Neurological: Reports: Dementia Dermatologic: Reports: Psoriasis - Tobacco Use Tobacco Use Status *Q: Never Tobacco User - Caffeine Use Caffeine Use: Reports: None Caffeine Use Comment: 1 to 2 cups of coffee a day - Recreational Drug Use Recreational Drug Use: No Drug Use in Last 12 Months: No - Living Situation & Occupation Living situation: Reports: Single, Alone Occupation: Disabled Review of Systems - Review of Systems Review Of Systems: See Below Constitutional: Reports: No Symptoms. Denies: Chills, Fever Eyes: Reports: No Symptoms. Denies: Vision Change Ears: Reports: No Symptoms. Denies: Dizziness, Purulent Discharge Nose: Reports: No Symptoms Mouth/Throat: Reports: No Symptoms Respiratory: Reports: No Symptoms. Denies: Shortness of Breath Cardiovascular: Reports: No Symptoms. Denies: Chest Pain GI/Abdominal: Reports: No Symptoms Genitourinary: Reports: No Symptoms Skin: Reports: Wound (open sore plantar surface of left foot, red area left thigh x months), Other (erythematous area on the left anterior thigh with pustules x 1 month) Neurological: Reports: No Symptoms, Pre-Existing Deficit (neuropathy to knees bilaterally) ED EXAM, GENERAL - Physical Exam Exam: See Below Exam Limited By: No Limitations General Appearance: Alert, WD/WN, No Apparent Distress Eye Exam: Bilateral Eye: EOMI, PERRL Nose: Normal Inspection Throat/Mouth: Normal Inspection, Normal Lips, Normal Teeth, Normal Voice, No Airway Compromise Head: Atraumatic Respiratory/Chest: No Respiratory Distress, Lungs Clear, Normal Breath Sounds Cardiovascular: Normal Peripheral Pulses, Regular Rate, Rhythm, No Murmur Back Exam: Normal Inspection, Full Range of Motion. No: CVA Tenderness (L), CVA Tenderness (R), Decreased Range of Motion Extremities: Pedal Edema (bilateral , 2 + non pitting to knees), Other (left foot with good dorsalis pedis and posterior tibialist pulses. capillar refill 3 sec. Missing distal toes with goog healing. 1 cm x 1 cm deep foot ulcer without copious drainage at 1st MTP. decreased sensation bilateral lower legs to knees, right foot no signs of infection, toes2-5 removed) Skin Exam: Erythema (left anterior thigh with 8 cm erythematous area with pustule centrally, no active drainage, no fluctance. no lymphangetic streaking) Course - Vital Signs Last Recorded V/S: Last Vital Signs Temp 36.6 C 05/03/21 17:40 Pulse 98 05/03/21 17:40 Resp 16 05/03/21 17:40 BP 122/59 L 05/03/21 17:40 Pulse Ox 96 05/03/21 17:40 - Orders/Labs/Meds Orders: Active Orders 24 hr Category Date Time Status Foot 2V Lt [CR] Stat Exams 05/03/21 18:07 Ordered ANAEROBIC CULTURE Stat Lab 05/03/21 18:24 Received CULTURE WOUND [RM] Stat Lab 05/03/21 18:24 Received MISC TEST Routine Lab 05/03/21 18:24 Received Labs: Laboratory Tests 05/03/21 05/03/21 Range/Units 18:27 18:27 WBC 5.2 (4.0-10.0) x10^3/uL RBC 3.94 L (4.5-6.0) x10^6/uL Hgb 10.9 L (14.0-18.0) g/dL Hct 34.0 L (40.0-52.0) % MCV 86.3 (78.0-93.0) fL MCH 27.7 (26.0-32.0) pg MCHC 32.1 (32.0-36.0) g/dL RDW Coeff of Maurice 14.7 (10.0-15.0) % Plt Count 167 (130-400) x10^3/uL Immature Gran % (Auto) 0.20 (0.00-0.43) % Neut % (Auto) 76.5 (50.0-80.0) % Lymph % (Auto) 14.8 L (25.0-50.0) % Haakon % (Auto) 8.1 (2.0-11.0) % Eos % (Auto) 0.0 (0.0-4.0) % Baso % (Auto) 0.4 (0.2-1.2) % Neut # (Auto) 4.0 (1.8-7.7) x10^3/uL Lymph # (Auto) 0.8 L (1.0-4.8) x10^3/uL Haakon # (Auto) 0.4 (0.0-0.8) x10^3/uL Eos # (Auto) 0.0 (0.0-0.5) x10^3/uL Baso # (Auto) 0.0 (0.0-0.2) x10^3/uL Immature Gran # (Auto) 0.01 (0.00-0.07) x10^3/uL ESR 48 H (0-15) mm/hr Sodium 143 (136-145) mmol/L Potassium 3.3 L (3.5-5.1) mmol/L Chloride 107 (98-107) mmol/L Carbon Dioxide 24 (21-32) mmol/L Anion Gap 15.3 H (5-15) mmol/L BUN 33 H (7-18) mg/dL Creatinine 1.9 H (0.70-1.30) mg/dL Est Cr Clr Drug Dosing 50.76 mL/min Estimated GFR (MDRD) 36 Glucose 125 H (70-99) mg/dL Calcium 8.6 (8.5-10.1) mg/dL Corrected Calcium 9.3 (8.5-10.1) mg/dL Total Bilirubin 0.5 (0.2-1.0) mg/dL AST 16 (15-37) U/L ALT 22 (16-63) U/L Alkaline Phosphatase 92 (46-116) U/L C-Reactive Protein 4.4 H (<=0.9) mg/dL Total Protein 6.5 (6.4-8.2) g/dL Albumin 3.1 L (3.4-5.0) g/dL Globulin 3.4 Albumin/Globulin Ratio 0.91 Meds: Medications Discontinued Medications Generic Name Dose Route Start Last Admin Trade Name Freq PRN Reason Stop Dose Admin Trimethoprim/Sulfamethoxazole 1 packet 05/03/21 18:38 Take Home: Sulfamethoxazole/Trimethoprim 800-160 Mg Tab, 2 Tab Pack PO 05/03/21 18:39 ONETIME ONE Trimethoprim/Sulfamethoxazole 1 tab 05/03/21 18:45 Sulfamethoxazole/Trimethoprim 400-80 Mg Tab PO 05/03/21 18:46 ONETIME ONE Trimethoprim/Sulfamethoxazole 1 packet 05/03/21 19:06 Take Home: Sulfamethoxazole/Trimethoprim 800-160 Mg Tab, 2 Tab Pack PO 05/03/21 19:07 ONETIME ONE - Radiology Interpretation Free Text/Narrative:: no signs of osteomyelitis on the left foot x-ray. preliminary read by me - Re-Assessments/Exams Free Text/Narrative Re-Assessment/Exam: 05/03/21 18:32 Patient with chronic foot ulcer, no signs of cellulitis around it. wound culture for aerobic and anaerobic. left thigh with cellulitis change review of chart reveals MRSA in the past from previous toe amputations. resistant to oxacillin and levofloxacin in the past. No allergies. sensitive to Bactrim and due to oxacillin resistance Vanocmycin is ideal. Concern with his CKD and history of dialysis using vancomycin. Will start Bactrim Po. Check x-ray and labs for baseline. Needs PCP follow up, aggressive wound care, possible MRI. NO signs of osteomyelitis on x-ray. NO SIRS criteria 05/03/21 18:59 chronic anemia, stable. normal WBC. given bactrim here, packet to go. Will await cultures,. close follow up, eelvated sed rate concerning for deeper infection 05/03/21 19:21 Departure - Departure Time of Disposition: 19:01 Disposition: Home, Self-Care 01 Condition: Good Clinical Impression: Cellulitis, Foot ulcer, left - Discharge Information *PRESCRIPTION DRUG MONITORING PROGRAM REVIEWED*: Not Applicable *COPY OF PRESCRIPTION DRUG MONITORING REPORT IN PATIENT [facility]AU[facility]: Not Applicable Prescriptions: Sulfamethoxazole/Trimethoprim [Bactrim Ds Tablet] 1 each PO BID #20 tablet Referrals: Sammie Luna DO [Primary Care Provider] - Forms: ED Department Discharge Additional Instructions: You were given a dose of bactrim orally tonight and medications for tomorrow. Fill your prescription Wednesday for full course of antibiotics. Wound culture is pending and antibiotics may need to be changed based on this. Return to the ED for increased redness of the thigh or redness developing in the foot. Very close follow up with PCP is important this week to start aggressive wound cares and follow up if not healing with podiatry. Sepsis Event Note (ED) - Focused Exam Vital Signs: Vital Signs Temp Pulse Resp BP Pulse Ox 05/03/21 17:40 36.6 C 98 16 122/59 L 96 - My Orders Last 24 Hours: My Active Orders 05/03/21 18:07 Foot 2V Lt [CR] Stat 05/03/21 18:24 ANAEROBIC CULTURE Stat CULTURE WOUND [RM] Stat - Assessment/Plan Last 24 Hours: My Active Orders 05/03/21 18:07 Foot 2V Lt [CR] Stat 05/03/21 18:24 ANAEROBIC CULTURE Stat CULTURE WOUND [RM] Stat
[2021-05-03] MEDS ORDERED: Take Home: Sulfamethoxazole/Trimethoprim 800-160 MG Tab, 2 Tab Pack PO ONE ×2 (18:38→19:06)
[2021-05-03] MEDS ORDERED: Sulfamethoxazole/Trimethoprim 400-80 MG Tab PO ONE (18:45)
[2021-05-03 18:58] LABS: ANION GAP 15.3 mmol/L (5-15)
== END 2021-05-03 19:42 | disposition home or self-care (01) ==
LOC: VM.ED 17:37
DX: L97.529 Non-pressure chronic ulcer of other part of left foot with unspecified severity (principal); L03.116 Cellulitis of left lower limb; I12.0 Hypertensive chronic kidney disease with stage 5 chronic kidney disease or end stage renal disease; N18.6 End stage renal disease; E66.9 Obesity, unspecified; Z68.32 Body mass index [BMI] 32.0-32.9, adult; Z79.01 Long term (current) use of anticoagulants; Z79.899 Other long term (current) drug therapy
CPT/HCPCS: 36415; 73620; 80053; 85025; 85652; 86140; 87070; 87075; 87077; 99283; A9270; 99284

== ENCOUNTER 2021-10-04 14:46 | Emergency (ER) | payer MEDICARE, OTHER, MEDICAID ==
[2021-10-04 15:09] VITALS: BP 133/82; PULSE 67
== END 2021-10-04 15:15 | disposition home or self-care (01) ==
LOC: VM.ED 14:46
DX: S86.912A Strain of unspecified muscle(s) and tendon(s) at lower leg level, left leg, initial encounter (principal); I10 Essential (primary) hypertension; M10.9 Gout, unspecified; Z79.01 Long term (current) use of anticoagulants; Z79.899 Other long term (current) drug therapy
CPT/HCPCS: 99283; 99284

== ENCOUNTER 2021-12-23 11:14 | Inpatient (IN) | payer MEDICARE, OTHER, MEDICAID ==
[2021-12-23] MEDS: Acetaminophen 500 MG Tab PO SCH ×2 (17:36→23:15)
[2021-12-23] MEDS: cefTRIAXone 2 GM Vial IV SCH (17:38)
[2021-12-23] MEDS: metroNIDAZOLE/Normal Saline 500 MG/100 ML Premix Bag IV SCH (17:48)
[2021-12-23] MEDS: MESALAMINE 1.2 GM PO SCH (20:45)
[2021-12-23] MEDS: Apixaban 2.5 MG Tab PO SCH (20:46)
[2021-12-23] MEDS: Lactobacillus Rhamnosus GG (Probiotic) Cap PO SCH (20:46)
[2021-12-24] MEDS: metroNIDAZOLE/Normal Saline 500 MG/100 ML Premix Bag IV SCH ×3 (01:41→17:05)
[2021-12-24] MEDS: Acetaminophen 500 MG Tab PO SCH ×4 (05:06→22:33)
[2021-12-24] MEDS: Metoprolol Succinate 25 MG Tab.ER PO SCH (08:27)
[2021-12-24] MEDS: Apixaban 2.5 MG Tab PO SCH ×2 (08:27→20:47)
[2021-12-24] MEDS: MESALAMINE 1.2 GM PO SCH ×2 (08:30→20:47)
[2021-12-24] MEDS: Sodium Chloride 0.9% 10 ML Syringe IV SCH (08:32)
[2021-12-24] MEDS: Lactobacillus Rhamnosus GG (Probiotic) Cap PO SCH ×2 (08:34→20:47)
[2021-12-24] MEDS: cefTRIAXone 2 GM Vial IV SCH (17:02)
[2021-12-25] MEDS: metroNIDAZOLE/Normal Saline 500 MG/100 ML Premix Bag IV SCH ×3 (02:09→18:06)
[2021-12-25] MEDS: Acetaminophen 500 MG Tab PO SCH ×4 (03:32→22:20)
[2021-12-25] MEDS: Metoprolol Succinate 25 MG Tab.ER PO SCH (08:36)
[2021-12-25] MEDS: Apixaban 2.5 MG Tab PO SCH ×2 (08:36→20:54)
[2021-12-25] MEDS: MESALAMINE 1.2 GM PO SCH ×2 (08:36→20:54)
[2021-12-25] MEDS: Lactobacillus Rhamnosus GG (Probiotic) Cap PO SCH ×2 (08:36→20:55)
[2021-12-25] MEDS: Sodium Chloride 0.9% 10 ML Syringe IV SCH (08:37)
[2021-12-25] MEDS: cefTRIAXone 2 GM Vial IV SCH (18:09)
[2021-12-26] MEDS: metroNIDAZOLE/Normal Saline 500 MG/100 ML Premix Bag IV SCH (02:12)
[2021-12-26] MEDS: Acetaminophen 500 MG Tab PO SCH ×3 (05:19→17:46)
[2021-12-26 07:23] LABS: ANION GAP 11.7 mmol/L (5-15)
[2021-12-26] MEDS: Sodium Chloride 0.9% 10 ML Syringe IV SCH (08:10)
[2021-12-26] MEDS: MESALAMINE 1.2 GM PO SCH ×2 (08:10→20:30)
[2021-12-26] MEDS: Metoprolol Succinate 25 MG Tab.ER PO SCH (08:10)
[2021-12-26] MEDS: Lactobacillus Rhamnosus GG (Probiotic) Cap PO SCH ×2 (08:10→20:31)
[2021-12-26] MEDS: Apixaban 2.5 MG Tab PO SCH ×2 (08:10→20:31)
[2021-12-27] MEDS: Acetaminophen 500 MG Tab PO SCH ×5 (00:11→23:24)
[2021-12-27] MEDS: MESALAMINE 1.2 GM PO SCH ×2 (08:37→20:33)
[2021-12-27] MEDS: Sodium Chloride 0.9% 10 ML Syringe IV SCH (08:37)
[2021-12-27] MEDS: Metoprolol Succinate 25 MG Tab.ER PO SCH (08:37)
[2021-12-27] MEDS: Apixaban 2.5 MG Tab PO SCH ×2 (08:37→20:32)
[2021-12-27] MEDS: Lactobacillus Rhamnosus GG (Probiotic) Cap PO SCH ×2 (08:37→20:33)
[2021-12-27] MEDS: oxyCODONE 5 MG Tab PO PRN (14:50)
[2021-12-28] MEDS: Acetaminophen 500 MG Tab PO SCH ×4 (06:01→22:26)
[2021-12-28] MEDS: MESALAMINE 1.2 GM PO SCH ×2 (08:17→22:00)
[2021-12-28] MEDS: Metoprolol Succinate 25 MG Tab.ER PO SCH (08:18)
[2021-12-28] MEDS: Apixaban 2.5 MG Tab PO SCH ×2 (08:18→22:00)
[2021-12-28] MEDS: Lactobacillus Rhamnosus GG (Probiotic) Cap PO SCH ×2 (08:18→22:00)
[2021-12-28] MEDS: Sodium Chloride 0.9% 10 ML Syringe IV SCH ×2 (08:18→22:29)
[2021-12-28] MEDS: oxyCODONE 5 MG Tab PO PRN (08:28)
[2021-12-29] MEDS: Acetaminophen 500 MG Tab PO SCH ×4 (05:27→22:57)
[2021-12-29 07:14] LABS: ANION GAP 12.2 mmol/L (5-15)
[2021-12-29] MEDS: MESALAMINE 1.2 GM PO SCH ×2 (08:06→20:29)
[2021-12-29] MEDS: Sodium Chloride 0.9% 10 ML Syringe IV SCH ×2 (08:06→20:30)
[2021-12-29] MEDS: Lactobacillus Rhamnosus GG (Probiotic) Cap PO SCH ×2 (08:06→20:29)
[2021-12-29] MEDS: Metoprolol Succinate 25 MG Tab.ER PO SCH (08:06)
[2021-12-29] MEDS: Apixaban 2.5 MG Tab PO SCH ×3 (08:07→20:29)
[2021-12-29] MEDS: Ferrous Sulfate 325 MG Tab PO SCH (10:10)
[2021-12-29] MEDS: diphenhydrAMINE 25 MG Cap PO PRN (11:37)
[2021-12-29] MEDS ORDERED: Camphor/Menthol 0.5-0.5% Lotion 222 ML Bottle TOP PRN (15:17)
[2021-12-29] MEDS: Cholecalciferol (Vitamin D3) 25 MCG Tab PO SCH (15:27)
[2021-12-30] MEDS: Acetaminophen 500 MG Tab PO SCH ×4 (05:59→23:02)
[2021-12-30] MEDS: diphenhydrAMINE 25 MG Cap PO PRN ×3 (06:03→23:02)
[2021-12-30] MEDS: MESALAMINE 1.2 GM PO SCH ×2 (08:21→20:01)
[2021-12-30] MEDS: Apixaban 2.5 MG Tab PO SCH ×2 (08:21→20:02)
[2021-12-30] MEDS: Metoprolol Succinate 25 MG Tab.ER PO SCH (08:21)
[2021-12-30] MEDS: Lactobacillus Rhamnosus GG (Probiotic) Cap PO SCH ×2 (08:22→20:02)
[2021-12-30] MEDS: Cholecalciferol (Vitamin D3) 25 MCG Tab PO SCH (08:22)
[2021-12-30] MEDS: Ferrous Sulfate 325 MG Tab PO SCH (08:22)
[2021-12-30] MEDS: Sodium Chloride 0.9% 10 ML Syringe IV SCH (08:28)
[2021-12-31] MEDS: Acetaminophen 500 MG Tab PO SCH ×4 (04:53→22:29)
[2021-12-31] MEDS: Zinc Sulfate 220 MG Cap PO SCH (08:28)
[2021-12-31] MEDS: Apixaban 2.5 MG Tab PO SCH ×2 (08:28→20:25)
[2021-12-31] MEDS: Metoprolol Succinate 25 MG Tab.ER PO SCH (08:29)
[2021-12-31] MEDS: MESALAMINE 1.2 GM PO SCH ×2 (08:31→20:26)
[2021-12-31] MEDS: Cholecalciferol (Vitamin D3) 25 MCG Tab PO SCH (08:31)
[2021-12-31] MEDS: Sodium Chloride 0.9% 10 ML Syringe IV SCH (08:32)
[2021-12-31] MEDS: Multivitamins with Iron/Calcium/Folic Acid/Minerals Tab PO SCH (08:32)
[2021-12-31] MEDS: Lactobacillus Rhamnosus GG (Probiotic) Cap PO SCH ×2 (08:34→20:26)
[2021-12-31] MEDS: diphenhydrAMINE 25 MG Cap PO PRN ×2 (08:35→19:40)
[2021-12-31] MEDS: oxyCODONE 5 MG Tab PO PRN (19:40)
[2022-01-01] MEDS: Acetaminophen 500 MG Tab PO SCH ×4 (05:30→23:16)
[2022-01-01] MEDS: Cholecalciferol (Vitamin D3) 25 MCG Tab PO SCH (09:06)
[2022-01-01] MEDS: Multivitamins with Iron/Calcium/Folic Acid/Minerals Tab PO SCH (09:06)
[2022-01-01] MEDS: Zinc Sulfate 220 MG Cap PO SCH (09:06)
[2022-01-01] MEDS: MESALAMINE 1.2 GM PO SCH ×2 (09:06→20:37)
[2022-01-01] MEDS: Lactobacillus Rhamnosus GG (Probiotic) Cap PO SCH ×2 (09:06→20:37)
[2022-01-01] MEDS: Metoprolol Succinate 25 MG Tab.ER PO SCH (09:08)
[2022-01-01] MEDS: Sodium Chloride 0.9% 10 ML Syringe IV SCH (09:09)
[2022-01-01] MEDS: Apixaban 2.5 MG Tab PO SCH ×2 (09:30→20:37)
[2022-01-01] MEDS: diphenhydrAMINE 25 MG Cap PO PRN (20:41)
[2022-01-02] MEDS: Acetaminophen 500 MG Tab PO SCH ×4 (04:55→21:30)
[2022-01-02] MEDS: diphenhydrAMINE 25 MG Cap PO PRN ×2 (05:38→21:28)
[2022-01-02 07:21] LABS: ANION GAP 10.9 mmol/L (5-15)
[2022-01-02] MEDS: MESALAMINE 1.2 GM PO SCH ×2 (08:10→21:28)
[2022-01-02] MEDS: Apixaban 2.5 MG Tab PO SCH ×2 (08:10→21:27)
[2022-01-02] MEDS: Lactobacillus Rhamnosus GG (Probiotic) Cap PO SCH ×2 (08:10→21:28)
[2022-01-02] MEDS: Multivitamins with Iron/Calcium/Folic Acid/Minerals Tab PO SCH (08:10)
[2022-01-02] MEDS: Metoprolol Succinate 25 MG Tab.ER PO SCH (08:10)
[2022-01-02] MEDS: Cholecalciferol (Vitamin D3) 25 MCG Tab PO SCH (08:10)
[2022-01-02] MEDS: Sodium Chloride 0.9% 10 ML Syringe IV SCH (08:11)
[2022-01-02] MEDS: Zinc Sulfate 220 MG Cap PO SCH (08:16)
[2022-01-02] MEDS: DULoxetine 20 MG Cap PO SCH (11:25)
[2022-01-03] MEDS: Acetaminophen 500 MG Tab PO SCH ×4 (05:41→22:42)
[2022-01-03] MEDS: Multivitamins with Iron/Calcium/Folic Acid/Minerals Tab PO SCH (08:10)
[2022-01-03] MEDS: DULoxetine 20 MG Cap PO SCH (08:10)
[2022-01-03] MEDS: MESALAMINE 1.2 GM PO SCH ×2 (08:10→20:48)
[2022-01-03] MEDS: Zinc Sulfate 220 MG Cap PO SCH (08:10)
[2022-01-03] MEDS: Lactobacillus Rhamnosus GG (Probiotic) Cap PO SCH ×2 (08:10→20:48)
[2022-01-03] MEDS: Cholecalciferol (Vitamin D3) 25 MCG Tab PO SCH (08:10)
[2022-01-03] MEDS: Apixaban 2.5 MG Tab PO SCH ×2 (08:10→20:48)
[2022-01-03] MEDS: Metoprolol Succinate 25 MG Tab.ER PO SCH (08:12)
[2022-01-03] MEDS: Sodium Chloride 0.9% 10 ML Syringe IV SCH (08:14)
[2022-01-03] MEDS: diphenhydrAMINE 25 MG Cap PO PRN (20:56)
[2022-01-04] MEDS: Acetaminophen 500 MG Tab PO SCH ×4 (05:20→23:15)
[2022-01-04] MEDS: MESALAMINE 1.2 GM PO SCH ×2 (08:14→20:58)
[2022-01-04] MEDS: Zinc Sulfate 220 MG Cap PO SCH (08:15)
[2022-01-04] MEDS: Multivitamins with Iron/Calcium/Folic Acid/Minerals Tab PO SCH (08:15)
[2022-01-04] MEDS: Lactobacillus Rhamnosus GG (Probiotic) Cap PO SCH ×2 (08:15→20:58)
[2022-01-04] MEDS: Apixaban 2.5 MG Tab PO SCH ×2 (08:15→20:58)
[2022-01-04] MEDS: DULoxetine 20 MG Cap PO SCH (08:15)
[2022-01-04] MEDS: Metoprolol Succinate 25 MG Tab.ER PO SCH (08:15)
[2022-01-04] MEDS: Cholecalciferol (Vitamin D3) 25 MCG Tab PO SCH (08:15)
[2022-01-04] MEDS: diphenhydrAMINE 25 MG Cap PO PRN ×2 (08:21→23:16)
[2022-01-04] MEDS: Sodium Chloride 0.9% 10 ML Syringe IV SCH (08:22)
[2022-01-05] MEDS: Acetaminophen 500 MG Tab PO SCH ×4 (06:24→21:35)
[2022-01-05] MEDS: DULoxetine 20 MG Cap PO SCH (08:21)
[2022-01-05] MEDS: Multivitamins with Iron/Calcium/Folic Acid/Minerals Tab PO SCH (08:21)
[2022-01-05] MEDS: Lactobacillus Rhamnosus GG (Probiotic) Cap PO SCH ×2 (08:21→20:14)
[2022-01-05] MEDS: MESALAMINE 1.2 GM PO SCH ×2 (08:21→20:14)
[2022-01-05] MEDS: Sodium Chloride 0.9% 10 ML Syringe IV SCH (08:21)
[2022-01-05] MEDS: Apixaban 2.5 MG Tab PO SCH ×2 (08:21→20:14)
[2022-01-05] MEDS: Zinc Sulfate 220 MG Cap PO SCH (08:22)
[2022-01-05] MEDS: Cholecalciferol (Vitamin D3) 25 MCG Tab PO SCH (08:22)
[2022-01-05] MEDS: Metoprolol Succinate 25 MG Tab.ER PO SCH (08:24)
[2022-01-05] MEDS: diphenhydrAMINE 25 MG Cap PO PRN (21:35)
[2022-01-06] MEDS: Acetaminophen 500 MG Tab PO SCH ×4 (04:32→21:33)
[2022-01-06 07:17] LABS: ANION GAP 9.3 mmol/L (5-15)
[2022-01-06] MEDS: Lactobacillus Rhamnosus GG (Probiotic) Cap PO SCH ×2 (08:46→20:16)
[2022-01-06] MEDS: MESALAMINE 1.2 GM PO SCH ×2 (08:46→20:16)
[2022-01-06] MEDS: Cholecalciferol (Vitamin D3) 25 MCG Tab PO SCH (08:47)
[2022-01-06] MEDS: Multivitamins with Iron/Calcium/Folic Acid/Minerals Tab PO SCH (08:47)
[2022-01-06] MEDS: Metoprolol Succinate 25 MG Tab.ER PO SCH (08:47)
[2022-01-06] MEDS: Apixaban 2.5 MG Tab PO SCH ×2 (08:47→20:16)
[2022-01-06] MEDS: Zinc Sulfate 220 MG Cap PO SCH (08:47)
[2022-01-06] MEDS: DULoxetine 20 MG Cap PO SCH (08:47)
[2022-01-06] MEDS: Sodium Chloride 0.9% 10 ML Syringe IV SCH (08:49)
[2022-01-06] MEDS: diphenhydrAMINE 25 MG Cap PO PRN (22:17)
[2022-01-07] MEDS: Acetaminophen 500 MG Tab PO SCH ×4 (03:30→21:33)
[2022-01-07] MEDS: Metoprolol Succinate 25 MG Tab.ER PO SCH (08:19)
[2022-01-07] MEDS: Zinc Sulfate 220 MG Cap PO SCH (08:19)
[2022-01-07] MEDS: DULoxetine 20 MG Cap PO SCH (08:23)
[2022-01-07] MEDS: Multivitamins with Iron/Calcium/Folic Acid/Minerals Tab PO SCH (08:23)
[2022-01-07] MEDS: Apixaban 2.5 MG Tab PO SCH ×2 (08:23→20:11)
[2022-01-07] MEDS: Lactobacillus Rhamnosus GG (Probiotic) Cap PO SCH ×2 (08:24→20:11)
[2022-01-07] MEDS: Cholecalciferol (Vitamin D3) 25 MCG Tab PO SCH (08:24)
[2022-01-07] MEDS: MESALAMINE 1.2 GM PO SCH ×2 (09:00→20:11)
[2022-01-07] MEDS: Sodium Chloride 0.9% 10 ML Syringe IV SCH (11:45)
[2022-01-07] MEDS: diphenhydrAMINE 25 MG Cap PO PRN (21:41)
[2022-01-08] MEDS: Acetaminophen 500 MG Tab PO SCH ×4 (04:25→21:42)
[2022-01-08] MEDS: Zinc Sulfate 220 MG Cap PO SCH (08:07)
[2022-01-08] MEDS: Apixaban 2.5 MG Tab PO SCH ×2 (08:07→21:40)
[2022-01-08] MEDS: Multivitamins with Iron/Calcium/Folic Acid/Minerals Tab PO SCH (08:07)
[2022-01-08] MEDS: MESALAMINE 1.2 GM PO SCH ×2 (08:07→21:40)
[2022-01-08] MEDS: Lactobacillus Rhamnosus GG (Probiotic) Cap PO SCH ×2 (08:08→21:39)
[2022-01-08] MEDS: DULoxetine 20 MG Cap PO SCH (08:08)
[2022-01-08] MEDS: Metoprolol Succinate 25 MG Tab.ER PO SCH (08:08)
[2022-01-08] MEDS: Cholecalciferol (Vitamin D3) 25 MCG Tab PO SCH (08:08)
[2022-01-08] MEDS: diphenhydrAMINE 25 MG Cap PO PRN (21:46)
[2022-01-09] MEDS: Acetaminophen 500 MG Tab PO SCH ×4 (04:47→21:50)
[2022-01-09] MEDS: Multivitamins with Iron/Calcium/Folic Acid/Minerals Tab PO SCH (08:29)
[2022-01-09] MEDS: Apixaban 2.5 MG Tab PO SCH ×2 (08:29→21:50)
[2022-01-09] MEDS: DULoxetine 20 MG Cap PO SCH (08:29)
[2022-01-09] MEDS: Lactobacillus Rhamnosus GG (Probiotic) Cap PO SCH ×2 (08:29→21:50)
[2022-01-09] MEDS: Cholecalciferol (Vitamin D3) 25 MCG Tab PO SCH (08:29)
[2022-01-09] MEDS: Metoprolol Succinate 25 MG Tab.ER PO SCH (08:30)
[2022-01-09] MEDS: Zinc Sulfate 220 MG Cap PO SCH (08:30)
[2022-01-09] MEDS: MESALAMINE 1.2 GM PO SCH ×2 (08:30→21:49)
[2022-01-09] MEDS: diphenhydrAMINE 25 MG Cap PO PRN (21:50)
[2022-01-10] MEDS: Acetaminophen 500 MG Tab PO SCH ×4 (04:54→21:40)
[2022-01-10] MEDS: Metoprolol Succinate 25 MG Tab.ER PO SCH (08:21)
[2022-01-10] MEDS: Cholecalciferol (Vitamin D3) 25 MCG Tab PO SCH (08:25)
[2022-01-10] MEDS: Apixaban 2.5 MG Tab PO SCH ×2 (08:25→21:40)
[2022-01-10] MEDS: Zinc Sulfate 220 MG Cap PO SCH (08:25)
[2022-01-10] MEDS: DULoxetine 20 MG Cap PO SCH (08:25)
[2022-01-10] MEDS: Multivitamins with Iron/Calcium/Folic Acid/Minerals Tab PO SCH (08:25)
[2022-01-10] MEDS: MESALAMINE 1.2 GM PO SCH ×2 (08:25→21:40)
[2022-01-10] MEDS: Lactobacillus Rhamnosus GG (Probiotic) Cap PO SCH ×2 (08:26→21:39)
[2022-01-10] MEDS: diphenhydrAMINE 25 MG Cap PO PRN (21:40)
[2022-01-11] MEDS: Acetaminophen 500 MG Tab PO SCH ×4 (05:16→21:44)
[2022-01-11] MEDS: Metoprolol Succinate 25 MG Tab.ER PO SCH (08:11)
[2022-01-11] MEDS: DULoxetine 20 MG Cap PO SCH (08:15)
[2022-01-11] MEDS: Lactobacillus Rhamnosus GG (Probiotic) Cap PO SCH ×2 (08:16→21:44)
[2022-01-11] MEDS: Apixaban 2.5 MG Tab PO SCH ×2 (08:16→21:44)
[2022-01-11] MEDS: Cholecalciferol (Vitamin D3) 25 MCG Tab PO SCH (08:16)
[2022-01-11] MEDS: Zinc Sulfate 220 MG Cap PO SCH (08:16)
[2022-01-11] MEDS: MESALAMINE 1.2 GM PO SCH ×2 (08:16→21:45)
[2022-01-11] MEDS: Multivitamins with Iron/Calcium/Folic Acid/Minerals Tab PO SCH (08:16)
[2022-01-11] MEDS: diphenhydrAMINE 25 MG Cap PO PRN (21:44)
[2022-01-12] MEDS: Acetaminophen 500 MG Tab PO SCH ×4 (04:38→21:55)
[2022-01-12] MEDS: Apixaban 2.5 MG Tab PO SCH ×2 (10:00→21:55)
[2022-01-12] MEDS: Multivitamins with Iron/Calcium/Folic Acid/Minerals Tab PO SCH (10:00)
[2022-01-12] MEDS: Cholecalciferol (Vitamin D3) 25 MCG Tab PO SCH (10:00)
[2022-01-12] MEDS: MESALAMINE 1.2 GM PO SCH ×2 (10:01→21:54)
[2022-01-12] MEDS: Metoprolol Succinate 25 MG Tab.ER PO SCH (10:01)
[2022-01-12] MEDS: Lactobacillus Rhamnosus GG (Probiotic) Cap PO SCH ×2 (10:01→21:54)
[2022-01-12] MEDS: Zinc Sulfate 220 MG Cap PO SCH (10:04)
[2022-01-12] MEDS: DULoxetine 20 MG Cap PO SCH (10:04)
[2022-01-12] MEDS: diphenhydrAMINE 25 MG Cap PO PRN (21:55)
[2022-01-13] MEDS: Acetaminophen 500 MG Tab PO SCH ×4 (04:40→21:30)
[2022-01-13] MEDS: Apixaban 2.5 MG Tab PO SCH ×2 (08:46→21:27)
[2022-01-13] MEDS: Lactobacillus Rhamnosus GG (Probiotic) Cap PO SCH ×2 (08:47→21:26)
[2022-01-13] MEDS: MESALAMINE 1.2 GM PO SCH ×2 (08:47→21:27)
[2022-01-13] MEDS: Cholecalciferol (Vitamin D3) 25 MCG Tab PO SCH (08:47)
[2022-01-13] MEDS: Zinc Sulfate 220 MG Cap PO SCH (08:47)
[2022-01-13] MEDS: DULoxetine 20 MG Cap PO SCH (08:47)
[2022-01-13] MEDS: Metoprolol Succinate 25 MG Tab.ER PO SCH (08:48)
[2022-01-13] MEDS: Multivitamins with Iron/Calcium/Folic Acid/Minerals Tab PO SCH (08:49)
[2022-01-13] MEDS: diphenhydrAMINE 25 MG Cap PO PRN (21:26)
[2022-01-14] MEDS: Acetaminophen 500 MG Tab PO SCH ×4 (05:00→23:00)
[2022-01-14] MEDS: Apixaban 2.5 MG Tab PO SCH ×2 (10:09→20:41)
[2022-01-14] MEDS: Metoprolol Succinate 25 MG Tab.ER PO SCH (10:09)
[2022-01-14] MEDS: MESALAMINE 1.2 GM PO SCH ×2 (10:09→20:41)
[2022-01-14] MEDS: Multivitamins with Iron/Calcium/Folic Acid/Minerals Tab PO SCH (10:10)
[2022-01-14] MEDS: Lactobacillus Rhamnosus GG (Probiotic) Cap PO SCH ×2 (10:10→20:41)
[2022-01-14] MEDS: Cholecalciferol (Vitamin D3) 25 MCG Tab PO SCH (10:10)
[2022-01-14] MEDS: DULoxetine 20 MG Cap PO SCH (10:10)
[2022-01-14] MEDS: Zinc Sulfate 220 MG Cap PO SCH (10:10)
[2022-01-14] MEDS: diphenhydrAMINE 25 MG Cap PO PRN (20:41)
[2022-01-15] MEDS: Acetaminophen 500 MG Tab PO SCH ×3 (04:38→17:55)
[2022-01-15] MEDS: Lactobacillus Rhamnosus GG (Probiotic) Cap PO SCH ×2 (08:36→20:52)
[2022-01-15] MEDS: Cholecalciferol (Vitamin D3) 25 MCG Tab PO SCH (08:36)
[2022-01-15] MEDS: Metoprolol Succinate 25 MG Tab.ER PO SCH (08:37)
[2022-01-15] MEDS: Apixaban 2.5 MG Tab PO SCH ×2 (08:37→20:52)
[2022-01-15] MEDS: Zinc Sulfate 220 MG Cap PO SCH (08:41)
[2022-01-15] MEDS: Multivitamins with Iron/Calcium/Folic Acid/Minerals Tab PO SCH (08:41)
[2022-01-15] MEDS: DULoxetine 20 MG Cap PO SCH (08:41)
[2022-01-15] MEDS: MESALAMINE 1.2 GM PO SCH ×2 (08:43→20:52)
[2022-01-15] MEDS: diphenhydrAMINE 25 MG Cap PO PRN (20:52)
[2022-01-16] MEDS: Acetaminophen 500 MG Tab PO SCH ×2 (01:49→06:24)
[2022-01-16] MEDS: Apixaban 2.5 MG Tab PO SCH ×2 (08:45→21:44)
[2022-01-16] MEDS: Cholecalciferol (Vitamin D3) 25 MCG Tab PO SCH (08:45)
[2022-01-16] MEDS: MESALAMINE 1.2 GM PO SCH ×2 (08:45→21:43)
[2022-01-16] MEDS: Metoprolol Succinate 25 MG Tab.ER PO SCH (08:46)
[2022-01-16] MEDS: Lactobacillus Rhamnosus GG (Probiotic) Cap PO SCH ×2 (08:46→21:44)
[2022-01-16] MEDS: DULoxetine 20 MG Cap PO SCH (08:46)
[2022-01-16] MEDS: Zinc Sulfate 220 MG Cap PO SCH (08:46)
[2022-01-16] MEDS: Multivitamins with Iron/Calcium/Folic Acid/Minerals Tab PO SCH (08:46)
[2022-01-16] MEDS: diphenhydrAMINE 25 MG Cap PO PRN (21:44)
[2022-01-16] MEDS: Acetaminophen 500 MG Tab PO PRN (21:46)
[2022-01-17] MEDS: DULoxetine 20 MG Cap PO SCH (08:37)
[2022-01-17] MEDS: Lactobacillus Rhamnosus GG (Probiotic) Cap PO SCH ×2 (08:37→21:33)
[2022-01-17] MEDS: Metoprolol Succinate 25 MG Tab.ER PO SCH (08:37)
[2022-01-17] MEDS: MESALAMINE 1.2 GM PO SCH ×2 (08:39→21:32)
[2022-01-17] MEDS: Zinc Sulfate 220 MG Cap PO SCH (08:39)
[2022-01-17] MEDS: Apixaban 2.5 MG Tab PO SCH ×2 (08:39→21:34)
[2022-01-17] MEDS: Cholecalciferol (Vitamin D3) 25 MCG Tab PO SCH (08:40)
[2022-01-17] MEDS: Multivitamins with Iron/Calcium/Folic Acid/Minerals Tab PO SCH (08:40)
[2022-01-17] MEDS: Acetaminophen 500 MG Tab PO PRN (21:27)
[2022-01-17] MEDS: diphenhydrAMINE 25 MG Cap PO PRN (21:32)
[2022-01-18] MEDS: MESALAMINE 1.2 GM PO SCH ×2 (09:04→21:21)
[2022-01-18] MEDS: Lactobacillus Rhamnosus GG (Probiotic) Cap PO SCH ×2 (09:04→21:22)
[2022-01-18] MEDS: Metoprolol Succinate 25 MG Tab.ER PO SCH (09:05)
[2022-01-18] MEDS: DULoxetine 20 MG Cap PO SCH (09:05)
[2022-01-18] MEDS: Cholecalciferol (Vitamin D3) 25 MCG Tab PO SCH (09:05)
[2022-01-18] MEDS: Apixaban 2.5 MG Tab PO SCH ×2 (09:05→21:21)
[2022-01-18] MEDS: Multivitamins with Iron/Calcium/Folic Acid/Minerals Tab PO SCH (09:05)
[2022-01-18] MEDS: Zinc Sulfate 220 MG Cap PO SCH (09:05)
[2022-01-18] MEDS: diphenhydrAMINE 25 MG Cap PO PRN (21:21)
[2022-01-18] MEDS: Acetaminophen 500 MG Tab PO PRN (21:24)
[2022-01-19] MEDS: Apixaban 2.5 MG Tab PO SCH ×2 (09:22→20:39)
[2022-01-19] MEDS: Zinc Sulfate 220 MG Cap PO SCH (09:22)
[2022-01-19] MEDS: DULoxetine 20 MG Cap PO SCH (09:22)
[2022-01-19] MEDS: Lactobacillus Rhamnosus GG (Probiotic) Cap PO SCH ×2 (09:22→20:38)
[2022-01-19] MEDS: MESALAMINE 1.2 GM PO SCH ×2 (09:22→20:38)
[2022-01-19] MEDS: Multivitamins with Iron/Calcium/Folic Acid/Minerals Tab PO SCH (09:22)
[2022-01-19] MEDS: Cholecalciferol (Vitamin D3) 25 MCG Tab PO SCH (09:22)
[2022-01-19] MEDS: Metoprolol Succinate 25 MG Tab.ER PO SCH (09:23)
[2022-01-19] MEDS: diphenhydrAMINE 25 MG Cap PO PRN (20:38)
[2022-01-19] MEDS: Acetaminophen 500 MG Tab PO PRN (20:38)
[2022-01-20] MEDS: Lactobacillus Rhamnosus GG (Probiotic) Cap PO SCH ×2 (09:29→20:22)
[2022-01-20] MEDS: Apixaban 2.5 MG Tab PO SCH ×2 (09:29→20:22)
[2022-01-20] MEDS: DULoxetine 20 MG Cap PO SCH (09:29)
[2022-01-20] MEDS: Multivitamins with Iron/Calcium/Folic Acid/Minerals Tab PO SCH (09:29)
[2022-01-20] MEDS: Metoprolol Succinate 25 MG Tab.ER PO SCH (09:29)
[2022-01-20] MEDS: MESALAMINE 1.2 GM PO SCH ×2 (09:29→20:22)
[2022-01-20] MEDS: Zinc Sulfate 220 MG Cap PO SCH (09:30)
[2022-01-20] MEDS: Cholecalciferol (Vitamin D3) 25 MCG Tab PO SCH (09:30)
[2022-01-20] MEDS: diphenhydrAMINE 25 MG Cap PO PRN (20:21)
[2022-01-20] MEDS: Acetaminophen 500 MG Tab PO PRN (20:22)
[2022-01-21] MEDS: MESALAMINE 1.2 GM PO SCH ×2 (09:32→20:10)
[2022-01-21] MEDS: DULoxetine 20 MG Cap PO SCH (09:33)
[2022-01-21] MEDS: Apixaban 2.5 MG Tab PO SCH ×2 (09:33→20:09)
[2022-01-21] MEDS: Lactobacillus Rhamnosus GG (Probiotic) Cap PO SCH ×2 (09:33→20:09)
[2022-01-21] MEDS: Zinc Sulfate 220 MG Cap PO SCH (09:33)
[2022-01-21] MEDS: Multivitamins with Iron/Calcium/Folic Acid/Minerals Tab PO SCH (09:33)
[2022-01-21] MEDS: Cholecalciferol (Vitamin D3) 25 MCG Tab PO SCH (09:33)
[2022-01-21] MEDS: Metoprolol Succinate 25 MG Tab.ER PO SCH (09:36)
[2022-01-21] MEDS: diphenhydrAMINE 25 MG Cap PO PRN (20:09)
[2022-01-21] MEDS: Acetaminophen 500 MG Tab PO PRN (20:10)
[2022-01-22] MEDS: Cholecalciferol (Vitamin D3) 25 MCG Tab PO SCH (08:26)
[2022-01-22] MEDS: Multivitamins with Iron/Calcium/Folic Acid/Minerals Tab PO SCH (08:26)
[2022-01-22] MEDS: Metoprolol Succinate 25 MG Tab.ER PO SCH (08:26)
[2022-01-22] MEDS: Apixaban 2.5 MG Tab PO SCH ×2 (08:26→20:15)
[2022-01-22] MEDS: DULoxetine 20 MG Cap PO SCH (08:26)
[2022-01-22] MEDS: Zinc Sulfate 220 MG Cap PO SCH (08:26)
[2022-01-22] MEDS: MESALAMINE 1.2 GM PO SCH ×2 (08:26→20:15)
[2022-01-22] MEDS ORDERED: Hydrocortisone 1% Crm 30 GM Tube TOP PRN (09:03)
[2022-01-22] MEDS: diphenhydrAMINE 25 MG Cap PO PRN (20:15)
[2022-01-22] MEDS: Acetaminophen 500 MG Tab PO PRN (20:15)
[2022-01-23] MEDS: Apixaban 2.5 MG Tab PO SCH ×2 (08:31→20:38)
[2022-01-23] MEDS: DULoxetine 20 MG Cap PO SCH (08:31)
[2022-01-23] MEDS: Multivitamins with Iron/Calcium/Folic Acid/Minerals Tab PO SCH (08:31)
[2022-01-23] MEDS: Metoprolol Succinate 25 MG Tab.ER PO SCH (08:31)
[2022-01-23] MEDS: Cholecalciferol (Vitamin D3) 25 MCG Tab PO SCH (08:32)
[2022-01-23] MEDS: Zinc Sulfate 220 MG Cap PO SCH (08:32)
[2022-01-23] MEDS: MESALAMINE 1.2 GM PO SCH ×2 (08:32→20:38)
[2022-01-23] MEDS: diphenhydrAMINE 25 MG Cap PO PRN (20:37)
[2022-01-23] MEDS: Acetaminophen 500 MG Tab PO PRN (20:38)
[2022-01-24] MEDS: Apixaban 2.5 MG Tab PO SCH ×2 (10:29→20:44)
[2022-01-24] MEDS: MESALAMINE 1.2 GM PO SCH ×2 (10:29→20:44)
[2022-01-24] MEDS: Metoprolol Succinate 25 MG Tab.ER PO SCH (10:29)
[2022-01-24] MEDS: Cholecalciferol (Vitamin D3) 25 MCG Tab PO SCH (10:33)
[2022-01-24] MEDS: Zinc Sulfate 220 MG Cap PO SCH (10:33)
[2022-01-24] MEDS: Multivitamins with Iron/Calcium/Folic Acid/Minerals Tab PO SCH (10:33)
[2022-01-24] MEDS: DULoxetine 20 MG Cap PO SCH (10:33)
[2022-01-24] MEDS: diphenhydrAMINE 25 MG Cap PO PRN (20:44)
[2022-01-24] MEDS: Acetaminophen 500 MG Tab PO PRN (20:44)
[2022-01-25] MEDS: MESALAMINE 1.2 GM PO SCH ×2 (08:31→20:33)
[2022-01-25] MEDS: Metoprolol Succinate 25 MG Tab.ER PO SCH (08:31)
[2022-01-25] MEDS: Zinc Sulfate 220 MG Cap PO SCH (08:32)
[2022-01-25] MEDS: Multivitamins with Iron/Calcium/Folic Acid/Minerals Tab PO SCH (08:32)
[2022-01-25] MEDS: Cholecalciferol (Vitamin D3) 25 MCG Tab PO SCH (08:32)
[2022-01-25] MEDS: Apixaban 2.5 MG Tab PO SCH ×2 (08:32→20:33)
[2022-01-25] MEDS: DULoxetine 20 MG Cap PO SCH (08:33)
[2022-01-25] MEDS: diphenhydrAMINE 25 MG Cap PO PRN (20:33)
[2022-01-25] MEDS: Acetaminophen 500 MG Tab PO PRN (20:33)
[2022-01-26] MEDS: Multivitamins with Iron/Calcium/Folic Acid/Minerals Tab PO SCH (08:18)
[2022-01-26] MEDS: Apixaban 2.5 MG Tab PO SCH ×2 (08:18→20:40)
[2022-01-26] MEDS: Cholecalciferol (Vitamin D3) 25 MCG Tab PO SCH (08:18)
[2022-01-26] MEDS: DULoxetine 20 MG Cap PO SCH (08:18)
[2022-01-26] MEDS: Metoprolol Succinate 25 MG Tab.ER PO SCH (08:18)
[2022-01-26] MEDS: Zinc Sulfate 220 MG Cap PO SCH (08:18)
[2022-01-26] MEDS: MESALAMINE 1.2 GM PO SCH ×2 (08:19→20:40)
[2022-01-26] MEDS: diphenhydrAMINE 25 MG Cap PO PRN (20:43)
[2022-01-26] MEDS: Acetaminophen 500 MG Tab PO PRN (20:43)
[2022-01-27] MEDS: Multivitamins with Iron/Calcium/Folic Acid/Minerals Tab PO SCH (08:29)
[2022-01-27] MEDS: MESALAMINE 1.2 GM PO SCH ×2 (08:30→20:17)
[2022-01-27] MEDS: Cholecalciferol (Vitamin D3) 25 MCG Tab PO SCH (08:30)
[2022-01-27] MEDS: DULoxetine 20 MG Cap PO SCH (08:30)
[2022-01-27] MEDS: Apixaban 2.5 MG Tab PO SCH ×2 (08:30→20:17)
[2022-01-27] MEDS: Metoprolol Succinate 25 MG Tab.ER PO SCH (08:30)
[2022-01-27] MEDS: Zinc Sulfate 220 MG Cap PO SCH (08:30)
[2022-01-27] MEDS: diphenhydrAMINE 25 MG Cap PO PRN (20:18)
[2022-01-27] MEDS: Acetaminophen 500 MG Tab PO PRN (20:18)
[2022-01-28] MEDS: MESALAMINE 1.2 GM PO SCH ×2 (09:47→20:11)
[2022-01-28] MEDS: Zinc Sulfate 220 MG Cap PO SCH (09:47)
[2022-01-28] MEDS: Apixaban 2.5 MG Tab PO SCH ×2 (09:48→20:10)
[2022-01-28] MEDS: Cholecalciferol (Vitamin D3) 25 MCG Tab PO SCH (09:48)
[2022-01-28] MEDS: DULoxetine 20 MG Cap PO SCH (09:48)
[2022-01-28] MEDS: Multivitamins with Iron/Calcium/Folic Acid/Minerals Tab PO SCH (09:48)
[2022-01-28] MEDS: Metoprolol Succinate 25 MG Tab.ER PO SCH (09:48)
[2022-01-28] MEDS: diphenhydrAMINE 25 MG Cap PO PRN (20:10)
[2022-01-28] MEDS: Acetaminophen 500 MG Tab PO PRN (20:10)
[2022-01-29] MEDS: Multivitamins with Iron/Calcium/Folic Acid/Minerals Tab PO SCH (09:11)
[2022-01-29] MEDS: MESALAMINE 1.2 GM PO SCH ×2 (09:11→21:31)
[2022-01-29] MEDS: Metoprolol Succinate 25 MG Tab.ER PO SCH (09:12)
[2022-01-29] MEDS: DULoxetine 20 MG Cap PO SCH (09:12)
[2022-01-29] MEDS: Zinc Sulfate 220 MG Cap PO SCH (09:12)
[2022-01-29] MEDS: Cholecalciferol (Vitamin D3) 25 MCG Tab PO SCH (09:14)
[2022-01-29] MEDS: Apixaban 2.5 MG Tab PO SCH ×2 (09:14→21:31)
[2022-01-29] MEDS: diphenhydrAMINE 25 MG Cap PO PRN (21:31)
[2022-01-29] MEDS: Acetaminophen 500 MG Tab PO PRN (21:31)
[2022-01-30] MEDS: MESALAMINE 1.2 GM PO SCH ×2 (08:36→20:26)
[2022-01-30] MEDS: DULoxetine 20 MG Cap PO SCH (08:37)
[2022-01-30] MEDS: Apixaban 2.5 MG Tab PO SCH ×2 (08:37→20:27)
[2022-01-30] MEDS: Zinc Sulfate 220 MG Cap PO SCH (08:37)
[2022-01-30] MEDS: Metoprolol Succinate 25 MG Tab.ER PO SCH (08:37)
[2022-01-30] MEDS: Multivitamins with Iron/Calcium/Folic Acid/Minerals Tab PO SCH (08:38)
[2022-01-30] MEDS: Cholecalciferol (Vitamin D3) 25 MCG Tab PO SCH (08:38)
[2022-01-30] MEDS: diphenhydrAMINE 25 MG Cap PO PRN (20:27)
[2022-01-30] MEDS: Acetaminophen 500 MG Tab PO PRN (20:27)
[2022-01-31] MEDS: Apixaban 2.5 MG Tab PO SCH ×2 (09:23→20:58)
[2022-01-31] MEDS: Zinc Sulfate 220 MG Cap PO SCH (09:23)
[2022-01-31] MEDS: Multivitamins with Iron/Calcium/Folic Acid/Minerals Tab PO SCH (09:23)
[2022-01-31] MEDS: DULoxetine 20 MG Cap PO SCH (09:23)
[2022-01-31] MEDS: Cholecalciferol (Vitamin D3) 25 MCG Tab PO SCH (09:23)
[2022-01-31] MEDS: Metoprolol Succinate 25 MG Tab.ER PO SCH (09:23)
[2022-01-31] MEDS: MESALAMINE 1.2 GM PO SCH ×2 (09:23→20:57)
[2022-01-31] MEDS: diphenhydrAMINE 25 MG Cap PO PRN (20:57)
[2022-01-31] MEDS: Acetaminophen 500 MG Tab PO PRN (20:58)
[2022-02-01] MEDS: Zinc Sulfate 220 MG Cap PO SCH (08:17)
[2022-02-01] MEDS: Cholecalciferol (Vitamin D3) 25 MCG Tab PO SCH (08:17)
[2022-02-01] MEDS: Multivitamins with Iron/Calcium/Folic Acid/Minerals Tab PO SCH (08:17)
[2022-02-01] MEDS: DULoxetine 20 MG Cap PO SCH (08:17)
[2022-02-01] MEDS: Metoprolol Succinate 25 MG Tab.ER PO SCH (08:17)
[2022-02-01] MEDS: Apixaban 2.5 MG Tab PO SCH ×2 (08:18→20:39)
[2022-02-01] MEDS: MESALAMINE 1.2 GM PO SCH ×2 (08:18→20:39)
[2022-02-01] MEDS: Acetaminophen 500 MG Tab PO PRN (20:39)
[2022-02-01] MEDS: diphenhydrAMINE 25 MG Cap PO PRN (20:39)
[2022-02-02] MEDS: MESALAMINE 1.2 GM PO SCH (08:37)
[2022-02-02] MEDS: DULoxetine 20 MG Cap PO SCH (08:38)
[2022-02-02] MEDS: Multivitamins with Iron/Calcium/Folic Acid/Minerals Tab PO SCH (08:38)
[2022-02-02] MEDS: Zinc Sulfate 220 MG Cap PO SCH (08:38)
[2022-02-02] MEDS: Apixaban 2.5 MG Tab PO SCH (08:39)
[2022-02-02] MEDS: Cholecalciferol (Vitamin D3) 25 MCG Tab PO SCH (08:39)
[2022-02-02] MEDS: Metoprolol Succinate 25 MG Tab.ER PO SCH (08:41)
[2022-02-02 08:42] VITALS: BP 107/60; PULSE 77
== END 2022-02-02 17:30 | disposition home health service (06) | DRG 947 ==
LOC: VM.MS 14:56
PROVIDERS: ADMIT Internal Medicine; ATTEND Internal Medicine
DX: R53.1 Weakness (principal); E43 Unspecified severe protein-calorie malnutrition; K51.90 Ulcerative colitis, unspecified, without complications; J96.10 Chronic respiratory failure, unspecified whether with hypoxia or hypercapnia; D64.9 Anemia, unspecified; I48.0 Paroxysmal atrial fibrillation; F43.20 Adjustment disorder, unspecified; E66.9 Obesity, unspecified; N18.9 Chronic kidney disease, unspecified; I71.2 Thoracic aortic aneurysm, without rupture; G62.9 Polyneuropathy, unspecified; I89.0 Lymphedema, not elsewhere classified; D50.9 Iron deficiency anemia, unspecified; E83.42 Hypomagnesemia; E21.3 Hyperparathyroidism, unspecified; M19.90 Unspecified osteoarthritis, unspecified site; M10.9 Gout, unspecified; I12.9 Hypertensive chronic kidney disease with stage 1 through stage 4 chronic kidney disease, or unspecified chronic kidney disease; Z96.659 Presence of unspecified artificial knee joint; G89.29 Other chronic pain; M54.59 Other low back pain; M48.061 Spinal stenosis, lumbar region without neurogenic claudication; T81.49XD Infection following a procedure, other surgical site, subsequent encounter; Z89.432 Acquired absence of left foot; Z79.899 Other long term (current) drug therapy; Z86.718 Personal history of other venous thrombosis and embolism; Z79.01 Long term (current) use of anticoagulants; Z87.891 Personal history of nicotine dependence; Z87.01 Personal history of pneumonia (recurrent); Z85.038 Personal history of other malignant neoplasm of large intestine; Z68.35 Body mass index [BMI] 35.0-35.9, adult
CPT/HCPCS: 36415; 36430; 80048; 80053; 80069; 82533; 82728; 85014; 85018; 85025; 86850; 86900; 86901; 86920; 86922; 87070; 97110-GO; 97110-GP; 97116-GP; 97163-GP; 97165-GO; 97530-GP; 97535-GO; A9270-GY; J0696; J3490; P9016

== ENCOUNTER 2023-01-10 00:15 | Emergency (ER) | payer MEDICARE, MEDICAID ==
[2023-01-10 01:14] LABS: BASOPHILS PERCENT AUTO 0.6 % (0.2-1.2); HEMATOCRIT 33.5 % (40.0-52.0); IMMATURE GRAN ABSOLUTE AUTO 0.04 x10^3/uL (0.00-0.07); LYMPHOCYTES ABSOLUTE AUTO 0.6 x10^3/uL (1.0-4.8); LYMPHOCYTES PERCENT AUTO 18.4 % (25.0-50.0); MEAN CORPUSCULAR HEMOGLOBIN 28.3 pg (26.0-32.0); MEAN CORPUSCULAR HGB CONC 32.8 g/dL (32.0-36.0); MEAN CORPUSCULAR VOLUME 86.1 fL (78.0-93.0); MONOCYTES ABSOLUTE AUTO 0.5 x10^3/uL (0.0-0.8); MONOCYTES PERCENT AUTO 16.6 % (2.0-11.0); NEUTROPHILS ABSOLUTE AUTO 2.1 x10^3/uL (1.8-7.7); NEUTROPHILS PERCENT AUTO 63.2 % (50.0-80.0); PLATELET COUNT,PLT 171 x10^3/uL (130-400); RED BLOOD CELL COUNT 3.89 x10^6/uL (4.5-6.0); WHITE BLOOD CELL COUNT,WBC 3.3 x10^3/uL (4.0-10.0)
[2023-01-10 01:25] LABS: PROTHROMBIN TIME 10.9 SEC (9.5-12.2)
[2023-01-10 01:31] LABS: A/G RATIO 0.86; ALANINE AMINOTRANSFERASE,ALT 17 U/L (16-63); ALBUMIN 3.1 g/dL (3.4-5.0); ALKALINE PHOSPHATASE 108 U/L (46-116); ASPARTATE AMNIOTRANSFERASE,AST 19 U/L (15-37); BILIRUBIN TOTAL 0.5 mg/dL (0.2-1.0); BLOOD UREA NITROGEN,BUN 24 mg/dL (7-18); CALCIUM 8.9 mg/dL (8.5-10.1); CARBON DIOXIDE,CO2 29 mmol/L (21-32); CHLORIDE,CL 100 mmol/L (98-107); CREATININE 1.6 mg/dL (0.70-1.30); GLUCOSE RANDOM 94 mg/dL (70-99); POTASSIUM,K 4.1 mmol/L (3.5-5.1); PROTEIN TOTAL,TP 6.7 g/dL (6.4-8.2); SODIUM,NA 140 mmol/L (136-145)
[2023-01-10 01:32] LABS: ANION GAP 15.1 mmol/L (5-15); ESTIMATED GFR 48 mL/min (>=60)
[2023-01-10 01:34] LABS: LACTIC ACID 0.8 mmol/L (0.4-2.0)
[2023-01-10] MEDS: Sodium Chloride 0.9% 1,000 ML IV ONE (02:28)
[2023-01-10] MEDS: Iopamidol 612 MG/ML 100 ML Bottle IVPUSH ONE (02:36)
[2023-01-10 05:56] VITALS: BP 136/61; PULSE 65
== END 2023-01-10 07:21 | disposition home or self-care (01) ==
LOC: VM.ED 00:15
DX: K29.70 Gastritis, unspecified, without bleeding (principal); L24.9 Irritant contact dermatitis, unspecified cause; E66.9 Obesity, unspecified; Z68.30 Body mass index [BMI] 30.0-30.9, adult; Z93.2 Ileostomy status; Z79.01 Long term (current) use of anticoagulants
CPT/HCPCS: 36415; 74177; 80053; 83605; 85025; 85610; 96360; 99284; 99284-25; J7030; Q9967

== ENCOUNTER 2023-07-02 08:54 | Inpatient (IN) | payer MEDICARE, MEDICAID ==
[2023-07-02] MEDS ORDERED: Sennosides/Docusate Sodium 50-8.6 MG Tab PO PRN (14:56)
[2023-07-02] MEDS: oxyCODONE 5 MG Tab PO PRN (16:01)
[2023-07-02] MEDS: MESALAMINE 1.2 GM PO SCH (20:08)
[2023-07-02] MEDS: Apixaban 2.5 MG Tab PO SCH (20:08)
[2023-07-02] MEDS: Ondansetron 4 MG Tab.DIS PO PRN (21:45)
[2023-07-03] MEDS: oxyCODONE 5 MG Tab PO PRN ×2 (03:13→18:22)
[2023-07-03] MEDS: Ondansetron 4 MG Tab.DIS PO PRN (03:13)
[2023-07-03] MEDS: DULoxetine 30 MG Cap PO SCH (09:38)
[2023-07-03] MEDS: Apixaban 2.5 MG Tab PO SCH ×2 (09:40→20:10)
[2023-07-03] MEDS: MESALAMINE 1.2 GM PO SCH ×2 (09:40→20:10)
[2023-07-03] MEDS: Cyanocobalamin (Vitamin B12) 1,000 MCG Tab SL SCH (09:40)
[2023-07-03] MEDS: Ferrous Sulfate 325 MG Tab PO SCH (09:40)
[2023-07-03] MEDS: Metoprolol Succinate 25 MG Tab.ER PO SCH (09:41)
[2023-07-03] MEDS: Cholecalciferol (Vitamin D3) 25 MCG Tab PO SCH (09:41)
[2023-07-03] MEDS: DULoxetine 60 MG Cap PO SCH (09:51)
[2023-07-03] MEDS: Loperamide 2 MG Cap PO PRN ×2 (11:13→18:23)
[2023-07-04] MEDS: Ondansetron 4 MG Tab.DIS PO PRN ×3 (00:27→19:59)
[2023-07-04] MEDS: oxyCODONE 5 MG Tab PO PRN ×4 (00:27→19:59)
[2023-07-04] MEDS: Loperamide 2 MG Cap PO PRN ×3 (03:09→19:59)
[2023-07-04] MEDS: Metoprolol Succinate 25 MG Tab.ER PO SCH (09:22)
[2023-07-04] MEDS: Cholecalciferol (Vitamin D3) 25 MCG Tab PO SCH (09:22)
[2023-07-04] MEDS: DULoxetine 30 MG Cap PO SCH (09:22)
[2023-07-04] MEDS: MESALAMINE 1.2 GM PO SCH ×2 (09:22→19:59)
[2023-07-04] MEDS: Apixaban 2.5 MG Tab PO SCH ×2 (09:22→19:59)
[2023-07-04] MEDS: DULoxetine 60 MG Cap PO SCH (09:22)
[2023-07-04] MEDS: Ferrous Sulfate 325 MG Tab PO SCH (09:22)
[2023-07-04] MEDS: Cyanocobalamin (Vitamin B12) 1,000 MCG Tab SL SCH (09:22)
[2023-07-04] MEDS: Acetaminophen 500 MG Tab PO PRN (11:00)
[2023-07-05] MEDS: Loperamide 2 MG Cap PO PRN ×3 (00:32→20:03)
[2023-07-05] MEDS: Acetaminophen 500 MG Tab PO PRN ×2 (04:41→14:41)
[2023-07-05] MEDS: Ferrous Sulfate 325 MG Tab PO SCH (08:37)
[2023-07-05] MEDS: DULoxetine 30 MG Cap PO SCH (08:38)
[2023-07-05] MEDS: Cholecalciferol (Vitamin D3) 25 MCG Tab PO SCH (08:38)
[2023-07-05] MEDS: MESALAMINE 1.2 GM PO SCH ×2 (08:38→20:03)
[2023-07-05] MEDS: Metoprolol Succinate 25 MG Tab.ER PO SCH (08:38)
[2023-07-05] MEDS: Apixaban 2.5 MG Tab PO SCH ×2 (08:38→20:03)
[2023-07-05] MEDS: DULoxetine 60 MG Cap PO SCH (08:38)
[2023-07-05] MEDS: Cyanocobalamin (Vitamin B12) 1,000 MCG Tab SL SCH (08:38)
[2023-07-05] MEDS: oxyCODONE 5 MG Tab PO PRN ×2 (10:46→17:49)
[2023-07-06] MEDS: Ondansetron 4 MG Tab.DIS PO PRN ×2 (00:01→20:07)
[2023-07-06] MEDS: DULoxetine 30 MG Cap PO SCH (08:26)
[2023-07-06] MEDS: Apixaban 2.5 MG Tab PO SCH ×2 (08:27→20:07)
[2023-07-06] MEDS: DULoxetine 60 MG Cap PO SCH (08:27)
[2023-07-06] MEDS: Cyanocobalamin (Vitamin B12) 1,000 MCG Tab SL SCH (08:28)
[2023-07-06] MEDS: Ferrous Sulfate 325 MG Tab PO SCH (08:29)
[2023-07-06] MEDS: MESALAMINE 1.2 GM PO SCH ×2 (08:29→20:07)
[2023-07-06] MEDS: Metoprolol Succinate 25 MG Tab.ER PO SCH (08:30)
[2023-07-06] MEDS: oxyCODONE 5 MG Tab PO PRN ×3 (08:30→20:07)
[2023-07-06] MEDS: Cholecalciferol (Vitamin D3) 25 MCG Tab PO SCH (08:33)
[2023-07-06] MEDS: Acetaminophen 500 MG Tab PO PRN (20:06)
[2023-07-06] MEDS: Loperamide 2 MG Cap PO PRN ×2 (20:07)
[2023-07-07 07:21] LABS: BASOPHILS PERCENT AUTO 0.3 % (0.2-1.2); HEMATOCRIT 23.3 % (40.0-52.0); HEMOGLOBIN 7.5 g/dL (14.0-18.0); IMMATURE GRAN ABSOLUTE AUTO 0.03 x10^3/uL (0.00-0.07); LYMPHOCYTES PERCENT AUTO 18.7 % (25.0-50.0); MEAN CORPUSCULAR HEMOGLOBIN 28.8 pg (26.0-32.0); MEAN CORPUSCULAR HGB CONC 32.2 g/dL (32.0-36.0); MEAN CORPUSCULAR VOLUME 89.6 fL (78.0-93.0); MONOCYTES ABSOLUTE AUTO 0.6 x10^3/uL (0.0-0.8); MONOCYTES PERCENT AUTO 17.5 % (2.0-11.0); NEUTROPHILS PERCENT AUTO 62.5 % (50.0-80.0); PLATELET COUNT,PLT 217 x10^3/uL (130-400); WHITE BLOOD CELL COUNT,WBC 3.2 x10^3/uL (4.0-10.0)
[2023-07-07 07:45] LABS: LYMPHOCYTES ABSOLUTE AUTO 0.6 x10^3/uL (1.0-4.8)
[2023-07-07 07:46] LABS: A/G RATIO 0.58; ALBUMIN 2.5 g/dL (3.4-5.0); ANION GAP 12.7 mmol/L (5-15); BILIRUBIN TOTAL 0.7 mg/dL (0.2-1.0); CALCIUM 8.6 mg/dL (8.5-10.1); CREATININE 1.6 mg/dL (0.70-1.30); EST CRCL DRUG DOSING (CG) 58.77 mL/min; POTASSIUM,K 3.7 mmol/L (3.5-5.1); PROTEIN TOTAL,TP 6.8 g/dL (6.4-8.2)
[2023-07-07] MEDS: oxyCODONE 5 MG Tab PO PRN ×2 (09:18→21:18)
[2023-07-07] MEDS: DULoxetine 30 MG Cap PO SCH (09:18)
[2023-07-07] MEDS: Ferrous Sulfate 325 MG Tab PO SCH (09:19)
[2023-07-07] MEDS: MESALAMINE 1.2 GM PO SCH ×2 (09:19→21:17)
[2023-07-07] MEDS: DULoxetine 60 MG Cap PO SCH (09:19)
[2023-07-07] MEDS: Cyanocobalamin (Vitamin B12) 1,000 MCG Tab SL SCH (09:19)
[2023-07-07] MEDS: Apixaban 2.5 MG Tab PO SCH ×2 (09:19→21:17)
[2023-07-07] MEDS: Cholecalciferol (Vitamin D3) 25 MCG Tab PO SCH (09:19)
[2023-07-07] MEDS: Metoprolol Succinate 25 MG Tab.ER PO SCH (09:20)
[2023-07-07] MEDS: Acetaminophen 500 MG Tab PO PRN ×2 (11:04→21:17)
[2023-07-07] MEDS: Loperamide 2 MG Cap PO PRN (11:04)
[2023-07-07] MEDS: Gabapentin 100 MG Cap PO SCH (21:17)
[2023-07-08] MEDS: DULoxetine 30 MG Cap PO SCH (09:03)
[2023-07-08] MEDS: MESALAMINE 1.2 GM PO SCH ×2 (09:03→20:09)
[2023-07-08] MEDS: oxyCODONE 5 MG Tab PO PRN ×2 (09:04→20:10)
[2023-07-08] MEDS: Cyanocobalamin (Vitamin B12) 1,000 MCG Tab SL SCH (09:04)
[2023-07-08] MEDS: DULoxetine 60 MG Cap PO SCH (09:04)
[2023-07-08] MEDS: Apixaban 2.5 MG Tab PO SCH ×2 (09:04→20:10)
[2023-07-08] MEDS: Metoprolol Succinate 25 MG Tab.ER PO SCH (09:05)
[2023-07-08] MEDS: Cholecalciferol (Vitamin D3) 25 MCG Tab PO SCH (09:06)
[2023-07-08] MEDS: Ferrous Sulfate 325 MG Tab PO SCH (09:07)
[2023-07-08] MEDS: Acetaminophen 500 MG Tab PO PRN ×2 (11:37→20:12)
[2023-07-08] MEDS: Gabapentin 100 MG Cap PO SCH (20:10)
[2023-07-09] MEDS: oxyCODONE 5 MG Tab PO PRN ×3 (04:54→20:36)
[2023-07-09] MEDS: Acetaminophen 500 MG Tab PO PRN ×3 (04:55→21:20)
[2023-07-09] MEDS: DULoxetine 60 MG Cap PO SCH (10:41)
[2023-07-09] MEDS: DULoxetine 30 MG Cap PO SCH (10:41)
[2023-07-09] MEDS: Apixaban 2.5 MG Tab PO SCH ×2 (10:42→20:35)
[2023-07-09] MEDS: MESALAMINE 1.2 GM PO SCH ×2 (10:42→20:35)
[2023-07-09] MEDS: Cholecalciferol (Vitamin D3) 25 MCG Tab PO SCH (10:42)
[2023-07-09] MEDS: Metoprolol Succinate 25 MG Tab.ER PO SCH (10:43)
[2023-07-09] MEDS: Cyanocobalamin (Vitamin B12) 1,000 MCG Tab SL SCH (10:44)
[2023-07-09] MEDS: Ferrous Sulfate 325 MG Tab PO SCH (10:48)
[2023-07-09] MEDS: Gabapentin 100 MG Cap PO SCH (20:35)
[2023-07-10] MEDS: DULoxetine 30 MG Cap PO SCH (08:11)
[2023-07-10] MEDS: MESALAMINE 1.2 GM PO SCH ×2 (08:11→20:53)
[2023-07-10] MEDS: Cyanocobalamin (Vitamin B12) 1,000 MCG Tab SL SCH (08:11)
[2023-07-10] MEDS: Apixaban 2.5 MG Tab PO SCH ×2 (08:11→20:52)
[2023-07-10] MEDS: Ferrous Sulfate 325 MG Tab PO SCH (08:11)
[2023-07-10] MEDS: Cholecalciferol (Vitamin D3) 25 MCG Tab PO SCH (08:12)
[2023-07-10] MEDS: oxyCODONE 5 MG Tab PO PRN ×3 (08:14→20:56)
[2023-07-10] MEDS: Metoprolol Succinate 25 MG Tab.ER PO SCH (08:17)
[2023-07-10] MEDS: DULoxetine 60 MG Cap PO SCH (08:22)
[2023-07-10] MEDS: Acetaminophen 500 MG Tab PO PRN ×2 (09:31→20:54)
[2023-07-10] MEDS: Gabapentin 100 MG Cap PO SCH (20:54)
[2023-07-11] MEDS: oxyCODONE 5 MG Tab PO PRN ×3 (03:08→20:28)
[2023-07-11] MEDS: Cyanocobalamin (Vitamin B12) 1,000 MCG Tab SL SCH (09:38)
[2023-07-11] MEDS: DULoxetine 30 MG Cap PO SCH (09:38)
[2023-07-11] MEDS: Metoprolol Succinate 25 MG Tab.ER PO SCH (09:38)
[2023-07-11] MEDS: Apixaban 2.5 MG Tab PO SCH ×2 (09:38→20:26)
[2023-07-11] MEDS: DULoxetine 60 MG Cap PO SCH (09:39)
[2023-07-11] MEDS: MESALAMINE 1.2 GM PO SCH ×2 (09:39→20:26)
[2023-07-11] MEDS: Ferrous Sulfate 325 MG Tab PO SCH (09:39)
[2023-07-11] MEDS: Cholecalciferol (Vitamin D3) 25 MCG Tab PO SCH (09:39)
[2023-07-11] MEDS: Acetaminophen 500 MG Tab PO PRN ×2 (12:07→20:27)
[2023-07-11] MEDS: Gabapentin 100 MG Cap PO SCH (20:27)
[2023-07-12] MEDS: Cyanocobalamin (Vitamin B12) 1,000 MCG Tab SL SCH ×2 (06:52→08:19)
[2023-07-12] MEDS: MESALAMINE 1.2 GM PO SCH ×3 (06:53→20:47)
[2023-07-12] MEDS: DULoxetine 30 MG Cap PO SCH ×2 (06:53→08:18)
[2023-07-12] MEDS: Apixaban 2.5 MG Tab PO SCH ×3 (06:54→20:47)
[2023-07-12] MEDS: Metoprolol Succinate 25 MG Tab.ER PO SCH ×2 (06:55→08:19)
[2023-07-12] MEDS: Cholecalciferol (Vitamin D3) 25 MCG Tab PO SCH ×2 (06:55→08:19)
[2023-07-12] MEDS: Ferrous Sulfate 325 MG Tab PO SCH ×2 (06:56→08:18)
[2023-07-12] MEDS: Acetaminophen 500 MG Tab PO PRN ×2 (06:56→20:48)
[2023-07-12] MEDS: oxyCODONE 5 MG Tab PO PRN ×3 (06:57→20:49)
[2023-07-12 07:38] LABS: BASOPHILS PERCENT AUTO 0.5 % (0.2-1.2); HEMATOCRIT 28.4 % (40.0-52.0); HEMOGLOBIN 8.8 g/dL (14.0-18.0); IMMATURE GRAN ABSOLUTE AUTO 0.03 x10^3/uL (0.00-0.07); LYMPHOCYTES PERCENT AUTO 23.9 % (25.0-50.0); MEAN CORPUSCULAR HEMOGLOBIN 28.1 pg (26.0-32.0); MEAN CORPUSCULAR VOLUME 90.7 fL (78.0-93.0); MONOCYTES ABSOLUTE AUTO 0.5 x10^3/uL (0.0-0.8); MONOCYTES PERCENT AUTO 11.7 % (2.0-11.0); NEUTROPHILS ABSOLUTE AUTO 2.5 x10^3/uL (1.8-7.7); NEUTROPHILS PERCENT AUTO 63.2 % (50.0-80.0); PLATELET COUNT,PLT 278 x10^3/uL (130-400); RED BLOOD CELL COUNT 3.13 x10^6/uL (4.5-6.0)
[2023-07-12 07:55] LABS: ANION GAP 12.5 mmol/L (5-15); CALCIUM 9.2 mg/dL (8.5-10.1); CREATININE 1.6 mg/dL (0.70-1.30); EST CRCL DRUG DOSING (CG) 58.77 mL/min; POTASSIUM,K 3.5 mmol/L (3.5-5.1)
[2023-07-12] MEDS: DULoxetine 60 MG Cap PO SCH (08:18)
[2023-07-12] MEDS: Gabapentin 100 MG Cap PO SCH (20:48)
[2023-07-13] MEDS: Acetaminophen 500 MG Tab PO PRN ×2 (05:41→15:21)
[2023-07-13] MEDS: oxyCODONE 5 MG Tab PO PRN ×3 (05:42→21:02)
[2023-07-13] MEDS: Cyanocobalamin (Vitamin B12) 1,000 MCG Tab SL SCH (09:06)
[2023-07-13] MEDS: Cholecalciferol (Vitamin D3) 25 MCG Tab PO SCH (09:06)
[2023-07-13] MEDS: MESALAMINE 1.2 GM PO SCH ×2 (09:06→21:01)
[2023-07-13] MEDS: Apixaban 2.5 MG Tab PO SCH ×2 (09:06→21:02)
[2023-07-13] MEDS: DULoxetine 60 MG Cap PO SCH (09:07)
[2023-07-13] MEDS: Metoprolol Succinate 25 MG Tab.ER PO SCH (09:07)
[2023-07-13] MEDS: DULoxetine 30 MG Cap PO SCH (09:07)
[2023-07-13] MEDS: Ferrous Sulfate 325 MG Tab PO SCH (09:07)
[2023-07-13] MEDS: Gabapentin 100 MG Cap PO SCH (21:02)
[2023-07-14] MEDS: Acetaminophen 500 MG Tab PO PRN ×4 (00:14→23:56)
[2023-07-14] MEDS: DULoxetine 60 MG Cap PO SCH (08:04)
[2023-07-14] MEDS: Cholecalciferol (Vitamin D3) 25 MCG Tab PO SCH (08:04)
[2023-07-14] MEDS: MESALAMINE 1.2 GM PO SCH ×2 (08:04→21:19)
[2023-07-14] MEDS: Metoprolol Succinate 25 MG Tab.ER PO SCH (08:04)
[2023-07-14] MEDS: DULoxetine 30 MG Cap PO SCH (08:04)
[2023-07-14] MEDS: Apixaban 2.5 MG Tab PO SCH ×2 (08:04→21:19)
[2023-07-14] MEDS: Cyanocobalamin (Vitamin B12) 1,000 MCG Tab SL SCH (08:05)
[2023-07-14] MEDS: oxyCODONE 5 MG Tab PO PRN ×2 (12:27→21:22)
[2023-07-14] MEDS: Gabapentin 100 MG Cap PO SCH (21:19)
[2023-07-15] MEDS: oxyCODONE 5 MG Tab PO PRN ×3 (04:22→20:51)
[2023-07-15] MEDS: DULoxetine 30 MG Cap PO SCH (09:29)
[2023-07-15] MEDS: DULoxetine 60 MG Cap PO SCH (09:29)
[2023-07-15] MEDS: Acetaminophen 500 MG Tab PO PRN ×2 (09:29→20:53)
[2023-07-15] MEDS: Cyanocobalamin (Vitamin B12) 1,000 MCG Tab SL SCH (09:29)
[2023-07-15] MEDS: Cholecalciferol (Vitamin D3) 25 MCG Tab PO SCH (09:29)
[2023-07-15] MEDS: MESALAMINE 1.2 GM PO SCH ×2 (09:29→20:54)
[2023-07-15] MEDS: Apixaban 2.5 MG Tab PO SCH ×2 (09:29→20:54)
[2023-07-15] MEDS: Metoprolol Succinate 25 MG Tab.ER PO SCH (09:30)
[2023-07-15] MEDS ORDERED: Lidocaine 4% 1 each Patch TOP PRN (10:14)
[2023-07-15] MEDS: Lidocaine 4% 1 each Patch TOP PRN (12:21)
[2023-07-15] MEDS: Gabapentin 100 MG Cap PO SCH (20:54)
[2023-07-16] MEDS: DULoxetine 60 MG Cap PO SCH (08:00)
[2023-07-16] MEDS: DULoxetine 30 MG Cap PO SCH (08:00)
[2023-07-16] MEDS: Apixaban 2.5 MG Tab PO SCH ×2 (08:00→20:26)
[2023-07-16] MEDS: Cyanocobalamin (Vitamin B12) 1,000 MCG Tab SL SCH (08:00)
[2023-07-16] MEDS: MESALAMINE 1.2 GM PO SCH ×2 (08:00→20:26)
[2023-07-16] MEDS: Metoprolol Succinate 25 MG Tab.ER PO SCH (08:01)
[2023-07-16] MEDS: Cholecalciferol (Vitamin D3) 25 MCG Tab PO SCH (08:01)
[2023-07-16] MEDS: oxyCODONE 5 MG Tab PO PRN ×2 (08:26→16:59)
[2023-07-16] MEDS: Acetaminophen 500 MG Tab PO PRN ×2 (08:27→16:59)
[2023-07-16] MEDS: Lidocaine 4% 1 each Patch TOP PRN (13:52)
[2023-07-16] MEDS: Gabapentin 100 MG Cap PO SCH (20:27)
[2023-07-17] MEDS: oxyCODONE 5 MG Tab PO PRN ×4 (00:16→21:38)
[2023-07-17] MEDS: Acetaminophen 500 MG Tab PO PRN ×3 (01:15→20:00)
[2023-07-17] MEDS: MESALAMINE 1.2 GM PO SCH ×2 (08:48→20:00)
[2023-07-17] MEDS: DULoxetine 30 MG Cap PO SCH (08:48)
[2023-07-17] MEDS: Cyanocobalamin (Vitamin B12) 1,000 MCG Tab SL SCH (08:48)
[2023-07-17] MEDS: DULoxetine 60 MG Cap PO SCH (08:48)
[2023-07-17] MEDS: Cholecalciferol (Vitamin D3) 25 MCG Tab PO SCH (08:48)
[2023-07-17] MEDS: Apixaban 2.5 MG Tab PO SCH ×2 (08:48→20:00)
[2023-07-17] MEDS: Metoprolol Succinate 25 MG Tab.ER PO SCH (08:49)
[2023-07-17] MEDS: Lidocaine 4% 1 each Patch TOP PRN (16:40)
[2023-07-17] MEDS: Gabapentin 100 MG Cap PO SCH (20:01)
[2023-07-18] MEDS: oxyCODONE 5 MG Tab PO PRN ×3 (05:43→21:45)
[2023-07-18] MEDS: Acetaminophen 500 MG Tab PO PRN ×3 (05:43→23:49)
[2023-07-18] MEDS: DULoxetine 30 MG Cap PO SCH (09:07)
[2023-07-18] MEDS: MESALAMINE 1.2 GM PO SCH ×2 (09:07→20:03)
[2023-07-18] MEDS: Metoprolol Succinate 25 MG Tab.ER PO SCH (09:07)
[2023-07-18] MEDS: Cholecalciferol (Vitamin D3) 25 MCG Tab PO SCH (09:07)
[2023-07-18] MEDS: DULoxetine 60 MG Cap PO SCH (09:07)
[2023-07-18] MEDS: Cyanocobalamin (Vitamin B12) 1,000 MCG Tab SL SCH (09:07)
[2023-07-18] MEDS: Apixaban 2.5 MG Tab PO SCH ×2 (09:07→20:02)
[2023-07-18] MEDS: Lidocaine 4% 1 each Patch TOP PRN (15:51)
[2023-07-18] MEDS: Gabapentin 100 MG Cap PO SCH (20:02)
[2023-07-19] MEDS: oxyCODONE 5 MG Tab PO PRN ×3 (06:27→21:28)
[2023-07-19] MEDS: MESALAMINE 1.2 GM PO SCH ×2 (09:43→20:04)
[2023-07-19] MEDS: Apixaban 2.5 MG Tab PO SCH ×2 (09:43→20:04)
[2023-07-19] MEDS: DULoxetine 60 MG Cap PO SCH (09:44)
[2023-07-19] MEDS: Cyanocobalamin (Vitamin B12) 1,000 MCG Tab SL SCH (09:44)
[2023-07-19] MEDS: Metoprolol Succinate 25 MG Tab.ER PO SCH (09:44)
[2023-07-19] MEDS: DULoxetine 30 MG Cap PO SCH (09:45)
[2023-07-19] MEDS: Cholecalciferol (Vitamin D3) 25 MCG Tab PO SCH (09:45)
[2023-07-19] MEDS: Acetaminophen 500 MG Tab PO PRN ×2 (13:26→21:28)
[2023-07-19] MEDS: Lidocaine 4% 1 each Patch TOP PRN (13:27)
[2023-07-19] MEDS: Gabapentin 100 MG Cap PO SCH (20:04)
[2023-07-20] MEDS: oxyCODONE 5 MG Tab PO PRN ×3 (06:21→23:43)
[2023-07-20] MEDS: Acetaminophen 500 MG Tab PO PRN ×2 (06:21→23:42)
[2023-07-20 06:55] LABS: BASOPHILS PERCENT AUTO 0.4 % (0.2-1.2); HEMATOCRIT 27.4 % (40.0-52.0); HEMOGLOBIN 8.4 g/dL (14.0-18.0); IMMATURE GRAN ABSOLUTE AUTO 0.01 x10^3/uL (0.00-0.07); LYMPHOCYTES ABSOLUTE AUTO 0.7 x10^3/uL (1.0-4.8); LYMPHOCYTES PERCENT AUTO 24.2 % (25.0-50.0); MEAN CORPUSCULAR HEMOGLOBIN 27.6 pg (26.0-32.0); MEAN CORPUSCULAR HGB CONC 30.7 g/dL (32.0-36.0); MEAN CORPUSCULAR VOLUME 90.1 fL (78.0-93.0); MONOCYTES ABSOLUTE AUTO 0.3 x10^3/uL (0.0-0.8); MONOCYTES PERCENT AUTO 10.8 % (2.0-11.0); NEUTROPHILS ABSOLUTE AUTO 1.8 x10^3/uL (1.8-7.7); NEUTROPHILS PERCENT AUTO 64.2 % (50.0-80.0); PLATELET COUNT,PLT 194 x10^3/uL (130-400); RED BLOOD CELL COUNT 3.04 x10^6/uL (4.5-6.0)
[2023-07-20 07:12] LABS: WHITE BLOOD CELL COUNT,WBC 2.8 x10^3/uL (4.0-10.0)
[2023-07-20 07:13] LABS: A/G RATIO 0.75; BILIRUBIN TOTAL 0.5 mg/dL (0.2-1.0); CREATININE 1.5 mg/dL (0.70-1.30); EST CRCL DRUG DOSING (CG) 61.89 mL/min; POTASSIUM,K 3.9 mmol/L (3.5-5.1)
[2023-07-20 07:15] LABS: ANION GAP 10.9 mmol/L (5-15)
[2023-07-20] MEDS: Cyanocobalamin (Vitamin B12) 1,000 MCG Tab SL SCH (09:15)
[2023-07-20] MEDS: Apixaban 2.5 MG Tab PO SCH ×2 (09:16→20:46)
[2023-07-20] MEDS: MESALAMINE 1.2 GM PO SCH ×2 (09:16→20:46)
[2023-07-20] MEDS: Cholecalciferol (Vitamin D3) 25 MCG Tab PO SCH (09:16)
[2023-07-20] MEDS: DULoxetine 30 MG Cap PO SCH (09:16)
[2023-07-20] MEDS: DULoxetine 60 MG Cap PO SCH (09:16)
[2023-07-20] MEDS: Metoprolol Succinate 25 MG Tab.ER PO SCH (09:17)
[2023-07-20] MEDS: Gabapentin 100 MG Cap PO SCH (20:46)
[2023-07-21] MEDS: oxyCODONE 5 MG Tab PO PRN ×2 (08:23→21:04)
[2023-07-21] MEDS: Acetaminophen 500 MG Tab PO PRN ×2 (08:23→21:03)
[2023-07-21] MEDS: MESALAMINE 1.2 GM PO SCH ×2 (09:42→21:03)
[2023-07-21] MEDS: DULoxetine 60 MG Cap PO SCH (09:42)
[2023-07-21] MEDS: Cyanocobalamin (Vitamin B12) 1,000 MCG Tab SL SCH (09:43)
[2023-07-21] MEDS: Metoprolol Succinate 25 MG Tab.ER PO SCH (09:43)
[2023-07-21] MEDS: Apixaban 2.5 MG Tab PO SCH ×2 (09:44→21:05)
[2023-07-21] MEDS: DULoxetine 30 MG Cap PO SCH (09:44)
[2023-07-21] MEDS: Cholecalciferol (Vitamin D3) 25 MCG Tab PO SCH (09:44)
[2023-07-21] MEDS: Ondansetron 4 MG Tab.DIS PO PRN (20:06)
[2023-07-21] MEDS: Gabapentin 100 MG Cap PO SCH (21:04)
[2023-07-22] MEDS: DULoxetine 60 MG Cap PO SCH (08:13)
[2023-07-22] MEDS: DULoxetine 30 MG Cap PO SCH (08:13)
[2023-07-22] MEDS: Apixaban 2.5 MG Tab PO SCH ×2 (08:13→20:51)
[2023-07-22] MEDS: Cyanocobalamin (Vitamin B12) 1,000 MCG Tab SL SCH (08:13)
[2023-07-22] MEDS: MESALAMINE 1.2 GM PO SCH ×2 (08:14→20:52)
[2023-07-22] MEDS: Acetaminophen 500 MG Tab PO PRN ×2 (08:14→17:32)
[2023-07-22] MEDS: oxyCODONE 5 MG Tab PO PRN ×2 (08:14→17:32)
[2023-07-22] MEDS: Cholecalciferol (Vitamin D3) 25 MCG Tab PO SCH (08:15)
[2023-07-22] MEDS: Metoprolol Succinate 25 MG Tab.ER PO SCH (08:17)
[2023-07-22] MEDS: Gabapentin 100 MG Cap PO SCH (20:52)
[2023-07-23] MEDS: oxyCODONE 5 MG Tab PO PRN ×2 (00:33→08:31)
[2023-07-23] MEDS: DULoxetine 60 MG Cap PO SCH (08:28)
[2023-07-23] MEDS: MESALAMINE 1.2 GM PO SCH (08:29)
[2023-07-23] MEDS: Apixaban 2.5 MG Tab PO SCH (08:29)
[2023-07-23] MEDS: Cyanocobalamin (Vitamin B12) 1,000 MCG Tab SL SCH (08:30)
[2023-07-23] MEDS: Cholecalciferol (Vitamin D3) 25 MCG Tab PO SCH (08:30)
[2023-07-23] MEDS: DULoxetine 30 MG Cap PO SCH (08:31)
[2023-07-23] MEDS: Metoprolol Succinate 25 MG Tab.ER PO SCH (08:31)
[2023-07-23] MEDS: Acetaminophen 500 MG Tab PO PRN (08:32)
[2023-07-23 08:35] LABS: BASOPHILS PERCENT AUTO 0.8 % (0.2-1.2); HEMATOCRIT 30.2 % (40.0-52.0); HEMOGLOBIN 9.3 g/dL (14.0-18.0); IMMATURE GRAN ABSOLUTE AUTO 0.01 x10^3/uL (0.00-0.07); LYMPHOCYTES ABSOLUTE AUTO 0.6 x10^3/uL (1.0-4.8); LYMPHOCYTES PERCENT AUTO 22.7 % (25.0-50.0); MEAN CORPUSCULAR HEMOGLOBIN 27.3 pg (26.0-32.0); MEAN CORPUSCULAR HGB CONC 30.8 g/dL (32.0-36.0); MEAN CORPUSCULAR VOLUME 88.6 fL (78.0-93.0); MONOCYTES ABSOLUTE AUTO 0.4 x10^3/uL (0.0-0.8); MONOCYTES PERCENT AUTO 16.7 % (2.0-11.0); NEUTROPHILS ABSOLUTE AUTO 1.6 x10^3/uL (1.8-7.7); NEUTROPHILS PERCENT AUTO 59.4 % (50.0-80.0); RED BLOOD CELL COUNT 3.41 x10^6/uL (4.5-6.0); WHITE BLOOD CELL COUNT,WBC 2.6 x10^3/uL (4.0-10.0)
[2023-07-23 08:50] LABS: CALCIUM 9.1 mg/dL (8.5-10.1); CREATININE 2.1 mg/dL (0.70-1.30); EST CRCL DRUG DOSING (CG) 44.2 mL/min; POTASSIUM,K 3.3 mmol/L (3.5-5.1)
[2023-07-23 08:52] LABS: ANION GAP 16.3 mmol/L (5-15)
[2023-07-23 08:54] LABS: PLATELET COUNT,PLT 183 x10^3/uL (130-400)
[2023-07-23 15:53] VITALS: BP 115/74; PULSE 63
== END 2023-07-23 17:30 | disposition home health service (06) | DRG 560 ==
LOC: VM.MS 12:27
PROVIDERS: ADMIT Nurse Practitioner Family; ATTEND Internal Medicine
DX: S72.142D Displaced intertrochanteric fracture of left femur, subsequent encounter for closed fracture with routine healing (principal); B17.9 Acute viral hepatitis, unspecified; D62 Acute posthemorrhagic anemia; K51.90 Ulcerative colitis, unspecified, without complications; E87.6 Hypokalemia; I12.9 Hypertensive chronic kidney disease with stage 1 through stage 4 chronic kidney disease, or unspecified chronic kidney disease; I48.0 Paroxysmal atrial fibrillation; M10.9 Gout, unspecified; M47.812 Spondylosis without myelopathy or radiculopathy, cervical region; G89.29 Other chronic pain; M54.9 Dorsalgia, unspecified; F43.29 Adjustment disorder with other symptoms; G62.9 Polyneuropathy, unspecified; N18.31 Chronic kidney disease, stage 3a; D50.9 Iron deficiency anemia, unspecified; E66.9 Obesity, unspecified; E53.8 Deficiency of other specified B group vitamins; F39 Unspecified mood [affective] disorder; F10.10 Alcohol abuse, uncomplicated; F17.210 Nicotine dependence, cigarettes, uncomplicated; Z79.01 Long term (current) use of anticoagulants; Z79.899 Other long term (current) drug therapy; Z85.038 Personal history of other malignant neoplasm of large intestine; Z93.2 Ileostomy status; Z98.890 Other specified postprocedural states; Z86.718 Personal history of other venous thrombosis and embolism; Z89.9 Acquired absence of limb, unspecified; Z68.32 Body mass index [BMI] 32.0-32.9, adult
CPT/HCPCS: 36415; 77080; 80048; 80053; 82607; 82728; 83735; 85025; 95851-GO; 97110-GP; 97116-GP; 97162-GP; 97165-GO; 97530-GP; 97535-GO; A9270-GY

== ENCOUNTER 2024-05-18 19:05 | Emergency (ER) | payer MEDICARE, MEDICAID ==
[2024-05-18] MEDS: Lactated Ringers 1,000 ML IV ONE (19:45)
[2024-05-18 19:46] LABS: BASOPHILS PERCENT AUTO 0.3 % (0.2-1.2); HEMOGLOBIN 14.3 g/dL (14.0-18.0); IMMATURE GRAN ABSOLUTE AUTO 0.08 x10^3/uL (0.00-0.07); LYMPHOCYTES ABSOLUTE AUTO 1.3 x10^3/uL (1.0-4.8); LYMPHOCYTES PERCENT AUTO 18.5 % (25.0-50.0); MEAN CORPUSCULAR HGB CONC 34.9 g/dL (32.0-36.0); MEAN CORPUSCULAR VOLUME 91.7 fL (78.0-93.0); MONOCYTES ABSOLUTE AUTO 0.7 x10^3/uL (0.0-0.8); MONOCYTES PERCENT AUTO 9.6 % (2.0-11.0); NEUTROPHILS ABSOLUTE AUTO 5.1 x10^3/uL (1.8-7.7); NEUTROPHILS PERCENT AUTO 70.5 % (50.0-80.0); PLATELET COUNT,PLT 192 x10^3/uL (130-400); RED BLOOD CELL COUNT 4.47 x10^6/uL (4.5-6.0); WHITE BLOOD CELL COUNT,WBC 7.3 x10^3/uL (4.0-10.0)
[2024-05-18 20:09] LABS: A/G RATIO 0.61; ALANINE AMINOTRANSFERASE,ALT 52 U/L (16-63); ALBUMIN 3.1 g/dL (3.4-5.0); ALKALINE PHOSPHATASE 432 U/L (46-116); ASPARTATE AMNIOTRANSFERASE,AST 54 U/L (15-37); BILIRUBIN TOTAL 0.6 mg/dL (0.2-1.0); BLOOD UREA NITROGEN,BUN 65 mg/dL (7-18); CALCIUM 8.5 mg/dL (8.5-10.1); CARBON DIOXIDE,CO2 22 mmol/L (21-32); CHLORIDE,CL 93 mmol/L (98-107); GLUCOSE RANDOM 119 mg/dL (70-99); POTASSIUM,K 3.4 mmol/L (3.5-5.1); PRO B-TYPE NATRIUR PEPT,BNPPRO 8577 pg/mL (<=125); PROTEIN TOTAL,TP 8.2 g/dL (6.4-8.2)
[2024-05-18 20:11] LABS: ANION GAP 17.4 mmol/L (5-15); ESTIMATED GFR 18 mL/min (>=60)
[2024-05-18 20:12] LABS: CREATININE 3.6 mg/dL (0.70-1.30); SODIUM,NA 129 mmol/L (136-145)
[2024-05-18] MEDS: cefTRIAXone 1 GM Vial IVPUSH ONE (20:58)
[2024-05-18] MEDS ORDERED: Norepinephrine Bit/D5W Premix 250 ML IV SCH (22:30)
[2024-05-18] MEDS: Lactated Ringers 2,000 ML IV ONE (22:45)
[2024-05-18 23:22] VITALS: BP 114/75; PULSE 84
== END 2024-05-18 23:45 | disposition short-term general hospital (02) ==
LOC: VM.ED 19:05
DX: A41.9 Sepsis, unspecified organism (principal); I11.0 Hypertensive heart disease with heart failure; I50.9 Heart failure, unspecified; N17.9 Acute kidney failure, unspecified; E87.1 Hypo-osmolality and hyponatremia; E87.6 Hypokalemia; N39.0 Urinary tract infection, site not specified; I95.3 Hypotension of hemodialysis; E66.9 Obesity, unspecified; Z68.32 Body mass index [BMI] 32.0-32.9, adult; Z79.899 Other long term (current) drug therapy
CPT/HCPCS: 71045; 74176; 80053; 83605; 83880; 85025; 96361; 96374; 99285-25; J0696; J7120

== ENCOUNTER 2024-11-01 14:01 | Inpatient (IN) | payer MEDICARE, MEDICAID ==
[2024-11-01] MEDS: Acetaminophen/HYDROcodone 325-5 MG Tab PO PRN (17:00)
[2024-11-01] MEDS: MESALAMINE 1.2 GM PO SCH (21:22)
[2024-11-01] MEDS: Gabapentin 100 MG Cap (OWN SUPPLY) PO SCH (21:23)
[2024-11-02] MEDS: DULoxetine 60 MG Cap (OWN SUPPLY) PO SCH (08:13)
[2024-11-02] MEDS: Metoprolol Succinate 25 MG Tab.ER (OWN SUPPLY) PO SCH (08:16)
[2024-11-02] MEDS: Acetaminophen/HYDROcodone 325-5 MG Tab PO PRN (12:30)
[2024-11-03] MEDS: Acetaminophen/HYDROcodone 325-5 MG Tab (OWN SUPPLY) PO PRN (13:35)
[2024-11-08] MEDS: Acetaminophen/HYDROcodone 325-5 MG Tab PO PRN (16:44)
[2024-11-10] MEDS: Amoxicillin/Clavulanate K 875-125 MG Tab PO SCH (18:18)
[2024-11-10 18:29] LABS: BASOPHILS ABSOLUTE AUTO 0.0 x10^3/uL (0.0-0.2); BASOPHILS PERCENT AUTO 0.2 % (0.2-1.2); EOSINOPHILS ABSOLUTE AUTO 0.0 x10^3/uL (0.0-0.5); EOSINOPHILS PERCENT AUTO 0.0 % (0.0-4.0); IMMATURE GRAN ABSOLUTE AUTO 0.02 x10^3/uL (0.00-0.07); IMMATURE GRAN PERCENT AUTO 0.50 % (0.00-0.43); LYMPHOCYTES ABSOLUTE AUTO 0.8 x10^3/uL (1.0-4.8); LYMPHOCYTES PERCENT AUTO 19.0 % (25.0-50.0); MONOCYTES ABSOLUTE AUTO 0.5 x10^3/uL (0.0-0.8); MONOCYTES PERCENT AUTO 10.9 % (2.0-11.0); NEUTROPHILS ABSOLUTE AUTO 3.1 x10^3/uL (1.8-7.7); NEUTROPHILS PERCENT AUTO 69.4 % (50.0-80.0); PLATELET COUNT,PLT 209 x10^3/uL (130-400); RED BLOOD CELL COUNT 3.51 x10^6/uL (4.5-6.0); WHITE BLOOD CELL COUNT,WBC 4.4 x10^3/uL (4.0-10.0)
[2024-11-10 18:43] LABS: A/G RATIO 0.55; ALANINE AMINOTRANSFERASE,ALT 49.0 U/L (16-63); ASPARTATE AMNIOTRANSFERASE,AST 52.0 U/L (15-37); BILIRUBIN TOTAL 0.4 mg/dL (0.2-1.0); BLOOD UREA NITROGEN,BUN 32.0 mg/dL (7-18); CARBON DIOXIDE,CO2 28.0 mmol/L (21-32); CHLORIDE,CL 99.0 mmol/L (98-107); CREATININE 1.6 mg/dL (0.70-1.30); EST CRCL DRUG DOSING (CG) 57.26 mL/min; GLUCOSE RANDOM 111.0 mg/dL (70-99); POTASSIUM,K 4.6 mmol/L (3.5-5.1); PROTEIN TOTAL,TP 7.9 g/dL (6.4-8.2); SODIUM,NA 136.0 mmol/L (136-145)
[2024-11-10 18:45] LABS: ESTIMATED GFR 48.0 mL/min (>=60)
[2024-11-10 18:51] LABS: SEDIMENTATION RATE AUTO 92 mm/hr (0-15)
[2024-11-15] MEDS: Vitamins A and D Oint 113 GM Tube TOP PRN (09:07)
[2024-11-17] MEDS ORDERED: Acetaminophen/HYDROcodone 325-5 MG Tab PO PRN (09:57)
[2024-11-17 10:53] LABS: BASOPHILS ABSOLUTE AUTO 0.0 x10^3/uL (0.0-0.2); BASOPHILS PERCENT AUTO 0.7 % (0.2-1.2); EOSINOPHILS ABSOLUTE AUTO 0.0 x10^3/uL (0.0-0.5); EOSINOPHILS PERCENT AUTO 0.0 % (0.0-4.0); IMMATURE GRAN ABSOLUTE AUTO 0.01 x10^3/uL (0.00-0.07); IMMATURE GRAN PERCENT AUTO 0.30 % (0.00-0.43); LYMPHOCYTES ABSOLUTE AUTO 0.7 x10^3/uL (1.0-4.8); LYMPHOCYTES PERCENT AUTO 23.8 % (25.0-50.0); MONOCYTES ABSOLUTE AUTO 0.4 x10^3/uL (0.0-0.8); MONOCYTES PERCENT AUTO 12.8 % (2.0-11.0); NEUTROPHILS ABSOLUTE AUTO 1.8 x10^3/uL (1.8-7.7); NEUTROPHILS PERCENT AUTO 62.4 % (50.0-80.0); PLATELET COUNT,PLT 170 x10^3/uL (130-400); RED BLOOD CELL COUNT 3.57 x10^6/uL (4.5-6.0)
[2024-11-17 10:57] LABS: WHITE BLOOD CELL COUNT,WBC 2.9 x10^3/uL (4.0-10.0)
[2024-11-17 11:07] LABS: A/G RATIO 0.53; ALANINE AMINOTRANSFERASE,ALT 60.0 U/L (16-63); ASPARTATE AMNIOTRANSFERASE,AST 61.0 U/L (15-37); BILIRUBIN TOTAL 0.5 mg/dL (0.2-1.0); BLOOD UREA NITROGEN,BUN 36.0 mg/dL (7-18); CARBON DIOXIDE,CO2 25.0 mmol/L (21-32); CHLORIDE,CL 103.0 mmol/L (98-107); CREATININE 1.7 mg/dL (0.70-1.30); EST CRCL DRUG DOSING (CG) 53.9 mL/min; GLUCOSE RANDOM 80.0 mg/dL (70-99); POTASSIUM,K 4.0 mmol/L (3.5-5.1); PROTEIN TOTAL,TP 7.8 g/dL (6.4-8.2); SODIUM,NA 138.0 mmol/L (136-145)
[2024-11-17 11:18] LABS: ESTIMATED GFR 44.0 mL/min (>=60)
[2024-11-17 11:35] LABS: SEDIMENTATION RATE AUTO 78 mm/hr (0-15)
[2024-11-17] MEDS: buPROPion 150 MG Tab.ER PO SCH (11:59)
[2024-11-17] MEDS: Acetaminophen/HYDROcodone 325-5 MG Tab PO PRN (15:06)
[2024-11-21] MEDS: CLAVULANATE K PO SCH (20:38)
[2024-11-21] MEDS: AMOXICILLIN PO SCH (20:38)
[2024-11-23 06:38] LABS: BASOPHILS ABSOLUTE AUTO 0.0 x10^3/uL (0.0-0.2); BASOPHILS PERCENT AUTO 0.4 % (0.2-1.2); EOSINOPHILS ABSOLUTE AUTO 0.0 x10^3/uL (0.0-0.5); EOSINOPHILS PERCENT AUTO 0.0 % (0.0-4.0); IMMATURE GRAN ABSOLUTE AUTO 0.01 x10^3/uL (0.00-0.07); IMMATURE GRAN PERCENT AUTO 0.40 % (0.00-0.43); LYMPHOCYTES ABSOLUTE AUTO 0.8 x10^3/uL (1.0-4.8); LYMPHOCYTES PERCENT AUTO 30.3 % (25.0-50.0); MONOCYTES ABSOLUTE AUTO 0.4 x10^3/uL (0.0-0.8); MONOCYTES PERCENT AUTO 15.5 % (2.0-11.0); NEUTROPHILS ABSOLUTE AUTO 1.3 x10^3/uL (1.8-7.7); NEUTROPHILS PERCENT AUTO 53.4 % (50.0-80.0); PLATELET COUNT,PLT 129 x10^3/uL (130-400); RED BLOOD CELL COUNT 3.05 x10^6/uL (4.5-6.0); WHITE BLOOD CELL COUNT,WBC 2.5 x10^3/uL (4.0-10.0)
[2024-11-23 06:42] LABS: A/G RATIO 0.57; ALANINE AMINOTRANSFERASE,ALT 64.0 U/L (16-63); ASPARTATE AMNIOTRANSFERASE,AST 54.0 U/L (15-37); BILIRUBIN TOTAL 0.6 mg/dL (0.2-1.0); BLOOD UREA NITROGEN,BUN 37.0 mg/dL (7-18); CARBON DIOXIDE,CO2 26.0 mmol/L (21-32); CHLORIDE,CL 105.0 mmol/L (98-107); CREATININE 1.6 mg/dL (0.70-1.30); EST CRCL DRUG DOSING (CG) 57.26 mL/min; GLUCOSE RANDOM 82.0 mg/dL (70-99); POTASSIUM,K 4.2 mmol/L (3.5-5.1); PROTEIN TOTAL,TP 6.6 g/dL (6.4-8.2); SODIUM,NA 138.0 mmol/L (136-145)
[2024-11-23 06:48] LABS: ESTIMATED GFR 48.0 mL/min (>=60)
[2024-11-25 07:37] LABS: BASOPHILS ABSOLUTE AUTO 0.0 x10^3/uL (0.0-0.2); BASOPHILS PERCENT AUTO 0.7 % (0.2-1.2); EOSINOPHILS ABSOLUTE AUTO 0.0 x10^3/uL (0.0-0.5); EOSINOPHILS PERCENT AUTO 0.0 % (0.0-4.0); IMMATURE GRAN ABSOLUTE AUTO 0.00 x10^3/uL (0.00-0.07); IMMATURE GRAN PERCENT AUTO 0.00 % (0.00-0.43); LYMPHOCYTES ABSOLUTE AUTO 0.7 x10^3/uL (1.0-4.8); LYMPHOCYTES PERCENT AUTO 25.5 % (25.0-50.0); MONOCYTES ABSOLUTE AUTO 0.4 x10^3/uL (0.0-0.8); MONOCYTES PERCENT AUTO 14.5 % (2.0-11.0); NEUTROPHILS ABSOLUTE AUTO 1.6 x10^3/uL (1.8-7.7); NEUTROPHILS PERCENT AUTO 59.3 % (50.0-80.0); PLATELET COUNT,PLT 122 x10^3/uL (130-400); RED BLOOD CELL COUNT 2.96 x10^6/uL (4.5-6.0)
[2024-11-25 07:56] LABS: A/G RATIO 0.56; ALANINE AMINOTRANSFERASE,ALT 64.0 U/L (16-63); ASPARTATE AMNIOTRANSFERASE,AST 59.0 U/L (15-37); BILIRUBIN TOTAL 0.5 mg/dL (0.2-1.0); BLOOD UREA NITROGEN,BUN 42.0 mg/dL (7-18); CARBON DIOXIDE,CO2 25.0 mmol/L (21-32); CHLORIDE,CL 107.0 mmol/L (98-107); CREATININE 1.7 mg/dL (0.70-1.30); EST CRCL DRUG DOSING (CG) 53.9 mL/min; GLUCOSE RANDOM 82.0 mg/dL (70-99); POTASSIUM,K 4.1 mmol/L (3.5-5.1); PROTEIN TOTAL,TP 6.4 g/dL (6.4-8.2); SODIUM,NA 140.0 mmol/L (136-145)
[2024-11-25 08:00] LABS: ESTIMATED GFR 44.0 mL/min (>=60); WHITE BLOOD CELL COUNT,WBC 2.8 x10^3/uL (4.0-10.0)
[2024-11-28 07:46] LABS: BASOPHILS ABSOLUTE AUTO 0.0 x10^3/uL (0.0-0.2); BASOPHILS PERCENT AUTO 0.7 % (0.2-1.2); EOSINOPHILS ABSOLUTE AUTO 0.0 x10^3/uL (0.0-0.5); EOSINOPHILS PERCENT AUTO 0.0 % (0.0-4.0); IMMATURE GRAN ABSOLUTE AUTO 0.01 x10^3/uL (0.00-0.07); IMMATURE GRAN PERCENT AUTO 0.40 % (0.00-0.43); LYMPHOCYTES ABSOLUTE AUTO 0.6 x10^3/uL (1.0-4.8); LYMPHOCYTES PERCENT AUTO 21.3 % (25.0-50.0); MONOCYTES ABSOLUTE AUTO 0.4 x10^3/uL (0.0-0.8); MONOCYTES PERCENT AUTO 15.7 % (2.0-11.0); NEUTROPHILS ABSOLUTE AUTO 1.7 x10^3/uL (1.8-7.7); NEUTROPHILS PERCENT AUTO 61.9 % (50.0-80.0); PLATELET COUNT,PLT 140 x10^3/uL (130-400); RED BLOOD CELL COUNT 3.06 x10^6/uL (4.5-6.0)
[2024-11-28 07:54] LABS: A/G RATIO 0.59; ALANINE AMINOTRANSFERASE,ALT 54.0 U/L (16-63); ASPARTATE AMNIOTRANSFERASE,AST 43.0 U/L (15-37); BILIRUBIN TOTAL 0.5 mg/dL (0.2-1.0); BLOOD UREA NITROGEN,BUN 36.0 mg/dL (7-18); CARBON DIOXIDE,CO2 27.0 mmol/L (21-32); CHLORIDE,CL 107.0 mmol/L (98-107); CREATININE 1.5 mg/dL (0.70-1.30); EST CRCL DRUG DOSING (CG) 61.08 mL/min; POTASSIUM,K 4.3 mmol/L (3.5-5.1); PROTEIN TOTAL,TP 6.5 g/dL (6.4-8.2); SODIUM,NA 139.0 mmol/L (136-145)
[2024-11-28 08:00] LABS: ESTIMATED GFR 52.0 mL/min (>=60)
[2024-11-28 08:05] LABS: WHITE BLOOD CELL COUNT,WBC 2.7 x10^3/uL (4.0-10.0)
[2024-11-28 08:23] LABS: GLUCOSE RANDOM 82.0 mg/dL (70-99)
[2024-11-29] MEDS: Amoxicillin/Clavulanate K 875-125 MG Tab PO SCH (20:54)
[2024-12-04 07:12] LABS: BASOPHILS ABSOLUTE AUTO 0.0 x10^3/uL (0.0-0.2); BASOPHILS PERCENT AUTO 0.2 % (0.2-1.2); EOSINOPHILS ABSOLUTE AUTO 0.0 x10^3/uL (0.0-0.5); EOSINOPHILS PERCENT AUTO 0.0 % (0.0-4.0); IMMATURE GRAN ABSOLUTE AUTO 0.01 x10^3/uL (0.00-0.07); IMMATURE GRAN PERCENT AUTO 0.20 % (0.00-0.43); LYMPHOCYTES ABSOLUTE AUTO 0.7 x10^3/uL (1.0-4.8); LYMPHOCYTES PERCENT AUTO 13.4 % (25.0-50.0); MONOCYTES ABSOLUTE AUTO 0.5 x10^3/uL (0.0-0.8); MONOCYTES PERCENT AUTO 8.7 % (2.0-11.0); NEUTROPHILS ABSOLUTE AUTO 4.0 x10^3/uL (1.8-7.7); NEUTROPHILS PERCENT AUTO 77.5 % (50.0-80.0); PLATELET COUNT,PLT 119 x10^3/uL (130-400); RED BLOOD CELL COUNT 3.02 x10^6/uL (4.5-6.0); WHITE BLOOD CELL COUNT,WBC 5.2 x10^3/uL (4.0-10.0)
[2024-12-04 07:23] LABS: A/G RATIO 0.65; ALANINE AMINOTRANSFERASE,ALT 71.0 U/L (16-63); ASPARTATE AMNIOTRANSFERASE,AST 65.0 U/L (15-37); BILIRUBIN TOTAL 0.6 mg/dL (0.2-1.0); BLOOD UREA NITROGEN,BUN 41.0 mg/dL (7-18); CARBON DIOXIDE,CO2 23.0 mmol/L (21-32); CHLORIDE,CL 106.0 mmol/L (98-107); CREATININE 1.7 mg/dL (0.70-1.30); EST CRCL DRUG DOSING (CG) 53.9 mL/min; GLUCOSE RANDOM 84.0 mg/dL (70-99); POTASSIUM,K 3.9 mmol/L (3.5-5.1); PROTEIN TOTAL,TP 6.6 g/dL (6.4-8.2); SODIUM,NA 138.0 mmol/L (136-145)
[2024-12-04 07:25] LABS: ESTIMATED GFR 44.0 mL/min (>=60)
[2024-12-05] MEDS: Cyanocobalamin (Vitamin B12) 1,000 MCG Tab PO SCH (08:57)
[2024-12-05] MEDS: Cyanocobalamin (Vitamin B12) 1,000 MCG/ML SDV IM ONE (08:57)
[2024-12-14 06:54] LABS: BASOPHILS ABSOLUTE AUTO 0.0 x10^3/uL (0.0-0.2); BASOPHILS PERCENT AUTO 0.7 % (0.2-1.2); EOSINOPHILS ABSOLUTE AUTO 0.0 x10^3/uL (0.0-0.5); EOSINOPHILS PERCENT AUTO 0.0 % (0.0-4.0); IMMATURE GRAN ABSOLUTE AUTO 0.01 x10^3/uL (0.00-0.07); IMMATURE GRAN PERCENT AUTO 0.40 % (0.00-0.43); LYMPHOCYTES ABSOLUTE AUTO 0.8 x10^3/uL (1.0-4.8); LYMPHOCYTES PERCENT AUTO 30.3 % (25.0-50.0); MONOCYTES ABSOLUTE AUTO 0.4 x10^3/uL (0.0-0.8); MONOCYTES PERCENT AUTO 15.0 % (2.0-11.0); NEUTROPHILS ABSOLUTE AUTO 1.4 x10^3/uL (1.8-7.7); NEUTROPHILS PERCENT AUTO 53.6 % (50.0-80.0); PLATELET COUNT,PLT 149 x10^3/uL (130-400); RED BLOOD CELL COUNT 3.19 x10^6/uL (4.5-6.0)
[2024-12-14 07:01] LABS: WHITE BLOOD CELL COUNT,WBC 2.7 x10^3/uL (4.0-10.0)
[2024-12-14 07:11] LABS: A/G RATIO 0.66; ALANINE AMINOTRANSFERASE,ALT 111.0 U/L (16-63); ASPARTATE AMNIOTRANSFERASE,AST 80.0 U/L (15-37); BILIRUBIN TOTAL 0.5 mg/dL (0.2-1.0); BLOOD UREA NITROGEN,BUN 35.0 mg/dL (7-18); CARBON DIOXIDE,CO2 27.0 mmol/L (21-32); CHLORIDE,CL 106.0 mmol/L (98-107); CREATININE 1.6 mg/dL (0.70-1.30); EST CRCL DRUG DOSING (CG) 57.26 mL/min; ESTIMATED GFR 48.0 mL/min (>=60); GLUCOSE RANDOM 82.0 mg/dL (70-99); POTASSIUM,K 4.2 mmol/L (3.5-5.1); PROTEIN TOTAL,TP 6.8 g/dL (6.4-8.2); SODIUM,NA 141.0 mmol/L (136-145)
[2024-12-15] MEDS: Cyanocobalamin (Vitamin B12) 1,000 MCG Tab PO SCH (08:59)
[2024-12-15] MEDS: buPROPion 150 MG Tab.ER PO SCH (09:54)
[2024-12-18 07:16] LABS: A/G RATIO 0.68; ALANINE AMINOTRANSFERASE,ALT 95.0 U/L (16-63); ASPARTATE AMNIOTRANSFERASE,AST 94.0 U/L (15-37); BILIRUBIN TOTAL 0.4 mg/dL (0.2-1.0); BLOOD UREA NITROGEN,BUN 37.0 mg/dL (7-18); CARBON DIOXIDE,CO2 23.0 mmol/L (21-32); CHLORIDE,CL 109.0 mmol/L (98-107); CREATININE 1.6 mg/dL (0.70-1.30); EST CRCL DRUG DOSING (CG) 57.26 mL/min; ESTIMATED GFR 48.0 mL/min (>=60); GLUCOSE RANDOM 80.0 mg/dL (70-99); POTASSIUM,K 4.2 mmol/L (3.5-5.1); PROTEIN TOTAL,TP 6.7 g/dL (6.4-8.2); SODIUM,NA 141.0 mmol/L (136-145)
[2024-12-20] MEDS: BUPROPION 300 MG PO SCH (08:40)
[2024-12-21] MEDS: Acetaminophen/HYDROcodone 325-5 MG Tab PO PRN (00:35)
[2024-12-21 12:10] LABS: APPEARANCE,URINE SLIGHTLY CLOUDY (CLEAR); GLUCOSE,URINE NEGATIVE (NEGATIVE); OCCULT BLOOD,URINE NEGATIVE (NEGATIVE)
[2024-12-21 12:17] LABS: SQUAMOUS EPITHELIAL CELLS,UR NOT SEEN /HPF (NOT SEEN)
[2024-12-21] MEDS: CIPROFLOXACIN 250 MG PO SCH (20:36)
[2024-12-25 06:45] LABS: BASOPHILS ABSOLUTE AUTO 0.0 x10^3/uL (0.0-0.2); BASOPHILS PERCENT AUTO 0.9 % (0.2-1.2); EOSINOPHILS ABSOLUTE AUTO 0.0 x10^3/uL (0.0-0.5); EOSINOPHILS PERCENT AUTO 0.0 % (0.0-4.0); IMMATURE GRAN ABSOLUTE AUTO 0.00 x10^3/uL (0.00-0.07); IMMATURE GRAN PERCENT AUTO 0.00 % (0.00-0.43); LYMPHOCYTES ABSOLUTE AUTO 0.7 x10^3/uL (1.0-4.8); LYMPHOCYTES PERCENT AUTO 30.5 % (25.0-50.0); MONOCYTES ABSOLUTE AUTO 0.3 x10^3/uL (0.0-0.8); MONOCYTES PERCENT AUTO 15.0 % (2.0-11.0); NEUTROPHILS ABSOLUTE AUTO 1.1 x10^3/uL (1.8-7.7); NEUTROPHILS PERCENT AUTO 53.6 % (50.0-80.0); PLATELET COUNT,PLT 112 x10^3/uL (130-400); RED BLOOD CELL COUNT 3.18 x10^6/uL (4.5-6.0); WHITE BLOOD CELL COUNT,WBC 2.1 x10^3/uL (4.0-10.0)
[2024-12-25 07:04] LABS: A/G RATIO 0.67; ALANINE AMINOTRANSFERASE,ALT 73.0 U/L (16-63); ASPARTATE AMNIOTRANSFERASE,AST 58.0 U/L (15-37); BILIRUBIN TOTAL 0.5 mg/dL (0.2-1.0); BLOOD UREA NITROGEN,BUN 40.0 mg/dL (7-18); CARBON DIOXIDE,CO2 24.0 mmol/L (21-32); CHLORIDE,CL 109.0 mmol/L (98-107); CREATININE 1.5 mg/dL (0.70-1.30); EST CRCL DRUG DOSING (CG) 61.08 mL/min; GLUCOSE RANDOM 84.0 mg/dL (70-99); POTASSIUM,K 4.1 mmol/L (3.5-5.1); PROTEIN TOTAL,TP 6.5 g/dL (6.4-8.2); SODIUM,NA 143.0 mmol/L (136-145)
[2024-12-25 07:10] LABS: ESTIMATED GFR 52.0 mL/min (>=60)
[2024-12-27] MEDS: methylPREDNISolone Sodium Succinate 40 MG/1 ML SDV IVPUSH ONE (15:38)
[2024-12-30] MEDS: NALTREXONE 50 MG PO SCH (09:07)
[2025-01-03 06:56] LABS: BASOPHILS ABSOLUTE AUTO 0.0 x10^3/uL (0.0-0.2); BASOPHILS PERCENT AUTO 0.8 % (0.2-1.2); EOSINOPHILS ABSOLUTE AUTO 0.0 x10^3/uL (0.0-0.5); EOSINOPHILS PERCENT AUTO 0.0 % (0.0-4.0); IMMATURE GRAN ABSOLUTE AUTO 0.01 x10^3/uL (0.00-0.07); IMMATURE GRAN PERCENT AUTO 0.40 % (0.00-0.43); LYMPHOCYTES ABSOLUTE AUTO 0.7 x10^3/uL (1.0-4.8); LYMPHOCYTES PERCENT AUTO 27.1 % (25.0-50.0); MONOCYTES ABSOLUTE AUTO 0.3 x10^3/uL (0.0-0.8); MONOCYTES PERCENT AUTO 13.3 % (2.0-11.0); NEUTROPHILS ABSOLUTE AUTO 1.5 x10^3/uL (1.8-7.7); NEUTROPHILS PERCENT AUTO 58.4 % (50.0-80.0); PLATELET COUNT,PLT 117 x10^3/uL (130-400); RED BLOOD CELL COUNT 3.12 x10^6/uL (4.5-6.0); WHITE BLOOD CELL COUNT,WBC 2.6 x10^3/uL (4.0-10.0)
[2025-01-03 07:13] LABS: A/G RATIO 0.73; ALANINE AMINOTRANSFERASE,ALT 85.0 U/L (16-63); ASPARTATE AMNIOTRANSFERASE,AST 69.0 U/L (15-37); BILIRUBIN TOTAL 0.5 mg/dL (0.2-1.0); BLOOD UREA NITROGEN,BUN 46.0 mg/dL (7-18); CARBON DIOXIDE,CO2 24.0 mmol/L (21-32); CHLORIDE,CL 110.0 mmol/L (98-107); CREATININE 1.6 mg/dL (0.70-1.30); EST CRCL DRUG DOSING (CG) 57.26 mL/min; GLUCOSE RANDOM 80.0 mg/dL (70-99); POTASSIUM,K 4.2 mmol/L (3.5-5.1); PROTEIN TOTAL,TP 6.4 g/dL (6.4-8.2); SODIUM,NA 143.0 mmol/L (136-145)
[2025-01-03 07:15] LABS: ESTIMATED GFR 48.0 mL/min (>=60)
[2025-01-13] MEDS: NALTREXONE 50 MG PO SCH (09:19)
[2025-01-23 06:22] LABS: BASOPHILS ABSOLUTE AUTO 0.0 x10^3/uL (0.0-0.2); BASOPHILS PERCENT AUTO 0.7 % (0.2-1.2); EOSINOPHILS ABSOLUTE AUTO 0.0 x10^3/uL (0.0-0.5); EOSINOPHILS PERCENT AUTO 0.0 % (0.0-4.0); IMMATURE GRAN ABSOLUTE AUTO 0.01 x10^3/uL (0.00-0.07); IMMATURE GRAN PERCENT AUTO 0.30 % (0.00-0.43); LYMPHOCYTES ABSOLUTE AUTO 1.0 x10^3/uL (1.0-4.8); LYMPHOCYTES PERCENT AUTO 33.0 % (25.0-50.0); MONOCYTES ABSOLUTE AUTO 0.4 x10^3/uL (0.0-0.8); MONOCYTES PERCENT AUTO 14.5 % (2.0-11.0); NEUTROPHILS ABSOLUTE AUTO 1.6 x10^3/uL (1.8-7.7); NEUTROPHILS PERCENT AUTO 51.5 % (50.0-80.0); PLATELET COUNT,PLT 120 x10^3/uL (130-400); RED BLOOD CELL COUNT 3.34 x10^6/uL (4.5-6.0); WHITE BLOOD CELL COUNT,WBC 3.0 x10^3/uL (4.0-10.0)
[2025-01-23 06:48] LABS: A/G RATIO 0.66; ALANINE AMINOTRANSFERASE,ALT 86.0 U/L (16-63); ASPARTATE AMNIOTRANSFERASE,AST 71.0 U/L (15-37); BILIRUBIN TOTAL 0.4 mg/dL (0.2-1.0); BLOOD UREA NITROGEN,BUN 56.0 mg/dL (7-18); CARBON DIOXIDE,CO2 24.0 mmol/L (21-32); CHLORIDE,CL 104.0 mmol/L (98-107); CREATININE 1.5 mg/dL (0.70-1.30); EST CRCL DRUG DOSING (CG) 61.08 mL/min; GLUCOSE RANDOM 78.0 mg/dL (70-99); POTASSIUM,K 3.7 mmol/L (3.5-5.1); PROTEIN TOTAL,TP 6.8 g/dL (6.4-8.2); SODIUM,NA 137.0 mmol/L (136-145)
[2025-01-23 06:53] LABS: ESTIMATED GFR 52.0 mL/min (>=60)
[2025-01-24] MEDS: OZEMPIC 0.25 MG SUBCUT SCH (09:21)
[2025-01-31 06:47] LABS: BASOPHILS ABSOLUTE AUTO 0.0 x10^3/uL (0.0-0.2); BASOPHILS PERCENT AUTO 0.7 % (0.2-1.2); EOSINOPHILS ABSOLUTE AUTO 0.0 x10^3/uL (0.0-0.5); EOSINOPHILS PERCENT AUTO 0.0 % (0.0-4.0); IMMATURE GRAN ABSOLUTE AUTO 0.01 x10^3/uL (0.00-0.07); IMMATURE GRAN PERCENT AUTO 0.40 % (0.00-0.43); LYMPHOCYTES ABSOLUTE AUTO 0.8 x10^3/uL (1.0-4.8); LYMPHOCYTES PERCENT AUTO 27.3 % (25.0-50.0); MONOCYTES ABSOLUTE AUTO 0.4 x10^3/uL (0.0-0.8); MONOCYTES PERCENT AUTO 13.5 % (2.0-11.0); NEUTROPHILS ABSOLUTE AUTO 1.6 x10^3/uL (1.8-7.7); NEUTROPHILS PERCENT AUTO 58.1 % (50.0-80.0); PLATELET COUNT,PLT 119 x10^3/uL (130-400); RED BLOOD CELL COUNT 3.33 x10^6/uL (4.5-6.0)
[2025-01-31 06:59] LABS: WHITE BLOOD CELL COUNT,WBC 2.8 x10^3/uL (4.0-10.0)
[2025-01-31 07:04] LABS: A/G RATIO 0.61; ALANINE AMINOTRANSFERASE,ALT 79.0 U/L (16-63); ASPARTATE AMNIOTRANSFERASE,AST 63.0 U/L (15-37); BILIRUBIN TOTAL 0.6 mg/dL (0.2-1.0); BLOOD UREA NITROGEN,BUN 36.0 mg/dL (7-18); CARBON DIOXIDE,CO2 26.0 mmol/L (21-32); CHLORIDE,CL 108.0 mmol/L (98-107); CREATININE 1.6 mg/dL (0.70-1.30); EST CRCL DRUG DOSING (CG) 57.26 mL/min; ESTIMATED GFR 48.0 mL/min (>=60); GLUCOSE RANDOM 82.0 mg/dL (70-99); POTASSIUM,K 3.6 mmol/L (3.5-5.1); PROTEIN TOTAL,TP 6.6 g/dL (6.4-8.2); SODIUM,NA 141.0 mmol/L (136-145)
[2025-02-02 09:31] VITALS: BP 112/81; PULSE 72
[2025-02-21] MEDS ORDERED: OZEMPIC 0.5 MG SUBCUT SCH (09:00)
== END 2025-02-02 10:30 | disposition home health service (06) | DRG 540 ==
LOC: VM.MS 14:59
PROVIDERS: ADMIT Internal Medicine; ATTEND Internal Medicine
PROC: 0HDMXZZ Extraction of Right Foot Skin, External Approach (ICD-10-PCS; principal; 2024-11-24)
DX: M86.9 Osteomyelitis, unspecified (principal); D61.818 Other pancytopenia; K51.90 Ulcerative colitis, unspecified, without complications; Z68.41 Body mass index [BMI] 40.0-44.9, adult; N39.0 Urinary tract infection, site not specified; T81.31XA Disruption of external operation (surgical) wound, not elsewhere classified, initial encounter; Z66 Do not resuscitate; G62.9 Polyneuropathy, unspecified; R74.01 Elevation of levels of liver transaminase levels; E53.8 Deficiency of other specified B group vitamins; F17.210 Nicotine dependence, cigarettes, uncomplicated; I12.9 Hypertensive chronic kidney disease with stage 1 through stage 4 chronic kidney disease, or unspecified chronic kidney disease; I48.0 Paroxysmal atrial fibrillation; M1A.9XX0 Chronic gout, unspecified, without tophus (tophi); F10.10 Alcohol abuse, uncomplicated; N18.30 Chronic kidney disease, stage 3 unspecified; G25.81 Restless legs syndrome; F41.9 Anxiety disorder, unspecified; F32.A Depression, unspecified; E66.9 Obesity, unspecified; Z98.890 Other specified postprocedural states; Z79.899 Other long term (current) drug therapy; Z79.01 Long term (current) use of anticoagulants; Z86.718 Personal history of other venous thrombosis and embolism; Z89.421 Acquired absence of other right toe(s)
CPT/HCPCS: 36415; 51798; 80053; 81001; 82607; 82977; 85025; 85652; 86140; 87086; 87088; 87186; 87493; 97110-GO; 97110-GP; 97116-GP; 97161-GP; 97165-GO; 97168-GO; 97530-GO; 97530-GP; 97535-GO; A9270-GY; J3420